=== PATIENT | female | born 1945 | race Caucasian/White ===

== ENCOUNTER → 2017-02-09 | Outpatient (CLI) | payer OTHER ==
[~2017-02-09] MED LIST: ALL300 PO; SERT50TA PO; TRAM-453 PO
[2017-02-09 16:48] LABS: BASO % 0.2 %; BASO ABS # 0.02 K/uL (0-0.2); COMPLETE YES; EOS % 2.2 %; HEMATOCRIT 43.3 % (37-47); IG% 0.4 %; LYMPH % 13.6 %; LYMPH ABS # 1.23 K/uL (1.2-3.4); MEAN CELL VOLUME 88.9 fL (80-100); MEAN CORPUSCULAR HGB CONC 32.6 g/dl (32-36); MEAN PLATELET VOLUME 9.2 fL (7.4-10.4); MONO % 5.4 %; NEUT % 78.2 %; PLATELET COUNT 171 K/uL (130-400); RED BLOOD COUNT 4.87 M/uL (4.2-5.4); WHITE BLOOD COUNT 9.06 K/uL (4.8-10.8)
[2017-02-09 16:56] LABS: ALT/SGPT 18 U/L (12-78); BLOOD UREA NITROGEN 14 mg/dl (7-18); BUN/CREATININE RATIO 16.6 (10-20); CALCIUM 9.7 mg/dl (8.5-10.1); CARBON DIOXIDE 27 mmol/L (21-32); CHLORIDE 104 mmol/L (98-107); CHOLESTEROL 277 mg/dl (0-200); CREATININE 0.85 mg/dl (0.60-1.20); GLUCOSE 117 mg/dl (70-99); POTASSIUM 4.1 mmol/L (3.5-5.1); SODIUM 139 mmol/L (136-145); TRIGLYCERIDES 199 mg/dl (0-150); VERY LOW DENSITY LIPOPROT CALC 40 mg/dl
[2017-02-09 17:07] LABS: ALB/GLOB RATIO 1.1 (0.9-2); ALKALINE PHOSPHATASE 199 U/L (45-117); AST/SGOT 13 U/L (15-37); CHOLESTEROL/HDL RATIO 7.7; HDL CHOLESTEROL 36 mg/dl; LDL CHOLESTEROL CALCULATED 201 mg/dl
== END | disposition home or self-care (01) ==
LOC: C.LABBC 13:52
PROVIDERS: ATTEND Physician Assistant Medical
DX: Z00.00 Encounter for general adult medical examination without abnormal findings (principal); E03.9 Hypothyroidism, unspecified; R42 Dizziness and giddiness; C50.919 Malignant neoplasm of unspecified site of unspecified female breast; M10.9 Gout, unspecified

== ENCOUNTER → 2017-02-11 | Outpatient (CLI) | payer OTHER ==
[~2017-02-11] MED LIST changes: +GADAVIST IV PRN
--- NOTE | 2017-02-11 20:38 | DIAGNOSTIC IMAGING REPORT ---
Brain MRI WITH AND WITHOUT CONTRAST HISTORY: R42 [id number] Breast [id number] TECHNIQUE: Multiplanar multisequence MRI of the brain was performed both before and after the intravenous administration of contrast. COMPARISON STUDY: None. FINDINGS: There is no mass, hematoma, midline shift, or acute infarct. The paranasal sinuses are clear. The mastoid air cells are clear. The ventricles and sulci demonstrate mild age-related involutional changes. Scattered foci of T2 hyperintensity seen within the periventricular and subcortical white matter are nonspecific but suggestive of mild microvascular ischemic changes. The major vascular flow voids at the skull base are well-maintained. IMPRESSION: No acute intracranial abnormality. Scattered foci of T2 hyperintensity seen within the periventricular and subcortical white matter are nonspecific but favor microvascular ischemic change. Electronically signed by: El Grubbs M.D. 02/11/2017 8:37 PM Dictated Date/Time: 02/11/2017 8:32 PM
== END | disposition home or self-care (01) ==
LOC: C.MRI 18:25
PROVIDERS: ATTEND Physician Assistant Medical
DX: C50.919 Malignant neoplasm of unspecified site of unspecified female breast (principal); R42 Dizziness and giddiness

== ENCOUNTER 2023-10-25 12:10 | Inpatient (IN) ==
--- NOTE | 2023-10-25 12:36 | Emergency Department Note ---
Impression & Plan Sepsis, Elevated troponin, Pneumonia ED Provider Note NAME: YOLANDA STOUT AGE: 78 SEX: F : 1945 ARRIVES VIA: Walk-In INFORMANT: Patient ED PROVIDER(S): Giovani Turner DO CHIEF COMPLAINT: weak HPI: Patient is a 78-year-old female with a past medical history of hyperlipidemia, diabetes, hypothyroidism who presents to the ER for not feeling well. She notes symptoms started about 2 to 3 days ago with cough, runny nose and fevers. She notes she has been having shaking chills at home. She admits to shortness of breath for the past 2 days. Chest muscle soreness throughout her entire chest which has been present for the past 2 days. Admits to diarrhea. No belly pain. No dysuria, urgency, or frequency. She was seen by her PCP and they are confirmed that she may have A-fib and she was sent in here. ADDITIONAL HISTORY OBTAINED: Per HPI Chronic Medical/Social Conditions Affecting Care: Per HPI PAST MEDICAL HISTORY:See Below PAST SURGICAL HISTORY:See Below FAMILY HISTORY:See Below SOCIAL HISTORY:See Below HOME MEDICATIONS:See Below ALLERGIES:See Below VITALS:See Below PHYSICAL EXAMINATION: GENERAL: Sitting up in bed, alert, disheveled, slightly ill-appearing EYE EXAM: normal conjunctiva. PERRL and EOM's grossly intact. OROPHARYNX: no exudate, no erythema, lips, buccal mucosa, and tongue normal and mucous membranes are moist NECK: supple, no nuchal rigidity, no adenopathy, non-tender LUNGS: Clear to auscultation. Normal chest wall mechanics HEART: Tachycardic, S1 normal and S2 normal ABDOMEN: abdomen soft, non-tender, normo-active bowel sounds, no masses, no rebound or guarding. UPPER EXTREMITIES: upper extremities are grossly normal. LOWER EXTREMITIES: No pitting edema. NEURO EXAM: Normal sensorium, cranial nerves II-XII grossly intact, normal speech, no gross weakness of arms, no gross weakness of legs. MEDICAL DECISION MAKING: Patient is a 78-year-old female who presents ER with above-stated complaint. IV was established blood work was obtained. Patient was found to be tachycardic at 106. Labs show no significant leukocytosis or anemia. BMP with slightly elevated glucose at 146. LFTs bilirubin was unremarkable. Troponin was mildly elevated at 48. Lipase was normal. TSH unremarkable. UA was clean. Viral panel was negative. Chest x-ray suggested pneumonia. Patient was given IV Levaquin due to allergies. She was given IV fluids. She is updated bedside. Discussed case with the hospitalist for further evaluation management treatment due to shaking chills and pneumonia Consults/Care Managements Discussions: Per [facility] Triage Nursing notes reviewed. Limited review of prior medical records performed Vital Signs: reviewed and remarkable for tachy and htn Differential diagnosis: Differential diagnosis includes etiologies such as sepsis, UTI, pneumonia, metabolic, electrolyte abnormalities, cardiac sources, intracerebral event, toxicologic, neurological, as well as others were entertained. ER treatment provided: See below Diagnostics interpreted by me include EKG and cardiac monitoring as listed below: -Cardiac Monitoring: An order was placed for continuous cardiac monitoring. The monitor shows a rate of 110 with sinus rhythm. -ECG: Sinus tachycardia rate of 104 Left axis Left bundle branch block QTc 529 -Laboratory studies:Interpreted by me as stated above in MDM and shown below. Imaging studies: Xrays: As interpreted by me: Portable AP upright 1 view of the chest shows questionable right upper lobe infiltrate CTs show: CT of the chest suggest bilateral infiltrate Procedures:none Critical Care: None Past Med/Surg History Problem List (Updated 10/25/23 @ 18:15 by Giovani Turner DO) Pneumonia (Acute) Elevated troponin (Acute) Sepsis (Acute) Multifocal pneumonia Elevated troponin LBBB (left bundle branch block) Chest pain HO (dyspnea on exertion) Osteoarthritis of left hip Degenerative spondylolisthesis Positive RICKY (antinuclear antibody) Osteoarthritis, hip, bilateral Right leg weakness Dysphagia Dry mouth Left hip pain BMI 38.0-38.9,adult Chronic right hip pain Osteoarthritis of right hip Elevated alkaline phosphatase level Neuropathy Diabetes mellitus, type II Elevated HbA1c 7.2% (2). Advised to initiated metformin and has focused on diet and exercise Hyperlipidemia (Acute) Hypothyroidism Gout hx gouty attack. Managed with allopurinol + colchicine BID PRN for acute attack. Incontinence in female Chronic low back pain Mood disorder Medical History (Updated 10/25/23 @ 18:15 by Giovani Turner DO) Sensorineural hearing loss (SNHL) of both ears C. difficile colitis Breast cancer Hx recurrent R breast cancer s/p R simple mastectomy and limited R axillary lymph node dissection. Being followed by [facility] and Dr. Leeming Pancreatitis Surgical History History of hysterectomy (~2012) H/O colonoscopy nml 03/2015 No additional screening History of appendectomy Hx of cholecystectomy H/O breast surgery Family History Father Gastric cancer Lung cancer Mother Laryngeal cancer Brother Rheumatic fever Colon cancer Colorectal cancer Unknown Cardiomyopathy Denies family history of Ovarian cancer Prostate cancer Diabetes Myocardial infarction Breast cancer Stroke Social History Smoking Status: Unknown if ever smoked packs per day: 2; Second Hand Exposure: No; Do You Dip or Chew Tobacco: No; Hx Alcohol Use: No Hx Substance Use: No Preferred Language: Indonesian Communication Ability: Effective Visual Impairment: Limited Hearing Ability: Normal 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 marital status: Current Living Situation: Spouse current occupational status: retired How many Children do You have: 1 Feels Safe at Home: Yes Childhood Exposure to Second-Hand Smoke: Yes caffeine: Yes Dental Care, Regularly: Yes Physical Activity Frequency: 3-4 Times per Week Seatbelt Use: always Sunscreen Use: Yes Assistive Devices: Glasses Allergies Allergies Allergy/AdvReac Type Severity Reaction Status Date / Time tetanus toxoid, adsorbed Allergy Severe ARM SWELLS Verified 10/25/23 11:03 calamine Allergy Unknown IRRITATION Verified 10/25/23 16:23 cephalexin Allergy Unknown RASH Verified 10/25/23 11:03 simvastatin Allergy Unknown Rhabdo Verified 10/25/23 11:03 tetracycline Allergy Unknown rash Verified 10/25/23 11:03 Home Meds Home Medications Medication Instructions Recorded Confirmed multivitamin (Multiple Vitamins 1 tab PO DAILY 03/10/19 10/25/23 tablet) melatonin 10 mg capsule 10 mg PO HS PRN Sleep 12/16/22 10/25/23 coenzyme Q10 100 mg capsule 100 mg PO DAILY 09/01/23 10/25/23 (CoQ-10) aspirin 81 mg tablet,delayed 81 mg PO DAILY 10/25/23 10/25/23 release Previous Rx's Medication Instructions Recorded allopurinol 100 mg tablet 150 mg (1.5 x 100 mg) PO DAILY 05/10/23 #135 tabs colchicine 0.6 mg tablet 0.6 mg PO BID PRN gout #30 tabs 05/20/23 sucralfate 1 gram tablet (Carafate) 1 g PO BID PRN heartburn #60 tabs 09/01/23 levothyroxine 100 mcg tablet 100 mcg PO DAILY #90 tabs 09/02/23 hydrocodone 5 mg-acetaminophen 325 1 tab PO DAILY PRN pain #30 tabs 09/26/23 mg tablet sertraline 50 mg tablet 50 mg PO DAILY #90 tabs 10/17/23 Results & Data (ED) Vital Signs Vital Signs - 24 hr 10/25/23 12:13 10/25/23 12:22 10/25/23 12:26 Temperature 37.2 C Temperature Source Oral Pulse Rate 116 H 116 H Pulse Rate [Apical] Pulse Rate from SpO2 Sensor Pulse Rhythm Regular Pulse Rhythm [Apical] Pulse Strength [Apical] Respiratory Rate 26 H 20 Respiratory Effort / Characteristics Non-Labored Spontaneous Respiratory Depth Normal Respiratory Pattern Blood Pressure 142/67 H Blood Pressure Mean 92 Pulse Oximetry 92 95 95 Oxygen Delivery Method Room Air Room Air Room Air Sepsis Recent Fever Within 48 Hours No Sepsis New/Unexplained Change in Mental Status No Sepsis Action Taken by Nursing No Action Required 10/25/23 12:26 10/25/23 12:32 10/25/23 12:43 Temperature Temperature Source Pulse Rate 113 H 115 H Pulse Rate [Apical] 116 H Pulse Rate from SpO2 Sensor 114 H Pulse Rhythm Pulse Rhythm [Apical] Regular Pulse Strength [Apical] Normal Respiratory Rate 20 23 Respiratory Effort / Characteristics Non-Labored Spontaneous Respiratory Depth Normal Respiratory Pattern Regular Blood Pressure Blood Pressure Mean Pulse Oximetry 95 94 Oxygen Delivery Method Room Air Sepsis Recent Fever Within 48 Hours Sepsis New/Unexplained Change in Mental Status Sepsis Action Taken by Nursing 10/25/23 13:00 10/25/23 13:10 10/25/23 13:10 Temperature Temperature Source Pulse Rate 107 H 107 H Pulse Rate [Apical] Pulse Rate from SpO2 Sensor 107 H 107 H Pulse Rhythm Pulse Rhythm [Apical] Pulse Strength [Apical] Respiratory Rate 17 21 Respiratory Effort / Characteristics Respiratory Depth Respiratory Pattern Blood Pressure 126/84 Blood Pressure Mean 99 Pulse Oximetry 96 94 Oxygen Delivery Method Sepsis Recent Fever Within 48 Hours Sepsis New/Unexplained Change in Mental Status Sepsis Action Taken by Nursing 10/25/23 13:30 10/25/23 13:30 10/25/23 14:00 Temperature Temperature Source Pulse Rate 101 H Pulse Rate [Apical] Pulse Rate from SpO2 Sensor 103 H Pulse Rhythm Pulse Rhythm [Apical] Pulse Strength [Apical] Respiratory Rate 14 Respiratory Effort / Characteristics Respiratory Depth Respiratory Pattern Blood Pressure 116/80 134/80 Blood Pressure Mean 84 98 Pulse Oximetry 88 L Oxygen Delivery Method Sepsis Recent Fever Within 48 Hours Sepsis New/Unexplained Change in Mental Status Sepsis Action Taken by Nursing 10/25/23 14:00 10/25/23 14:30 10/25/23 14:30 Temperature Temperature Source Pulse Rate 97 H 101 H Pulse Rate [Apical] Pulse Rate from SpO2 Sensor 98 H 101 H Pulse Rhythm Pulse Rhythm [Apical] Pulse Strength [Apical] Respiratory Rate 20 19 Respiratory Effort / Characteristics Respiratory Depth Respiratory Pattern Blood Pressure 122/90 Blood Pressure Mean 100 Pulse Oximetry 94 96 Oxygen Delivery Method Sepsis Recent Fever Within 48 Hours Sepsis New/Unexplained Change in Mental Status Sepsis Action Taken by Nursing 10/25/23 15:01 10/25/23 15:32 10/25/23 16:00 Temperature Temperature Source Pulse Rate 124 H 116 H 104 H Pulse Rate [Apical] Pulse Rate from SpO2 Sensor 114 H 103 H Pulse Rhythm Pulse Rhythm [Apical] Pulse Strength [Apical] Respiratory Rate 20 19 15 Respiratory Effort / Characteristics Respiratory Depth Respiratory Pattern Blood Pressure 153/103 H 149/98 H Blood Pressure Mean 132 115 Pulse Oximetry 96 97 96 Oxygen Delivery Method Sepsis Recent Fever Within 48 Hours Sepsis New/Unexplained Change in Mental Status Sepsis Action Taken by Nursing 10/25/23 16:55 10/25/23 17:00 Temperature 37.0 C Temperature Source Oral Pulse Rate 106 H Pulse Rate [Apical] Pulse Rate from SpO2 Sensor 107 H Pulse Rhythm Pulse Rhythm [Apical] Pulse Strength [Apical] Respiratory Rate 20 Respiratory Effort / Characteristics Respiratory Depth Respiratory Pattern Blood Pressure Blood Pressure Mean Pulse Oximetry 98 Oxygen Delivery Method Sepsis Recent Fever Within 48 Hours Sepsis New/Unexplained Change in Mental Status Sepsis Action Taken by Nursing Laboratory Data 10/25/23 12:35 10/25/23 12:35 Lab Results 10/25/23 10/25/23 10/25/23 Range/Units 12:35 13:02 14:25 WBC 8.68 (4.8-10.8) K/ul RBC 4.61 (4.20-5.40) M/uL Hgb 13.8 (12.0-16.0) g/dl Hct 41.7 (37.0-47.0) % MCV 90.5 (80.0-100.0) fL MCH 29.9 (25.0-34.0) pg MCHC 33.1 (32.0-36.0) g/dL RDW Std Deviation 45.7 (36.4-46.3) fL RDW Coeff of Brayden 13.7 (11.5-14.5) % Plt Count 151 (130-400) K/uL MPV 9.6 (9.4-12.4) fL Immature Gran % (Auto) 0.6 % Neut % (Auto) 81.8 % Lymph % (Auto) 8.2 % Daw[place] % (Auto) 6.3 % Eos % (Auto) 2.8 % Baso % (Auto) 0.3 % Neut # (Auto) 7.10 H (1.40-6.50) K/uL Lymph # (Auto) 0.71 L (1.20-3.40) K/uL Daw[place] # (Auto) 0.55 (0.11-0.59) K/uL Eos # (Auto) 0.24 (0.00-0.50) K/uL Baso # (Auto) 0.03 (0.00-0.20) K/uL Immature Gran # (Auto) 0.05 (0.01-0.20) K/uL Sodium 136 (136-145) mmol/L Potassium 4.1 (3.5-5.1) mmol/L Chloride 102 (98-107) mmol/L Carbon Dioxide 23 (21-32) mmol/L Anion Gap 11 (3-11) BUN 14 (6-23) mg/dl Creatinine 1.06 (0.6-1.2) mg/dl Est Cr Clr Drug Dosing 49.1 ml/min Est GFR ( Amer) 58.2 ml/min Est GFR (Non-Af Amer) 50.3 ml/min BUN/Creatinine Ratio 13.2 (10-20) Glucose 146 H (70-99(Fasting)) mg/dl POC Glucose (70-99) mg/dl Lactate 2.0 (0.4-2.0) mmol/L Calcium 9.6 (8.6-10.3) mg/dl Magnesium 1.9 (1.7-2.4) mg/dl Total Bilirubin 1.0 (0.2-1.0) mg/dl AST 19 (13-39) U/L ALT 24 (7-52) U/L Alkaline Phosphatase 188 H (34-104) U/L Troponin I High Sens 47.5 H 48.1 H (0-14) pg/ml B-Natriuretic Peptide 705 H (0-100) pg/ml Total Protein 7.2 (6.0-8.3) gm/dl Albumin 4.0 (3.4-5.0) gm/dl Globulin 3.2 (2.5-4.0) gm/dl Albumin/Globulin Ratio 1.3 (0.9-2) Lipase 19 (11-82) U/L Procalcitonin 0.14 (0-0.5) ng/ml TSH 1.285 (0.300-4.500) uIu/ml Urine Color Urine Appearance (Clear) Urine pH (4.5-7.5) Ur Specific [place] (1.000-1.030) Urine Protein (Negative) Urine Glucose (UA) (Negative) Urine Ketones (Negative) Urine Blood (Negative) Urine Nitrite (Negative) Urine Bilirubin (Negative) Urine Urobilinogen (Negative) Ur Leukocyte Esterase (Negative) Urine WBC (Auto) (0-5) /hpf Urine RBC (Auto) (0-2) /hpf U Hyaline Cast (Auto) (0-2) /lpf U Epithel Cells (Auto) (0-2) /hpf Urine Bacteria (Auto) (None Seen) Adenovirus (PCR) Not Detected (NotDetected) B. pertussis DNA (PCR) Not Detected (NotDetected) B.parapertussis DNA PCR Not Detected (NotDetected) C. pneumoniae DNA (PCR) Not Detected (NotDetected) Coronavirus OC43 (PCR) Not Detected (NotDetected) Coronavirus HKU1 (PCR) Not Detected (NotDetected) Coronavirus 229E (PCR) Not Detected (NotDetected) SARS-CoV-2 (PCR) Not Detected (NotDetected) Coronavirus NL63 (PCR) Not Detected (NotDetected) Human Metapneumovir PCR Not Detected (NotDetected) Influenza Type A (PCR) Not Detected (NotDetected) Influenza Type B (PCR) Not Detected (NotDetected) M. pneumoniae (PCR) Not Detected (NotDetected) Parainfluenza 1 (PCR) Not Detected (NotDetected) Parainfluenza 2 (PCR) Not Detected (NotDetected) Parainfluenza 3 (PCR) Not Detected (NotDetected) Parainfluenza 4 (PCR) Not Detected (NotDetected) RSV (PCR) Not Detected (NotDetected) Entero/Rhino (PCR) Not Detected (NotDetected) 10/25/23 10/25/23 Range/Units 17:42 Unknown WBC (4.8-10.8) K/ul RBC (4.20-5.40) M/uL Hgb (12.0-16.0) g/dl Hct (37.0-47.0) % MCV (80.0-100.0) fL MCH (25.0-34.0) pg MCHC (32.0-36.0) g/dL RDW Std Deviation (36.4-46.3) fL RDW Coeff of Brayden (11.5-14.5) % Plt Count (130-400) K/uL MPV (9.4-12.4) fL Immature Gran % (Auto) % Neut % (Auto) % Lymph % (Auto) % Dawes % (Auto) % Eos % (Auto) % Baso % (Auto) % Neut # (Auto) (1.40-6.50) K/uL Lymph # (Auto) (1.20-3.40) K/uL [place] # (Auto) (0.11-0.59) K/uL Eos # (Auto) (0.00-0.50) K/uL Baso # (Auto) (0.00-0.20) K/uL Immature Gran # (Auto) (0.01-0.20) K/uL Sodium (136-145) mmol/L Potassium (3.5-5.1) mmol/L Chloride (98-107) mmol/L Carbon Dioxide (21-32) mmol/L Anion Gap (3-11) BUN (6-23) mg/dl Creatinine (0.6-1.2) mg/dl Est Cr Clr Drug Dosing ml/min Est GFR ( Amer) ml/min Est GFR (Non-Af Amer) ml/min BUN/Creatinine Ratio (10-20) Glucose (70-99(Fasting)) mg/dl POC Glucose 126 H (70-99) mg/dl Lactate (0.4-2.0) mmol/L Calcium (8.6-10.3) mg/dl Magnesium (1.7-2.4) mg/dl Total Bilirubin (0.2-1.0) mg/dl AST (13-39) U/L ALT (7-52) U/L Alkaline Phosphatase (34-104) U/L Troponin I High Sens (0-14) pg/ml B-Natriuretic Peptide (0-100) pg/ml Total Protein (6.0-8.3) gm/dl Albumin (3.4-5.0) gm/dl Globulin (2.5-4.0) gm/dl Albumin/Globulin Ratio (0.9-2) Lipase (11-82) U/L Procalcitonin (0-0.5) ng/ml TSH (0.300-4.500) uIu/ml Urine Color Dark Yellow Urine Appearance Clear (Clear) Urine pH 5.5 (4.5-7.5) Ur Specific [place] 1.016 (1.000-1.030) Urine Protein Negative (Negative) Urine Glucose (UA) Negative (Negative) Urine Ketones Trace H (Negative) Urine Blood Negative (Negative) Urine Nitrite Negative (Negative) Urine Bilirubin Negative (Negative) Urine Urobilinogen Negative (Negative) Ur Leukocyte Esterase Trace H (Negative) Urine WBC (Auto) 0-5 (0-5) /hpf Urine RBC (Auto) 0-2 (0-2) /hpf U Hyaline Cast (Auto) 0-2 (0-2) /lpf U Epithel Cells (Auto) 0-2 (0-2) /hpf Urine Bacteria (Auto) None Seen (None Seen) Adenovirus (PCR) (NotDetected) B. pertussis DNA (PCR) (NotDetected) B.parapertussis DNA PCR (NotDetected) C. pneumoniae DNA (PCR) (NotDetected) Coronavirus OC43 (PCR) (NotDetected) Coronavirus HKU1 (PCR) (NotDetected) Coronavirus 229E (PCR) (NotDetected) SARS-CoV-2 (PCR) (NotDetected) Coronavirus NL63 (PCR) (NotDetected) Human Metapneumovir PCR (NotDetected) Influenza Type A (PCR) (NotDetected) Influenza Type B (PCR) (NotDetected) M. pneumoniae (PCR) (NotDetected) Parainfluenza 1 (PCR) (NotDetected) Parainfluenza 2 (PCR) (NotDetected) Parainfluenza 3 (PCR) (NotDetected) Parainfluenza 4 (PCR) (NotDetected) RSV (PCR) (NotDetected) Entero/Rhino (PCR) (NotDetected) Administered Medications Discontinued Medications Sodium Chloride (Nss) 1,000 mls @ 999 mls/hr IV .Q1H1M RALPH Stop: 10/25/23 14:45 Last Admin: 10/25/23 16:46 Dose: 999 mls/hr Documented By: Infusion: 10/25/23 15:42 Dose: Infused Documented By: Admin: 10/25/23 14:41 Dose: 999 mls/hr Documented By: ANNMARIE Levofloxacin/Dextrose (Levaquin/D5w) 750 mg in 150 mls @ 100 mls/hr IV NOW STA Stop: 10/25/23 16:16 Last Infusion: 10/25/23 16:47 Dose: Infused Documented By: Admin: 10/25/23 15:06 Dose: 100 mls/hr Documented By: ANNMARIE Imaging Data Radiologist's Impression: Chest X-Ray 10/25/23 12:22 XR chest 1V portable CLINICAL HISTORY: Chest pain, nonspecific COMPARISON STUDY: Chest radiograph May 11, 2018. FINDINGS: Lung volumes are normal. Apparent right suprahilar density is present. There is no pneumothorax or pleural effusion. Cardiac size is normal. Mediastinal contours are normal. There is no evidence for pulmonary edema. IMPRESSION: Right suprahilar density. This likely reflects summation artifact. However, a focus of pneumonia or a pulmonary lesion could appear similar. A chest CT is recommended. ACT 112: Positive. There are findings on this exam that require communication between the performing entity and the patient following Patient Test Result Information Act ([place] Act 112) guidelines. Electronically signed by: Facundo Donahue M.D. 10/25/2023 1:[address] 10/25/23 14:48 CT SCAN OF THE CHEST WITHOUT IV CONTRAST CLINICAL HISTORY: Atypical chest pain. Dyspnea COMPARISON STUDY: Chest x-ray dated 10/25/2023. TECHNIQUE: CT scan of the thorax was performed from the thoracic inlet to the upper abdomen. Images are reviewed in the axial, sagittal, and coronal planes. IV contrast was not administered for this examination as per the referring clinician. A dose lowering technique was utilized adhering to the principles of ALARA. CT DOSE: 628.51 mGy.cm FINDINGS: Thyroid: Imaged portions of the thyroid gland are normal in size and attenuation. Thoracic aorta: There is atherosclerotic calcification of the thoracic aorta, which is normal in caliber and demonstrates bovine variant arch anatomy. Heart: The heart is enlarged noting trace pericardial effusion. The coronary arteries are densely calcified. Lungs and pleural spaces: Mild patchy airspace consolidation is seen throughout both lungs, greatest in the right upper and right lower lobes. The trachea and central airways are clear. There is trace left pleural effusion. There are scattered calcified granulomas. Mediastinum: There is no mediastinal lymphadenopathy. June: Not well assessed without IV contrast. Axillae: There is no axillary lymphadenopathy. Upper abdomen: Cholecystectomy clips are noted. There is a small hiatal hernia. Skeletal structures: The skeletal structures are osteopenic. Degenerative change is noted in the shoulders and spine. No lytic or blastic bony lesions are seen. Soft tissues: There is postsurgical change from right mastectomy. IMPRESSION: 1. Multifocal patchy groundglass consolidation is seen throughout both lungs as above. This is typical for pneumonia. A follow-up chest CT in 3-4 months time is recommended to document complete resolution and to reevaluate the underlying lung parenchyma. 2. Trace left pleural effusion. 3. Cardiomegaly and advanced coronary artery atherosclerosis. 4. Additional findings as above. ACT 112: Negative or not required by law. Electronically signed by: Vaibhav Stroud M.D. 10/25/2023 4:03 PM Discharge Plan Visit Data Chief Complaint: Cardiac Assessment Stated Complaint: POSSIBLE HEART ATTACK ED Provider: Giovani Turner Discharge Problem: Sepsis, Elevated troponin, Pneumonia Forms Stand Alone Forms: My [facility] Prescriptions Prescriptions: No Action allopurinol 100 mg tablet 150 mg PO DAILY Qty: 135 3RF colchicine 0.6 mg tablet 0.6 mg PO BID PRN (Reason: gout) Qty: 30 1RF levothyroxine 100 mcg tablet 100 mcg PO DAILY Qty: 90 0RF sertraline 50 mg tablet 50 mg PO DAILY Qty: 90 3RF multivitamin [Multiple Vitamins] tablet 1 tab PO DAILY melatonin 10 mg capsule 10 mg PO HS PRN (Reason: Sleep) coenzyme Q10 [CoQ-10] 100 mg capsule 100 mg PO DAILY sucralfate [Carafate] 1 gram tablet 1 g PO BID PRN (Reason: heartburn) Qty: 60 0RF hydrocodone-acetaminophen 5-325 mg tablet 1 tab PO DAILY PRN (Reason: pain) Qty: 30 0RF aspirin [Aspirin Low-Strength] 81 mg Tablet,Delayed Release (Dr/Ec) 81 mg PO DAILY Referrals Referrals: Dean Dhillon DO [Primary Care Provider] - Discharge Problem: Sepsis Qualifiers: Sepsis type: sepsis due to unspecified organism Sepsis acute organ dysfunction status: unspecified Qualified Code(s): A41.9 - Sepsis, unspecified organism Pneumonia Qualifiers: Pneumonia type: due to unspecified organism Laterality: unspecified laterality Lung location: unspecified part of lung Qualified Code(s): J18.9 - Pneumonia, unspecified organism
[2023-10-25 13:05] LABS: Basophils # (auto) 0.03 K/uL (0.00-0.20); Basophils % (auto) 0.3 %; Eosinophils # (auto) 0.24 K/uL (0.00-0.50); Eosinophils % (auto) 2.8 %; Hematocrit (blood only) 41.7 % (37.0-47.0); Hemoglobin 13.8 g/dl (12.0-16.0); Immature Granulocytes # (auto) 0.05 K/uL (0.01-0.20); Immature Granulocytes % (auto) 0.6 %; Lymphocytes # (auto) 0.71 K/uL (1.20-3.40); Lymphocytes % (auto) 8.2 %; Mean Corpuscular Hemoglobin 29.9 pg (25.0-34.0); Mean Corpuscular Hgb Conc 33.1 g/dL (32.0-36.0); Mean Corpuscular Volume 90.5 fL (80.0-100.0); Mean Platelet Volume 9.6 fL (9.4-12.4); Monocytes # (auto) 0.55 K/uL (0.11-0.59); Monocytes % (auto) 6.3 %; Neutrophils % (auto) 81.8 %; Platelet Count 151 K/uL (130-400); RDW Coefficient of Variation 13.7 % (11.5-14.5); RDW Standard Deviation 45.7 fL (36.4-46.3); Red Blood Count 4.61 M/uL (4.20-5.40); White Blood Count 8.68 K/ul (4.8-10.8)
[2023-10-25 13:20] LABS: Albumin Globulin Ratio 1.3 (0.9-2); BUN Creatinine Ratio 13.2 (10-20); Calcium 9.6 mg/dl (8.6-10.3); Creatinine Clr Calc Pharmacy 49.1 ml/min; Est GFR (African American) 58.2 ml/min; Est GFR (Non-African American) 50.3 ml/min; Globulin 3.2 gm/dl (2.5-4.0); Potassium 4.1 mmol/L (3.5-5.1); Total Protein 7.2 gm/dl (6.0-8.3)
[2023-10-25 13:26] LABS: Troponin I High Sensitivity 47.5 pg/ml (0-14)
--- NOTE | 2023-10-25 13:42 | XRay Report ---
XR chest 1V portable CLINICAL HISTORY: Chest pain, nonspecific COMPARISON STUDY: Chest radiograph May 11, 2018. FINDINGS: Lung volumes are normal. Apparent right suprahilar density is present. There is no pneumoth orax or pleural effusion. Cardiac size is normal. Mediastinal contours are normal. There is no eviden ce for pulmonary edema. IMPRESSION: Right suprahilar density. This likely reflects summation artifact. However, a focus of pneumonia or a pulmonary lesion could appear similar. A chest CT is recommended. ACT 112: Positive. There are findings on this exam that require communication between the performing entity and the patient following Patient Test Result Information Act ([place] Act 112) guidelines. Electronically signed by: Facundo Donahue M.D. 10/25/2023 1:41 PM
[2023-10-25] MEDS: SODIUM CHLORIDE 0.9% 1,000 ML IV SCH (14:41)
[2023-10-25] MEDS: levoFLOXacin/D5W 750 MG/150 ML BAG IV STA (15:06)
[2023-10-25 15:40] LABS: Appearance Urine Clear (Clear); Bacteria Urine Automated None Seen (None Seen); Bilirubin Urine Negative (Negative); Blood Urine Negative (Negative); Cast Urine Automated 0-2 /lpf (0-2); Color Urine Dark Yellow; Epithelial Cell Urine Auto 0-2 /hpf (0-2); Glucose Urine UA Negative (Negative); Ketones Urine Trace (Negative); Leukocyte Esterase Urine Trace (Negative); Nitrite Urine Negative (Negative); Protein Urine Negative (Negative); RBC Urine Automated 0-2 /hpf (0-2); Specific Gravity Urine 1.016 (1.000-1.030); Urobilinogen Urine Negative (Negative); WBC Urine Automated 0-5 /hpf (0-5); pH Urine 5.5 (4.5-7.5)
[2023-10-25 15:47] LABS: Troponin I High Sensitivity 48.1 pg/ml (0-14)
[2023-10-25 15:53] LABS: Adenovirus PCR Not Detected (NotDetected); Bordetella parapertussis PCR Not Detected (NotDetected); Bordetella pertussis PCR Not Detected (NotDetected); Chlamydia pneumoniae PCR Not Detected (NotDetected); Coronavirus 229E PCR Not Detected (NotDetected); Coronavirus CoV-2 (COVID19)PCR Not Detected (NotDetected); Coronavirus HKU1 PCR Not Detected (NotDetected); Coronavirus NL63 PCR Not Detected (NotDetected); Coronavirus OC43PCR Not Detected (NotDetected); Human Metapneumovirus PCR Not Detected (NotDetected); Influenza A PCR Not Detected (NotDetected); Influenza B PCR Not Detected (NotDetected); Mycoplasma pneumoniae PCR Not Detected (NotDetected); Parainfluenza Virus 1 PCR Not Detected (NotDetected); Parainfluenza Virus 2 PCR Not Detected (NotDetected); Parainfluenza Virus 3 PCR Not Detected (NotDetected); Parainfluenza Virus 4 PCR Not Detected (NotDetected); Respiratory Syncytial VirusPCR Not Detected (NotDetected); Rhinovirus/Enterovirus PCR Not Detected (NotDetected)
--- NOTE | 2023-10-25 16:04 | CT Scan Report ---
CT SCAN OF THE CHEST WITHOUT IV CONTRAST CLINICAL HISTORY: Atypical chest pain. Dyspnea COMPARISON STUDY: Chest x-ray dated 10/25/2023. TECHNIQUE: CT scan of the thorax was performed from the thoracic inlet to the upper abdomen. Images are reviewed in the axial, sagittal, and coronal planes. IV contrast was not administered for this ex amination as per the referring clinician. A dose lowering technique was utilized adhering to the [facility]. CT DOSE: 628.51 mGy.cm FINDINGS: Thyroid: Imaged portions of the thyroid gland are normal in size and attenuation. Thoracic aorta: There is atherosclerotic calcification of the thoracic aorta, which is normal in ricki daniella and demonstrates bovine variant arch anatomy. Heart: The heart is enlarged noting trace pericardial effusion. The coronary arteries are densely margarito cified. Lungs and pleural spaces: Mild patchy airspace consolidation is seen throughout both lungs, greatest in the right upper and right lower lobes. The trachea and central airways are clear. There is trace l eft pleural effusion. There are scattered calcified granulomas. Mediastinum: There is no mediastinal lymphadenopathy. June: Not well assessed without IV contrast. Axillae: There is no axillary lymphadenopathy. Upper abdomen: Cholecystectomy clips are noted. There is a small hiatal hernia. Skeletal structures: The skeletal structures are osteopenic. Degenerative change is noted in the shou lders and spine. No lytic or blastic bony lesions are seen. Soft tissues: There is postsurgical change from right mastectomy. IMPRESSION: 1. Multifocal patchy groundglass consolidation is seen throughout both lungs as above. This is typica l for pneumonia. A follow-up chest CT in 3-4 months time is recommended to document complete resoluti on and to reevaluate the underlying lung parenchyma. 2. Trace left pleural effusion. 3. Cardiomegaly and advanced coronary artery atherosclerosis. 4. Additional findings as above. ACT 112: Negative or not required by law. Electronically signed by: Vaibhav Stroud M.D. 10/25/2023 4:03 PM
--- NOTE | 2023-10-25 16:19 | History & Physical Report ---
Date of Service October 25, 2023 Assessment & Plan (1) Multifocal pneumonia: Plan: -Admit to the PCU on tele and pulse oximetry -Currently stable and non-toxic appearing -Presented to the ED with progressive SOB/HO, cough, fever -CT of the chest wo con was read as BL multifocal pneumonia -WBC and procal are WNL, currently stable on RA -S/P one dose of Levaquin in the ED as she has a previous allergy to rash -Will add on MRSA nasal swab, UA with legionella screen, sputum culture -Incentive spirometry, flutter therapy, BID Guaifenesin, prn O2 to keep SpO2 at or above 92% -SQ lovenox for DVT PPX -HH/DMII diet -AM CBC, CMP, mag, PT/INR (2) HO (dyspnea on exertion): Plan: -Patient notes significant HO over the past week -Also with associated chest pain with deep inspiration -While her symptoms could be attributed to her multifocal pneumonia, she also has an elevated troponin level and LBBB on ECG today -We do not have access to previous ECG's or TTE's for this patient, unsure if this LBBB is new at this time -Cannot rule out PE or ACS at this time -Initial high sen trop elevated at 47 -->48 on 2 hour repeat -Will obtain stat CTA of the chest with PE protocol -Will give 324 mg PO Aspirin now -Will touch base with Cardiology to weigh in -Continue to monitor on tele and will trend q6h high sen trop overnight -Will obtain TTE tomorrow -Rest of care per multifocal pneumonia (3) Chest pain: Plan: -See HO and Multifocal pneumonia (4) Elevated troponin: Plan: -See HO (5) LBBB (left bundle branch block): Plan: -See HO (6) Diabetes mellitus, type II: Plan: -Was taken off metformin approximately 2 months ago due to ongoing diarrhea -Monitor BSG ACHS, goal is 110-160 -Start CF of 50 and CR of 15 ACHS for now -HH/DMII diet -Adjust regimen as needed Plan The patient was discussed with Dr. Wagoner at the time of the admission History of Present Illness Chief Complaint: Fever, SOB, abnormal outpatient ECG Primary Care Provider: DO Km Veronica is a 78 year old female with a PMH significant for DMII, hyperlipidemia, hypothyroidism, and gout who presented to the [facility] ED on 10/25/23 from her PCP's office due to ongoing fevers, SOB, and concerns for new onset afib/aflutter on PCP office ECG. She was initially noted to be tachycardic with HR in the 120's and hypoxic with SpO2 in the 80's on RA but otherwise stable. Labs were significant for a WBC WNL, initial high sen trop of 47 -->48 on 2 hour repeat, UA with trace ketones and leukocyte esterase, and full respiratory b iofire negative. Chest xray was read as "Right suprahilar density. This likely reflects summation artifact. However, a focus of pneumonia or a pulmonary lesion could appear similar. A chest CT is recommended.". At the time of the exam the patient was sitting in bed in no acute distress. States she initially started to have congestion, non-productive cough, SOB approximately 2 months ago. Was seen by her PCP and given a prednisone taper which initially improved her symptoms. Over the past week she has been experiencing increased SOB/HO, chest tightness, cough, and generalized weakness. Last night she became significantly SOB and fatigued while walking up their home steps, she laid on their bed after and broke out into a sweat. She went to her PCP's office earlier today for symptoms and was sent to the ED for further evaluation. She is still have some tightness in the substernal region with inspiration and also is experiencing BL chest pain with inspiration. She states it feels like she can't take a deep breath. Has had at least 2-3 episodes of non-bloody diarrhea over the past 48 hours, denies recent abx, stool softener, or laxative use. She states that while walking to the bathroom in her ED room she was significantly SOB and had to have assistance from her nurse, her nurse confirms this when asked. Denies previous hx of blood clots, recent travel, unilateral LE swelling, or recent trauma to the LE's. She is a full code and her is her POA. Please refer to Dr. Wagoner's attestation for any changes to the treatment plan Allergies Allergy/AdvReac Type Severity Reaction Status Date / Time tetanus toxoid, adsorbed Allergy Severe ARM SWELLS Verified 10/25/23 11:03 calamine Allergy Unknown IRRITATION Verified 10/25/23 16:23 cephalexin Allergy Unknown RASH Verified 10/25/23 11:03 simvastatin Allergy Unknown Rhabdo Verified 10/25/23 11:03 tetracycline Allergy Unknown rash Verified 10/25/23 11:03 Home Medications Medication Instructions Recorded Confirmed Type multivitamin (Multiple Vitamins 1 tab PO DAILY 03/10/19 10/25/23 History tablet) melatonin 10 mg capsule 10 mg PO HS PRN Sleep 12/16/22 10/25/23 History allopurinol 100 mg tablet 150 mg (1.5 x 100 mg) PO DAILY 05/10/23 10/25/23 Rx #135 tabs colchicine 0.6 mg tablet 0.6 mg PO BID PRN gout #30 tabs 05/20/23 10/25/23 Rx coenzyme Q10 100 mg capsule 100 mg PO DAILY 09/01/23 10/25/23 History (CoQ-10) sucralfate 1 gram tablet (Carafate) 1 g PO BID PRN heartburn #60 tabs 09/01/23 10/25/23 Rx levothyroxine 100 mcg tablet 100 mcg PO DAILY #90 tabs 09/02/23 10/25/23 Rx hydrocodone 5 mg-acetaminophen 325 1 tab PO DAILY PRN pain #30 tabs 09/26/23 10/25/23 Rx mg tablet sertraline 50 mg tablet 50 mg PO DAILY #90 tabs 10/17/23 10/25/23 Rx aspirin 81 mg tablet,delayed 81 mg PO DAILY 10/25/23 10/25/23 History release Past Med/Surg History Problem List (Updated 10/25/23 @ 17:12 by Ben Chowdary PA-C) Multifocal pneumonia Elevated troponin LBBB (left bundle branch block) Chest pain HO (dyspnea on exertion) Osteoarthritis of left hip Degenerative spondylolisthesis Positive RICKY (antinuclear antibody) Osteoarthritis, hip, bilateral Right leg weakness Dysphagia Dry mouth Left hip pain BMI 38.0-38.9,adult Chronic right hip pain Osteoarthritis of right hip Elevated alkaline phosphatase level Neuropathy Diabetes mellitus, type II Elevated HbA1c 7.2% (08/01). Advised to initiated metformin and has focused on diet and exercise Hyperlipidemia (Acute) Hypothyroidism Gout hx gouty attack. Managed with allopurinol + colchicine BID PRN for acute attack. Incontinence in female Chronic low back pain Mood disorder Medical History (Updated 10/25/23 @ 17:12 by Ben Chowdary PA-C) Sensorineural hearing loss (SNHL) of both ears C. difficile colitis Breast cancer Hx recurrent R breast cancer s/p R simple mastectomy and limited R axillary lymph node dissection. Being followed by [facility] and Dr. Stone Pancreatitis Surgical History History of hysterectomy (~2012) H/O colonoscopy nml 03/2015 No additional screening History of appendectomy Hx of cholecystectomy H/O breast surgery Family History Father Gastric cancer Lung cancer Mother Laryngeal cancer Brother Rheumatic fever Colon cancer Colorectal cancer Unknown Cardiomyopathy Denies family history of Ovarian cancer Prostate cancer Diabetes Myocardial infarction Breast cancer Stroke Social History Smoking Status: Unknown if ever smoked packs per day: 2; Second Hand Exposure: No; Do You Dip or Chew Tobacco: No; Hx Alcohol Use: No Hx Substance Use: No Preferred Language: Tajik Communication Ability: Effective Visual Impairment: Limited Hearing Ability: Normal Ticket Clerk Required: No marital status: Current Living Situation: Spouse current occupational status: retired How many Children do You have: 1 Feels Safe at Home: Yes Childhood Exposure to Second-Hand Smoke: Yes caffeine: Yes Dental Care, Regularly: Yes Physical Activity Frequency: 3-4 Times per Week Seatbelt Use: always Sunscreen Use: Yes Assistive Devices: Glasses Physical Exam Physical Exam: Physical Exam: General: In no acute distress, stated age, ill appearing but non-toxic HEENT: Normocephalic, atraumatic, no scleral icterus, pupils around round, symmetrical, and reactive to light, moist mucus membranes, no JVD, trachea midline, no thyromegaly Chest/Pulm: No respiratory distress, symmetrical chest expansion, scattered rhonchi and expiratory wheezing throughout Cardiac: RRR, no murmurs noted Abdomen: Negative for ascites and bruising, normoactive bowel sounds, soft, non-tender to palpation throughout Musculoskeletal: Symmetrical and without signs of acute trauma, upper and lower extremities with full ROM, no atrophy, spasticity, or flaccidity Extremities: Radial, dorsalis pedis, and posterior tibial pulses are intact and symmetrical, no edema noted in the BL LE's Skin: Warm, dry, no rashes , lesions, or scars noted Neuro: Alert and oriented to person, place, month, year, and president, no focal defects, CN II-XII tested and intact, finger to nose test negative, no tremors noted Psych: No acute distress, calm and cooperative during the exam Results & Data Results & Data Vital Signs (Past 12 Hours) Vital Signs Temp Pulse Pulse Resp BP Pulse Ox O2 Del Method 10/25/23 15:01 124 H 20 96 10/25/23 14:30 101 H 19 96 10/25/23 14:30 122/90 10/25/23 14:00 97 H 20 94 10/25/23 14:00 134/80 10/25/23 13:30 101 H 14 88 L 10/25/23 13:30 116/80 10/25/23 13:10 107 H 21 94 10/25/23 13:10 126/84 10/25/23 13:00 107 H 17 96 10/25/23 12:43 115 H 10/25/23 12:32 113 H 23 94 10/25/23 12:26 116 H 20 95 Room Air 10/25/23 12:26 95 Room Air 10/25/23 12:22 116 H 20 95 Room Air 10/25/23 12:13 37.2 C 116 H 26 H 142/67 H 92 Room Air Laboratory Results Abnormal lab results 10/25/23 10/25/23 10/25/23 Range/Units 12:35 14:25 Unknown Neut # (Auto) 7.10 H (1.40-6.50) K/uL Lymph # (Auto) 0.71 L (1.20-3.40) K/uL Glucose 146 H (70-99(Fasting)) mg/dl Alkaline Phosphatase 188 H (34-104) U/L Troponin I High Sens 47.5 H 48.1 H (0-14) pg/ml Urine Ketones Trace H (Negative) Ur Leukocyte Esterase Trace H (Negative) Diagnostic Findings Chest X-Ray 10/25/23 12:22 XR chest 1V portable CLINICAL HISTORY: Chest pain, nonspecific COMPARISON STUDY: Chest radiograph May 11, 2018. FINDINGS: Lung volumes are normal. Apparent right suprahilar density is present. There is no pneumothorax or pleural effusion. Cardiac size is normal. Mediastinal contours are normal. There is no evidence for pulmonary edema. IMPRESSION: Right suprahilar density. This likely reflects summation artifact. However, a focus of pneumonia or a pulmonary lesion could appear similar. A chest CT is recommended. ACT 112: Positive. There are findings on this exam that require communication between the performing entity and the patient following Patient Test Result Information Act ([place] Act 112) guidelines. Electronically signed by: Facundo Donahue M.D. 10/25/2023 1:[address] 10/25/23 14:48 CT SCAN OF THE CHEST WITHOUT IV CONTRAST CLINICAL HISTORY: Atypical chest pain. Dyspnea COMPARISON STUDY: Chest x-ray dated 10/25/2023. TECHNIQUE: CT scan of the thorax was performed from the thoracic inlet to the upper abdomen. Images are reviewed in the axial, sagittal, and coronal planes. IV contrast was not administered for this examination as per the referring clinician. A dose lowering technique was utilized adhering to the principles of ALARA. CT DOSE: 628.51 mGy.cm FINDINGS: Thyroid: Imaged portions of the thyroid gland are normal in size and attenuation. Thoracic aorta: There is atherosclerotic calcification of the thoracic aorta, which is normal in caliber and demonstrates bovine variant arch anatomy. Heart: The heart is enlarged noting trace pericardial effusion. The coronary arteries are densely calcified. Lungs and pleural spaces: Mild patchy airspace consolidation is seen throughout both lungs, greatest in the right upper and right lower lobes. The trachea and central airways are clear. There is trace left pleural effusion. There are scattered calcified granulomas. Mediastinum: There is no mediastinal lymphadenopathy. June: Not well assessed without IV contrast. Axillae: There is no axillary lymphadenopathy. Upper abdomen: Cholecystectomy clips are noted. There is a small hiatal hernia. Skeletal structures: The skeletal structures are osteopenic. Degenerative change is noted in the shoulders and spine. No lytic or blastic bony lesions are seen. Soft tissues: There is postsurgical change from right mastectomy. IMPRESSION: 1. Multifocal patchy groundglass consolidation is seen throughout both lungs as above. This is typical for pneumonia. A follow-up chest CT in 3-4 months time is recommended to document complete resolution and to reevaluate the underlying lung parenchyma. 2. Trace left pleural effusion. 3. Cardiomegaly and advanced coronary artery atherosclerosis. 4. Additional findings as above. ACT 112: Negative or not required by law. Electronically signed by: Vaibhav Stroud M.D. 10/25/2023 4:03 PM ECG Additional Comments: Sinus tachycardia Left bundle branch block Abnormal ECG When compared with ECG of 25-OCT-2023 12:22, (unconfirmed) No significant change was found Code Status & VTE Plan Code Status full code VTE Prophylaxis Plan VTE Prophylaxis will be ordered: Yes Supervising Physician Co-Signing Physician Notes Patient seen and examined, chart reviewed, case discussed with Ben Chowdary PA-C and I agree with the assessment and plan as above except as otherwise noted Labs and images reviewed 70-year-old female who presents to the ER with fevers, shortness of breath, and concern from her PCP for A-fib/flutter. Has had congestion and nonproductive cough. CT consistent with bilateral multifocal pneumonia. Agree with Levaquin for coverage of multifocal pneumonia. Patient has had chest pain with deep inspiration, and history elevated troponin/left bundle branch block. CTA pending R/o PE. No chest pain at time bedside assessment. Patient does report that she has had pain with deep breathing recently and chest tightness which has now resolved following fluids and antibiotics. Lungs are with scattered wheezes and slightly coarse. She is tachycardic at the bedside. agree with above. PG Care Time/CCT Total # of Minutes Spent Total Time Spent with Patient: Total time spent is greater than 50% in coordination of care (as documented) at patient's floor/unit and/or counseling patient: Coding [place] [address] INT INP/OBS CARE 3/75MIN Patient Type Established Medical Decision Making High Complexity Diagnoses Multifocal pneumonia J18.9 HO (dyspnea on exertion) R06.09 Chest pain R07.9 Elevated troponin R79.89 LBBB (left bundle branch block) I44.7 Diabetes mellitus, type II E11.9
[2023-10-25] MEDS ORDERED: CARBOHYDRATES FOR HYPOGLYCEMIA PO PRN (16:20)
[2023-10-25] MEDS ORDERED: DEXTROSE 50% 50 ML SYRINGE IV PRN (16:20)
[2023-10-25] MEDS ORDERED: GLUCOSE 40% GEL 15 GM TUBE PO PRN (16:20)
[2023-10-25] MEDS ORDERED: GLUCAGON FOR INJ 1 MG VIAL SQ PRN (16:20)
[2023-10-25] MEDS ORDERED: GLUCOSE 10 TAB/TUBE PO PRN (16:20)
[2023-10-25 16:54] LABS: Magnesium 1.9 mg/dl (1.7-2.4)
[2023-10-25 16:55] LABS: Thyroid Stimulating Hormone 1.285 uIu/ml (0.300-4.500)
[2023-10-25] MEDS: ASPIRIN CHEW 324 MG PO STA (17:36)
[2023-10-25] MEDS: OPTIRAY 320 125ml IV ONE (18:50)
[2023-10-25] MEDS: INSULIN ASPART PER UNIT CHARGE SC STA (19:05)
--- NOTE | 2023-10-25 19:19 | CT Scan Report ---
CT ANGIOGRAPHY OF THE CHEST, PULMONARY EMBOLUS PROTOCOL CLINICAL HISTORY: Shortness of breath. COMPARISON STUDY: Chest CT performed earlier today. Chest radiographs performed earlier today and No vember 2023. TECHNIQUE: Following IV administration of 118 mL of Optiray, helical axial images of the chest were o btained utilizing the pulmonary embolus protocol. Maximal intensity projections and sagittal and cor onal reformats were viewed on an independent 3D workstation. IV contrast was administered without co mplication. Automated exposure control was utilized for the study. A dose lowering technique was ut ilized adhering to the principles of ALARA. CT DOSE: 889.06 mGy.cm FINDINGS: No pulmonary emboli are identified however this exam is moderately compromised by respirat ory motion artifact. There is no thoracic aortic dissection. Moderate cardiomegaly and advanced coron lindsay artery calcification is present. Moderate plaque within the thoracic aorta. There is no pericardi al effusion. Prominent mediastinal lymph nodes are noted. Index subcarinal lymph node measures 1.8 x 1 cm. There is a trace left pleural effusion. There is no pneumothorax. Lungs are suboptimally assess ed due to respiratory motion. Moderate multifocal groundglass opacities are most pronounced within th e right upper lobe and superior segment of the right lower lobe. No cavitation is identified. There a re expected findings following right mastectomy. Visualized portions of the upper abdomen are unremar kable. IMPRESSION: 1. No pulmonary emboli identified although exam moderately compromised by respiratory motion artifact . 2. Multifocal groundglass opacities suggestive of pneumonia. 3. Mildly enlarged mediastinal lymph nodes which are likely reactive. These can be assessed on a foll ow-up CT in 3-4 months to ensure resolution. 4. Trace left pleural effusion. ACT 112: Negative or not required by law. Electronically signed by: Facundo Donahue M.D. 10/25/2023 7:17 PM
[2023-10-25] MEDS: MAGNESIUM SULFATE / D5W 1 GM/100 ML BAG IV STA (19:44)
[2023-10-25] MEDS: ENOXAPARIN INJ 40 MG/0.4 ML SYR SQ SCH (21:17)
[2023-10-25] MEDS: guaiFENesin 600 MG TABCR PO SCH (21:18)
[2023-10-25] MEDS: MELATONIN 3 MG TAB PO PRN (21:18)
[2023-10-25] MEDS: INSULIN ASPART PER UNIT CHARGE SC SCH (21:19)
[2023-10-26 04:02] LABS: Basophils # (auto) 0.03 K/uL (0.00-0.20); Basophils % (auto) 0.4 %; Eosinophils # (auto) 0.41 K/uL (0.00-0.50); Eosinophils % (auto) 6.1 %; Hemoglobin 11.7 g/dl (12.0-16.0); Immature Granulocytes # (auto) 0.04 K/uL (0.01-0.20); Immature Granulocytes % (auto) 0.6 %; Lymphocytes % (auto) 13.5 %; Mean Corpuscular Hemoglobin 30.5 pg (25.0-34.0); Mean Corpuscular Hgb Conc 33.4 g/dL (32.0-36.0); Mean Corpuscular Volume 91.1 fL (80.0-100.0); Mean Platelet Volume 9.7 fL (9.4-12.4); Monocytes # (auto) 0.55 K/uL (0.11-0.59); Monocytes % (auto) 8.2 %; Neutrophils # (auto) 4.75 K/uL (1.40-6.50); Neutrophils % (auto) 71.2 %; Platelet Count 138 K/uL (130-400); RDW Coefficient of Variation 13.9 % (11.5-14.5); RDW Standard Deviation 46.5 fL (36.4-46.3); Red Blood Count 3.84 M/uL (4.20-5.40); White Blood Count 6.68 K/ul (4.8-10.8)
[2023-10-26 04:15] LABS: Albumin Globulin Ratio 1.3 (0.9-2); Albumin Level 3.4 gm/dl (3.4-5.0); BUN Creatinine Ratio 13.1 (10-20); Bilirubin,Total 0.8 mg/dl (0.2-1.0); Calcium 8.7 mg/dl (8.6-10.3); Creatinine Clr Calc Pharmacy 52.4 ml/min; Est GFR (African American) 63.3 ml/min; Est GFR (Non-African American) 54.6 ml/min; Globulin 2.7 gm/dl (2.5-4.0); Potassium 3.7 mmol/L (3.5-5.1); Total Protein 6.1 gm/dl (6.0-8.3)
[2023-10-26 04:20] LABS: Troponin I High Sensitivity 46.2 pg/ml (0-14)
[2023-10-26] MEDS: LEVOTHYROXINE SODIUM 100 MCG TABLET PO SCH (06:10)
[2023-10-26] MEDS: SERTRALINE HCL 50 MG TABLET PO SCH (08:17)
[2023-10-26] MEDS: allopurinoL 100 MG TAB PO SCH (08:18)
[2023-10-26] MEDS: SUCRALFATE 1 GM TAB PO PRN (08:18)
--- NOTE | 2023-10-26 09:11 | Hospitalist Progress Note ---
Date of Service October 26, 2023 Assessment & Plan (1) Multifocal pneumonia: Plan: -Admit to the PCU on tele and pulse oximetry -Currently stable and non-toxic appearing -Presented to the ED with progressive SOB/HO, cough, fever -CT of the chest wo con was read as BL multifocal pneumonia -WBC and procal are WNL, currently stable on RA -S/P one dose of Levaquin in the ED as she has a previous allergy to rash -Will add on MRSA nasal swab, UA with legionella screen, sputum culture -Incentive spirometry, flutter therapy, BID Guaifenesin, prn O2 to keep SpO2 at or above 92% -SQ lovenox for DVT PPX -HH/DMII diet -AM CBC, CMP, mag, PT/INR will continue above treatment. unsure if HO is from pneumonia or CHF related. (2) HO (dyspnea on exertion): Plan: -Patient notes significant HO over the past week -Also with associated chest pain with deep inspiration -While her symptoms could be attributed to her multifocal pneumonia, she also has an elevated troponin level and LBBB on ECG today -We do not have access to previous ECG's or TTE's for this patient, unsure if this LBBB is new at this time -Cannot rule out PE or ACS at this time -Initial high sen trop elevated at 47 -->48 on 2 hour repeat -Will obtain stat CTA of the chest with PE protocol -Will give 324 mg PO Aspirin now -Will touch base with Cardiology to weigh in -Continue to monitor on tele and will trend q6h high sen trop overnight -Will obtain TTE tomorrow -Rest of care per multifocal pneumonia Will consiult cardiology given new LBBB, chest pain, CT chest findings. (3) Chest pain: Plan: -See HO and Multifocal pneumonia (4) Elevated troponin: Plan: -See HO (5) LBBB (left bundle branch block): Plan: -See HO (6) Diabetes mellitus, type II: Plan: -Was taken off metformin approximately 2 months ago due to ongoing diarrhea -Monitor BSG ACHS, goal is 110-160 -Start CF of 50 and CR of 15 ACHS for now -HH/DMII diet -Adjust regimen as needed Plan The patient was discussed with Dr. Wagoner at the time of the admission Admission and Anticipated Discharge Date Admission Date: October 25, 2023 Subjective Patient reports feeling much better today. She has no new complaints. She still reports some SOB when she ambulated, but no longer SOB at rest. Review of Systems Review of Systems: All systems reviewed & are unremarkable except as noted in HPI & below Physical Exam Physical Exam: General: In no acute distress, stated age, ill appearing but non-toxic HEENT: Normocephalic, atraumatic, no scleral icterus, pupils around round, symmetrical, and reactive to light, moist mucus membranes, no JVD, trachea midline, no thyromegaly Chest/Pulm: No respiratory distress, symmetrical chest expansion, scattered rhonchi and expiratory wheezing throughout Cardiac: RRR, no murmurs noted Abdomen: Negative for ascites and bruising, normoactive bowel sounds, soft, non-tender to palpation throughout Musculoskeletal: Symmetrical and without signs of acute trauma, upper and lower extremities with full ROM, no atrophy, spasticity, or flaccidity Extremities: Radial, dorsalis pedis, and posterior tibial pulses are intact and symmetrical, no edema noted in the BL LE's Skin: Warm, dry, no rashes , lesions, or scars noted Neuro: Alert and oriented to person, place, month, year, and president, no focal defects, CN II-XII tested and intact, finger to nose test negative, no tremors noted Psych: No acute distress, calm and cooperative during the exam Results & Data Results & Data Vital Signs (Past 12 Hours) Vital Signs Temp Pulse Pulse Resp BP Pulse Ox O2 Del Method 10/26/23 07:54 Room Air 10/26/23 07:17 36.6 C 106 H 20 100/52 L 95 Room Air 10/26/23 06:21 100/63 10/26/23 02:54 36.6 C 75 18 95/61 L 96 Room Air 10/25/23 22:57 36.5 C 95 H 19 120/77 92 Room Air 10/25/23 22:39 95 H PG Care Time/CCT Total # of Minutes Spent Total Time Spent with Patient: Total time spent is greater than 50% in coordination of care (as documented) at patient's floor/unit and/or counseling patient: Coding Level of Care Code 06402 SUB INP/OBS CARE 3/50MIN Diagnoses Multifocal pneumonia J18.9 HO (dyspnea on exertion) R06.09 Chest pain R07.9 Elevated troponin R79.89 LBBB (left bundle branch block) I44.7 Diabetes mellitus, type II E11.9 Time Spent (min) 50
[2023-10-26 09:37] LABS: C Reactive Protein 24.81 mg/dl (0-0.5)
[2023-10-26] MEDS: ACETAMINOPHEN 325 MG TAB PO PRN (10:51)
--- NOTE | 2023-10-26 11:28 | XRay Report ---
TWO VIEW CHEST CLINICAL HISTORY: Dyspnea. FINDINGS: PA and lateral chest radiographs are compared to chest x-ray and chest CT dated 10/25/2023. The heart is enlarged noting atherosclerotic calcification of the thoracic aorta. The pulmonary vascu lature is noncongested. Subtle findings of multifocal groundglass consolidation was better assessed o n yesterday's CT scan. This is greatest in the right upper lobe. There is no pneumothorax. The skelet al structures are osteopenic. The bony thorax appears intact. Cholecystectomy clips are noted in the right upper quadrant. Arthritic change is seen in the shoulders. IMPRESSION: 1. Subtle findings of multifocal groundglass consolidation were better assessed on yesterday's chest CT scans. This is greatest in the right upper lobe. 2. Cardiomegaly without radiographic evidence of congestive failure. ACT 112: Negative or not required by law. Electronically signed by: Vaibhav Stroud M.D. 10/26/2023 11:27 AM
--- NOTE | 2023-10-26 11:51 | Electrocardiogram Report ---
Test Reason : Blood Pressure : / mmHG Vent. Rate : 104 BPM Atrial Rate : 104 BPM P-R Int : 142 ms QRS Dur : 128 ms QT Int : 402 ms P-R-T Axes : 055 -17 -36 degrees QTc Int : 528 ms Sinus tachycardia Left bundle branch block Abnormal ECG When compared with ECG of 25-OCT-2023 12:22, (unconfirmed) No significant change was found Confirmed by Popeye Yin ([id number]) on 10/26/2023 11:51:04 AM Referred By: REFERRED SELF Confirmed By:Henrry Yin
--- NOTE | 2023-10-26 11:59 | Electrocardiogram Report ---
Test Reason : Blood Pressure : / mmHG Vent. Rate : 114 BPM Atrial Rate : 114 BPM P-R Int : 154 ms QRS Dur : 122 ms QT Int : 370 ms P-R-T Axes : 065 -29 029 degrees QTc Int : 509 ms Sinus tachycardia Left bundle branch block Abnormal ECG No previous ECGs available Confirmed by Popeye Yin ([id number]) on 10/26/2023 11:59:09 AM Referred By: REFERRED SELF Confirmed By:Henrry Yin
--- NOTE | 2023-10-26 13:35 | Cardiology Consultation ---
Date of Consultation October 26, 2023 Assessment & Plan (1) HO (dyspnea on exertion): (2) Chest pain: (3) LBBB (left bundle branch block): (4) Elevated troponin: Plan 1. Dyspnea on exertion: Likely multifactorial. While she does have significant diastolic dysfunction and an elevated BNP, the aggressive volume administration yesterday did not result in worsening symptoms or evidence of pulmonary edema on her chest x-ray. This would speak against pulmonary vascular congestion as the etiology of her symptoms. 2. Diastolic heart failure: Unclear etiology. Possibly somewhat Pickwickian. Probably worsened by the resting tachycardia. The best treatment would be initiation of an SG LT 2 inhibitor and this may also address her history of diabetes. 3. Left bundle-branch block: unknown duration. Also unclear etiology. Certainly more common in the setting of coronary disease. Will arrange for an outpatient Lexiscan once she has resolved her pulmonary process. No current symptoms suggestive of coronary insufficiency or ischemia. 4. Chest pain: Her chest pain appeared to be pleuritic and musculoskeletal. It was longstanding in nature. Biomarkers while elevated are quite stable. More likely related to an inflammatory process or the pneumonia than a recent acute coronary syndrome. Will pursue an ischemic evaluation in the outpatient setting as noted above. History of Present Illness Reason for Consultation: Shortness of breath Requesting Physician: Michelle Attending Physician: Matty Martinez History of Present Illness The patient is a 78-year-old woman without a known history of cardiac disease presents to emergency room for worsening shortness of breath. The patient has been struggling with some symptoms of dyspnea for over a month. This has been associated with a nonproductive cough as well as subjective fevers and chills. She has had a variety of other upper respiratory symptoms including some ear and nasal congestion as well as a sore throat and some difficulty swallowing. Initial evaluation resulted in a trial of steroids which temporarily improved her symptoms. However, her symptoms returned and dramatically worsened yesterday. She presented to her primary care physician for symptoms. She was noted to be tachycardic and was sent to the emergency room for evaluation. Patient has had some difficulty with activity over the past few months due to muscle soreness and weakness. She also suffers from hip and knee discomfort. She was trying to participate in physical therapy, but her symptoms made it difficult. Recently she has been improving with some steroid injections to the hips, elimination of certain medications and use of vitamin supplements. She has an element of dyspnea which is chronic. She did not endorse symptoms of orthopnea recently. She states that few weeks ago she did have significant lower extremity edema but this improved recently. She weighs herself routinely and reports a 10 lb weight loss recently. Relative to admission she claims to be feeling better. Allergies Allergy/AdvReac Type Severity Reaction Status Date / Time tetanus toxoid, adsorbed Allergy Severe ARM SWELLS Verified 10/25/23 11:03 calamine Allergy Unknown IRRITATION Verified 10/25/23 16:23 cephalexin Allergy Unknown RASH Verified 10/25/23 11:03 simvastatin Allergy Unknown Rhabdo Verified 10/25/23 11:03 tetracycline Allergy Unknown rash Verified 10/25/23 11:03 Home Medications Medication Instructions Recorded Confirmed Type multivitamin (Multiple Vitamins 1 tab PO DAILY 03/10/19 10/31/23 History tablet) melatonin 10 mg capsule 10 mg PO HS PRN Sleep 12/16/22 10/31/23 History allopurinol 100 mg tablet 150 mg (1.5 x 100 mg) PO DAILY 05/10/23 10/31/23 Rx #135 tabs colchicine 0.6 mg tablet 0.6 mg PO BID PRN gout #30 tabs 05/20/23 10/31/23 Rx coenzyme Q10 100 mg capsule 100 mg PO DAILY 09/01/23 10/31/23 History (CoQ-10) sucralfate 1 gram tablet (Carafate) 1 g PO BID PRN heartburn #60 tabs 09/01/23 10/31/23 Rx levothyroxine 100 mcg tablet 100 mcg PO DAILY #90 tabs 09/02/23 10/31/23 Rx sertraline 50 mg tablet 50 mg PO DAILY #90 tabs 10/17/23 10/31/23 Rx aspirin 81 mg tablet,delayed 81 mg PO DAILY 10/25/23 10/31/23 History release guaifenesin 600 mg tablet, 600 mg PO Q12 #14 tabs 10/27/23 10/31/23 Rx extended release 12 hr (Mucinex) lactobacillus combination no.4 3 3,000 mmu cells PO DAILY #7 caps 10/27/23 10/31/23 Rx billion cell capsule (Probiotic) Patient History Medical History (Updated 10/25/23 @ 18:15 by Giovani Turner DO) Sensorineural hearing loss (SNHL) of both ears C. difficile colitis Breast cancer Hx recurrent R breast cancer s/p R simple mastectomy and limited R axillary lymph node dissection. Being followed by [facility] and Dr. Stone Pancreatitis Surgical History History of hysterectomy (~2012) H/O colonoscopy nml 03/2015 No additional screening History of appendectomy Hx of cholecystectomy H/O breast surgery Family History Father Gastric cancer Lung cancer Mother Laryngeal cancer Brother Rheumatic fever Colon cancer Colorectal cancer Unknown Cardiomyopathy Denies family history of Ovarian cancer Prostate cancer Diabetes Myocardial infarction Breast cancer Stroke Social History Smoking Status: Former smoker packs per day: 2; Second Hand Exposure: No; Do You Dip or Chew Tobacco: No; Hx Alcohol Use: No Hx Substance Use: No Preferred Language: Maltese Communication Ability: Effective Visual Impairment: Limited Hearing Ability: Normal Carbide Tool Maker Required: No Beliefs That Will Affect Care: None marital status: Current Living Situation: Spouse current occupational status: retired How many Children do You have: 1 Feels Safe at Home: Yes Childhood Exposure to Second-Hand Smoke: Yes caffeine: Yes Dental Care, Regularly: Yes Physical Activity Frequency: 3-4 Times per Week Seatbelt Use: always Sunscreen Use: Yes Assistive Devices: Walker Review of Systems Review of Systems: Per HPI. Initial symptoms also included generalized chest discomfort. This was somewhat pleuritic in nature. Physical Exam Physical Exam: She is alert and oriented x3. Mood affect appear normal. She answered all questions appropriately. HEENT: Sclerae are anicteric. Pupils are equal and reactive to light and accommodation. Extraocular movements were intact. Neuro: Cranial nerves intact Lungs: Lungs are clear to auscultation bilaterally. There are no rales wheezes or rhonchi. She has normal respiratory effort without use of accessory muscles. There is normal pulmonary excursion. Cardiac: The rhythm was regular. S1 and S2 were normal. There are no murmurs on examination. The PMI was not markedly displaced on palpation. Chest: Mild tenderness to palpation Extremities: Patient has bilateral radial pulses that are equal in intensity. There is no evidence cyanosis or clubbing. Mild bilateral lower extremity edema. Skin: There are no rashes noted on examination today. Results & Data Vital Signs (Past 12 Hours) Vital Signs Temp Pulse Pulse Resp BP Pulse Ox O2 Del Method 10/26/23 12:00 36.5 C 96 H 18 125/83 95 Room Air 10/26/23 07:54 Room Air 10/26/23 07:17 36.6 C 106 H 20 100/52 L 95 Room Air 10/26/23 07:00 104 H 10/26/23 06:21 100/63 10/26/23 02:54 36.6 C 75 18 95/61 L 96 Room Air Laboratory Results Abnormal Lab Results 10/25/23 10/25/23 10/25/23 12:35 13:02 14:25 WBC RBC Hgb Hct MCV MCH MCHC RDW Std Deviation RDW Coeff of Brayden Plt Count MPV Immature Gran % (Auto) Neut % (Auto) Lymph % (Auto) Bond % (Auto) Eos % (Auto) Baso % (Auto) Neut # (Auto) Lymph # (Auto) Bond # (Auto) Eos # (Auto) Baso # (Auto) Immature Gran # (Auto) Sodium Potassium Chloride Carbon Dioxide Anion Gap BUN Creatinine Est Cr Clr Drug Dosing Est GFR ( Amer) Est GFR (Non-Af Amer) BUN/Creatinine Ratio Glucose POC Glucose Calcium Magnesium 1.9 Total Bilirubin AST ALT Alkaline Phosphatase Troponin I High Sens 48.1 H C-Reactive Protein B-Natriuretic Peptide 705 H Total Protein Albumin Globulin Albumin/Globulin Ratio Procalcitonin 0.14 TSH 1.285 Urine Color Urine Appearance Urine pH Ur Specific Barton Urine Protein Urine Glucose (UA) Urine Ketones Urine Blood Urine Nitrite Urine Bilirubin Urine Urobilinogen Ur Leukocyte Esterase Urine WBC (Auto) Urine RBC (Auto) U Hyaline Cast (Auto) U Epithel Cells (Auto) Urine Bacteria (Auto) Nasal Screen MRSA (PCR) Adenovirus (PCR) Not Detected B. pertussis DNA (PCR) Not Detected B.parapertussis DNA PCR Not Detected C. pneumoniae DNA (PCR) Not Detected Coronavirus OC43 (PCR) Not Detected Coronavirus HKU1 (PCR) Not Detected Coronavirus 229E (PCR) Not Detected SARS-CoV-2 (PCR) Not Detected Coronavirus NL63 (PCR) Not Detected Human Metapneumovir PCR Not Detected Influenza Type A (PCR) Not Detected Influenza Type B (PCR) Not Detected M. pneumoniae (PCR) Not Detected Parainfluenza 1 (PCR) Not Detected Parainfluenza 2 (PCR) Not Detected Parainfluenza 3 (PCR) Not Detected Parainfluenza 4 (PCR) Not Detected RSV (PCR) Not Detected Entero/Rhino (PCR) Not Detected 10/25/23 10/25/23 10/25/23 17:42 19:05 20:41 WBC RBC Hgb Hct MCV MCH MCHC RDW Std Deviation RDW Coeff of Brayden Plt Count MPV Immature Gran % (Auto) Neut % (Auto) Lymph % (Auto) Bond % (Auto) Eos % (Auto) Baso % (Auto) Neut # (Auto) Lymph # (Auto) Bond # (Auto) Eos # (Auto) Baso # (Auto) Immature Gran # (Auto) Sodium Potassium Chloride Carbon Dioxide Anion Gap BUN Creatinine Est Cr Clr Drug Dosing Est GFR ( Amer) Est GFR (Non-Af Amer) BUN/Creatinine Ratio Glucose POC Glucose 126 H 114 H Calcium Magnesium Total Bilirubin AST ALT Alkaline Phosphatase Troponin I High Sens 55.1 H* C-Reactive Protein B-Natriuretic Peptide Total Protein Albumin Globulin Albumin/Globulin Ratio Procalcitonin TSH Urine Color Urine Appearance Urine pH Ur Specific Barton Urine Protein Urine Glucose (UA) Urine Ketones Urine Blood Urine Nitrite Urine Bilirubin Urine Urobilinogen Ur Leukocyte Esterase Urine WBC (Auto) Urine RBC (Auto) U Hyaline Cast (Auto) U Epithel Cells (Auto) Urine Bacteria (Auto) Nasal Screen MRSA (PCR) Adenovirus (PCR) B. pertussis DNA (PCR) B.parapertussis DNA PCR C. pneumoniae DNA (PCR) Coronavirus OC43 (PCR) Coronavirus HKU1 (PCR) Coronavirus 229E (PCR) SARS-CoV-2 (PCR) Coronavirus NL63 (PCR) Human Metapneumovir PCR Influenza Type A (PCR) Influenza Type B (PCR) M. pneumoniae (PCR) Parainfluenza 1 (PCR) Parainfluenza 2 (PCR) Parainfluenza 3 (PCR) Parainfluenza 4 (PCR) RSV (PCR) Entero/Rhino (PCR) 05/14/24 05/15/24 05/15/24 Unknown 03:35 08:10 WBC 6.68 RBC 3.84 L Hgb 11.7 L Hct 35.0 L MCV 91.1 MCH 30.5 MCHC 33.4 RDW Std Deviation 46.5 H RDW Coeff of Brayden 13.9 Plt Count 138 MPV 9.7 Immature Gran % (Auto) 0.6 Neut % (Auto) 71.2 Lymph % (Auto) 13.5 Bond % (Auto) 8.2 Eos % (Auto) 6.1 Baso % (Auto) 0.4 Neut # (Auto) 4.75 Lymph # (Auto) 0.90 L Bond # (Auto) 0.55 Eos # (Auto) 0.41 Baso # (Auto) 0.03 Immature Gran # (Auto) 0.04 Sodium 138 Potassium 3.7 Chloride 107 Carbon Dioxide 22 Anion Gap 9 BUN 13 Creatinine 0.99 Est Cr Clr Drug Dosing 52.4 Est GFR ( Amer) 63.3 Est GFR (Non-Af Amer) 54.6 BUN/Creatinine Ratio 13.1 Glucose 133 H POC Glucose 139 H Calcium 8.7 Magnesium 2.0 Total Bilirubin 0.8 AST 16 ALT 18 Alkaline Phosphatase 145 H Troponin I High Sens 46.2 H C-Reactive Protein B-Natriuretic Peptide Total Protein 6.1 Albumin 3.4 Globulin 2.7 Albumin/Globulin Ratio 1.3 Procalcitonin TSH Urine Color Dark Yellow Urine Appearance Clear Urine pH 5.5 Ur Specific Barton 1.016 Urine Protein Negative Urine Glucose (UA) Negative Urine Ketones Trace H Urine Blood Negative Urine Nitrite Negative Urine Bilirubin Negative Urine Urobilinogen Negative Ur Leukocyte Esterase Trace H Urine WBC (Auto) 0-5 Urine RBC (Auto) 0-2 U Hyaline Cast (Auto) 0-2 U Epithel Cells (Auto) 0-2 Urine Bacteria (Auto) None Seen Nasal Screen MRSA (PCR) Negative Adenovirus (PCR) B. pertussis DNA (PCR) B.parapertussis DNA PCR C. pneumoniae DNA (PCR) Coronavirus OC43 (PCR) Coronavirus HKU1 (PCR) Coronavirus 229E (PCR) SARS-CoV-2 (PCR) Coronavirus NL63 (PCR) Human Metapneumovir PCR Influenza Type A (PCR) Influenza Type B (PCR) M. pneumoniae (PCR) Parainfluenza 1 (PCR) Parainfluenza 2 (PCR) Parainfluenza 3 (PCR) Parainfluenza 4 (PCR) RSV (PCR) Entero/Rhino (PCR) 10/26/23 10/26/23 08:53 11:50 WBC RBC Hgb Hct MCV MCH MCHC RDW Std Deviation RDW Coeff of Brayden Plt Count MPV Immature Gran % (Auto) Neut % (Auto) Lymph % (Auto) Bond % (Auto) Eos % (Auto) Baso % (Auto) Neut # (Auto) Lymph # (Auto) Bond # (Auto) Eos # (Auto) Baso # (Auto) Immature Gran # (Auto) Sodium Potassium Chloride Carbon Dioxide Anion Gap BUN Creatinine Est Cr Clr Drug Dosing Est GFR ( Amer) Est GFR (Non-Af Amer) BUN/Creatinine Ratio Glucose POC Glucose 137 H Calcium Magnesium Total Bilirubin AST ALT Alkaline Phosphatase Troponin I High Sens 43.0 H C-Reactive Protein 24.81 H B-Natriuretic Peptide Total Protein Albumin Globulin Albumin/Globulin Ratio Procalcitonin TSH Urine Color Urine Appearance Urine pH Ur Specific Barton Urine Protein Urine Glucose (UA) Urine Ketones Urine Blood Urine Nitrite Urine Bilirubin Urine Urobilinogen Ur Leukocyte Esterase Urine WBC (Auto) Urine RBC (Auto) U Hyaline Cast (Auto) U Epithel Cells (Auto) Urine Bacteria (Auto) Nasal Screen MRSA (PCR) Adenovirus (PCR) B. pertussis DNA (PCR) B.parapertussis DNA PCR C. pneumoniae DNA (PCR) Coronavirus OC43 (PCR) Coronavirus HKU1 (PCR) Coronavirus 229E (PCR) SARS-CoV-2 (PCR) Coronavirus NL63 (PCR) Human Metapneumovir PCR Influenza Type A (PCR) Influenza Type B (PCR) M. pneumoniae (PCR) Parainfluenza 1 (PCR) Parainfluenza 2 (PCR) Parainfluenza 3 (PCR) Parainfluenza 4 (PCR) RSV (PCR) Entero/Rhino (PCR) Diagnostic Findings Chest x-ray and chest CT as well as chest CTA were performed at the time of admission. These all suggested pneumonia. Pulmonary edema was not felt to be present. Echocardiogram performed today revealed preserved LV systolic function with an ejection fraction 55-60%. Mild LVH. Moderate to severe diastolic dysfunction. Mildly reduced RV systolic function. Biatrial dilation. Moderate tricuspid regurgitation. Normal estimated pulmonary pressures. ECG Additional Comments: EKG obtained the time admission revealed sinus tachycardia with left bundle b ranch block PG Care Time/CCT Total # of Minutes Spent Total Time Spent with Patient: Total time spent is greater than 50% in coordination of care (as documented) at patient's floor/unit and/or counseling patient: Coding Level of Care Code 83553 INT INP/OBS CARE 3/75MIN Diagnoses HO (dyspnea on exertion) R06.09 Chest pain R07.9 LBBB (left bundle branch block) I44.7 Elevated troponin R79.89
--- NOTE | 2023-10-26 13:51 | XCELERA ---
[id number]
[2023-10-26] MEDS: levoFLOXacin/D5W 750 MG/150 ML BAG IV SCH (15:12)
[2023-10-27 06:29] LABS: Basophils # (auto) 0.01 K/uL (0.00-0.20); Basophils % (auto) 0.2 %; Eosinophils # (auto) 0.43 K/uL (0.00-0.50); Eosinophils % (auto) 7.9 %; Hematocrit (blood only) 34.4 % (37.0-47.0); Hemoglobin 11.3 g/dl (12.0-16.0); Immature Granulocytes # (auto) 0.04 K/uL (0.01-0.20); Immature Granulocytes % (auto) 0.7 %; Lymphocytes # (auto) 0.83 K/uL (1.20-3.40); Lymphocytes % (auto) 15.2 %; Mean Corpuscular Hemoglobin 29.9 pg (25.0-34.0); Mean Corpuscular Hgb Conc 32.8 g/dL (32.0-36.0); Mean Platelet Volume 9.8 fL (9.4-12.4); Monocytes # (auto) 0.46 K/uL (0.11-0.59); Monocytes % (auto) 8.4 %; Neutrophils # (auto) 3.68 K/uL (1.40-6.50); Neutrophils % (auto) 67.6 %; Platelet Count 143 K/uL (130-400); RDW Coefficient of Variation 13.7 % (11.5-14.5); Red Blood Count 3.78 M/uL (4.20-5.40); White Blood Count 5.45 K/ul (4.8-10.8)
[2023-10-27 06:53] LABS: Albumin Globulin Ratio 1.1 (0.9-2); Albumin Level 3.2 gm/dl (3.4-5.0); BUN Creatinine Ratio 16.7 (10-20); Bilirubin,Total 0.6 mg/dl (0.2-1.0); C Reactive Protein 16.49 mg/dl (0-0.5); Calcium 8.6 mg/dl (8.6-10.3); Creatinine Clr Calc Pharmacy 58.1 ml/min; Est GFR (Non-African American) 61.2 ml/min; Globulin 2.8 gm/dl (2.5-4.0); Magnesium 1.8 mg/dl (1.7-2.4); Potassium 3.9 mmol/L (3.5-5.1)
--- NOTE | 2023-10-27 09:04 | Discharge Summary ---
Date of Service October 27, 2023 Admission HPI Per Admitting Provider Km is a 78 year old female with a PMH significant for DMII, hyperlipidemia, hypothyroidism, and gout who presented to the [facility] ED on 10/25/23 from her PCP's office due to ongoing fevers, SOB, and concerns for new onset afib/aflutter on PCP office ECG. She was initially noted to be tachycardic with HR in the 120's and hypoxic with SpO2 in the 80's on RA but otherwise stable. Labs were significant for a WBC WNL, initial high sen trop of 47 -->48 on 2 hour repeat, UA with trace ketones and leukocyte esterase, and full respiratory biofire negative. Chest xray was read as "Right suprahilar density. This likely reflects summation artifact. However, a focus of pneumonia or a pulmonary lesion could appear similar. A chest CT is recommended.". At the time of the exam the patient was sitting in bed in no acute distress. States she initially started to have congestion, non-productive cough, SOB approximately 2 months ago. Was seen by her PCP and given a prednisone taper which initially improved her symptoms. Over the past week she has been experiencing increased SOB/HO, chest tightness, cough, and generalized weakness. Last night she became significantly SOB and fatigued while walking up their home steps, she laid on their bed after and broke out into a sweat. She went to her PCP's office earlier today for symptoms and was sent to the ED for further evaluation. She is still have some tightness in the substernal region with inspiration and also is experiencing BL chest pain with inspiration. She states it feels like she can't take a deep breath. Has had at least 2-3 episodes of non-bloody diarrhea over the past 48 hours, denies recent abx, stool softener, or laxative use. She states that while walking to the bathroom in her ED room she was significantly SOB and had to have assistance from her nurse, her nurse confirms this when asked. Denies previous hx of blood clots, recent travel, unilateral LE swelling, or recent trauma to the LE's. She is a full code and her is her POA. Please refer to Dr. Wagoner's attestation for any changes to the treatment plan Principal Diagnosis pneumonia Discharge Exam General: In no acute distress, HEENT: Normocephalic, atraumatic Chest/Pulm: No respiratory distress, clear Cardiac: RRR, no murmurs noted Abdomen:normoactive bowel sounds, soft, non-tender to palpation throughout Musculoskeletal: Symmetrical and without signs of acute trauma Extremities: Radial, dorsalis pedis, Skin: Warm, dry, no rashes , lesions, or scars noted Neuro: Alert and oriented to person, place, month, year, and president Psych: No acute distress, calm and cooperative during the exam Discharge Data Allergies Allergy/AdvReac Type Severity Reaction Status Date / Time tetanus toxoid, adsorbed Allergy Severe ARM SWELLS Verified 10/25/23 11:03 calamine Allergy Unknown IRRITATION Verified 10/25/23 16:23 cephalexin Allergy Unknown RASH Verified 10/25/23 11:03 simvastatin Allergy Unknown Rhabdo Verified 10/25/23 11:03 tetracycline Allergy Unknown rash Verified 10/25/23 11:03 Consultations 10/25/23 15:42 ED Decision to Admit Stat 10/26/23 09:14 Consult Cardiology Routine Ordered Studies 10/25/23 14:48 CT chest diagnostic wo con Stat 10/25/23 16:49 CT angio chest PE protocol Stat Hospital Course (1) Multifocal pneumonia: -Admit to the PCU on tele and pulse oximetry -Currently stable and non-toxic appearing -Presented to the ED with progressive SOB/HO, cough, fever -CT of the chest wo con was read as BL multifocal pneumonia -WBC and procal are WNL, currently stable on RA Treated with levaquin. will continue course as an outpatient. Patient improved with above treatment. (2) HO (dyspnea on exertion): Consulted cardiology given new LBBB, chest pain, CT chest findings. Appreciate input: Dyspnea on exertion: Likely multifactorial. While she does have significant diastolic dysfunction and an elevated BNP, the aggressive volume administration yesterday did not result in worsening symptoms or evidence of pulmonary edema on her chest x-ray. This would speak against pulmonary vascular congestion as the etiology of her symptoms. 2. Diastolic heart failure: Unclear etiology. Possibly somewhat Pickwickian. Probably worsened by the resting tachycardia. The best treatment would be initiation of an SG LT 2 inhibitor and this may also address her history of diabetes. 3. Left bundle-branch block: Duration. Also unclear etiology. Certainly more common in the setting of coronary disease. Will arrange for an outpatient Lexiscan once she has resolved her pulmonary process. No current symptoms suggestive of coronary insufficiency or ischemia. 4. Chest pain: Her chest pain appeared to be pleuritic and musculoskeletal. It was longstanding in nature. Biomarkers while elevated are quite stable. More likely related to an inflammatory process or the pneumonia than a recent acute coronary syndrome. Will pursue an ischemic evaluati (3) Chest pain: -See HO and Multifocal pneumonia (4) Elevated troponin: -See HO (5) LBBB (left bundle branch block): -See HO (6) Diabetes mellitus, type II: -Was taken off metformin approximately 2 months ago due to ongoing diarrhea Total Time Total Time Spent Total Time Spent (In Minutes): 32 Discharge Plan Discharge Items Patient Disposition: Home - Self-Care Reason For Visit: MULTIFOCAL PNEUMONIA, TACHYCARDIA Discharge Diagnosis: pneumonia Activity: Resume your previous activity Non-emergency contact: Primary Care Provider Call non-emergency contact if: you have any medication questions Follow-up/Referrals: Dean Dhillon DO [Primary Care Provider] - 11/08/23 11:30 am Diet: Carb Consistent or DM2 and Heart Healthy Addtl Attending Provider Instructions: Good morning Mrs. Mcclendon, It was a pleasure to meet you and care for you. Please continue with antibiotics. Your first dose today at 3pm. We recommend that you follow-up with PCP in 1-2 weeks. Cardiology will call you to schedule outpatient stress test. Kindest regards, Matty Martinez MD Pending Studies at Discharge: No Stand-Alone Forms: [facility]Path, Smoking Cessation Medications and DC Order Prescriptions: New guaifenesin [Mucinex] 600 mg Tablet Extended Release 12hr 600 mg PO Q12 Qty: 14 0RF Probiotic 3 billion cell capsule 3,000 mmu cells PO DAILY Qty: 7 0RF Rx Instructions: administer with a meal levofloxacin 750 mg tablet 750 mg PO DAILY@1500 Qty: 3 0RF Continued allopurinol 100 mg tablet 150 mg PO DAILY Qty: 135 3RF colchicine 0.6 mg tablet 0.6 mg PO BID PRN (Reason: gout) Qty: 30 1RF levothyroxine 100 mcg tablet 100 mcg PO DAILY Qty: 90 0RF sertraline 50 mg tablet 50 mg PO DAILY Qty: 90 3RF multivitamin [Multiple Vitamins] tablet 1 tab PO DAILY melatonin 10 mg capsule 10 mg PO HS PRN (Reason: Sleep) coenzyme Q10 [CoQ-10] 100 mg capsule 100 mg PO DAILY sucralfate [Carafate] 1 gram tablet 1 g PO BID PRN (Reason: heartburn) Qty: 60 0RF aspirin 81 mg Tablet,Delayed Release (Dr/Ec) 81 mg PO DAILY Discontinued hydrocodone-acetaminophen 5-325 mg tablet 1 tab PO DAILY PRN (Reason: pain) Qty: 30 0RF Discharge Orders: Discharge Order (Routine); Ordered 10/27/23 Ordered By: Matty More/Other Patient Handouts: Preventing Pneumonia Admission Data Admit Date/Time: 10/25/23 16:15 Attending Provider: Matty Martinez Admit Provider: Arvin Wagoner Primary Care Provider: Dean Dhillon Other Providers: Arvin Wagoner; Efraín Rodriguez; Frandy Starks; Trenton Khan; Paulo Sanchez; Keaton Hughes; Jose Curtis Jr; Godfrey Davey; Shandra Phelps; Paola Bedolla; Popeye Roman; Popeye Yin; Ash Kwok; Opal Herrera; Gerry Fuller; Shayla Syed; Meliton Segovia.; Andreas Ferrer; Marcus Wong; Jad Haji Other Interventions: Discharge Summary Assessment (RN) Last Done: 10/27/23 10:14 Coding Level of Care Code 53068 INP/OBS DISCH >30 MIN Diagnoses Multifocal pneumonia J18.9 HO (dyspnea on exertion) R06.09 Chest pain R07.9 Elevated troponin R79.89 LBBB (left bundle branch block) I44.7 Diabetes mellitus, type II E11.9
== END 2023-10-27 11:01 | disposition home or self-care (01) | DRG 194 ==
LOC: ED 12:10 → SUATTDRO 16:15 → 4W 16:15

== ENCOUNTER 2023-11-18 10:38 | Observation (INO) ==
--- NOTE | 2023-11-18 11:33 | XRay Report ---
SINGLE VIEW CHEST CLINICAL HISTORY: Atypical chest pain. Epigastric abdominal pain FINDINGS: An AP, portable, upright chest radiograph is compared to chest x-ray and chest CT dated 10/11. The heart is enlarged noting atherosclerotic calcification of the thoracic aorta. The pulmona ry vasculature is noncongested. Chronic interstitial thickening is similar to previous. There is mild bibasilar scarring/atelectasis. The lungs and pleural spaces are otherwise clear. No pneumothorax is seen. The skeletal structures are osteopenic. There are chronic/healed right-sided rib fractures. IMPRESSION: Cardiomegaly with no active disease in the chest. ACT 112: Negative or not required by law. Electronically signed by: Vaibhav Stroud M.D. 11/18/2023 11:31 AM
[2023-11-18 11:37] LABS: Basophils # (auto) 0.06 K/uL (0.00-0.20); Basophils % (auto) 0.5 %; Eosinophils # (auto) 0.28 K/uL (0.00-0.50); Eosinophils % (auto) 2.3 %; Hematocrit (blood only) 42.3 % (37.0-47.0); Hemoglobin 13.8 g/dl (12.0-16.0); Immature Granulocytes # (auto) 0.08 K/uL (0.01-0.20); Immature Granulocytes % (auto) 0.7 %; Lymphocytes # (auto) 1.38 K/uL (1.20-3.40); Lymphocytes % (auto) 11.4 %; Mean Corpuscular Hemoglobin 29.4 pg (25.0-34.0); Mean Corpuscular Hgb Conc 32.6 g/dL (32.0-36.0); Mean Corpuscular Volume 90.2 fL (80.0-100.0); Mean Platelet Volume 9.3 fL (9.4-12.4); Monocytes # (auto) 0.88 K/uL (0.11-0.59); Monocytes % (auto) 7.3 %; Neutrophils # (auto) 9.38 K/uL (1.40-6.50); Neutrophils % (auto) 77.8 %; Platelet Count 189 K/uL (130-400); RDW Standard Deviation 45.6 fL (36.4-46.3); Red Blood Count 4.69 M/uL (4.20-5.40); White Blood Count 12.06 K/ul (4.8-10.8)
--- NOTE | 2023-11-18 11:39 | Emergency Department Note ---
Impression & Plan Pericarditis, Abdominal pain, Abnormal ECG, Chest pain ED Provider Note NAME: YOLANDA STOUT AGE: 78 SEX: F : 1945 ARRIVES VIA: Walk-In INFORMANT: Patient, Family member, triage note ED PROVIDER(S): Hi Yeboah MD CHIEF COMPLAINT: Upper abdominal pain, outpatient referral MEDICAL DECISION MAKING: Patient presented due to concern for upper abdominal pain but does have new EKG changes so CT angiography of the chest abdomen pelvis were performed IV was established and blood work was obtained. The patient did receive IV morphine and IV Zofran. Blood work shows a white count of 12 with a normal H&H and platelet count. The patient's kidney function is unremarkable. Mild elevation in alk phosphatase at 175 with an AST of 40. BioFire negative. Patient's CTA of the chest shows no evidence of PE. Patient does have a pericardial effusion and trace left pleural effusion. Near resolution of pneumonia. CT abdomen pelvis does not show any bowel wall thickening. There is thickening and enhancement of the pericardium which may be suggestive of pericarditis. I did ask the patient if some of her symptoms were may be positional and the patient does admit symptoms laying back may make her symptoms worse but she still does have them present with sitting upright. However, patient's EKG changes are not consistent with typical pericarditis as the patient does not have diffuse ST elevations or LA depressions. Patient was informed of the findings and recommendations and she is comfortable with her plan of care as well as the patient's at bedside given this concern I did speak the on-call hospitalist Dr. Wagoner and the patient was admitted to the medicine service. Discussion w/ other healthcare providers: Dr. Wagoner inpatient medicine service Prior /Outside records reviewed: I reviewed an express care note visit patient was noted to have epigastric pain chronic shortness of breath since having pneumonia differential diagnosis discussing PE. I reviewed a primary care visit from November 07. Patient with a history of multifocal pneumonia and HO and elevated troponin. I reviewed a discharge summary from Dr. Martinez past medical history type 2 diabetes hyperlipidemia hypothyroidism was having shortness of breath concerns for new onset A-fib flutter from PCP office. Patient was diagnosed with multifocal pneumonia and diastolic heart failure. Patient did have pleuritic chest pain at that time was thought to be more likely related to inflammatory process or pneumonia than ACS. They note a Wells score patient reportedly is presenting there for epigastric abdominal pain x 3 days. I reviewed an EKG from October 25, 2023 that was machine read as atrial flutter/tachycardia with RVR around the patient does appear to have a left lateral branch block and associated sinus tachycardia per my read. Patient did have 2 EKGs completed on October 24 which showed sinus tachycardia with a left bundle branch block. Differential diagnosis: Appendicitis, ovarian cyst, ovarian torsion, ectopic , TOA, PID, diverticulitis, UTI, obstruction, inflammatory bowel disease, renal colic, PUD, pancreatitis, biliary pathology, hernia, volvulus, constipation, as well as other pathologies were considered. Diagnostics, as interpreted by me: ECG: Sinus tachycardia, rate of 104, normal intervals, normal axis T wave versions inferiorly as well as in the anterior lateral leads. Nothing in the high lateral leads. Patient's T wave versions are new from comparison EKG the anterior lateral leads from October 25, 2023. Left lower branch block no longer present. Cardiac monitoring: An order was placed for continuous cardiac monitoring. The monitor shows a rate of 95 with sinus rhythm. Patient was placed on pulse oximetry Medical decision rules: None Imaging studies: I informally interpreted the patient's Chest x-ray showed mild cardiac enlargement possible trace left pleural effusion although could be secondary to body habitus. No obvious pneumothorax with formal report to follow. HPI: Patient presents as a referral due to concern for upper abdominal pain. The patient states that about 3 days ago she developed some epigastric pain. She thought this might be related to gas pain and took some Mylanta and seem to have some improvement in symptoms. The patient states that the pain feels as though it is in the upper abdomen is noted times feels as though it is pushing up into the chest. The patient denies any specific chest pains or shortness of breath other than some chronic shortness of breath which has been present since she was diagnosed and admitted for a pneumonia several weeks ago. Patient states that she has had a cough but it is nonproductive. No leg swelling or calf pain no recent surgeries procedures or recent prolonged car plane travel. No prior history of DVT or PE. Cough is nonproductive. No hemoptysis. Patient states that she did not have any associated nausea vomiting but noticed that she was having some pain after eating last night seem to subside and then returned and then had it again this morning. Patient does admit to being very thirsty. Patient states that her stools have been normal. No blood in urine or stool. Patient denies any dysuria. Patient states that the pain is present in the epigastrium is worse with palpation. She did not take anything for the pain at home other than the Mylanta. Patient has had a prior hysterectomy appendectomy and cholecystectomy PAST MEDICAL HISTORY: See Below PAST SURGICAL HISTORY: See Below SOCIAL HISTORY: See Below HOME MEDICATIONS: See Below ALLERGIES: See Below VITALS: See Below PHYSICAL EXAMINATION: GENERAL: NAD, non-toxic. EYE EXAM: Normal conjunctiva. PERRL, no anisocoria and EOM's grossly intact w/o pain. OROPHARYNX: Moist mucus membranes, grossly normal dentition. NECK: Trachea midline, no stridor. Supple, no nuchal rigidity, no adenopathy, non-tender. No signs of meningismus. FROM of the neck with good chin to chest and neck extension. LUNGS: Clear to auscultation. Normal chest wall mechanics. HEART: NSR, no MRG. ABDOMEN: Abdomen soft, epigastric and right upper quadrant pain without lower abdominal, no masses, no rebound or guarding. BACK: No CVA TTP. SKIN: No rashes and no bruising. UPPER EXTREMITIES: Upper extremities are grossly normal. LOWER EXTREMITIES: Grossly normal, no edema. NEURO EXAM: A&O x3, cranial nerves II-XII grossly intact, normal speech, moves all 4 extremities. Past Med/Surg History Problem List (Updated 11/18/23 @ 19:21 by Hi Yeboah MD) Chest pain (Acute) Abnormal ECG (Acute) Abdominal pain (Acute) Pericarditis (Acute) Diastolic CHF with preserved left ventricular function, NYHA class 2 GERD (gastroesophageal reflux disease) Pericarditis Weakness LBBB (left bundle branch block) Osteoarthritis of left hip Degenerative spondylolisthesis Positive RICKY (antinuclear antibody) Osteoarthritis, hip, bilateral Right leg weakness Dysphagia Dry mouth Left hip pain BMI 38.0-38.9,adult Chronic right hip pain Osteoarthritis of right hip Elevated alkaline phosphatase level Neuropathy Diabetes mellitus, type II Elevated HbA1c 7.2% (08/01). Advised to initiated metformin and has focused on diet and exercise Hyperlipidemia (Acute) Hypothyroidism Gout hx gouty attack. Managed with allopurinol + colchicine BID PRN for acute attack. Incontinence in female Chronic low back pain Mood disorder Medical History Pneumonia Multifocal pneumonia Sensorineural hearing loss (SNHL) of both ears C. difficile colitis Breast cancer Hx recurrent R breast cancer s/p R simple mastectomy and limited R axillary lymph node dissection. Being followed by [facility] and Dr. Stone Pancreatitis Surgical History History of hysterectomy (~2012) H/O colonoscopy nml 03/2015 No additional screening History of appendectomy Hx of cholecystectomy H/O breast surgery Family History Father Gastric cancer Lung cancer Mother Laryngeal cancer Brother Rheumatic fever Colon cancer Colorectal cancer Unknown Cardiomyopathy Denies family history of Ovarian cancer Prostate cancer Diabetes Myocardial infarction Breast cancer Stroke Social History Smoking Status: Former smoker packs per day: 2; Second Hand Exposure: No; Do You Dip or Chew Tobacco: No; Hx Alcohol Use: No Hx Substance Use: No Preferred Language: Arabic Communication Ability: Effective Visual Impairment: Limited Hearing Ability: Normal Sample Maker Hand Required: No Beliefs That Will Affect Care: None marital status: Current Living Situation: Spouse current occupational status: retired How many Children do You have: 1 Feels Safe at Home: Yes Safety Concerns: Feels Safe At This Time Childhood Exposure to Second-Hand Smoke: Yes caffeine: Yes Dental Care, Regularly: Yes Physical Activity Frequency: 3-4 Times per Week Seatbelt Use: always Sunscreen Use: Yes Assistive Devices: Walker Allergies Allergies Allergy/AdvReac Type Severity Reaction Status Date / Time metformin Allergy Severe Verified 11/18/23 09:40 tetanus toxoid, adsorbed Allergy Severe ARM SWELLS Verified 11/18/23 09:40 calamine Allergy Unknown IRRITATION Verified 11/18/23 09:40 cephalexin Allergy Unknown RASH Verified 11/18/23 09:40 simvastatin Allergy Unknown Rhabdo Verified 11/18/23 09:40 tetracycline Allergy Unknown rash Verified 11/18/23 09:40 Home Meds Home Medications Medication Instructions Recorded Confirmed multivitamin (Multiple Vitamins 1 tab PO DAILY 03/10/19 11/18/23 tablet) melatonin 10 mg capsule 10 mg PO HS PRN Sleep 12/16/22 11/18/23 coenzyme Q10 100 mg capsule 100 mg PO DAILY 09/01/23 11/18/23 (CoQ-10) aspirin 81 mg tablet,delayed 81 mg PO DAILY 10/25/23 11/18/23 release Previous Rx's Medication Instructions Recorded allopurinol 100 mg tablet 150 mg (1.5 x 100 mg) PO DAILY 05/10/23 #135 tabs colchicine 0.6 mg tablet 0.6 mg PO BID PRN gout #30 tabs 05/20/23 sucralfate 1 gram tablet (Carafate) 1 g PO BID PRN heartburn #60 tabs 09/01/23 levothyroxine 100 mcg tablet 100 mcg PO DAILY #90 tabs 09/02/23 sertraline 50 mg tablet 50 mg PO DAILY #90 tabs 10/17/23 guaifenesin 600 mg tablet, 600 mg PO Q12 #14 tabs 10/27/23 extended release 12 hr (Mucinex) lactobacillus combination no.4 3 3,000 mmu cells PO DAILY #7 caps 10/27/23 billion cell capsule (Probiotic) Results & Data (ED) Vital Signs Vital Signs - 24 hr 11/18/23 10:57 11/18/23 11:23 Temperature 36.6 C Temperature Source Temporal Artery Scan Pulse Rate 106 H 99 H Respiratory Rate 14 Blood Pressure 157/79 H Blood Pressure Mean 105 Pulse Oximetry 95 Oxygen Delivery Method Room Air Sepsis New/Unexplained Change in Mental Status No Sepsis Action Taken by Nursing No Action Required Home Medications Current Medication List: was personally reviewed by me Laboratory Data Attestation: I reviewed the patient's lab results. 11/18/23 11:11 11/18/23 11:11 Lab Results 11/18/23 Range/Units 11:11 WBC 12.06 H (4.8-10.8) K/ul RBC 4.69 (4.20-5.40) M/uL Hgb 13.8 (12.0-16.0) g/dl Hct 42.3 (37.0-47.0) % MCV 90.2 (80.0-100.0) fL MCH 29.4 (25.0-34.0) pg MCHC 32.6 (32.0-36.0) g/dL RDW Std Deviation 45.6 (36.4-46.3) fL RDW Coeff of Brayden 14.0 (11.5-14.5) % Plt Count 189 (130-400) K/uL MPV 9.3 L (9.4-12.4) fL Immature Gran % (Auto) 0.7 % Neut % (Auto) 77.8 % Lymph % (Auto) 11.4 % [place] % (Auto) 7.3 % Eos % (Auto) 2.3 % Baso % (Auto) 0.5 % Neut # (Auto) 9.38 H (1.40-6.50) K/uL Lymph # (Auto) 1.38 (1.20-3.40) K/uL [place] # (Auto) 0.88 H (0.11-0.59) K/uL Eos # (Auto) 0.28 (0.00-0.50) K/uL Baso # (Auto) 0.06 (0.00-0.20) K/uL Immature Gran # (Auto) 0.08 (0.01-0.20) K/uL PT 11.7 (9.0-12.0) Seconds INR 1.1 (0.9-1.1) Sodium 137 (136-145) mmol/L Potassium 4.6 (3.5-5.1) mmol/L Chloride 102 (98-107) mmol/L Carbon Dioxide 25 (21-32) mmol/L Anion Gap 10 (3-11) BUN 16 (6-23) mg/dl Creatinine 0.92 (0.6-1.2) mg/dl Est Cr Clr Drug Dosing Not Reportable Est GFR ( Amer) 69.1 ml/min Est GFR (Non-Af Amer) 59.6 ml/min BUN/Creatinine Ratio 17.4 (10-20) Glucose 162 H (70-99(Fasting)) mg/dl Calcium 9.5 (8.6-10.3) mg/dl Total Bilirubin 0.8 (0.2-1.0) mg/dl AST 40 H (13-39) U/L ALT 38 (7-52) U/L Alkaline Phosphatase 175 H (34-104) U/L Troponin I High Sens 8.3 (0-14) pg/ml Total Protein 7.4 (6.0-8.3) gm/dl Albumin 4.1 (3.4-5.0) gm/dl Globulin 3.3 (2.5-4.0) gm/dl Albumin/Globulin Ratio 1.2 (0.9-2) Lipase 34 (11-82) U/L Lyme Disease Screen Negative (Negative) Administered Medications Enoxaparin Sodium (Enoxaparin Inj 40 Mg/0.4 Ml Syr) 40 mg SQ Q24H RALPH Stop: 12/18/23 15:59 Last Admin: 11/18/23 15:50 Dose: 40 mg Documented By: HILLARY Insulin Aspart (Insulin Aspart Per Unit Charge) 0 units SC ACHS RALPH Stop: 12/18/23 16:29 Last Admin: 11/18/23 17:58 Dose: 4 units Documented By: HILLARY Co-signed By: SATISH Ketorolac Tromethamine (Ketorolac Tromethamine 15 Mg/Ml Vial) 10 mg IV Q8H RALPH Stop: 11/23/23 15:59 Last Admin: 11/18/23 15:50 Dose: 10 mg Documented By: HILLARY Discontinued Medications Al Hydrox/Mg Hydrox/Simethicone (Aluminum/Magnesium Susp 30 Ml Udc) 15 ml PO NOW STA Stop: 11/18/23 13:34 Last Admin: 11/18/23 13:50 Dose: 15 ml Documented By: MARTHA Famotidine (Pepcid 20mg Iv Push) 20 mg in 5 mls @ 2.5 mls/min IV NOW STA Stop: 11/18/23 13:34 Last Admin: 11/18/23 13:51 Dose: 2.5 mls/min Documented By: MARTHA Ioversol (Optiray 320 125ml) 120 ml IV ONCE ONE Stop: 11/18/23 12:09 Last Admin: 11/18/23 12:09 Dose: 120 ml Documented By: MOE Miscellaneous (Patient's Height &/Or Weight Needed) 1 each N/A Q2H RALPH Stop: 12/18/23 14:59 Last Admin: 11/18/23 15:17 Dose: Not Given Documented By: HILLARY Morphine Sulfate (Morphine Sulfate 4 Mg/Ml 1 Ml Carp\Vial) 4 mg IV NOW STA Stop: 11/18/23 11:48 Last Admin: 11/18/23 11:56 Dose: 4 mg Documented By: MARTHA Ondansetron HCl (Ondansetron Inj 2 Mg/Ml 2 Ml Vial) 4 mg IV NOW STA Stop: 11/18/23 11:48 Last Admin: 11/18/23 11:54 Dose: 4 mg Documented By: MARTHA Pantoprazole Sodium (Pantoprazole 40 Mg Tab) 40 mg PO NOW ONE Stop: 11/18/23 13:46 Last Admin: 11/18/23 13:51 Dose: 40 mg Documented By: MARTHA Imaging Data Radiologist's Impression: Chest X-Ray 11/18/23 11:02 SINGLE VIEW CHEST CLINICAL HISTORY: Atypical chest pain. Epigastric abdominal pain FINDINGS: An AP, portable, upright chest radiograph is compared to chest x-ray and chest CT dated 10/26/2023. The heart is enlarged noting atherosclerotic calcification of the thoracic aorta. The pulmonary vasculature is noncongested. Chronic interstitial thickening is similar to previous. There is mild bibasilar scarring/atelectasis. The lungs and pleural spaces are otherwise clear. No pneumothorax is seen. The skeletal structures are osteopenic. There are chronic/healed right-sided rib fractures. IMPRESSION: Cardiomegaly with no active disease in the chest. ACT 112: Negative or not required by law. Electronically signed by: Vaibhav Stroud M.D. 11/18/2023 11:31 AM Abdomen/Pelvis CT 11/18/23 11:[address] WITH IV CONTRAST HISTORY: Acute shortness of breath with epigastric abdominal pain epigastric pain TECHNIQUE: Multiaxial CT images of the abdomen and pelvis were performed following the IV administration of 120 cc of Optiray, A dose lowering technique was utilized adhering to the principles of ALARA. COMPARISON STUDY: CTA chest of same day, CT abdomen and pelvis 07/20/2013, CT abdomen 08/21/2013 FINDINGS: There is pericardial thickening with increased enhancement. Trace pericardial effusion. Right mastectomy. Trace pleural effusions. Mild bibasilar atelectasis. No free air. Spleen is mildly enlarged at 15 cm Unremarkable pancreas and adrenal glands. Cholecystectomy. Unremarkable liver. Patent portal vein. Unremarkable kidneys. No hydronephrosis. Gastrectomy. Extensive atherosclerosis of the abdominal aorta with high-grade stenosis at the origin of the right common iliac artery. No lymphadenopathy. Mild nonspecific distal esophageal wall thickening. No bowel obstruction or bowel wall thickening. Colonic diverticulosis. Subcentimeter nodular foci within the abdominal left upper quadrant may represent lymph nodes. No CT evidence of acute appendicitis. Unremarkable soft tissues. No acute fracture. Severe osteoarthritis of the right greater than left hips. IMPRESSION: 1. No bowel obstruction or bowel wall thickening. 2. Cholecystectomy. 3. Colonic diverticulosis. 4. Please refer to the chest CTA chest same day for additional findings including trace pericardial and pleural effusions. There is thickening and enhancement of the pericardium which is suggestive of a nonspecific pericarditis. 5. Severe osteoarthritis of the hips. ACT 112: Negative or not required by law. The above report was generated using voice recognition software. It may contain grammatical, syntax or spelling errors. Electronically signed by: Bill Samson M.D. 11/18/2023 12:49 PM Chest CTA 11/18/23 11:47 CHEST CTA for PULMONARY ARTERIES CT DOSE: 2258.28 mGy.cm HISTORY: PE, new TWI TECHNIQUE: Multiaxial CT images of the chest were performed following the intravenous administration of contrast to evaluate the pulmonary arteries. 3D/Maximal intensity projection images were also obtained. Sagittal and coronal reformations were also reviewed. A dose lowering technique was utilized adhering to the principles of ALARA. COMPARISON STUDY: Chest CTA 10/25/2023. FINDINGS: No evidence for an an aortic dissection or pulmonary embolus. The heart remains mildly enlarged. There is a small pericardial effusion which is slightly increased in size. Trace left pleural effusion, unchanged. Prominent mediastinal and bilateral hilar lymph nodes are again noted. No progressive lymphadenopathy within the chest. Abdominal structures will be reported on the same day abdomen and pelvis CT. Prior cholecystectomy. Normal esophagus. Prior right mastectomy. No axillary lymphadenopathy. No acute fractures identified. No pneumothorax. The central airways are patent. Mild dependent changes noted at the lung bases. No new focal lung consolidations to suggest a pneumonia. There is mild respiratory motion artifact. A 5 mm nodule within the right lower lobe on image 93. This was likely present on the prior study but was not well assessed due to the motion artifact. Calcified granuloma within the right upper lobe. Groundglass densities within the prior study have almost completely resolved in the interval. There are few small nodular densities remaining within the superior segment of the right lower lobe. The findings likely represent a resolving pneumonia. IMPRESSION: 1. No evidence for a pulmonary embolus. 2. Slight increase in size in a small pericardial effusion. 3. Trace left pleural effusion, unchanged. 4. Near-complete resolution of the groundglass density seen on the prior study consistent with a resolving pneumonia. 5. Prominent mediastinal and bilateral hilar lymph nodes remain unchanged. ACT 112: Negative or not required by law. Electronically signed by: El Grubbs M.D. 11/18/2023 12:39 PM Discharge Plan Visit Data Chief Complaint: Abdominal Pain Stated Complaint: ABD PAIN ED Provider: Hi Yeboah Discharge Problem: Pericarditis, Abdominal pain, Abnormal ECG, Chest pain Patient Disposition: Admitted As Inpatient Discharge Instructions Interventions: ED Discharge Assessment Last Done: 11/18/23 14:10 Discharge Problem: Pericarditis Qualifiers: Pericarditis type: unspecified type Chronicity: unspecified Qualified Code(s): I31.9 - Disease of pericardium, unspecified Abdominal pain Qualifiers: Abdominal location: epigastric Qualified Code(s): R10.13 - Epigastric pain Chest pain Qualifiers: Chest pain type: unspecified Qualified Code(s): R07.9 - Chest pain, unspecified
[2023-11-18 11:50] LABS: Alanine Aminotransferase 38 U/L (7-52); Albumin Globulin Ratio 1.2 (0.9-2); Albumin Level 4.1 gm/dl (3.4-5.0); Alkaline Phosphatase 175 U/L (34-104); Anion Gap 10 (3-11); Aspartate Aminotransferase 40 U/L (13-39); BUN Creatinine Ratio 17.4 (10-20); Bilirubin,Total 0.8 mg/dl (0.2-1.0); Blood Urea Nitrogen 16 mg/dl (6-23); Calcium 9.5 mg/dl (8.6-10.3); Carbon Dioxide 25 mmol/L (21-32); Chloride 102 mmol/L (98-107); Est GFR (African American) 69.1 ml/min; Est GFR (Non-African American) 59.6 ml/min; Globulin 3.3 gm/dl (2.5-4.0); Glucose 162 mg/dl (70-99(Fasting)); Lipase 34 U/L (11-82); Potassium 4.6 mmol/L (3.5-5.1); Sodium 137 mmol/L (136-145); Total Protein 7.4 gm/dl (6.0-8.3)
[2023-11-18] MEDS: ONDANSETRON INJ 2 MG/ML 2 ML VIAL IV STA (11:54)
[2023-11-18] MEDS: MoRPHine SULFATE 4 MG/ML 1 ML CARP\\VIAL IV STA (11:56)
[2023-11-18 11:57] LABS: Troponin I High Sensitivity 8.3 pg/ml (0-14)
[2023-11-18] MEDS: OPTIRAY 320 125ml IV ONE (12:09)
[2023-11-18 12:12] LABS: INR 1.1 (0.9-1.1); Prothrombin Time 11.7 Seconds (9.0-12.0)
[2023-11-18 12:33] LABS: Adenovirus PCR Not Detected (NotDetected); Bordetella parapertussis PCR Not Detected (NotDetected); Bordetella pertussis PCR Not Detected (NotDetected); Chlamydia pneumoniae PCR Not Detected (NotDetected); Coronavirus 229E PCR Not Detected (NotDetected); Coronavirus CoV-2 (COVID19)PCR Not Detected (NotDetected); Coronavirus HKU1 PCR Not Detected (NotDetected); Coronavirus NL63 PCR Not Detected (NotDetected); Coronavirus OC43PCR Not Detected (NotDetected); Human Metapneumovirus PCR Not Detected (NotDetected); Influenza A PCR Not Detected (NotDetected); Influenza B PCR Not Detected (NotDetected); Mycoplasma pneumoniae PCR Not Detected (NotDetected); Parainfluenza Virus 1 PCR Not Detected (NotDetected); Parainfluenza Virus 2 PCR Not Detected (NotDetected); Parainfluenza Virus 3 PCR Not Detected (NotDetected); Parainfluenza Virus 4 PCR Not Detected (NotDetected); Respiratory Syncytial VirusPCR Not Detected (NotDetected); Rhinovirus/Enterovirus PCR Not Detected (NotDetected)
--- NOTE | 2023-11-18 12:42 | CT Scan Report ---
CHEST CTA for PULMONARY ARTERIES CT DOSE: 2258.28 mGy.cm HISTORY: PE, new TWI TECHNIQUE: Multiaxial CT images of the chest were performed following the intravenous administration of contrast to evaluate the pulmonary arteries. 3D/Maximal intensity projection images were also obta ined. Sagittal and coronal reformations were also reviewed. A dose lowering technique was utilized a dhering to the principles of ALARA. COMPARISON STUDY: Chest CTA 10/25/2023. FINDINGS: No evidence for an an aortic dissection or pulmonary embolus. The heart remains mildly enla rged. There is a small pericardial effusion which is slightly increased in size. Trace left pleural e ffusion, unchanged. Prominent mediastinal and bilateral hilar lymph nodes are again noted. No progres sive lymphadenopathy within the chest. Abdominal structures will be reported on the same day abdomen and pelvis CT. Prior cholecystectomy. Normal esophagus. Prior right mastectomy. No axillary lymphaden opathy. No acute fractures identified. No pneumothorax. The central airways are patent. Mild dependen t changes noted at the lung bases. No new focal lung consolidations to suggest a pneumonia. There is mild respiratory motion artifact. A 5 mm nodule within the right lower lobe on image 93. This was lik karmen present on the prior study but was not well assessed due to the motion artifact. Calcified granul jessica within the right upper lobe. Groundglass densities within the prior study have almost completely resolved in the interval. There are few small nodular densities remaining within the superior segment of the right lower lobe. The findings likely represent a resolving pneumonia. IMPRESSION: 1. No evidence for a pulmonary embolus. 2. Slight increase in size in a small pericardial effusion. 3. Trace left pleural effusion, unchanged. 4. Near-complete resolution of the groundglass density seen on the prior study consistent with a reso lving pneumonia. 5. Prominent mediastinal and bilateral hilar lymph nodes remain unchanged. ACT 112: Negative or not required by law. Electronically signed by: El Grubbs M.D. 11/18/2023 12:39 PM
--- NOTE | 2023-11-18 12:50 | CT Scan Report ---
ABDOMEN AND PELVIS CT WITH IV CONTRAST HISTORY: Acute shortness of breath with epigastric abdominal pain epigastric pain TECHNIQUE: Multiaxial CT images of the abdomen and pelvis were performed following the IV administrat ion of 120 cc of Optiray, A dose lowering technique was utilized adhering to the principles of ALARA . COMPARISON STUDY: CTA chest of same day, CT abdomen and pelvis 07/20/2013, CT abdomen 08/21/2013 FINDINGS: There is pericardial thickening with increased enhancement. Trace pericardial effusion. Rig ht mastectomy. Trace pleural effusions. Mild bibasilar atelectasis. No free air. Spleen is mildly enl arged at 15 cm Unremarkable pancreas and adrenal glands. Cholecystectomy. Unremarkable liver. Patent portal vein. Un remarkable kidneys. No hydronephrosis. Gastrectomy. Extensive atherosclerosis of the abdominal aorta with high-grade stenosis at the origin of the right common iliac artery. No lymphadenopathy. Mild non specific distal esophageal wall thickening. No bowel obstruction or bowel wall thickening. Colonic di verticulosis. Subcentimeter nodular foci within the abdominal left upper quadrant may represent lymph nodes. No CT evidence of acute appendicitis. Unremarkable soft tissues. No acute fracture. Severe os teoarthritis of the right greater than left hips. IMPRESSION: 1. No bowel obstruction or bowel wall thickening. 2. Cholecystectomy. 3. Colonic diverticulosis. 4. Please refer to the chest CTA chest same day for additional findings including trace pericardial a nd pleural effusions. There is thickening and enhancement of the pericardium which is suggestive of a nonspecific pericarditis. 5. Severe osteoarthritis of the hips. ACT 112: Negative or not required by law. The above report was generated using voice recognition software. It may contain grammatical, syntax o r spelling errors. Electronically signed by: Bill Samson M.D. 11/18/2023 12:49 PM
--- NOTE | 2023-11-18 13:24 | History & Physical Report ---
Date of Service November 18, 2023 Assessment & Plan (1) Pericarditis: Plan: Chest pain. Suspect pericarditis EKG with new lateral T wave inversions compared to prior. Previously noted left bundle branch block is no longer present. Initial Trope normal. Last seen by cardiology 10/26/2023 for diastolic heart failure, left bundle branch block, chest pain. Her chest pain at that time was pleuritic, had stable but elevated biomarkers and was recommended for outpatient Lexiscan Due to recurrent sx w/ radiation to the chest worse on exertion and new EKG changes patient was recommended for inpatient observation, and inpatient stress test for restratification Discussed with cardiology. Especially since patient had constant pain for several hours overnight which is still persisting at time of admission with negative troponins extremely unlikely to be ischemic. T wave inversions are noted, but this is in context of her bundle branch resolving. Do not feel that additional ischemic testing as inpatient is currently warranted, agree with treatment for pericarditis and outpatient follow-up for her Lexiscan CTAchest: No PE. Interval slight decrease in size of pericardial effusion, unchanged left trace pleural effusion, prior densities consistent with pneumonia nearly completely resolved. No evidence of aneurysm CTA/P: S/p cholecystectomy. Thickening and enhancement of the pericardium suggestive of nonspecific pericarditis. No acute intra-abdominal symptoms CRP added and trended. Patient has a history of gout is tolerated colchicine well in the past. Colchicine plus Toradol ordered to see if this reduces symptomatic improvement. Given epigastric discomfort, also prophylaxis/GERD treatment has also been on Leukocytosis of 12.6 High sensitive troponin is negative Bio fire is negative Echo 10/2023: Moderate to severe diastolic dysfunction, LV EF 55 to 60%, septal motion consistent with conduction abnormality, no AAS/no significant AR/moderate TR/RVSP normal. (2) Diabetes mellitus, type II: Plan: DM 2 Last A1c 7%, glucose admission 162 Recommend addition of SGLT2 Basal bolus insulin while inpatient Goal BSG [id number] Patient was pending SGLT2 at time of discharge. Pt is not tolerant of metformin. (3) Diastolic CHF with preserved left ventricular function, NYHA class 2: Plan: Systolic CHF No evidence of pulmonary edema on CT Patient was pending SGLT2 at time of discharge. Pt is not tolerant of metformin. She does have history of pleuritic and MSK longstanding chest pain with stable biomarkers; was pending ischemic evaluation as outpatient and given new EKG changes with recurrent chest pain stress test has been ordered (4) GERD (gastroesophageal reflux disease): Plan: History of GERD GI cocktail, Protonix, Pepcid given Plan Chronic stable issues: Thyroidismcontinue Synthroid Anxiety/depressioncontinue home meds DVT prophylaxis: Lovenox Diet: Heart healthy/DM2 Disposition: Medical telemetry CODE STATUS: Full code History of Present Illness Primary Care Provider: Dean Dhillon DO Patient is a 78-year-old female with a past medical history of type II DM, hyperlipidemia, hypothyroidism, chronic low back pain, gout who presents with epigastric pain which radiates into her chest and EKG has new lateral territorial T wave inversions once pneumonia was improved. Schedule for nuclear stress test with cardiology this has not yet been done Patient reports she has had 3 days of worsening epigastric pain which radiates into her central and left chest. Tried mylanta but didnt help. When she takes a breath the pain goes into her L and Right chest. Feels a little like bad gas, but with bad pain and radiation up to a 7/10 into her central chest. Fells asleep at 2:30a, woke up this AM and still had a lot of pain so went to express care. Was referred to the ER for ischemic evaluation and PE evaluation. Pain improve dto 2/10 with morphine, but now at a 6-7/10 again. Worse with deep breathing. Has not noticed any change in pain leaning forward or back, but notes if she stands up straight does hurt a lot more. Endorses worsened dyspnea on exertion and thinks this makes her pain worse as well 'a little bit worse and more aware when trying to walk.' Took 1 colchecine 2 days ago, and did not seem to help her chest pain. No leg swelling. No orthopnea. She has had a slight dry nonproductive cough, improving and was treated for pneumonia a little over a month ago with gradual improvement. No hematochezia/melena Medical History: Reviewed Medications: Reviewed Surgical History: Reviewed Family history: Reviewed Allergies: Reviewed Social History: Reviewed Code Status: Full Allergies Allergy/AdvReac Type Severity Reaction Status Date / Time metformin Allergy Severe Verified 11/18/23 09:40 tetanus toxoid, adsorbed Allergy Severe ARM SWELLS Verified 11/18/23 09:40 calamine Allergy Unknown IRRITATION Verified 11/18/23 09:40 cephalexin Allergy Unknown RASH Verified 11/18/23 09:40 simvastatin Allergy Unknown Rhabdo Verified 11/18/23 09:40 tetracycline Allergy Unknown rash Verified 11/18/23 09:40 Home Medications Medication Instructions Recorded Confirmed Type multivitamin (Multiple Vitamins 1 tab PO DAILY 03/10/19 11/18/23 History tablet) melatonin 10 mg capsule 10 mg PO HS PRN Sleep 12/16/22 11/18/23 History allopurinol 100 mg tablet 150 mg (1.5 x 100 mg) PO DAILY 05/10/23 11/18/23 Rx #135 tabs colchicine 0.6 mg tablet 0.6 mg PO BID PRN gout #30 tabs 05/20/23 11/18/23 Rx coenzyme Q10 100 mg capsule 100 mg PO DAILY 09/01/23 11/18/23 History (CoQ-10) sucralfate 1 gram tablet (Carafate) 1 g PO BID PRN heartburn #60 tabs 09/01/23 11/18/23 Rx levothyroxine 100 mcg tablet 100 mcg PO DAILY #90 tabs 09/02/23 11/18/23 Rx sertraline 50 mg tablet 50 mg PO DAILY #90 tabs 10/17/23 11/18/23 Rx aspirin 81 mg tablet,delayed 81 mg PO DAILY 10/25/23 11/18/23 History release guaifenesin 600 mg tablet, 600 mg PO Q12 #14 tabs 10/27/23 11/18/23 Rx extended release 12 hr (Mucinex) lactobacillus combination no.4 3 3,000 mmu cells PO DAILY #7 caps 10/27/23 11/18/23 Rx billion cell capsule (Probiotic) Past Med/Surg History Problem List (Updated 11/18/23 @ 13:59 by Arvin Wagoner MD) Diastolic CHF with preserved left ventricular function, NYHA class 2 GERD (gastroesophageal reflux disease) Pericarditis Weakness LBBB (left bundle branch block) Osteoarthritis of left hip Degenerative spondylolisthesis Positive RICKY (antinuclear antibody) Osteoarthritis, hip, bilateral Right leg weakness Dysphagia Dry mouth Left hip pain BMI 38.0-38.9,adult Chronic right hip pain Osteoarthritis of right hip Elevated alkaline phosphatase level Neuropathy Diabetes mellitus, type II Elevated HbA1c 7.2% (08/01). Advised to initiated metformin and has focused on diet and exercise Hyperlipidemia (Acute) Hypothyroidism Gout hx gouty attack. Managed with allopurinol + colchicine BID PRN for acute attack. Incontinence in female Chronic low back pain Mood disorder Medical History Pneumonia Multifocal pneumonia Sensorineural hearing loss (SNHL) of both ears C. difficile colitis Breast cancer Pancreatitis Surgical History History of hysterectomy (~2012) H/O colonoscopy History of appendectomy Hx of cholecystectomy H/O breast surgery Family History Father Gastric cancer Lung cancer Mother Laryngeal cancer Brother Rheumatic fever Colon cancer Colorectal cancer Unknown Cardiomyopathy Denies family history of Ovarian cancer Prostate cancer Diabetes Myocardial infarction Breast cancer Stroke Social History Smoking Status: Former smoker packs per day: 2; Second Hand Exposure: No; Do You Dip or Chew Tobacco: No; Hx Alcohol Use: No Hx Substance Use: No Preferred Language: Citizen Of [place] Communication Ability: Effective Visual Impairment: Limited Hearing Ability: Normal 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 NAD. Cooperative. HEENT: Atraumatic, normocephalic. Vision and hearing intact Pulm: Diminished but grossly CTAB A&P. -wheezes, -rales, -rhonchi. Symmetrical chest rise. No increased work of breathing. No respiratory distress. Cardiac: RRR, -mrg. Radial pulses intact and symmetrical. On tripod position patient's chest pain does improve Abdominal: Nontender, nondistended, soft. BS present. Results & Data Results & Data Vital Signs (Past 12 Hours) Vital Signs Temp Pulse Resp BP Pulse Ox O2 Del Method 11/18/23 11:23 99 H 11/18/23 10:57 36.6 C 106 H 14 157/79 H 95 Room Air PG Care Time/CCT Total # of Minutes Spent Total Time Spent with Patient: Total time spent is greater than 50% in coordination of care (as documented) at patient's floor/unit and/or counseling patient: Coding Level of Care Code 54534 INT INP/OBS CARE 3/75MIN Diagnoses Pericarditis I31.9 Diabetes mellitus, type II E11.9 Diastolic CHF with preserved left ventricular function, NYHA class 2 I50.30 GERD (gastroesophageal reflux disease) K21.9
[2023-11-18] MEDS ORDERED: ALUMINUM/MAGNESIUM SUSP 30 ML UDC PO PRN (13:33)
[2023-11-18] MEDS ORDERED: CARBOHYDRATES FOR HYPOGLYCEMIA PO PRN (13:35)
[2023-11-18] MEDS ORDERED: GLUCOSE 40% GEL 15 GM TUBE PO PRN (13:35)
[2023-11-18] MEDS ORDERED: GLUCAGON FOR INJ 1 MG VIAL SQ PRN (13:35)
[2023-11-18] MEDS ORDERED: GLUCOSE 10 TAB/TUBE PO PRN (13:35)
[2023-11-18] MEDS ORDERED: DEXTROSE 50% 50 ML SYRINGE IV PRN (13:35)
[2023-11-18] MEDS: ALUMINUM/MAGNESIUM SUSP 30 ML UDC PO STA (13:50)
[2023-11-18] MEDS: PANTOprazole 40 MG TAB PO ONE (13:51)
[2023-11-18] MEDS: FAMOTIDINE 20MG IV PUSH 20 MG/5 ML SYR IV STA (13:51)
[2023-11-18] MEDS ORDERED: MELATONIN 3 MG TAB PO PRN (15:14)
[2023-11-18 15:15] LABS: Appearance Urine Clear (Clear); Bacteria Urine Automated None Seen (None Seen); Bilirubin Urine Negative (Negative); Blood Urine Trace (Negative); Cast Urine Automated 0-2 /lpf (0-2); Color Urine Yellow; Epithelial Cell Urine Auto 0-2 /hpf (0-2); Glucose Urine UA Negative (Negative); Ketones Urine Negative (Negative); Leukocyte Esterase Urine Negative (Negative); Nitrite Urine Negative (Negative); Protein Urine Negative (Negative); RBC Urine Automated 0-2 /hpf (0-2); Specific Gravity Urine > 1.045 (1.000-1.030); Urobilinogen Urine Negative (Negative); WBC Urine Automated 0-5 /hpf (0-5)
[2023-11-18] MEDS: Patient's HEIGHT &/or WEIGHT Needed SCH (15:17)
[2023-11-18] MEDS: KETOROLAC TROMETHAMINE 15 MG/ML VIAL IV SCH (15:50)
[2023-11-18] MEDS: ENOXAPARIN INJ 40 MG/0.4 ML SYR SQ SCH (15:50)
[2023-11-18 16:38] LABS: Troponin I High Sensitivity 8.4 pg/ml (0-14)
[2023-11-18 16:46] LABS: C Reactive Protein 11.66 mg/dl (0-0.5)
[2023-11-18] MEDS: INSULIN ASPART PER UNIT CHARGE SC SCH (17:58)
[2023-11-18] MEDS: LANTUS PER UNIT CHARGE SQ SCH (21:09)
[2023-11-18] MEDS: COLCHICINE 0.6 MG TAB PO SCH (21:13)
[2023-11-18] MEDS: SUCRALFATE 1 GM TAB PO SCH (21:13)
--- NOTE | 2023-11-18 21:19 | Electrocardiogram Report ---
Test Reason : Blood Pressure : / mmHG Vent. Rate : 104 BPM Atrial Rate : 104 BPM P-R Int : 154 ms QRS Dur : 070 ms QT Int : 356 ms P-R-T Axes : 063 037 -62 degrees QTc Int : 468 ms Sinus tachycardia Anterior infarct , age undetermined T wave abnormality, consider inferolateral ischemia Abnormal ECG When compared with ECG of 25-OCT-2023 16:53, Left bundle branch block is no longer Present Confirmed by Godfrey Davey ([id number]) on 11/18/2023 9:19:23 PM Referred By: Confirmed By:Godfrey Davey
[2023-11-19] MEDS: LEVOTHYROXINE SODIUM 100 MCG TABLET PO SCH (05:22)
[2023-11-19] MEDS: ACETAMINOPHEN 325 MG TAB PO PRN (05:33)
[2023-11-19 06:27] LABS: Basophils # (auto) 0.05 K/uL (0.00-0.20); Basophils % (auto) 0.6 %; Eosinophils % (auto) 3.5 %; Hematocrit (blood only) 34.7 % (37.0-47.0); Hemoglobin 11.4 g/dl (12.0-16.0); Immature Granulocytes # (auto) 0.05 K/uL (0.01-0.20); Immature Granulocytes % (auto) 0.6 %; Lymphocytes # (auto) 0.95 K/uL (1.20-3.40); Lymphocytes % (auto) 10.9 %; Mean Corpuscular Hemoglobin 29.5 pg (25.0-34.0); Mean Corpuscular Hgb Conc 32.9 g/dL (32.0-36.0); Mean Corpuscular Volume 89.7 fL (80.0-100.0); Mean Platelet Volume 9.5 fL (9.4-12.4); Monocytes # (auto) 0.71 K/uL (0.11-0.59); Monocytes % (auto) 8.2 %; Neutrophils # (auto) 6.63 K/uL (1.40-6.50); Neutrophils % (auto) 76.2 %; Platelet Count 153 K/uL (130-400); RDW Coefficient of Variation 13.9 % (11.5-14.5); RDW Standard Deviation 45.2 fL (36.4-46.3); Red Blood Count 3.87 M/uL (4.20-5.40); White Blood Count 8.69 K/ul (4.8-10.8)
[2023-11-19 06:51] LABS: BUN Creatinine Ratio 19.4 (10-20); C Reactive Protein 14.93 mg/dl (0-0.5); Calcium 8.7 mg/dl (8.6-10.3); Creatinine Clr Calc Pharmacy 54.3 ml/min; Est GFR (Non-African American) 55.3 ml/min; Potassium 4.1 mmol/L (3.5-5.1)
[2023-11-19] MEDS: SERTRALINE HCL 50 MG TABLET PO SCH (08:54)
[2023-11-19] MEDS: ASPIRIN 81 MG ECTAB PO SCH (08:55)
[2023-11-19] MEDS: allopurinoL 100 MG TAB PO SCH (08:55)
[2023-11-19] MEDS: PANTOprazole 40 MG TAB PO SCH (08:55)
--- NOTE | 2023-11-19 14:21 | Discharge Summary ---
Discharge Summary Date of Service November 19, 2023 Principal Dx & Hospital Course #1 = Principal Diagnosis (1) Pericarditis: Chest pain. secondary to pericarditis- complete resolution of symptoms with treatment EKG with new lateral T wave inversions compared to prior. Previously noted left bundle branch block is no longer present. Initial Trope normal x 2 Last seen by cardiology 10/26/2023 for diastolic heart failure, left bundle branch block, chest pain. Her chest pain at that time was pleuritic, had stable but elevated biomarkers and was recommended for outpatient Lexiscan ajay follow up with cardiology 11/25/23 to consider Lexiscan stress test for restratification CTA/P: S/p cholecystectomy. Thickening and enhancement of the pericardium suggestive of nonspecific pericarditis. No acute intra-abdominal symptoms Bio fire is negative Echo 10/2023: Moderate to severe diastolic dysfunction, LV EF 55 to 60%, septal motion consistent with conduction abnormality, no AAS/no significant AR/moderate TR/RVSP normal. discharged on ibuprofen taper, colchicine bid and follow up (2) Diabetes mellitus, type II: DM 2 Last A1c 7%, glucose admission 162 Recommend addition of SGLT2, will do so after conversation with outpt providers (3) Diastolic CHF with preserved left ventricular function, NYHA class 2: Systolic CHF No evidence of pulmonary edema on CT Patient was pending SGLT2 at time of discharge. Pt is not tolerant of metformin. (4) GERD (gastroesophageal reflux disease): History of GERD GI cocktail, Protonix, Pepcid given rx at discharge Plan Chronic stable issues: Thyroidismcontinue Synthroid Anxiety/depressioncontinue home meds CODE STATUS: Full code Notes For Next Care Provider reinforce use of ibuprofen taper and colchicine, pepcid given but may need to be increased to ppi follow up with cardiology for lexiscan Admission HPI Per Admitting Provider Patient is a 78-year-old female with a past medical history of type II DM, hyperlipidemia, hypothyroidism, chronic low back pain, gout who presents with epigastric pain which radiates into her chest and EKG has new lateral territorial T wave inversions once pneumonia was improved. Schedule for nuclear stress test with cardiology this has not yet been done Patient reports she has had 3 days of worsening epigastric pain which radiates into her central and left chest. Tried mylanta but didnt help. When she takes a breath the pain goes into her L and Right chest. Feels a little like bad gas, but with bad pain and radiation up to a 7/10 into her central chest. Fells asleep at 2:30a, woke up this AM and still had a lot of pain so went to express care. Was referred to the ER for ischemic evaluation and PE evaluation. Pain improve dto 2/10 with morphine, but now at a 6-7/10 again. Worse with deep breathing. Has not noticed any change in pain leaning forward or back, but notes if she stands up straight does hurt a lot more. Endorses worsened dyspnea on exertion and thinks this makes her pain worse as well 'a little bit worse and more aware when trying to walk.' Took 1 colchecine 2 days ago, and did not seem to help her chest pain. No leg swelling. No orthopnea. She has had a slight dry nonproductive cough, improving and was treated for pneumonia a little over a month ago with gradual improvement. No hematochezia/melena Medical History: Reviewed Medications: Reviewed Surgical History: Reviewed Family history: Reviewed Allergies: Reviewed Social History: Reviewed Code Status: Full Discharge Exam pt is awake and alert, cardiac is regular without rubs or murmurs Updated Medication List Medication Instructions Recorded Confirmed Type multivitamin (Multiple Vitamins 1 tab PO DAILY 03/10/19 11/18/23 History tablet) melatonin 10 mg capsule 10 mg PO HS PRN Sleep 12/16/22 11/18/23 History allopurinol 100 mg tablet 150 mg (1.5 x 100 mg) PO DAILY 05/10/23 11/18/23 Rx #135 tabs coenzyme Q10 100 mg capsule 100 mg PO DAILY 09/01/23 11/18/23 History (CoQ-10) sucralfate 1 gram tablet (Carafate) 1 g PO BID PRN heartburn #60 tabs 09/01/23 11/18/23 Rx levothyroxine 100 mcg tablet 100 mcg PO DAILY #90 tabs 09/02/23 11/18/23 Rx sertraline 50 mg tablet 50 mg PO DAILY #90 tabs 10/17/23 11/18/23 Rx aspirin 81 mg tablet,delayed 81 mg PO DAILY 10/25/23 11/18/23 History release guaifenesin 600 mg tablet, 600 mg PO Q12 #14 tabs 10/27/23 11/18/23 Rx extended release 12 hr (Mucinex) lactobacillus combination no.4 3 3,000 mmu cells PO DAILY #7 caps 10/27/23 11/18/23 Rx billion cell capsule (Probiotic) colchicine 0.6 mg tablet 0.6 mg PO BID gout #60 tabs 11/19/23 Rx famotidine 40 mg tablet (Pepcid) 40 mg PO DAILY #30 tabs 11/19/23 Rx Hospital Stay Data Consultations 11/18/23 13:43 ED Decision to Admit Stat Diagnostic Imagining Performed 11/18/23 11:47 CT abd pelvis IV con only Stat CT angio chest PE protocol Stat Pending Results Patient Have Any Pending Studies at Discharge: No Discharge Instructions Given to Patient (Per Discharging Provider) Pericarditis: Care Instructions Your Care Instructions Pericarditis occurs when the membrane that surrounds the heart and its major blood vessels becomes inflamed. In most cases, the cause is not known. It can be caused by a virus, a heart attack, or a chest injury. It also can be caused by another type of illness. Pericarditis causes sharp chest pain. This pain gets worse when you lie down or take a deep breath. The pain gets better if you lean forward or sit up. Pericarditis often heals on its own. It usually does not cause any more problems. Most people get better within a couple of weeks. Follow-up care is a pichardo part of your treatment and safety.Be sure to make and go to all appointments, and call your doctor if you are having problems. It's also a good idea to know your test results and keep a list of the medicines you take. How can you care for yourself at home? * Watch for the return of your symptoms. Sometimes pericarditis can come back after it has gone away. * Be safe with medicines. Take your medicines exactly as prescribed. Call your doctor if you think you are having a problem with your medicine. * Take Ibuprofen as directed and Rx of Colchicine Read and follow all instructions on the label. * Get plenty of rest until you feel better, especially if you have a fever. * Avoid exercise and strenuous activity that has not been approved by your doctor. Ask your doctor when you can be active again. * When should you call for help? [id number] you think you may need emergency care. For example, call if: * You have severe trouble breathing. * You passed out (lost consciousness). Call your doctor nowor seek immediate medical care if: * You are dizzy or lightheaded, or you feel like you may faint. * You have trouble breathing. * You have a new or higher fever. Watch closely for changes in your health, and be sure to contact your doctor if: * You do not get better as expected. Total Time Total Time Spent Total Time Spent (In Minutes): greater than 30 minutes required to prepare discharge Coding Level of Care Code 27775 INP/OBS DISCH >30 MIN Diagnoses Pericarditis I31.9 Diabetes mellitus, type II E11.9 Diastolic CHF with preserved left ventricular function, NYHA class 2 I50.30 GERD (gastroesophageal reflux disease) K21.9
== END 2023-11-19 14:51 | disposition home or self-care (01) ==
LOC: ED 10:38 → 2N 10:38 → SUATTDRO 13:33 → 2N 14:10

== ENCOUNTER 2024-03-04 13:13 | Inpatient (IN) ==
[2024-03-04 13:53] LABS: Basophils # (auto) 0.05 K/uL (0.00-0.20); Basophils % (auto) 0.6 %; Eosinophils # (auto) 0.17 K/uL (0.00-0.50); Hematocrit (blood only) 42.3 % (37.0-47.0); Hemoglobin 13.5 g/dl (12.0-16.0); Immature Granulocytes # (auto) 0.04 K/uL (0.01-0.20); Immature Granulocytes % (auto) 0.5 %; Lymphocytes # (auto) 0.29 K/uL (1.20-3.40); Lymphocytes % (auto) 3.4 %; Mean Corpuscular Hemoglobin 28.8 pg (25.0-34.0); Mean Corpuscular Hgb Conc 31.9 g/dL (32.0-36.0); Mean Corpuscular Volume 90.4 fL (80.0-100.0); Mean Platelet Volume 9.4 fL (9.4-12.4); Monocytes # (auto) 0.52 K/uL (0.11-0.59); Monocytes % (auto) 6.1 %; Neutrophils # (auto) 7.47 K/uL (1.40-6.50); Neutrophils % (auto) 87.4 %; Platelet Count 161 K/uL (130-400); RDW Coefficient of Variation 14.2 % (11.5-14.5); Red Blood Count 4.68 M/uL (4.20-5.40); White Blood Count 8.54 K/ul (4.8-10.8)
[2024-03-04 14:07] LABS: Potassium 4.5 mmol/L (3.5-5.1)
[2024-03-04 14:08] LABS: Albumin Globulin Ratio 1.5 (0.9-2); Albumin Level 4.2 gm/dl (3.4-5.0); BUN Creatinine Ratio 19.2 (10-20); Bilirubin,Total 0.9 mg/dl (0.2-1.0); Calcium 9.7 mg/dl (8.6-10.3); Creatinine Clr Calc Pharmacy 49.7 ml/min; Est GFR (African American) 62.8 ml/min; Est GFR (Non-African American) 54.2 ml/min; Globulin 2.8 gm/dl (2.5-4.0)
[2024-03-04 14:16] LABS: INR 1.1 (0.9-1.1); Partial Thromboplastin Time 27 Seconds (21-31); Prothrombin Time 12.1 Seconds (9.0-12.0)
--- NOTE | 2024-03-04 14:28 | Emergency Department Note ---
Impression & Plan Hypoxia, Weakness, Tachycardia, Elevated troponin, COVID-19 ED Provider Note NAME: YOLANDA STOUT AGE: 79 SEX: F : 1945 ARRIVES VIA: Ambulance INFORMANT: [Patient] ED PROVIDER(S): [Vaibhav Islas MD] CHIEF COMPLAINT: Illness HISTORY OF PRESENT ILLNESS: The patient is a 79-year-old female with a history of previous pericarditis as well as pneumonia. The patient states that her just tested positive for COVID. This morning, she woke up and felt tired and unwell. She has had a cough, she has had dry heaves and nausea. She feels thirsty and dehydrated. She is not short of breath although, her O2 saturation upon arrival was 84% on room air. Patient has no abdominal pain, there has been no diarrhea or urinary complaints. PMHx/PSHx/Social Hx: See Below PHYSICAL EXAM: GENERAL: Patient is in no acute distress. Hoarse voice. HEENT: No acute trauma, normocephalic atraumatic, mucous membranes dry, no nasal congestion. NECK: No stridor, no adenopathy, no meningismus, trachea is midline. LUNGS: Diminished breath sounds on the right, no wheezing or respiratory distress. HEART: Tachycardic with a subtle murmur. Regular rhythm. ABDOMEN: Soft, nontender, no peritonitis. EXTREMITIES: No cyanosis, full range of motion of all the joints without pain or difficulty. Mild bilateral pedal edema. NEUROLOGIC: Oriented x 3, no acute motor or sensory deficits, no focal weakness. SKIN: No jaundice, no diaphoresis. DIFFERENTIAL DIAGNOSIS: COVID-19, pneumonia, dehydration, electrolyte imbalance, UTI, among others EMERGENCY DEPARTMENT PROCEDURES: MEDICAL DECISION MAKING: There is no leukocytosis or concerning anemia. There was a normal platelet count. No concerning coagulopathy. VBG did not show acidosis or significant CO2 retention. No renal failure or significant electrolyte abnormality. Alk phos was elevated, the remaining liver enzymes were unremarkable. Respiratory bio fire was positive for COVID-19. Chest film did not show concerning CHF or pneumonia. ECG showed a sinus tachycardia with a left bundle branch block. No acute ST elevation. Cardiac enzyme testing did show some elevation, this troponin elevation could be secondary to cardiac injury or just mismatch from her hypoxia and tachycardia. The patient received IV Decadron, 1 L of IV saline. She was given IV Phenergan and IV Zofran for her nausea. She was given IV Pepcid. She received a DuoNeb. The patient presents tachycardic and hypoxic. She was found to have COVID-19. The patient is in need of a hospital stay. She has improved with her treatment. The heart rate has decreased and she seems more comfortable. I spoke with the patient and case management, the on-call hospitalist was consulted. Prior/Outside records/notes reviewed: Today's EMS notes describing her presentation and transport to this hospital. ECG per my interpretation: Indication was weakness. The ECG shows a sinus tachycardia with a left bundle branch block. The rate is 114. There is some baseline artifact. No ST elevation, no PVCs. The QTc is 468. Continuous Cardiac Monitoring per my interpretation: An order was placed for continuous cardiac monitoring. The monitor shows a rate of 118 with sinus tachycardia. Imaging/x-ray results per my interpretation: Chest x-ray does not show any focal pneumonia or CHF. Chronic Medical/Social conditions affecting care: Advanced age. Care/Management discussed with: Case management, the on-call hospitalist. Level of care consideration(s): After review of the information above and other included data: --I believe the patient requires escalation of care to admission Critical Care Note: I have personally spent 42 minutes of critical care time in the direct management of this patient. This includes bedside care, interpretation of diagnostic studies, and testing, discussion with consultants, patient, and family members, and other required patient management activities. This 42 minutes is in excess of all separately billable procedures. DISPOSITION: Admission Past Med/Surg History Problem List (Updated 03/04/24 @ 21:29 by Vaibhav Islas MD) COVID-19 (Acute) Elevated troponin (Acute) Tachycardia (Acute) Weakness (Acute) Hypoxia (Acute) UTI (urinary tract infection) COVID-19 Generalized weakness Hypoxia Encounter for pre-operative examination Pericarditis (Acute) 11/18/23 Diastolic CHF with preserved left ventricular function, NYHA class 2 GERD (gastroesophageal reflux disease) Weakness 11/11/23 LBBB (left bundle branch block) Osteoarthritis of left hip Degenerative spondylolisthesis Osteoarthritis, hip, bilateral Right leg weakness 09/01/23 Dysphagia Dry mouth Chronic right hip pain Osteoarthritis of right hip Elevated alkaline phosphatase level 01/03/23 Neuropathy Incontinence in female Chronic low back pain Hyperlipidemia (Acute) Diabetes mellitus, type II Hypothyroidism Gout hx gouty attack. Managed with allopurinol + colchicine BID PRN for acute attack. Mood disorder Medical History Limb alert care status right arm Mood disorder Neuropathy feet LBBB (left bundle branch block) 10/2023, scheduled for upcoming nuclear stress test; f/u mn cardio Hypothyroidism Hyperlipidemia Gout Hx of gastroesophageal reflux (GERD) controlled, stable per pt Diastolic CHF with preserved left ventricular function, NYHA class 2 11/2023, hospitalized [facility] Diabetes mellitus, type II NIDDM Degenerative spondylolisthesis Chronic low back pain History of pericarditis 10/2023, hospitalized [facility] for 2 days Positive RICKY (antinuclear antibody) pt unsure? Multifocal pneumonia 10/2023, hosptialized [facility] for 2-3 days Sensorineural hearing loss (SNHL) of both ears C. difficile colitis hx, ~2013, hospitalized Breast cancer ~dx 2013,Hx recurrent R breast cancer s/p R simple mastectomy and limited R axillary lymph node dissection. Being followed by [facility] and Dr. Stone Pancreatitis (~1989) hx, 07/15 "bad gallbladder" Surgical History History of hysterectomy (~2012) H/O colonoscopy nml 03/2015 No additional screening History of appendectomy Hx of cholecystectomy H/O breast surgery ~2013, R simple mastectomy and limited R axillary lymph node dissection Family History Father Gastric cancer Lung cancer Mother Laryngeal cancer Brother Rheumatic fever Colon cancer Colorectal cancer Unknown Cardiomyopathy Denies family history of Ovarian cancer Prostate cancer Diabetes Myocardial infarction Breast cancer Stroke Social History Smoking Status: Never smoker packs per day: 2; Second Hand Exposure: Yes (hx as child); Do You Dip or Chew Tobacco: No; Hx Alcohol Use: Yes (none for last 30 years) Hx Substance Use: No Preferred Language: Sinhala Communication Ability: Effective Visual Impairment: Limited Hearing Ability: Normal Laminator Required: No Beliefs That Will Affect Care: None marital status: Current Living Situation: Spouse current occupational status: retired How many Children do You have: 1 Feels Safe at Home: Yes Childhood Exposure to Second-Hand Smoke: Yes caffeine: Yes Dental Care, Regularly: Yes Physical Activity Frequency: 3-4 Times per Week Seatbelt Use: always Sunscreen Use: Yes Assistive Devices: Glasses Allergies Allergies Allergy/AdvReac Type Severity Reaction Status Date / Time metformin Allergy Severe rhabdo Verified 03/04/24 15:41 tetanus toxoid, adsorbed Allergy Severe ARM SWELLS Verified 03/04/24 15:41 calamine Allergy Unknown IRRITATION Verified 03/04/24 15:41 cephalexin Allergy Unknown RASH Verified 03/04/24 15:41 simvastatin Allergy Unknown Rhabdo Verified 03/04/24 15:41 tetracycline Allergy Unknown rash Verified 03/04/24 15:41 Home Meds Home Medications Medication Instructions Recorded Confirmed multivitamin (Multiple Vitamins 1 tab PO QAM 03/10/19 03/04/24 tablet) coenzyme Q10 100 mg capsule 100 mg PO QAM 09/01/23 03/04/24 (CoQ-10) allopurinol 100 mg tablet 150 mg PO QAM 02/20/24 03/04/24 amino acids 1 tab PO DAILY 02/20/24 03/04/24 empagliflozin 10 mg tablet 10 mg PO QPM 02/20/24 03/04/24 (Jardiance) gabapentin 300 mg capsule 300 mg PO HS 02/20/24 03/04/24 (Neurontin) ibuprofen 600 mg tablet 600 mg PO TID 02/20/24 03/04/24 levothyroxine 100 mcg tablet 100 mcg PO QAM 02/20/24 03/04/24 sertraline 50 mg tablet 50 mg PO DAILY 02/20/24 03/04/24 famotidine 40 mg tablet 40 mg PO HS 02/23/24 03/04/24 cholecalciferol (vitamin D3) 25 25 mcg PO DAILY 03/04/24 03/04/24 mcg (1,000 unit) tablet (Vitamin D3) Previous Rx's Medication Instructions Recorded colchicine 0.6 mg tablet 0.6 mg PO BID gout #60 tabs 11/19/23 oxycodone 5 mg tablet 5 mg PO BID PRN pain #56 tabs 02/14/24 ciprofloxacin HCl 250 mg tablet 250 mg PO BID #14 tabs 02/27/24 Results & Data (ED) Vital Signs Vital Signs - 24 hr 03/04/24 13:18 03/04/24 13:56 03/04/24 13:56 Temperature 36.9 C Temperature Source Oral Pulse Rate 113 H 114 H Pulse Rate from SpO2 Sensor Respiratory Rate 16 Blood Pressure 131/80 Blood Pressure Mean 97 Blood Pressure Position Sitting Pulse Oximetry 99 84 L Oxygen Delivery Method Room Air Room Air Oxygen Flow Rate Sepsis Recent Fever Within 48 Hours No Sepsis New/Unexplained Change in Mental Status No Sepsis Action Taken by Nursing No Action Required Oxygen Flow Rate - Titration 4 Pulse Oximetry Post Tiitration 95 03/04/24 15:15 03/04/24 16:03 03/04/24 17:27 Temperature Temperature Source Pulse Rate 121 H 104 H 108 H Pulse Rate from SpO2 Sensor 223 H 127 H Respiratory Rate 21 14 16 Blood Pressure 144/89 H 112/73 Blood Pressure Mean 107 86 Blood Pressure Position Pulse Oximetry 92 95 94 Oxygen Delivery Method Nasal Cannula Nasal Cannula Nasal Cannula Oxygen Flow Rate 2 2 4 Sepsis Recent Fever Within 48 Hours Sepsis New/Unexplained Change in Mental Status Sepsis Action Taken by Nursing Oxygen Flow Rate - Titration Pulse Oximetry Post Tiitration 03/04/24 18:02 03/04/24 18:09 03/04/24 18:53 Temperature Temperature Source Pulse Rate 105 H 110 H Pulse Rate from SpO2 Sensor 114 H 112 H Respiratory Rate 20 19 Blood Pressure 115/65 Blood Pressure Mean 92 Blood Pressure Position Pulse Oximetry 94 96 Oxygen Delivery Method Nasal Cannula Nasal Cannula Oxygen Flow Rate 4 4 Sepsis Recent Fever Within 48 Hours Sepsis New/Unexplained Change in Mental Status Sepsis Action Taken by Nursing Oxygen Flow Rate - Titration Pulse Oximetry Post Tiitration 03/04/24 19:38 03/04/24 19:53 03/04/24 20:01 Temperature Temperature Source Pulse Rate 93 H 68 96 H Pulse Rate from SpO2 Sensor 111 H Respiratory Rate 22 15 22 Blood Pressure 109/74 Blood Pressure Mean 82 Blood Pressure Position Pulse Oximetry 93 93 Oxygen Delivery Method Oxygen Flow Rate Sepsis Recent Fever Within 48 Hours Sepsis New/Unexplained Change in Mental Status Sepsis Action Taken by Nursing Oxygen Flow Rate - Titration Pulse Oximetry Post Tiitration 03/04/24 21:00 Temperature Temperature Source Pulse Rate 105 H Pulse Rate from SpO2 Sensor Respiratory Rate 20 Blood Pressure 137/74 Blood Pressure Mean 96 Blood Pressure Position Pulse Oximetry 93 Oxygen Delivery Method Oxygen Flow Rate Sepsis Recent Fever Within 48 Hours Sepsis New/Unexplained Change in Mental Status Sepsis Action Taken by Nursing Oxygen Flow Rate - Titration Pulse Oximetry Post Tiitration Home Medications Current Medication List: was personally reviewed by me Laboratory Data Attestation: I reviewed the patient's lab results. 03/04/24 13:30 03/04/24 13:30 Lab Results 03/04/24 03/04/24 03/04/24 Range/Units 13:30 17:59 18:05 WBC 8.54 (4.8-10.8) K/ul RBC 4.68 (4.20-5.40) M/uL Hgb 13.5 (12.0-16.0) g/dl Hct 42.3 (37.0-47.0) % MCV 90.4 (80.0-100.0) fL MCH 28.8 (25.0-34.0) pg MCHC 31.9 L (32.0-36.0) g/dL RDW Std Deviation 47.0 H (36.4-46.3) fL RDW Coeff of Brayden 14.2 (11.5-14.5) % Plt Count 161 (130-400) K/uL MPV 9.4 (9.4-12.4) fL Immature Gran % (Auto) 0.5 % Neut % (Auto) 87.4 % Lymph % (Auto) 3.4 % Boone % (Auto) 6.1 % Eos % (Auto) 2.0 % Baso % (Auto) 0.6 % Neut # (Auto) 7.47 H (1.40-6.50) K/uL Lymph # (Auto) 0.29 L (1.20-3.40) K/uL Boone # (Auto) 0.52 (0.11-0.59) K/uL Eos # (Auto) 0.17 (0.00-0.50) K/uL Baso # (Auto) 0.05 (0.00-0.20) K/uL Immature Gran # (Auto) 0.04 (0.01-0.20) K/uL PT 12.1 H (9.0-12.0) Seconds INR 1.1 (0.9-1.1) APTT 27 (21-31) Seconds PTT Ratio 1.0 VBG pH 7.39 (7.36-7.41) VBG pCO2 36 L (38-50) mmHg VBG pO2 44 mmHg VBG HCO3 22 mmol/L VBG O2 Saturation 75.4 % VBG Base Excess -2.6 mEq/L Sodium 139 (136-145) mmol/L Potassium 4.5 (3.5-5.1) mmol/L Chloride 105 (98-107) mmol/L Carbon Dioxide 23 (21-32) mmol/L Anion Gap 11 (3-11) BUN 19 (6-23) mg/dl Creatinine 0.99 (0.6-1.2) mg/dl Est Cr Clr Drug Dosing 49.7 ml/min Est GFR ( Amer) 62.8 ml/min Est GFR (Non-Af Amer) 54.2 ml/min BUN/Creatinine Ratio 19.2 (10-20) Glucose 140 H (70-99(Fasting)) mg/dl POC Glucose (70-99) mg/dl Lactate 2.2 H* (0.4-2.0) mmol/L Calcium 9.7 (8.6-10.3) mg/dl Magnesium 1.8 (1.7-2.4) mg/dl Total Bilirubin 0.9 (0.2-1.0) mg/dl AST 22 (13-39) U/L ALT 13 (7-52) U/L Alkaline Phosphatase 197 H (34-104) U/L Troponin I High Sens 25.6 H 99.7 H* D (0-14) pg/ml Total Protein 7.0 (6.0-8.3) gm/dl Albumin 4.2 (3.4-5.0) gm/dl Globulin 2.8 (2.5-4.0) gm/dl Albumin/Globulin Ratio 1.5 (0.9-2) Procalcitonin 0.18 (0-0.5) ng/ml Adenovirus (PCR) Not Detected (NotDetected) B. pertussis DNA (PCR) Not Detected (NotDetected) B.parapertussis DNA PCR Not Detected (NotDetected) C. pneumoniae DNA (PCR) Not Detected (NotDetected) Coronavirus OC43 (PCR) Not Detected (NotDetected) Coronavirus HKU1 (PCR) Not Detected (NotDetected) Coronavirus 229E (PCR) Not Detected (NotDetected) SARS-CoV-2 (PCR) DETECTED A (NotDetected) Coronavirus NL63 (PCR) Not Detected (NotDetected) Human Metapneumovir PCR Not Detected (NotDetected) Influenza Type A (PCR) Not Detected (NotDetected) Influenza Type B (PCR) Not Detected (NotDetected) M. pneumoniae (PCR) Not Detected (NotDetected) Parainfluenza 1 (PCR) Not Detected (NotDetected) Parainfluenza 2 (PCR) Not Detected (NotDetected) Parainfluenza 3 (PCR) Not Detected (NotDetected) Parainfluenza 4 (PCR) Not Detected (NotDetected) RSV (PCR) Not Detected (NotDetected) Entero/Rhino (PCR) Not Detected (NotDetected) 03/04/24 03/04/24 03/04/24 Range/Units 18:34 20:43 20:45 WBC (4.8-10.8) K/ul RBC (4.20-5.40) M/uL Hgb (12.0-16.0) g/dl Hct (37.0-47.0) % MCV (80.0-100.0) fL MCH (25.0-34.0) pg MCHC (32.0-36.0) g/dL RDW Std Deviation (36.4-46.3) fL RDW Coeff of Brayden (11.5-14.5) % Plt Count (130-400) K/uL MPV (9.4-12.4) fL Immature Gran % (Auto) % Neut % (Auto) % Lymph % (Auto) % Boone % (Auto) % Eos % (Auto) % Baso % (Auto) % Neut # (Auto) (1.40-6.50) K/uL Lymph # (Auto) (1.20-3.40) K/uL Boone # (Auto) (0.11-0.59) K/uL Eos # (Auto) (0.00-0.50) K/uL Baso # (Auto) (0.00-0.20) K/uL Immature Gran # (Auto) (0.01-0.20) K/uL PT (9.0-12.0) Seconds INR (0.9-1.1) APTT (21-31) Seconds PTT Ratio VBG pH (7.36-7.41) VBG pCO2 (38-50) mmHg VBG pO2 mmHg VBG HCO3 mmol/L VBG O2 Saturation % VBG Base Excess mEq/L Sodium (136-145) mmol/L Potassium (3.5-5.1) mmol/L Chloride (98-107) mmol/L Carbon Dioxide (21-32) mmol/L Anion Gap (3-11) BUN (6-23) mg/dl Creatinine (0.6-1.2) mg/dl Est Cr Clr Drug Dosing ml/min Est GFR ( Amer) ml/min Est GFR (Non-Af Amer) ml/min BUN/Creatinine Ratio (10-20) Glucose (70-99(Fasting)) mg/dl POC Glucose 158 H 195 H (70-99) mg/dl Lactate 1.6 (0.4-2.0) mmol/L Calcium (8.6-10.3) mg/dl Magnesium (1.7-2.4) mg/dl Total Bilirubin (0.2-1.0) mg/dl AST (13-39) U/L ALT (7-52) U/L Alkaline Phosphatase (34-104) U/L Troponin I High Sens (0-14) pg/ml Total Protein (6.0-8.3) gm/dl Albumin (3.4-5.0) gm/dl Globulin (2.5-4.0) gm/dl Albumin/Globulin Ratio (0.9-2) Procalcitonin (0-0.5) ng/ml Adenovirus (PCR) (NotDetected) B. pertussis DNA (PCR) (NotDetected) B.parapertussis DNA PCR (NotDetected) C. pneumoniae DNA (PCR) (NotDetected) Coronavirus OC43 (PCR) (NotDetected) Coronavirus HKU1 (PCR) (NotDetected) Coronavirus 229E (PCR) (NotDetected) SARS-CoV-2 (PCR) (NotDetected) Coronavirus NL63 (PCR) (NotDetected) Human Metapneumovir PCR (NotDetected) Influenza Type A (PCR) (NotDetected) Influenza Type B (PCR) (NotDetected) M. pneumoniae (PCR) (NotDetected) Parainfluenza 1 (PCR) (NotDetected) Parainfluenza 2 (PCR) (NotDetected) Parainfluenza 3 (PCR) (NotDetected) Parainfluenza 4 (PCR) (NotDetected) RSV (PCR) (NotDetected) Entero/Rhino (PCR) (NotDetected) Administered Medications Acetaminophen (Acetaminophen 325 Mg Tab) 650 mg PO Q6H PRN PRN Reason: pain(1-4),headache,fever Stop: 04/03/24 15:12 Last Admin: 03/04/24 16:38 Dose: 650 mg Documented By: KARYN Insulin Aspart (Insulin Aspart Per Unit Charge) 0 units SC ACHS RALPH Stop: 04/03/24 16:29 Last Admin: 03/04/24 20:55 Dose: 2 units Documented By: RADHA Co-signed By: HB Discontinued Medications Albuterol (Albut/Ipratrop 3mg/0.5mg Neb 3 Ml Vial) 3 ml NEB NOW STA; Protocol Stop: 03/04/24 14:25 Last Admin: 03/04/24 14:52 Dose: 3 ml Documented By: NANCY Dexamethasone Sodium Phosphate (DexamethasonePf 10 Mg/Ml Vial) 6 mg IV NOW ONE Stop: 03/04/24 15:01 Last Admin: 03/04/24 15:41 Dose: 6 mg Documented By: KARYN Sodium Chloride (Nss) 1,000 mls @ 999 mls/hr IV .Q1H1M ONE Stop: 03/04/24 15:24 Last Infusion: 03/04/24 16:27 Dose: Infused Documented By: Admin: 03/04/24 14:52 Dose: 999 mls/hr Documented By: NANCY Promethazine HCl (Phenergan) 6.25 mg in 50.25 mls @ 201 mls/hr IV NOW STA Stop: 03/04/24 14:38 Last Infusion: 03/04/24 16:27 Dose: Infused Documented By: Admin: 03/04/24 14:40 Dose: 201 mls/hr Documented By: NANCY Famotidine (Pepcid 20mg Iv Push) 20 mg in 5 mls @ 2.5 mls/min IV NOW STA Stop: 03/04/24 14:25 Last Admin: 03/04/24 14:39 Dose: 2.5 mls/min Documented By: NANCY Lactated Ringer's (Lr) 500 mls @ 999 mls/hr IV .Q31M ONE Stop: 03/04/24 16:01 Last Infusion: 03/04/24 17:14 Dose: Infused Documented By: Admin: 03/04/24 16:10 Dose: 999 mls/hr Documented By: KARYN Remdesivir 200 mg/ Sodium (Chloride) 250 mls @ 125 mls/hr IV 1600 ONE; Protocol Stop: 03/04/24 17:59 Last Admin: 03/04/24 16:17 Dose: Not Given Documented By: KARYN Piperacillin Sod/Tazobactam Sod (Zosyn) 4.5 gm in 100 mls @ 200 mls/hr IV NOW ONE Stop: 03/04/24 16:40 Last Infusion: 03/04/24 17:14 Dose: Infused Documented By: Admin: 03/04/24 16:39 Dose: 200 mls/hr Documented By: KARYN Ioversol (Optiray 320 125ml) 118 ml IV ONCE ONE Stop: 03/04/24 16:28 Last Admin: 03/04/24 16:29 Dose: 118 ml Documented By: MOE Ondansetron HCl (Ondansetron Inj 2 Mg/Ml 2 Ml Vial) 4 mg IV NOW STA Stop: 03/04/24 14:25 Last Admin: 03/04/24 14:38 Dose: 4 mg Documented By: NANCY Imaging Data Radiologist's Impression: Chest X-Ray 03/04/24 13:27 XR chest 1V not portable CLINICAL HISTORY: low o2 sat COMPARISON STUDY: Chest CT November 18, 2023. Chest radiograph February 23, 2024. FINDINGS: Status post right mastectomy. There is no pneumothorax or right pleural effusion. Trace left pleural effusion. There is mild interstitial thickening. Cardiomegaly is unchanged. IMPRESSION: 1. Cardiomegaly with mild interstitial pulmonary edema. 2. Trace left pleural effusion. ACT 112: Negative or not required by law. Electronically signed by: Facundo Donahue M.D. 03/04/2024 2:28 PM Chest CTA 03/04/24 16:08 CT ANGIOGRAPHY OF THE CHEST, PULMONARY EMBOLUS PROTOCOL CLINICAL HISTORY: Covid. Evaluate for pulmonary embolus. COMPARISON STUDY: Chest CT November 18, 2023. Chest radiograph performed earlier today. TECHNIQUE: Following IV administration of 118 mL of Optiray, helical axial images of the chest were obtained utilizing the pulmonary embolus protocol. Maximal intensity projections and sagittal and coronal reformats were viewed on an independent 3D workstation. IV contrast was administered without complication. Automated exposure control was utilized for the study. A dose lowering technique was utilized adhering to the principles of ALARA. CT DOSE: 874.62 mGy.cm FINDINGS: No pulmonary emboli are identified although this exam is significantly compromised by respiratory motion. The segmental and subsegmental pulmonary arteries are suboptimally assessed. The heart is moderately enlarged. There is moderate coronary artery calcification. There is no pneumothorax. Small left and trace right pleural effusions are present. There is interlobular septal thickening. Alveolar opacities within the lungs are present. Subpleural opacities favor atelectasis. Mildly enlarged mediastinal and bilateral hilar lymph nodes are present. Index subcarinal lymph node measures 2.3 x 1.3 cm. Mild splenomegaly is unchanged. The gallbladder surgically absent. Status post right mastectomy. Stable postoperative appearance. IMPRESSION: 1. No pulmonary emboli identified although segmental and subsegmental pulmonary arteries suboptimally assessed due to respiratory motion. 2. Interstitial pulmonary edema with small left and trace right pleural effusions. Alveolar opacities within lungs favor alveolar pulmonary edema. Superimposed pneumonia could appear similar. 3. Mildly enlarged mediastinal and bilateral hilar lymph nodes. This lymphadenopathy is nonspecific although may be related to pulmonary edema. 4. Cardiomegaly. ACT 112: Negative or not required by law. Electronically signed by: Facundo Donahue M.D. 03/04/2024 4:45 PM Discharge Plan Visit Data Chief Complaint: Illness ED Provider: Vaibhav Islas Discharge Problem: Hypoxia, Weakness, Tachycardia, Elevated troponin, COVID-19 Patient Disposition: Admitted As Inpatient Condition: Serious Discharge Instructions Interventions: ED Discharge Assessment Last Done: 03/04/24 21:03 Forms Stand Alone Forms: VENNCOMM Prescriptions Prescriptions: No Action oxycodone 5 mg tablet 5 mg PO BID PRN (Reason: pain) Qty: 56 0RF ciprofloxacin HCl 250 mg tablet 250 mg PO BID Qty: 14 0RF Rx Instructions: Start Date 02/27/24, pt unsure of day supply multivitamin [Multiple Vitamins] tablet 1 tab PO QAM Rx Instructions: Pt currently holding medication due to upcoming planned surgery. coenzyme Q10 [CoQ-10] 100 mg capsule 100 mg PO QAM Rx Instructions: Pt currently holding medication due to upcoming planned surgery. cholecalciferol (vitamin D3) [Vitamin D3] 25 mcg (1,000 unit) Tablet 25 mcg PO DAILY Rx Instructions: Pt currently holding medication due to upcoming planned surgery. colchicine 0.6 mg tablet 0.6 mg PO BID Qty: 60 2RF ibuprofen [Motrin] 600 mg Tablet 600 mg PO TID amino acids Tablet 1 tab PO DAILY Rx Instructions: 1 tab daily, starting 2 weeks prior to sx. allopurinol 100 mg tablet 150 mg PO QAM levothyroxine 100 mcg tablet 100 mcg PO QAM gabapentin [Neurontin] 300 mg capsule 300 mg PO HS sertraline 50 mg tablet 50 mg PO DAILY Jardiance 10 mg tablet 10 mg PO QPM Patient Comments: usually at lunch or dinner famotidine 40 mg tablet 40 mg PO HS Referrals Referrals: Dean Dhillon DO [Primary Care Provider] -
[2024-03-04] MEDS: ONDANSETRON INJ 2 MG/ML 2 ML VIAL IV STA (14:38)
[2024-03-04] MEDS: FAMOTIDINE 20MG IV PUSH 20 MG/5 ML SYR IV STA (14:39)
[2024-03-04] MEDS: PROMETHAZINE 6.25 MG/50.25 ML BAG IV STA (14:40)
[2024-03-04 14:52] LABS: Adenovirus PCR Not Detected (NotDetected); Bordetella parapertussis PCR Not Detected (NotDetected); Bordetella pertussis PCR Not Detected (NotDetected); Chlamydia pneumoniae PCR Not Detected (NotDetected); Coronavirus 229E PCR Not Detected (NotDetected); Coronavirus CoV-2 (COVID19)PCR DETECTED (NotDetected); Coronavirus HKU1 PCR Not Detected (NotDetected); Coronavirus NL63 PCR Not Detected (NotDetected); Coronavirus OC43PCR Not Detected (NotDetected); Human Metapneumovirus PCR Not Detected (NotDetected); Influenza A PCR Not Detected (NotDetected); Influenza B PCR Not Detected (NotDetected); Mycoplasma pneumoniae PCR Not Detected (NotDetected); Parainfluenza Virus 1 PCR Not Detected (NotDetected); Parainfluenza Virus 2 PCR Not Detected (NotDetected); Parainfluenza Virus 3 PCR Not Detected (NotDetected); Parainfluenza Virus 4 PCR Not Detected (NotDetected); Respiratory Syncytial VirusPCR Not Detected (NotDetected); Rhinovirus/Enterovirus PCR Not Detected (NotDetected)
[2024-03-04] MEDS: ALBUT/IPRATROP 3MG/0.5MG NEB 3 ML VIAL NEB STA (14:52)
[2024-03-04] MEDS: SODIUM CHLORIDE 0.9% 1,000 ML IV ONE (14:52)
[2024-03-04 14:55] LABS: Magnesium 1.8 mg/dl (1.7-2.4)
[2024-03-04 15:03] LABS: Troponin I High Sensitivity 25.6 pg/ml (0-14)
[2024-03-04] MEDS ORDERED: GLUCAGON FOR INJ 1 MG VIAL SQ PRN (15:11)
[2024-03-04] MEDS ORDERED: CARBOHYDRATES FOR HYPOGLYCEMIA PO PRN (15:11)
[2024-03-04] MEDS ORDERED: GLUCOSE 40% GEL 15 GM TUBE PO PRN (15:11)
[2024-03-04] MEDS ORDERED: GLUCOSE 10 TAB/TUBE PO PRN (15:11)
[2024-03-04] MEDS ORDERED: DEXTROSE 50% 50 ML SYRINGE IV PRN (15:11)
[2024-03-04] MEDS ORDERED: PHARMACY GLYCEMIC MGMT CONSULT PRN (15:11)
--- NOTE | 2024-03-04 15:11 | History & Physical Report ---
Date of Service March 04, 2024 Assessment & Plan (1) Hypoxia: Plan: Admit to the PCU on telemetry and pulse oximetry Currently stable 4 L nasal cannula, in no respiratory distress, and nontoxic. Present to the ED with acute generalized weakness, nausea, nonbloody emesis, and cough Noted to be hypoxic at 84% on room air at the time of arrival Found to be COVID-19 positive, this was not surprising as her tested positive at home approximately 48 hours ago Chest x-ray cardiomegaly with mild interstitial pulmonary edema Due to patient's persistent tachycardia and hypoxia since with arrival will obtain CTA of the chest with PE protocol to monitor for other possible etiologies of hypoxia and tachycardia Status post 6 mg IV dexamethasone in the ED, will continue 6 mg IV daily for total 10 days After discussions, patient would like to begin remdesivir therapy as she is without contraindication, will give loading dose now then continue maintenance x 4 days for total 5 days of therapy Continue to monitor on telemetry and monitor pulse oximetry Incentive spirometry, flutter therapy, hold additional albuterol until tachycardia improves, as needed O2 to keep SpO2 at or above 92% As needed Tylenol, scheduled guaifenesin/dextromethorphan SQ Lovenox for DVT prophylaxis Heart healthy/DM type II diet AM CBC, CMP, mag, PT/INR (2) Generalized weakness: Plan: Patient presented with generalized weakness, appears significantly fatigued on exam Likely combination of acute COVID-19 infection and dehydration Status post 1 L normal saline in the ED, will give an additional 500 mL LR bolus as she still appears dehydrated on exam Continue care per hypoxia plan PT/OT consults Fall/aspiration precautions (3) UTI (urinary tract infection): Plan: Patient has been on a 7-day course of ciprofloxacin with first dose on 02/28/2024 due to reported UTI Has a urine culture from 02/23/2024 growing pansensitive Klebsiella pneumonia Due to previous history of rash with cephalexin will start patient on Zosyn for now Will attempt to repeat UA and try to obtain blood cultures but patient has been refusing repeat labs at this time (4) COVID-19: Plan: Full respiratory BioFire was positive for SARS-CoV-2/COVID-19 Continue dexamethasone and remdesivir therapy Rest of care per hypoxia and generalized weakness plans (5) Diastolic CHF with preserved left ventricular function, NYHA class 2: Plan: Patient has known right-sided heart failure with preserved left ventricular ejection fraction Mild interstitial pulmonary edema on chest x-ray but mucous membranes are significantly dry with little urinary output since arrival Received 1 L normal saline, additional 500 mL LR bolus now Hold Jardiance Continue to monitor labs closely moving forward (6) Hypothyroidism: Plan: Continue levothyroxine Plan The patient was discussed with Dr. Piña at the time of admission History of Present Illness Chief Complaint: Respiratory symptoms, generalized weakness, nausea/vomiting Primary Care Provider: Dean Dhillon DO Barbour is a 79 year old female with a PMH significant for pericarditis, type II DM, hyperlipidemia, hypothyroidism, chronic low back pain, gout who presented to [facility] ED on 03/04/2024 with multiple complaints including generalized weakness, upper respiratory symptoms, nausea, and vomiting. Patient's reportedly tested positive on recent home COVID-19 test. On arrival to the ED she was noted to be hypoxic at 84% on room air, tachycardic at 113, but otherwise stable. Labs were significant for an initial high-sensitivity troponin of 25 and full respiratory BioFire positive for SARS-CoV-2. At 113 chest x-ray was read as cardiomegaly with mild interstitial pulmonary edema with trace left pleural effusion. ECG showed sinus tachycardia with previously known left bundle branch block. Prior to admission the patient was given 1 L normal saline, 4 mg IV Zofran, 4 mg IV promethazine, 20 mg IV famotidine, and albuterol treatment, and 6 mg IV dexamethasone. Patient was sitting in bed in no acute distress but does appear ill and fatigued. She states that her tested positive for COVID-19 approximately 2 days ago. This morning when she woke up she felt significantly fatigued and was nauseous. She went back to bed for a few hours shortly after waking, when she woke this afternoon she felt even worse and was unable to tolerate any p.o. intake due to her nausea and vomiting. Denies recent fever, chills, chest pain, hemoptysis, shortness of breath, abdominal pain, hematemesis, dysuria/hematuria, melena, diarrhea, lower extremity swelling, and recent trauma. States that she feels approximately 90% better than arrival despite continuing to require oxygen and appearing significantly fatigued. States this is the first time she is ever had COVID-19. Does not use home oxygen or CPAP, no current tobacco use. We discussed CODE STATUS, she will remain full code at this time but would like to continue discussions with her family to consider switching to DNR/DNI due to her age and concern for quality of life if she were to require CPR or intubation. Please refer to Dr. Piña's attestation for any changes to the treatment plan Allergies Allergy/AdvReac Type Severity Reaction Status Date / Time metformin Allergy Severe rhabdo Verified 03/04/24 15:41 tetanus toxoid, adsorbed Allergy Severe ARM SWELLS Verified 03/04/24 15:41 calamine Allergy Unknown IRRITATION Verified 03/04/24 15:41 cephalexin Allergy Unknown RASH Verified 03/04/24 15:41 simvastatin Allergy Unknown Rhabdo Verified 03/04/24 15:41 tetracycline Allergy Unknown rash Verified 03/04/24 15:41 Home Medications Medication Instructions Recorded Confirmed Type multivitamin (Multiple Vitamins 1 tab PO QAM 03/10/19 03/04/24 History tablet) coenzyme Q10 100 mg capsule 100 mg PO QAM 09/01/23 03/04/24 History (CoQ-10) colchicine 0.6 mg tablet 0.6 mg PO BID gout #60 tabs 11/19/23 03/04/24 Rx oxycodone 5 mg tablet 5 mg PO BID PRN pain #56 tabs 02/14/24 03/04/24 Rx allopurinol 100 mg tablet 150 mg PO QAM 02/20/24 03/04/24 History amino acids 1 tab PO DAILY 02/20/24 03/04/24 History empagliflozin 10 mg tablet 10 mg PO QPM 02/20/24 03/04/24 History (Jardiance) gabapentin 300 mg capsule 300 mg PO HS 02/20/24 03/04/24 History (Neurontin) ibuprofen 600 mg tablet 600 mg PO TID 02/20/24 03/04/24 History levothyroxine 100 mcg tablet 100 mcg PO QAM 02/20/24 03/04/24 History sertraline 50 mg tablet 50 mg PO DAILY 02/20/24 03/04/24 History famotidine 40 mg tablet 40 mg PO HS 02/23/24 03/04/24 History ciprofloxacin HCl 250 mg tablet 250 mg PO BID #14 tabs 02/27/24 03/04/24 Rx cholecalciferol (vitamin D3) 25 25 mcg PO DAILY 03/04/24 03/04/24 History mcg (1,000 unit) tablet (Vitamin D3) Past Med/Surg History Problem List (Updated 03/04/24 @ 21:29 by Vaibhav Islas MD) COVID-19 (Acute) Elevated troponin (Acute) Tachycardia (Acute) Weakness (Acute) Hypoxia (Acute) UTI (urinary tract infection) COVID-19 Generalized weakness Hypoxia Encounter for pre-operative examination Pericarditis (Acute) 11/18/23 Diastolic CHF with preserved left ventricular function, NYHA class 2 GERD (gastroesophageal reflux disease) Weakness 11/11/23 LBBB (left bundle branch block) Osteoarthritis of left hip Degenerative spondylolisthesis Osteoarthritis, hip, bilateral Right leg weakness 09/01/23 Dysphagia Dry mouth Chronic right hip pain Osteoarthritis of right hip Elevated alkaline phosphatase level 01/03/23 Neuropathy Incontinence in female Chronic low back pain Hyperlipidemia (Acute) Diabetes mellitus, type II Hypothyroidism Gout hx gouty attack. Managed with allopurinol + colchicine BID PRN for acute attack. Mood disorder Medical History Limb alert care status right arm Mood disorder Neuropathy feet LBBB (left bundle branch block) 10/2023, scheduled for upcoming nuclear stress test; f/u mn cardio Hypothyroidism Hyperlipidemia Gout Hx of gastroesophageal reflux (GERD) controlled, stable per pt Diastolic CHF with preserved left ventricular function, NYHA class 2 11/2023, hospitalized [facility] Diabetes mellitus, type II NIDDM Degenerative spondylolisthesis Chronic low back pain History of pericarditis 10/2023, hospitalized [facility] for 2 days Positive RICKY (antinuclear antibody) pt unsure? Multifocal pneumonia 10/2023, hosptialized [facility] for 2-3 days Sensorineural hearing loss (SNHL) of both ears C. difficile colitis hx, ~2013, hospitalized Breast cancer ~dx 2013,Hx recurrent R breast cancer s/p R simple mastectomy and limited R axillary lymph node dissection. Being followed by [facility] and Dr. Stone Pancreatitis (~1989) hx, 2/ "bad gallbladder" Surgical History History of hysterectomy (~2012) H/O colonoscopy nml 03/2015 No additional screening History of appendectomy Hx of cholecystectomy H/O breast surgery ~2014, R simple mastectomy and limited R axillary lymph node dissection Family History Father Gastric cancer Lung cancer Mother Laryngeal cancer Brother Rheumatic fever Colon cancer Colorectal cancer Unknown Cardiomyopathy Denies family history of Ovarian cancer Prostate cancer Diabetes Myocardial infarction Breast cancer Stroke Social History Smoking Status: Never smoker packs per day: 2; Second Hand Exposure: Yes (hx as child); Do You Dip or Chew Tobacco: No; Hx Alcohol Use: No Hx Substance Use: No Preferred Language: Mosotho Communication Ability: Effective Visual Impairment: Limited Hearing Ability: Normal Pricing Manager Required: No Beliefs That Will Affect Care: None marital status: Current Living Situation: Spouse current occupational status: retired How many Children do You have: 1 Other Information That Helps Us Care for You: No Feels Safe at Home: Yes Safety Concerns: Feels Safe At This Time Childhood Exposure to Second-Hand Smoke: Yes caffeine: Yes Dental Care, Regularly: Yes Physical Activity Frequency: 3-4 Times per Week Seatbelt Use: always Sunscreen Use: Yes Assistive Devices: Walker Physical Exam Physical Exam: Physical Exam: General: In no acute distress, stated age, fatigued and ill-appearing but nontoxic HEENT: Normocephalic, atraumatic, no scleral icterus, pupils around round, symmetrical, and reactive to light, dry mucus membranes, trachea midline, no thyromegaly Chest/Pulm: No respiratory distress, symmetrical chest expansion, scattered expiratory wheezes Cardiac: Tachycardic rate, regular rhythm,, no murmurs noted Abdomen: Negative for ascites and bruising, normoactive bowel sounds, soft, non-tender to palpation throughout Musculoskeletal: Symmetrical and without signs of acute trauma, upper and lower extremities with full ROM, no atrophy, spasticity, or flaccidity Extremities: Radial, dorsalis pedis, and posterior tibial pulses are intact and symmetrical, no edema noted in the BL LE's Skin: Warm, dry, no rashes , lesions, or scars noted Neuro: Alert and oriented to person, place, month, year, and president, no focal defects, no tremors noted Psych: No acute distress, fatigued, calm and cooperative during the exam Results & Data Results & Data Vital Signs (Past 12 Hours) Vital Signs Temp Pulse Resp BP Pulse Ox O2 Del Method 03/04/24 13:56 84 L Room Air 03/04/24 13:56 114 H 03/04/24 13:18 36.9 C 113 H 16 131/80 99 Room Air Laboratory Results Abnormal lab results 03/04/24 Range/Units 13:30 MCHC 31.9 L (32.0-36.0) g/dL RDW Std Deviation 47.0 H (36.4-46.3) fL Neut # (Auto) 7.47 H (1.40-6.50) K/uL Lymph # (Auto) 0.29 L (1.20-3.40) K/uL PT 12.1 H (9.0-12.0) Seconds Glucose 140 H (70-99(Fasting)) mg/dl Alkaline Phosphatase 197 H (34-104) U/L Troponin I High Sens 25.6 H (0-14) pg/ml SARS-CoV-2 (PCR) DETECTED A (NotDetected) Diagnostic Findings Chest X-Ray 03/04/24 13:27 XR chest 1V not portable CLINICAL HISTORY: low o2 sat COMPARISON STUDY: Chest CT November 18, 2023. Chest radiograph February 23, 2024. FINDINGS: Status post right mastectomy. There is no pneumothorax or right pleural effusion. Trace left pleural effusion. There is mild interstitial thickening. Cardiomegaly is unchanged. IMPRESSION: 1. Cardiomegaly with mild interstitial pulmonary edema. 2. Trace left pleural effusion. ACT 112: Negative or not required by law. Electronically signed by: Facundo Donahue M.D. 03/04/2024 2:28 PM ECG Additional Comments: Sinus tachycardia with known left bundle branch block Code Status & VTE Plan Code Status Full code VTE Prophylaxis Plan VTE Prophylaxis will be ordered: Yes Supervising Physician Co-Signing Physician Notes I personally saw and examined the patient. I verified all pichardo points and agree with Ben Chowdary PA-C with the following exceptions and/or additions: 79 year old female with recent UTI presents to the ER with shortness of breath, lethargy. No chest pain. Recent exposure to COVID. Urinary symptoms now resolved with ciprofloxacin. O/E HS increased rate, regular rhythm, no murmurs, diffuse rhonchi throughout, using accessory muscles, able to say complete sentences, Abdo SNT, trace pedal edema b/l A/P COVID-19 pneumonia - Dexamethasone 6mg IV, initially considered remdesivir given severity of illness and within 10 days although efficacy was limited even with initial trials and current COVID 19 is a less severe illness that when those trials were done therefore will hold currently pending complete workup with UTI below as this may be significantly contributing towards her current illness. With some pulmonary edema on CT consider gentle diuresis although will hold overnight due to borderline hypotension and intravascularly dry initially with dry mucus membranes and improvement of lactate with IV fluids UTI - switched to Zosyn pending repeat UA/culture although suspect she has had adequate antibiotics for this at this stage. Elevated troponin - trend, suspect demand ischemia, no chest pain to suggest ACS and COVID explains increase in her troponin PG Care Time/CCT Total # of Minutes Spent Total Time Spent with Patient: Total time spent is greater than 50% in coordination of care (as documented) at patient's floor/unit and/or counseling patient: Coding [place] [address] INT INP/OBS CARE 3/75MIN Patient Type Established Medical Decision Making High Complexity Diagnoses Hypoxia R09.02 Generalized weakness R53.1 UTI (urinary tract infection) N39.0 COVID-19 U07.1 Diastolic CHF with preserved left ventricular function, NYHA class 2 I50.30 Hypothyroidism E03.9
[2024-03-04] MEDS ORDERED: ONDANSETRON INJ 2 MG/ML 2 ML VIAL IV PRN (15:13)
[2024-03-04] MEDS: dexAMETHasone**PF** 10 MG/ML VIAL IV ONE (15:41)
[2024-03-04] MEDS: LACTATED RINGER'S 500 ML IV ONE (16:10)
[2024-03-04] MEDS: REMDESIVIR 200 MG in SODIUM CHLORIDE 0.9% 210 ML IV ONE (16:17)
[2024-03-04] MEDS: OPTIRAY 320 125ml IV ONE (16:29)
[2024-03-04] MEDS: ACETAMINOPHEN 325 MG TAB PO PRN (16:38)
[2024-03-04] MEDS: PIPERACILLIN/TAZOBACTAM 4.5 GM/100 ML BAG IV ONE (16:39)
--- NOTE | 2024-03-04 16:47 | CT Scan Report ---
CT ANGIOGRAPHY OF THE CHEST, PULMONARY EMBOLUS PROTOCOL CLINICAL HISTORY: Covid. Evaluate for pulmonary embolus. COMPARISON STUDY: Chest CT November 18, 2023. Chest radiograph performed earlier today. TECHNIQUE: Following IV administration of 118 mL of Optiray, helical axial images of the chest were o btained utilizing the pulmonary embolus protocol. Maximal intensity projections and sagittal and cor onal reformats were viewed on an independent 3D workstation. IV contrast was administered without co mplication. Automated exposure control was utilized for the study. A dose lowering technique was ut ilized adhering to the principles of ALARA. CT DOSE: 874.62 mGy.cm FINDINGS: No pulmonary emboli are identified although this exam is significantly compromised by resp iratory motion. The segmental and subsegmental pulmonary arteries are suboptimally assessed. The hear t is moderately enlarged. There is moderate coronary artery calcification. There is no pneumothorax. Small left and trace right pleural effusions are present. There is interlobular septal thickening. Al veolar opacities within the lungs are present. Subpleural opacities favor atelectasis. Mildly enlarge d mediastinal and bilateral hilar lymph nodes are present. Index subcarinal lymph node measures 2.3 x 1.3 cm. Mild splenomegaly is unchanged. The gallbladder surgically absent. Status post right mastect samina. Stable postoperative appearance. IMPRESSION: 1. No pulmonary emboli identified although segmental and subsegmental pulmonary arteries suboptimally assessed due to respiratory motion. 2. Interstitial pulmonary edema with small left and trace right pleural effusions. Alveolar opacities within lungs favor alveolar pulmonary edema. Superimposed pneumonia could appear similar. 3. Mildly enlarged mediastinal and bilateral hilar lymph nodes. This lymphadenopathy is nonspecific a lthough may be related to pulmonary edema. 4. Cardiomegaly. ACT 112: Negative or not required by law. Electronically signed by: Facundo Donahue M.D. 03/04/2024 4:45 PM
[2024-03-04 18:12] LABS: Base Excess VBG -2.6 mEq/L; HCO3 VBG 22 mmol/L; Oxygen Saturation VBG 75.4 %; PCO2 VBG 36 mmHg (38-50); PO2 VBG 44 mmHg; pH VBG 7.39 (7.36-7.41)
--- NOTE | 2024-03-04 19:07 | Pharmacy Report ---
Pharmacy Glycemic Short Note 2 - Date of Service March 04, 2024 - Glycemic Short BSG Results (Last 24 hours): 03/04/24 03/04/24 13:30 18:34 Glucose 140 H POC Glucose 158 H OUTPATIENT ANTIDIABETIC REGIMEN: * jardiace 10 mg daily ASSESSMENT: * 79 year old admitted with COVID. Type 2 diabetic managed only on jardiance outpatient. Received IV dexamethasone 6 mg x 1 dose in ER. Pharmacy consulted for glycemic management. BSGs 140-150s this afternoon. Will start novolog weight based stress 2 dosing. Unclear if steroids will be continued, however could consider long acting insulin if BSGs trending upward. PLAN FOR INPATIENT GLYCEMIC CONTROL: * Hold outpatient oral diabetes medications * Basal insulin * Lantus - hold * Bolus insulin * NovoLog per scale ACHS or Q6hrs while NPO * Goal Range: Low 110 mg/dL - High 160 mg/dL * Correction Factor: 30 mg/dL/unit * Nutritional / Prandial insulin per carb ratio of 1 unit per 9 grams CHO consumed
[2024-03-04] MEDS: INSULIN ASPART PER UNIT CHARGE SC SCH (20:55)
[2024-03-04] MEDS: GABAPENTIN 300 MG CAP PO SCH (23:17)
[2024-03-04] MEDS: FAMOTIDINE 40 MG TABLET PO SCH (23:17)
[2024-03-04] MEDS: COLCHICINE 0.6 MG TAB PO SCH (23:18)
[2024-03-04] MEDS: LANTUS PER UNIT CHARGE SQ SCH (23:19)
[2024-03-04] MEDS: ENOXAPARIN INJ 40 MG/0.4 ML SYR SQ SCH (23:22)
[2024-03-04] MEDS: PIPERACILLIN/TAZOBACTAM 4.5 GM/100 ML BAG IV SCH (23:23)
[2024-03-05 00:18] LABS: Appearance Urine Clear (Clear); Bilirubin Urine Negative (Negative); Blood Urine Negative (Negative); Color Urine Yellow; Glucose Urine UA 3+ (Negative); Ketones Urine Negative (Negative); Leukocyte Esterase Urine Negative (Negative); Nitrite Urine Negative (Negative); Protein Urine Negative (Negative); Specific Gravity Urine 1.023 (1.000-1.030); Urobilinogen Urine Negative (Negative)
[2024-03-05] MEDS: ASPIRIN CHEW 324 MG PO ONE (03:38)
--- NOTE | 2024-03-05 03:38 | Communication Note ---
Date of Service: March 05, 2024 Notified of trop= 365. Prior= 99. Evaluated pt at bedside- asymptomatic. No chest pain/dyspnea. Repeat EKG without acute ischemic changes. Will give 324mg aspirin as has not received any as of yet. Continue to trend troponin q6H to peak.
[2024-03-05] MEDS: LEVOTHYROXINE SODIUM 100 MCG TABLET PO SCH (05:50)
[2024-03-05 07:59] LABS: Basophils # (auto) 0.03 K/uL (0.00-0.20); Basophils % (auto) 0.4 %; Hematocrit (blood only) 39.1 % (37.0-47.0); Hemoglobin 12.4 g/dl (12.0-16.0); Immature Granulocytes # (auto) 0.04 K/uL (0.01-0.20); Immature Granulocytes % (auto) 0.6 %; Lymphocytes # (auto) 0.78 K/uL (1.20-3.40); Lymphocytes % (auto) 11.2 %; Mean Corpuscular Hemoglobin 28.8 pg (25.0-34.0); Mean Corpuscular Hgb Conc 31.7 g/dL (32.0-36.0); Mean Corpuscular Volume 90.7 fL (80.0-100.0); Mean Platelet Volume 9.2 fL (9.4-12.4); Monocytes # (auto) 0.67 K/uL (0.11-0.59); Monocytes % (auto) 9.6 %; Neutrophils # (auto) 5.43 K/uL (1.40-6.50); Neutrophils % (auto) 78.2 %; Platelet Count 132 K/uL (130-400); RDW Coefficient of Variation 14.2 % (11.5-14.5); RDW Standard Deviation 47.4 fL (36.4-46.3); Red Blood Count 4.31 M/uL (4.20-5.40); White Blood Count 6.95 K/ul (4.8-10.8)
[2024-03-05 08:16] LABS: Albumin Globulin Ratio 1.5 (0.9-2); Albumin Level 3.7 gm/dl (3.4-5.0); BUN Creatinine Ratio 18.3 (10-20); Bilirubin,Total 0.7 mg/dl (0.2-1.0); C Reactive Protein 7.36 mg/dl (0-0.5); Calcium 8.8 mg/dl (8.6-10.3); Creatinine Clr Calc Pharmacy 50.6 ml/min; Est GFR (African American) 59.2 ml/min; Est GFR (Non-African American) 51.1 ml/min; Globulin 2.4 gm/dl (2.5-4.0); Total Protein 6.1 gm/dl (6.0-8.3)
[2024-03-05 08:26] LABS: INR 1.2 (0.9-1.1); Prothrombin Time 12.6 Seconds (9.0-12.0)
[2024-03-05] MEDS: allopurinoL 300 MG TAB PO SCH (08:30)
[2024-03-05] MEDS: guaiFENesin/DEXTROM SYRUP 200MG/20MG 10ML UDC PO PRN (08:30)
[2024-03-05] MEDS: dexAMETHasone 6 MG in SYRINGE 0 ML IV SCH (08:32)
[2024-03-05] MEDS: SERTRALINE HCL 50 MG TABLET PO SCH (08:32)
[2024-03-05] MEDS: LANTUS PER UNIT CHARGE SQ SCH (08:50)
[2024-03-05] MEDS ORDERED: DEXAMETHASONE SOD INJ 4 MG/ML VIAL IV SCH (09:00)
[2024-03-05] MEDS ORDERED: NON-FORMULARY MEDICATION (Coenzyme Q10 [Coq-10] 100 mg capsule) PO SCH (09:00)
[2024-03-05] MEDS ORDERED: NON-FORMULARY MEDICATION (Amino Acids Tablet) PO SCH (09:00)
--- NOTE | 2024-03-05 10:13 | Hospitalist Progress Note ---
Date of Service March 05, 2024 Assessment & Plan (1) COVID-19: (2) Elevated troponin: (3) Hypoxia: (4) UTI (urinary tract infection): (5) Diastolic CHF with preserved left ventricular function, NYHA class 2: (6) Hypothyroidism: Plan 79 year old female with a PMH significant for pericarditis, type II DM, hyperlipidemia, hypothyroidism, chronic low back pain, gout who presented to [facility] ED on 03/04/2024 with multiple complaints including generalized weakness, upper respiratory symptoms, nausea, and vomiting. Hypoxia: COVID 19 + - Currently stable 4 L nasal cannula, in no respiratory distress, and nontoxic. Chest x-ray cardiomegaly with mild interstitial pulmonary edema - CTA: No pulmonary emboli identified although segmental and subsegmental pulmonary arteries suboptimally assessed due to respiratory motion.Interstitial edema with left and trace right effusions. IV dexamethasone 6 mg for total 10 days - Remdesivir therapy loading dose today, then continue maintenance x 4 days for total 5 days of therapy Incentive spirometry, flutter therapy, as needed O2 to keep SpO2 at or above 92% As needed Tylenol, scheduled guaifenesin/dextromethorphan Generalized weakness: Patient presented with generalized weakness, appears significantly fatigued on exam Likely combination of acute COVID-19 infection and dehydration s/p 1.5 bolus for dehydration - PT/OT consults Fall/aspiration precautions Elevated troponin - Last troponin: 528 - EKG no ischemic changes compared to prev one - Patient asymptomatic - Suspected demand ischemia - Trending troponin Diastolic CHF with preserved left ventricular function, NYHA class 2: Patient has known right-sided heart failure with preserved left ventricular ejection fraction CTA: Interstitial pulmonary edema with small left and trace right pleural effusions. - s/p 1.5 bolus for dehydration - Hold Jardiance - BNP: 2446 - No signs if exacerbation on exam today UTI (urinary tract infection): - on a 7-day course of ciprofloxacin with first dose on 02/28/2024 urine culture from 02/23/2024 growing pansensitive Klebsiella pneumonia Due to previous history of rash with cephalexin will start patient on Zosyn for now UA on admission negative - Patient is asymptomatic - Last day of treatment will be today, will continue Zosyn today and discontinue after today doses DM Hold Jardiance - NovoLog per scale ACHS - Pharmacy following Hypothyroidism: Continue levothyroxine DVT prophylaxis: sq Lovenox Heart healthy/DM type II diet Admission and Anticipated Discharge Date Admission Date: March 04, 2024 Supervising Physician Co-Signing Physician Notes I personally examined the patient and verified all pichardo points of history and exam, discussed case, and agree with decision making with Dr Tyrell Moore Feeling lousy. Mostly sick all over. Is getting around better than yesterday. Able to get around the room and in and out of the bathroom under her own power. Vitals noted, in general she is awake and alert pleasant no distress. HEENT normocephalic atraumatic mucous membranes moist. Breathing unlabored no accessory muscle use good effort. Skin without rashes pallor or icterus. Neuro without focal deficits. COVID-19hypoxia/overall weaknesssuspect weakness was from hypoxia and dehydration given how quickly it improved. Continue supplemental oxygen/supportive care. No clear role for Zosyn. Remdesivir given how short of timeframe she has been sick might be somewhat helpful. Dexamethasone likely to be of benefit. Continue supportive care otherwise. DVT proph - lovenox Subjective Seen this morning. Refers feeling improved since yesterday. Denied any chest pain, SOB, or palpitations.Refers hip pain which is chronic Review of Systems Review of Systems: as per HPI Physical Exam Constitutional: WD/WN, vitals as above Respiratory: normal respiratory effort and + cough; no respiratory distress Auscultation: + diminished lung sounds; no rhonchi and no wheezes Cardiovascular: RRR, no murmur, no edema Gastrointestinal (Abdomen): normal bowel sounds, soft, nontender, no hepatosplenomegaly Results & Data Results & Data Vital Signs (Past 12 Hours) Vital Signs Temp Pulse Pulse Resp BP Pulse Ox Pulse Ox 03/05/24 08:00 36.9 C 89 19 108/63 96 03/05/24 03:24 95 H 03/05/24 03:17 36.8 C 91 H 18 111/72 99 03/04/24 23:00 03/04/24 22:24 37.2 C 99 H 20 109/74 03/04/24 22:24 94 O2 Del Method O2 Del Method O2 Flow Rate O2 Flow Rate 03/05/24 08:00 Nasal Cannula 4 03/05/24 03:24 03/05/24 03:17 Nasal Cannula 4 03/04/24 23:00 Nasal Cannula 4 03/04/24 22:24 Nasal Cannula 4 03/04/24 22:24 Nasal Cannula 4 Resident Activity Tracking Resident Involvement: Resident Care Provided Care Provided: Adult Hospital Medicine
--- NOTE | 2024-03-05 10:53 | Pharmacy Report ---
Pharmacy Glycemic Short Note 2 - Date of Service March 05, 2024 - Glycemic Short BSG Results (Last 24 hours): 03/04/24 03/04/24 03/04/24 13:30 18:34 20:43 Glucose 140 H POC Glucose 158 H 195 H 03/04/24 03/05/24 03/05/24 21:56 07:27 07:31 Glucose 184 H POC Glucose 172 H 141 H OUTPATIENT ANTIDIABETIC REGIMEN: * Jardiace 10 mg daily * A1c = 5.8% 02/07/24 ASSESSMENT: 03/05 * Glycemic control acceptable thus far * IV dexamethasone 6mg Q AM currently ordered * Fasting BSG 141 this AM w/ 5 units basal on board. Will initiate scaled basal/bolus dosing using "mild" to "moderate" stress levels for now. Pt was well controlled w/ outpt Jardiance regimen. * Will utilize more aggressive Novolog CF/CR doses due to steroid provision. Initial doses will be based upon "moderate" "severe" stress due to steroids likely greater effect on post-prandial hyperglycemia 03/04 * 79 year old admitted with COVID. Type 2 diabetic managed only on jardiance outpatient. Received IV dexamethasone 6 mg x 1 dose in ER. Pharmacy consulted for glycemic management. BSGs 140-150s this afternoon. Will start novolog weight based stress 2 dosing. Unclear if steroids will be continued, however could consider long acting insulin if BSGs trending upward. PLAN FOR INPATIENT GLYCEMIC CONTROL: * Hold outpatient oral diabetes medications * Basal insulin * Lantus SQ BID per scale 0 units if BSG less than 110, 8 units if BSG 110- 200, 15 units if BSG above 200 * Bolus insulin * NovoLog per scale ACHS or Q6hrs while NPO * Goal Range: Low 110 mg/dL - High 140 mg/dL * Correction Factor: 25 mg/dL/unit * Nutritional / Prandial insulin per carb ratio of 1 unit per 8 grams CHO consumed
[2024-03-05] MEDS: REMDESIVIR 200 MG in SODIUM CHLORIDE 0.9% 210 ML IV STA (12:51)
--- NOTE | 2024-03-05 18:27 | Billing Data ---
Date of Service March 05, 2024 Coding Level of Care Code 75515 SUB INP/OBS CARE
--- NOTE | 2024-03-05 22:42 | Electrocardiogram Report ---
Test Reason : Blood Pressure : */* mmHG Vent. Rate : 114 BPM Atrial Rate : 114 BPM P-R Int : 158 ms QRS Dur : 128 ms QT Int : 340 ms P-R-T Axes : 65 -27 142 degrees QTcB Int : 468 ms Sinus tachycardia Left bundle branch block Abnormal ECG When compared with ECG of 25-Nov-2023 11:25, No significant change Confirmed by Godfrey Davey ([id number]) on 03/05/2024 10:42:20 PM Referred By: REFERRED SELF Confirmed By: Godfrey Davey
--- NOTE | 2024-03-05 22:43 | Electrocardiogram Report ---
Test Reason : Blood Pressure : */* mmHG Vent. Rate : 93 BPM Atrial Rate : 93 BPM P-R Int : 172 ms QRS Dur : 146 ms QT Int : 438 ms P-R-T Axes : 69 -32 137 degrees QTcB Int : 544 ms Normal sinus rhythm Left axis deviation Left bundle branch block Abnormal ECG When compared with ECG of 04-Mar-2024 13:46, No significant change was found Confirmed by Godfrey Davey ([id number]) on 03/05/2024 10:42:48 PM Referred By: REFERRED SELF Confirmed By: Godfrey Davey
--- NOTE | 2024-03-05 22:43 | Electrocardiogram Report ---
Test Reason : Blood Pressure : */* mmHG Vent. Rate : 97 BPM Atrial Rate : 97 BPM P-R Int : 156 ms QRS Dur : 136 ms QT Int : 424 ms P-R-T Axes : 102 72 254 degrees QTcB Int : 538 ms Normal sinus rhythm Left bundle branch block Abnormal ECG When compared with ECG of 05-Mar-2024 02:57, QRS axis Shifted right Confirmed by Godfrey Davey ([id number]) on 03/05/2024 10:43:23 PM Referred By: REFERRED SELF Confirmed By: Godfrey Davey
--- NOTE | 2024-03-06 07:32 | Hospitalist Progress Note ---
Date of Service March 06, 2024 Assessment & Plan (1) COVID-19: (2) Elevated troponin: (3) Hypoxia: (4) UTI (urinary tract infection): (5) Diastolic CHF with preserved left ventricular function, NYHA class 2: (6) Hypothyroidism: Plan 79 year old female with a PMH significant for pericarditis, type II DM, hyperlipidemia, hypothyroidism, chronic low back pain, gout who presented to [facility] ED on 03/04/2024 with multiple complaints including generalized weakness, upper respiratory symptoms, nausea, and vomiting. Hypoxia: COVID 19 + Pneumonia - Currently on 2L on nasal cannula. Chest x-ray cardiomegaly with mild interstitial pulmonary edema IV dexamethasone 6 mg for total 10 days -IV Remdesivir Incentive spirometry, flutter therapy, as needed O2 to keep SpO2 at or above 92% As needed Tylenol, scheduled guaifenesin/dextromethorphan Generalized weakness: Patient presented with generalized weakness, appears significantly fatigued on exam Likely combination of acute COVID-19 infection and dehydration s/p 1.5 bolus for dehydration - PT/OT consults Fall/aspiration precautions Elevated troponin - trending down, peaked on 528 - EKG no ischemic changes compared to prev one - Patient asymptomatic - Suspected demand ischemia Diastolic CHF with preserved left ventricular function, NYHA class 2: Patient has known right-sided heart failure with preserved left ventricular ejection fraction CTA: Interstitial pulmonary edema with small left and trace right pleural effusions. - s/p 1.5 bolus for dehydration - Hold Jardiance - BNP: 2446 - No signs if exacerbation on exam today UTI (urinary tract infection) - resolved - 7 day course completed UA on admission negative - Patient is asymptomatic DM Hold Jardiance - NovoLog per scale ACHS - Pharmacy following Hypothyroidism: Continue levothyroxine DVT prophylaxis: sq Lovenox Heart healthy/DM type II diet Admission and Anticipated Discharge Date Admission Date: March 04, 2024 Supervising Physician Co-Signing Physician Notes I personally examined the patient and verified all pichardo points of history and exam, discussed case, and agree with decision making with Dr Tyrell Moore still feels lousy but a bit better. Getting around better. Stronger. Less dyspnea. Cough is starting to be more productive. Vitals noted, in general she is awake and alert pleasant no distress. HEENT normocephalic atraumatic mucous membranes moist. Breathing unlabored no accessory muscle use good effort. However she is walking to the bathroom and has taken her oxygen off whenever I walk in the roomand she is 78% on room airwith 2 L she very quickly rebounds to 95% again. Skin without rashes pallor or icterus. Neuro without focal deficits. COVID-19hypoxia/overall weaknesssuspect weakness was from hypoxia and dehydration given how quickly it improved. Continue supplemental oxygen/supportive care. Continue Remdesivir given how short of timeframe she has been sick might be somewhat helpful. Dexamethasone likely to be of benefitcontinue. Continue supportive care otherwise. DVT proph - lovenox Subjective Seen this morning. Refers feeling better. NC decreased to 2 L now. Refers some sputum production. Review of Systems Review of Systems: as per HPI Physical Exam Constitutional: WD/WN, vitals as above Respiratory: normal respiratory effort and + cough; no respiratory distress Auscultation: + diminished lung sounds; no rhonchi and no wheezes Cardiovascular: RRR, no murmur, no edema Gastrointestinal (Abdomen): normal bowel sounds, soft, nontender, no hepatosplenomegaly Results & Data Results & Data Vital Signs (Past 12 Hours) Vital Signs Temp Pulse Pulse Resp BP Pulse Ox Pulse Ox 03/06/24 03:41 36.7 C 94 H 19 100/62 100 03/05/24 23:36 36.8 C 88 16 109/68 100 03/05/24 22:14 98 03/05/24 21:46 92 H 03/05/24 20:15 94 O2 Del Method O2 Del Method O2 Flow Rate O2 Flow Rate 03/06/24 03:41 Nasal Cannula 2 03/05/24 23:36 Nasal Cannula 2 03/05/24 22:14 Nasal Cannula 4 03/05/24 21:46 03/05/24 20:15 Nasal Cannula 4 Resident Activity Tracking Resident Involvement: Resident Care Provided Care Provided: Adult Hospital Medicine
[2024-03-06 10:00] LABS: Basophils # (auto) 0.06 K/uL (0.00-0.20); Basophils % (auto) 0.5 %; Eosinophils # (auto) 0.06 K/uL (0.00-0.50); Eosinophils % (auto) 0.5 %; Hematocrit (blood only) 41.9 % (37.0-47.0); Hemoglobin 13.3 g/dl (12.0-16.0); Immature Granulocytes # (auto) 0.06 K/uL (0.01-0.20); Immature Granulocytes % (auto) 0.5 %; Lymphocytes % (auto) 6.3 %; Mean Corpuscular Hgb Conc 31.7 g/dL (32.0-36.0); Mean Corpuscular Volume 91.5 fL (80.0-100.0); Mean Platelet Volume 9.9 fL (9.4-12.4); Monocytes # (auto) 0.84 K/uL (0.11-0.59); Monocytes % (auto) 6.6 %; Neutrophils # (auto) 10.82 K/uL (1.40-6.50); Neutrophils % (auto) 85.6 %; Platelet Count 182 K/uL (130-400); RDW Coefficient of Variation 14.2 % (11.5-14.5); RDW Standard Deviation 47.8 fL (36.4-46.3); Red Blood Count 4.58 M/uL (4.20-5.40); White Blood Count 12.64 K/ul (4.8-10.8)
[2024-03-06 10:19] LABS: BUN Creatinine Ratio 24.3 (10-20); Calcium 9.1 mg/dl (8.6-10.3); Creatinine Clr Calc Pharmacy 49.2 ml/min; Est GFR (African American) 57.2 ml/min; Est GFR (Non-African American) 49.3 ml/min; Potassium 3.9 mmol/L (3.5-5.1)
[2024-03-06 10:25] LABS: Troponin I High Sensitivity 287.2 pg/ml (0-14)
--- NOTE | 2024-03-06 11:53 | Pharmacy Report ---
Pharmacy Glycemic Short Note 2 - Date of Service March 06, 2024 - Glycemic Short BSG Results (Last 24 hours): 03/05/24 03/05/24 03/06/24 16:33 20:05 07:33 Glucose POC Glucose 154 H 150 H 84 03/06/24 03/06/24 09:40 11:32 Glucose 145 H POC Glucose 132 H OUTPATIENT ANTIDIABETIC REGIMEN: * Jardiace 10 mg daily * A1c = 5.8% 02/07/24 ASSESSMENT: 03/06: * Patient well controlled over the past 24 hours on 23 units of SQ insulin * 16 units Lantus + 7 units Novolog * BSGs: 141, 152, 154, 150 mg/dL * Fasting BSG today significantly decreased (141 -> 84 mg/dL). Will back off basal insulin. * Patient remains on dexamethasone IV. No changes to prandial coverage. 03/05 * Glycemic control acceptable thus far * IV dexamethasone 6mg Q AM currently ordered * Fasting BSG 141 this AM w/ 5 units basal on board. Will initiate scaled basal/bolus dosing using "mild" to "moderate" stress levels for now. Pt was well controlled w/ outpt Jardiance regimen. * Will utilize more aggressive Novolog CF/CR doses due to steroid provision. Initial doses will be based upon "moderate" "severe" stress due to steroids likely greater effect on post-prandial hyperglycemia 03/04 * 79 year old admitted with COVID. Type 2 diabetic managed only on jardiance outpatient. Received IV dexamethasone 6 mg x 1 dose in ER. Pharmacy consulted for glycemic management. BSGs 140-150s this afternoon. Will start novolog alanis ght based stress 2 dosing. Unclear if steroids will be continued, however could consider long acting insulin if BSGs trending upward. PLAN FOR INPATIENT GLYCEMIC CONTROL: * Hold outpatient oral diabetes medications * Basal insulin * Lantus SQ BID per scale: 0 units if BSG less than 110, 5 units if BSG 110 or more * Bolus insulin * NovoLog per scale ACHS or Q6hrs while NPO * Goal Range: Low 110 mg/dL - High 140 mg/dL * Correction Factor: 25 mg/dL/unit * Nutritional / Prandial insulin per carb ratio of 1 unit per 8 grams CHO consumed
[2024-03-06] MEDS: REMDESIVIR 100 MG in SODIUM CHLORIDE 0.9% 230 ML IV SCH (11:55)
--- NOTE | 2024-03-06 12:50 | Billing Data ---
Date of Service March 06, 2024 Coding Level of Care Code 12238 SUB INP/OBS CARE
[2024-03-06] MEDS: SODIUM CHLOR 7% 4 ML NEB NEB SCH (19:54)
--- NOTE | 2024-03-07 07:14 | Hospitalist Progress Note ---
Date of Service March 07, 2024 Assessment & Plan (1) COVID-19: (2) Elevated troponin: (3) Hypoxia: (4) UTI (urinary tract infection): (5) Diastolic CHF with preserved left ventricular function, NYHA class 2: (6) Hypothyroidism: Plan 79 year old female with a PMH significant for pericarditis, type II DM, hyperlipidemia, hypothyroidism, chronic low back pain, gout who presented to [facility] ED on 03/04/2024 with multiple complaints including generalized weakness, upper respiratory symptoms, nausea, and vomiting. Hypoxia: COVID 19 + Pneumonia - Currently on 2L on nasal cannula. No conversational dyspnea. Improving. Chest x-ray cardiomegaly with mild interstitial pulmonary edema IV dexamethasone 6 mg for total 10 days -IV Remdesivir Incentive spirometry, flutter therapy, as needed O2 to keep SpO2 at or above 92% As needed Tylenol, scheduled guaifenesin/dextromethorphan Generalized weakness - improving Patient presented with generalized weakness, appears significantly fatigued on exam Likely combination of acute COVID-19 infection and dehydration s/p 1.5 bolus for dehydration - PT/OT consults - Home with H/H, outpatient OT Fall/aspiration precautions Elevated troponin- - trending down, peaked on 528 - EKG no ischemic changes compared to prev one - Patient asymptomatic - Suspected demand ischemia Diastolic CHF with preserved left ventricular function, NYHA class 2: Patient has known right-sided heart failure with preserved left ventricular ejection fraction CTA: Interstitial pulmonary edema with small left and trace right pleural effusions. - s/p 1.5 bolus for dehydration - Hold Jardiance - BNP: 2446 - No signs if exacerbation on exam today UTI (urinary tract infection) - resolved - 7 day course completed DM Hold Jardiance - NovoLog per scale ACHS - Pharmacy following Hypothyroidism: Continue levothyroxine DVT prophylaxis: sq Lovenox Heart healthy/DM type II diet Admission and Anticipated Discharge Date Admission Date: March 04, 2024 Subjective Seen this morning. Refers some improvement. Still on the nasal cannula 2L. Had a increased mucus production that had help her breath better. Good urine output. Eating ok. Denied any chest pain or palpitations. Review of Systems Review of Systems: as per HPI Physical Exam Constitutional: WD/WN, vitals as above Respiratory: normal respiratory effort and + cough; no respiratory distress Auscultation: lungs clear to auscultation bilaterally; no rhonchi and no wheezes Cardiovascular: RRR, no murmur, no edema Gastrointestinal (Abdomen): normal bowel sounds, soft, nontender, no hepatosplenomegaly Results & Data Results & Data Vital Signs (Past 12 Hours) Vital Signs Temp Pulse Pulse Resp BP Pulse Ox O2 Del Method 03/07/24 06:39 81 03/07/24 02:53 36.8 C 87 20 138/65 99 Nasal Cannula 03/06/24 23:39 37.0 C 87 18 120/75 99 Nasal Cannula 03/06/24 23:00 84 03/06/24 22:00 03/06/24 20:00 Nasal Cannula 03/06/24 19:55 100 H 18 99 Nasal Cannula O2 Del Method O2 Flow Rate 03/07/24 06:39 03/07/24 02:53 2 03/06/24 23:39 2.5 03/06/24 23:00 03/06/24 22:00 Nasal Cannula 03/06/24 20:00 03/06/24 19:55 2 Resident Activity Tracking Resident Involvement: Resident Care Provided Care Provided: Adult Hospital Medicine
[2024-03-07 08:00] LABS: Basophils # (auto) 0.04 K/uL (0.00-0.20); Basophils % (auto) 0.5 %; Eosinophils # (auto) 0.07 K/uL (0.00-0.50); Eosinophils % (auto) 0.9 %; Hematocrit (blood only) 39.9 % (37.0-47.0); Hemoglobin 12.4 g/dl (12.0-16.0); Immature Granulocytes # (auto) 0.04 K/uL (0.01-0.20); Immature Granulocytes % (auto) 0.5 %; Lymphocytes # (auto) 1.54 K/uL (1.20-3.40); Lymphocytes % (auto) 18.9 %; Mean Corpuscular Hemoglobin 28.4 pg (25.0-34.0); Mean Corpuscular Hgb Conc 31.1 g/dL (32.0-36.0); Mean Corpuscular Volume 91.3 fL (80.0-100.0); Mean Platelet Volume 10.2 fL (9.4-12.4); Monocytes # (auto) 0.85 K/uL (0.11-0.59); Monocytes % (auto) 10.4 %; Neutrophils % (auto) 68.8 %; Platelet Count 152 K/uL (130-400); RDW Coefficient of Variation 13.9 % (11.5-14.5); Red Blood Count 4.37 M/uL (4.20-5.40); White Blood Count 8.14 K/ul (4.8-10.8)
[2024-03-07 11:40] VITALS: BP 117/77; PULSE 92; RESP 19; TEMP 98.4; O2SAT 97
--- NOTE | 2024-03-07 13:56 | Discharge Summary ---
Date of Service March 07, 2024 Admission HPI Per Admitting Provider Km is a 79 year old female with a PMH significant for pericarditis, type II DM, hyperlipidemia, hypothyroidism, chronic low back pain, gout who presented to [facility] ED on 03/04/2024 with multiple complaints including generalized weakness, upper respiratory symptoms, nausea, and vomiting. Patient's reportedly tested positive on recent home COVID-19 test. On arrival to the ED she was noted to be hypoxic at 84% on room air, tachycardic at 113, but otherwise stable. Labs were significant for an initial high-sensitivity troponin of 25 and full respiratory BioFire positive for SARS-CoV-2. At 113 chest x-ray was read as cardiomegaly with mild interstitial pulmonary edema with trace left pleural effusion. ECG showed sinus tachycardia with previously known left bundle branch block. Prior to admission the patient was given 1 L normal saline, 4 mg IV Zofran, 4 mg IV promethazine, 20 mg IV famotidine, and albuterol treatment, and 6 mg IV dexamethasone. Patient was sitting in bed in no acute distress but does appear ill and fatigued. She states that her tested positive for COVID-19 approximately 2 days ago. This morning when she woke up she felt significantly fatigued and was nauseous. She went back to bed for a few hours shortly after waking, when she woke this afternoon she felt even worse and was unable to tolerate any p.o. intake due to her nausea and vomiting. Denies recent fever, chills, chest pain, hemoptysis, shortness of breath, abdominal pain, hematemesis, dysuria/hematuria, melena, diarrhea, lower extremity swelling, and recent trauma. States that she feels approximately 90% better than arrival despite continuing to require oxygen and appearing significantly fatigued. States this is the first time she is ever had COVID-19. Does not use home oxygen or CPAP, no current tobacco use. We discussed CODE STATUS, she will remain full code at this time but would like to continue discussions with her family to consider switching to DNR/DNI due to her age and concern for quality of life if she were to require CPR or intubation. Please refer to Dr. Piña's attestation for any changes to the treatment plan Principal Diagnosis Covid pneumonia Discharge Exam Constitutional WD/WN, vitals as above ENMT external ear and nose normal, oropharynx normal Respiratory normal respiratory effort, lungs clear to auscultation Cardiovascular RRR, no murmur, no edema Gastrointestinal (Abdomen) normal bowel sounds, soft, nontender, no hepatosplenomegaly Musculoskeletal no cyanosis or clubbing, extremities motor strength 5/5 Discharge Data Allergies Allergy/AdvReac Type Severity Reaction Status Date / Time metformin Allergy Severe rhabdo Verified 03/04/24 15:41 tetanus toxoid, adsorbed Allergy Severe ARM SWELLS Verified 03/04/24 15:41 calamine Allergy Unknown IRRITATION Verified 03/04/24 15:41 cephalexin Allergy Unknown RASH Verified 03/04/24 15:41 simvastatin Allergy Unknown Rhabdo Verified 03/04/24 15:41 tetracycline Allergy Unknown rash Verified 03/04/24 15:41 Consultations 03/04/24 15:05 ED Decision to Admit Stat Ordered Studies 03/04/24 16:08 CT angio chest PE protocol Stat Hospital Course (1) COVID-19: (2) Elevated troponin: (3) Hypoxia: (4) UTI (urinary tract infection): (5) Diastolic CHF with preserved left ventricular function, NYHA class 2: (6) Hypothyroidism: Plan 79 year old female with a PMH significant for pericarditis, type II DM, hyperlipidemia, hypothyroidism, chronic low back pain, gout who presented to [facility] ED on 03/04/2024 with multiple complaints including generalized weakness, upper respiratory symptoms, nausea, and vomiting. COVID 19 + Pneumonia - Hypoxia resolved Chest x-ray cardiomegaly with mild interstitial pulmonary edema - s/p IV Remdesivir Complete dexamethasone 6 mg for total 10 days As needed Tylenol, scheduled guaifenesin/dextromethorphan Generalized weakness - improving Patient presented with generalized weakness, appears significantly fatigued on exam Likely combination of acute COVID-19 infection and dehydration - PT/OT consults - Can returned home, consider outpatient PT Elevated troponin- resolved - trending down, peaked on 528 - EKG no ischemic changes compared to prev one - Patient asymptomatic - Suspected secondary to demand ischemia Diastolic CHF with preserved left ventricular function, NYHA class 2: Patient has known right-sided heart failure with preserved left ventricular ejection fraction CTA: Interstitial pulmonary edema with small left and trace right pleural effusions. - s/p 1.5 bolus for dehydration - Continue Jardiance - No signs of exacerbation on exam today UTI (urinary tract infection) - resolved - 7 day course completed DM Continue Jardiance Hypothyroidism: Continue levothyroxine Total Time Total Time Spent Total Time Spent (In Minutes): <30 Discharge Plan Discharge Items Patient Disposition: Home - Self-Care Reason For Visit: COVID 19, ACUTE HYPOXIC RESPIRATORY FAILURE Discharge Diagnosis: Covid pneumonia Condition on Discharge: Serious Activity: Per Instructions section Non-emergency contact: Primary Care Provider Call non-emergency contact if: you have any medication questions and your symptoms worsen Follow-up/Referrals: Dean Dhillon, [Primary Care Provider] - 03/12/24 11:00 am (PCP follow up: 11:30 Dr. Dhillon) Diet: Regular Addtl Attending Provider Instructions: You were admitted to the hospital for Covid pneumonia. You were treated with steroids and supportive care. You developed hypoxia (low oxygen saturation) whic h has resolved. As discussed your oxygen saturation drop while sleeping. This can be a sign of sleep apnea. To diagnosed sleep apnea a sleep study is needed, you should discuses this with your Primary care provider. Continue Dexamethasone 6 mg daily for 5 days. A discharge summary will be sent to your primary care physician to ensure continuity of care. Please bring this discharge summary with you to your next office appointment so that your provider can review it at that time. Medications: Your medication list has been reviewed and reconciled upon discharge to ensure accuracy and continuity of care. An updated list of all your medications is included with your hospital discharge paperwork. Please review this list closely and make note of any changes to your medications. - You should continue to Follow up appointments: - Make a follow up appointment with your PCP within the next week. It is very important that you follow up with them shortly after discharge from the hospital. - Keep all of your follow up appointments as already scheduled. If you cannot make an appointment, notify your provider. CONTACT YOUR PRIMARY CARE PROVIDER if you experience any of the following: - Difficulty following your treatment plan - Difficulty taking any of your medications CALL 911 OR GO TO THE EMERGENCY DEPARTMENT if you experience any of the following: - Sudden, severe abdominal pain or nausea/vomiting - Severe chest pain or chest pain that radiates to your jaw or arm - Sudden, severe shortness of breath or difficulty breathing Pending Studies at Discharge: No Stand-Alone Forms: My [facility], Smoking Cessation Medications and DC Order Prescriptions: New dexamethasone 6 mg tablet 6 mg PO DAILY Qty: 5 0RF Continued oxycodone 5 mg tablet 5 mg PO BID PRN (Reason: pain) Qty: 56 0RF multivitamin [Multiple Vitamins] tablet 1 tab PO QAM Rx Instructions: Pt currently holding medication due to upcoming planned surgery. coenzyme Q10 [CoQ-10] 100 mg capsule 100 mg PO QAM Rx Instructions: Pt currently holding medication due to upcoming planned surgery. cholecalciferol (vitamin D3) [Vitamin D3] 25 mcg (1,000 unit) Tablet 25 mcg PO DAILY Rx Instructions: Pt currently holding medication due to upcoming planned surgery. colchicine 0.6 mg tablet 0.6 mg PO BID Qty: 60 2RF ibuprofen 600 mg Tablet 600 mg PO TID amino acids Tablet 1 tab PO DAILY Rx Instructions: 1 tab daily, starting 2 weeks prior to sx. allopurinol 100 mg tablet 150 mg PO QAM levothyroxine 100 mcg tablet 100 mcg PO QAM gabapentin [Neurontin] 300 mg capsule 300 mg PO HS sertraline 50 mg tablet 50 mg PO DAILY Jardiance 10 mg tablet 10 mg PO QPM Patient Comments: usually at lunch or dinner famotidine 40 mg tablet 40 mg PO HS Discontinued ciprofloxacin HCl 250 mg tablet 250 mg PO BID Qty: 14 0RF Rx Instructions: Start Date 02/27/24, pt unsure of day supply Discharge Orders: Discharge Order (Routine); Ordered 03/07/24 Ordered By: Jennifer More/Other Patient Handouts: COVID-19 Home Care, What Are Snoring and Sleep Apnea?, What Is a Sleep Study, Visiting a Sleep Clinic, Infection Preventing Spread, Sleep Study Home, FREDDY Ch, ED Sleep Apnea, Obstructive Admission Data Admit Date/Time: 03/04/24 15:11 Attending Provider: Giovani Grimes Admit Provider: Andrzej Piña Primary Care Provider: Dean Dhillon Other Providers: Andrzej Piña Other Interventions: Discharge Summary Assessment (RN) Last Done: 03/07/24 13:50 Supervising Physician Co-Signing Physician Notes I personally examined the patient and verified all pichardo points of history and exam, discussed case, and agree with decision making with Dr Tyrell Moore feels better coughing more out breathing easier less HO. feels up to going home. Vitals noted (and later nursing noted that she walked off O2 without desaturations) in general she is awake and alert pleasant no distress. HEENT normocephalic atraumatic mucous membranes moist. Breathing unlabored no accessory muscle use good effort. Skin without rashes pallor or icterus. Neuro without focal deficits. COVID-19hypoxia/overall weaknesssuspect weakness was from hypoxia and dehydration given how quickly it improved. improving - safe/stable for home. does desaturate some when asleep - suspect FREDDY - outpatient follow up for this DVT proph - lovenox
--- NOTE | 2024-03-07 16:07 | Billing Data ---
Date of Service March 07, 2024 Coding Level of Care Code 50914 IN/OBS DISCH 30 MIN/LESS
== END 2024-03-07 14:49 | disposition home or self-care (01) | DRG 177 ==
LOC: ED 13:13 → 2S 15:11 → SUATTDRO 15:11 → 2S 21:03

== ENCOUNTER 2024-09-05 07:06 | Observation (INO) ==
--- NOTE | 2024-06-11 13:03 | PAT Medication Instructions ---
Medication Instructions Date of Service June 11, 2024 Home Medications Medication Instructions Recorded gabapentin 300 mg capsule 300 mg PO HS #90 caps 03/28/24 (Neurontin) nystatin 100,000 unit/gram topical 1 applic topical QID #60 grams 04/05/24 powder semaglutide 0.25 mg or 0.5 mg (2 0.25 mg (0.368 mL) subcut .once 04/10/24 mg/3 mL) subcutaneous pen injector week #3 mL (Ozempic) oxycodone 5 mg tablet 5 mg PO TID PRN pain #90 tabs 05/08/24 Hospital Bed Homecare #1 ea 05/15/24 famotidine 40 mg tablet 40 mg PO HS #90 tabs 05/15/24 multivitamin (Multiple Vitamins tablet) 1 tab PO QAM allopurinol 100 mg tablet 200 mg PO QAM amino acids 1 tab PO QAM levothyroxine 100 mcg tablet 100 mcg PO QAM sertraline 50 mg tablet 50 mg PO QAM cholecalciferol (vitamin D3) 25 mcg (1,000 unit) tablet (Vitamin D3) 25 mcg PO HS gabapentin 300 mg capsule (Neurontin) 300 mg PO HS nystatin 100,000 unit/gram topical powder 1 applic topical QID aspirin 81 mg chewable tablet 81 mg PO QAM semaglutide 0.25 mg or 0.5 mg (2 mg/3 mL) subcutaneous pen injector (Ozempic) 0.25 mg (0.368 mL) subcut .once week colchicine 0.6 mg tablet 0.6 mg PO BID PRN gout oxycodone 5 mg tablet 5 mg PO TID PRN pain evolocumab 140 mg/mL subcutaneous pen injector (Repatha John) 140 mg subcut .every 2 wks famotidine 40 mg tablet 40 mg PO HS coenzyme Q10 100 mg capsule (CoQ-10) 100 mg PO QAM cranberry fruit concentrate 450 mg tablet 450 mg PO QAM Continue as directed amino acids 1 tab PO QAM STOP 7 days prior to surgery semaglutide 0.25 mg or 0.5 mg (2 mg/3 mL) subcutaneous pen injector (Ozempic) 0.25 mg (0.368 mL) subcut .once week ASK your prescriber and surgeon aspirin 81 mg chewable tablet 81 mg PO QAM evolocumab 140 mg/mL subcutaneous pen injector (Repatha SureClick) 140 mg subcut .every 2 wks STOP taking 2 weeks before surgery (or as soon as possible if surgery is within 2 weeks) coenzyme Q10 100 mg capsule (CoQ-10) 100 mg PO QAM cranberry fruit concentrate 450 mg tablet 450 mg PO QAM STOP taking 24 hours before surgery nystatin 100,000 unit/gram topical powder 1 applic topical QID DO NOT take the morning of surgery multivitamin (Multiple Vitamins tablet) 1 tab PO QAM colchicine 0.6 mg tablet 0.6 mg PO BID PRN gout Take morning of surgery With a small sip of water, OTHERWISE NOTHING TO EAT OR DRINK AFTER MIDNIGHT: allopurinol 100 mg tablet 200 mg PO QAM levothyroxine 100 mcg tablet 100 mcg PO QAM sertraline 50 mg tablet 50 mg PO QAM oxycodone 5 mg tablet 5 mg PO TID PRN pain (if needed) Take evening before surgery cholecalciferol (vitamin D3) 25 mcg (1,000 unit) tablet (Vitamin D3) 25 mcg PO HS gabapentin 300 mg capsule (Neurontin) 300 mg PO HS colchicine 0.6 mg tablet 0.6 mg PO BID PRN gout (if needed) oxycodone 5 mg tablet 5 mg PO TID PRN pain (if needed) famotidine 40 mg tablet 40 mg PO HS Other Notes If you have any questions please call us at [phone] or [phone] or [phone] or [phone]
--- NOTE | 2024-08-10 12:29 | PAT Medication Instructions ---
Medication Instructions Date of Service August 10, 2024 Home Medications Medication Instructions Recorded nystatin 100,000 unit/gram topical 1 applic topical QID #60 grams 04/05/24 powder semaglutide 0.25 mg or 0.5 mg (2 0.25 mg (0.368 mL) subcut .once 04/10/24 mg/3 mL) subcutaneous pen injector week #3 mL (Ozempic) Hospital Bed Homecare #1 ea 05/15/24 famotidine 40 mg tablet 40 mg PO HS #90 tabs 05/15/24 levothyroxine 100 mcg tablet 100 mcg PO QAM #90 tabs 07/03/24 gabapentin 300 mg capsule 300 mg PO HS #90 caps 07/13/24 (Neurontin) oxycodone 5 mg tablet 5 mg PO TID PRN pain #90 tabs 07/13/24 allopurinol 100 mg tablet 200 mg (2 x 100 mg) PO QAM #135 08/01/24 tabs multivitamin (Multiple Vitamins tablet) 1 tab PO QAM amino acids 1 tab PO QAM sertraline 50 mg tablet 50 mg PO QAM cholecalciferol (vitamin D3) 25 mcg (1,000 unit) tablet (Vitamin D3) 25 mcg PO HS nystatin 100,000 unit/gram topical powder 1 applic topical QID aspirin 81 mg chewable tablet 81 mg PO QAM semaglutide 0.25 mg or 0.5 mg (2 mg/3 mL) subcutaneous pen injector (Ozempic) 0.25 mg (0.368 mL) subcut .once week colchicine 0.6 mg tablet 0.6 mg PO BID PRN gout evolocumab 140 mg/mL subcutaneous pen injector (Suni Lopez) 140 mg subcut .every 2 wks famotidine 40 mg tablet 40 mg PO HS coenzyme Q10 100 mg capsule (CoQ-10) 100 mg PO QAM cranberry fruit concentrate 450 mg tablet 450 mg PO QAM levothyroxine 100 mcg tablet 100 mcg PO QAM gabapentin 300 mg capsule (Neurontin) 300 mg PO HS oxycodone 5 mg tablet 5 mg PO TID PRN pain allopurinol 100 mg tablet 200 mg (2 x 100 mg) PO QAM Continue as directed amino acids 1 tab PO QAM ASK your prescriber and surgeon aspirin 81 mg chewable tablet 81 mg PO QAM evolocumab 140 mg/mL subcutaneous pen injector (Repatha SureClick) 140 mg subcut .every 2 wks STOP 7 days prior to surgery semaglutide 0.25 mg or 0.5 mg (2 mg/3 mL) subcutaneous pen injector (Ozempic) 0.25 mg (0.368 mL) subcut .once week STOP taking 2 weeks before surgery (or as soon as possible if surgery is within 2 weeks) coenzyme Q10 100 mg capsule (CoQ-10) 100 mg PO QAM cranberry fruit concentrate 450 mg tablet 450 mg PO QAM STOP taking 24 hours before surgery nystatin 100,000 unit/gram topical powder 1 applic topical QID colchicine 0.6 mg tablet 0.6 mg PO BID PRN gout DO NOT take the morning of surgery multivitamin (Multiple Vitamins tablet) 1 tab PO QAM Take morning of surgery With a small sip of water, OTHERWISE NOTHING TO EAT OR DRINK AFTER MIDNIGHT: sertraline 50 mg tablet 50 mg PO QAM levothyroxine 100 mcg tablet 100 mcg PO QAM oxycodone 5 mg tablet 5 mg PO TID PRN pain (if needed) allopurinol 100 mg tablet 200 mg (2 x 100 mg) PO QAM Take evening before surgery cholecalciferol (vitamin D3) 25 mcg (1,000 unit) tablet (Vitamin D3) 25 mcg PO HS famotidine 40 mg tablet 40 mg PO HS gabapentin 300 mg capsule (Neurontin) 300 mg PO HS oxycodone 5 mg tablet 5 mg PO TID PRN pain (if needed) Other Notes If you have any questions please call us at [phone] or [phone] or [phone] or [phone]
--- NOTE | 2024-08-10 12:33 | Anesthesiology Consultation ---
Date of Service August 10, 2024 Assessment & Plan (1) Encounter for pre-operative examination: - Check BSG DOS - Infectious disease screening: Per assessment on 08/10/24- No known recent infectious disease contacts or current infectious disease symptoms. - Outpatient joint assessment: Pt currently scheduled for inpatient pathway. If surgeon requests review for outpatient joint pathway, patient is not recommended candidate for outpatient joint program from anesthesia standpoint based on available information. - Semaglutide instructions: As of PAT visit 08/10/24, patient states that weekly Semaglutide has been discontinued/no plan to restart this or other weekly GLP1 injectable prior to surgery. Patient advised that if restarted prior to surgery, to stop 7 days prior to surgery- voiced understanding. - RUE limb restriction - Cardiology visit (04/25/24): "We reviewed her cardiac catheterization results in detail, and we discussed the management of coronary artery disease. She is not a candidate for statins due to her history of statin myopathy and prior rhabdomyolysis. Therefore we will recommend the followin. Continue Aspirin 81 mg daily. 2. Begin Repatha 140 mg subcutaneous injection every 2 weeks. 3. Consider the addition of an ARB or Beta Omer in the future. 4. Mediterranean diet. 5. Patient is considered an intermediate cardiac risk for upcoming right total hip arthroplasty. She may proceed as planned. 6. Increase aerobic activities as tolerated following hip replacement surgery. 7. Check fasting lipid panel in coming months. - Hyperkalemia: Elevated potassium 5.3 on preop labs 08/10/25. Workload message sent to PCP regarding hyperkalemia- Awaiting response. Patient otherwise acceptable risk for surgery. Chart Review Chart Review: Patient seen in Pre Admission Testing Teaching & Discussion Pre-Anesthesia Teaching/Discussion Notes: Instructed NPO after midnight before surgery,except medications with 15 cc of water. Medication instructions provided according to the PAT guidelines. History Surgery Operation Date: 09/05/24 07:15 Proposed Procedures p Right Total Hip Arthroplasty - Paulo Johns MD Height/Weight Height: 5 ft 3 in Weight: 90.7 kg Allergies Allergy/AdvReac Type Severity Reaction Status Date / Time metformin Allergy Severe Rhabdo Verified 08/09/24 12:21 tetanus toxoid, adsorbed Allergy Severe Arm Verified 08/09/24 12:21 swelling calamine Allergy Unknown Irritation Verified 08/09/24 12:21 cephalexin Allergy Unknown Rash Verified 08/09/24 12:21 simvastatin Allergy Unknown Rhabdo Verified 06/11/24 10:35 tetracycline Allergy Unknown Rash Verified 08/09/24 12:21 Medications Home Medications Medication Instructions Recorded Confirmed Last Taken multivitamin (Multiple Vitamins 1 tab PO QAM 03/10/19 06/11/24 3 Days Ago tablet) ~03/01/24 amino acids 1 tab PO QAM 02/20/24 06/11/24 03/03/24 sertraline 50 mg tablet 50 mg PO QAM 02/20/24 06/11/24 03/03/24 cholecalciferol (vitamin D3) 25 25 mcg PO HS 03/04/24 06/11/24 3 Days Ago mcg (1,000 unit) tablet (Vitamin ~03/01/24 D3) nystatin 100,000 unit/gram topical 1 applic topical QID #60 grams 04/05/24 06/11/24 Unknown powder aspirin 81 mg chewable tablet 81 mg PO QAM 04/09/24 06/11/24 04/09/24 0600 colchicine 0.6 mg tablet 0.6 mg PO BID PRN gout 04/25/24 06/11/24 Unknown Hospital Bed Homecare #1 ea 05/15/24 05/15/24 Unknown evolocumab 140 mg/mL subcutaneous 140 mg subcut .every 2 wks 05/15/24 06/11/24 Unknown pen injector (Suni Lopez) famotidine 40 mg tablet 40 mg PO HS #90 tabs 05/15/24 06/11/24 Unknown coenzyme Q10 100 mg capsule 100 mg PO QAM 06/11/24 06/11/24 Unknown (CoQ-10) cranberry fruit concentrate 450 mg 450 mg PO QAM 06/11/24 06/11/24 Unknown tablet levothyroxine 100 mcg tablet 100 mcg PO QAM #90 tabs 07/03/24 Unknown gabapentin 300 mg capsule 300 mg PO HS #90 caps 07/13/24 Unknown (Neurontin) oxycodone 5 mg tablet 5 mg PO TID PRN pain #90 tabs 07/13/24 Unknown allopurinol 100 mg tablet 200 mg (2 x 100 mg) PO QAM #135 08/01/24 Unknown tabs Past Medical History Medical History CAD (coronary artery disease) Cardiac cath 03/2024: Severe chronic total occlusion of the RCA with angiographically borderline tandem stenosis in the circumflex. Doppler wave wire analysis using the IFR method suggests equivocal/borderline hemodynamic significance. Reanalysis using adenosine infusion for stress demonstrates the FFR is not consistent with hemodynamically significant disease. Follows with [facility] cardio Chronic low back pain Degenerative spondylolisthesis Diabetes mellitus, type II NIDDM Diastolic CHF with preserved left ventricular function, NYHA class 2 with pericarditis 11/2023, hospitalized [facility] Frequent urinary tract infections Most recent 05/2024 Gout History of COVID-19 02/2024- hospitalized at [facility] for ~3 days with oxygen supplementation History of pericarditis 10/2023 Hx of breast cancer ~Dx 2013 Hx recurrent R breast cancer s/p R simple mastectomy and limited R axillary lymph node dissection Being followed by [facility] and Dr. Stone Hx of gastroesophageal reflux (GERD) Hx of pancreatitis Hx, 2/ "bad gallbladder" Hyperlipidemia Hypothyroidism LBBB (left bundle branch block) Follows with [facility] cardio Limb alert care status RUE Mood disorder Neuropathy Feet Positive RICKY (antinuclear antibody) Per records, patient unaware Sensorineural hearing loss (SNHL) of both ears Exercise / Class Metabolic Activity III < 4 Walking/Shop/Light housework Past Family History Family History Father Gastric cancer Lung cancer Mother Laryngeal cancer Brother Rheumatic fever Colon cancer Colorectal cancer Unknown Cardiomyopathy Denies family history of Ovarian cancer Prostate cancer Diabetes Myocardial infarction Breast cancer Stroke Past Surgical History Surgical History H/O breast surgery ~2013, R simple mastectomy and limited R axillary lymph node dissection H/O colonoscopy History of appendectomy History of cardiac cath (04/09/24) History of hysterectomy (~2012) laparascopic hysterectomy with BSO Hx of cholecystectomy Past Anesthesia History No Hx of Anesthesia Complications and No Family Hx of Anesthesia Complications History of PONV No Hx of PONV and Hx of Motion Sickness (Occasional) Social History Smoking Status: Former smoker Do You Dip or Chew Tobacco: No Smoking End Date: Quit Hx Alcohol Use: No (hx - none for the last 30 years) Hx Substance Use: No substance use type: does not use Review of Systems Mechanical slip out of bed this morning- no head trauma. Residual ankle pain improving. Patient denies chest pain, shortness of breath, dyspnea on exertion, fever, chills, cough, wheezing, palpitations. Physical Exam Vital Signs BP 115/79 P 88 TEMP 98.0 SP02 96%RA RESP 16 Physical Full cervical extension range of motion. Full TMJ range of motion. TMD > 3.5 finger breaths Mallampati Score II Dentition: missing molars + upper front, several "shaved down" teeth Lungs: clear throughout to auscultation Cardiac: regular rate and rhythm, no murmurs noted Spine: normal Carotid arteries: negative bruit Extremities: no LE edema Lab Results Anesthesia Preop Results Results Anesthesia Widget: WBC 12.83 K/ul (4.8-10.8) H 08/10/24 Hgb 14.2 g/dl (12.0-16.0) 08/10/24 Hct 43.3 % (37.0-47.0) 08/10/24 Plt 180 K/uL (130-400) 08/10/24 Na 137 mmol/L (136-145) 08/10/24 K 5.3 mmol/L (3.5-5.1) H 08/10/24 Cl 104 mmol/L (98-107) 08/10/24 CO2 27 mmol/L (21-32) 08/10/24 BUN 16 mg/dl (6-23) 08/10/24 Creat 1.05 mg/dl (0.6-1.2) 08/10/24 Glucose Level 112 mg/dl (70-99(Fasting)) H 08/10/24 PT 11.3 Seconds (9.0-12.0) 08/10/24 PTT 29 Seconds (21-31) 08/10/24 INR 1.0 (0.9-1.1) 08/10/24 HA1c 5.3 % (4.5-5.6) 08/10/24 Urine Color Yellow 08/10/24 Urine Appearance Clear (Clear) 08/10/24 Urine pH 5.0 (4.5-7.5) 08/10/24 Urine Specific [place] 1.016 (1.000-1.030) 08/10/24 Urine Protein Negative (Negative) 08/10/24 Urine Glucose (UA) Negative (Negative) 08/10/24 Urine Ketones Negative (Negative) 08/10/24 Urine Blood Negative (Negative) 08/10/24 Urine Nitrite Negative (Negative) 08/10/24 Urine Bilirubin Negative (Negative) 08/10/24 Urine Urobilinogen Negative (Negative) 08/10/24 Urine Leukocyte Esterase 2+ (Negative) H 08/10/24 Urine WBC (Auto) 21-50 /hpf (0-5) H 08/10/24 Urine RBC (Auto) 0-2 /hpf (0-2) 08/10/24 Urine Hyaline Casts (Auto) 11-20 /lpf (0-2) H 08/10/24 Urine Epithelial Cells (Auto) 6-10 /hpf (0-2) H 08/10/24 Urine Bacteria (Auto) None Seen (None Seen) 08/10/24 Blood Type A Positive 08/10/24 Antibody Screen NEGATIVE 08/10/24 Testing Laboratory Results Elevated WBC- forwarded to PCP for continuity of care* Urine culture- more than three types of organisms present, all high counts. Repeat collection recommended. (PCP made aware/will defer to them if anything further needed from their perspective) Electrocardiogram Date: 03/05/24 NSR at 97bpm. LBBB. Chest X-Ray Date: 08/10/24 FINDINGS: Heart size and pulmonary vasculature are normal. No effusion or consolidation. IMPRESSION: No acute findings. Echocardiogram Date: 10/26/23 LVEF 50-60%. Mild concentric LVH. Moderate to severe diastolic dysfunction. RV systolic function is mildly reduced. Mild LAD. Moderate RAD. Moderate TR. RVSP is normal. Stress Test Date: 03/29/24 Type: nuclear Gated myocardial perfusion imaging demonstrates that the LV is enlarged. The EF is reduced calculated at 42%. There is akinesis of the apex and septum as well as severe hypokinesis of the anterior and inferior myocardium. The lateral myocardium contracts normally. There is a large in size (30% of myocardium) partially reversible MPI defect. The apex and distal inferior myocardium are mostly fixed. The mid and distal anterior, mid inferior, and septal myocardium are completely reversible. These findings suggest a medium size infarct with moderate markell-infarct ischemia involving the LAD territory myocardium. There may also be a modest contribution of artifact. At least moderate risk of significant ischemia. There are no prior studies for comparison. Recommend discussion with the primary director of student aid regarding coronary angiography. Subsequent cardiac cath performed 04/09/24* Cardiac Catheterization Date: 04/09/24 Summary: Severe chronic total occlusion of the right coronary artery with angiographically borderline tandem stenosis in the circumflex. Doppler wave wire analysis using the IFR method suggests equivocal/borderline hemodynamic significance. Reanalysis using adenosine infusion for stress demonstrates the FFR is not consistent with hemodynamically significant disease. Patient will require guideline directed medical therapy for secondary prevention of coronary disease including aspirin 81 mg daily, statin or equivalent (PCSK9 inhibitor), beta-omer, and either JOHN inhibitor or angiotensin receptor omer to control her blood pressure.
[~2024-09-05 07:06] MED LIST changes: -ALL300 PO; +BUPIVACAINE 0.5 % 5 MG/1 ML PF 10ML VIAL ONE; -GADAVIST IV PRN; -SERT50TA PO; -TRAM-453 PO
[2024-09-05 07:41] LABS: BUN Creatinine Ratio 17.2 (10-20); Calcium 9.7 mg/dl (8.6-10.3); Creatinine Clr Calc Pharmacy 49.3 ml/min; Potassium 3.6 mmol/L (3.5-5.1)
[2024-09-05] MEDS: METOCLOPRAMIDE HCL 10 MG TABLET PO SCH (08:01)
[2024-09-05] MEDS: ACETAMINOPHEN 500 MG TAB PO SCH ×2 (08:01→13:35)
[2024-09-05] MEDS: CeleBREX 200 MG CAP PO SCH (08:01)
[2024-09-05] MEDS: FAMOTIDINE 20 MG TAB PO SCH (08:01)
[2024-09-05] MEDS: dexAMETHasone**PF** 10 MG/ML VIAL IV SCH (08:02)
[2024-09-05] MEDS: LR 60ML/HR IV SCH (08:02)
[2024-09-05] MEDS: LR 500ML BOLUS, THEN 15ML/HR IV SCH (08:02)
[2024-09-05] MEDS ORDERED: ePHEDrine sulfate 50 MG/ML AMP IV PRN (08:21)
[2024-09-05] MEDS ORDERED: ATROPINE SULFATE 0.1 MG/ML 10ML SYR IV PRN (08:21)
[2024-09-05] MEDS ORDERED: fentaNYL citrate PF 100 MCG/2 ML VIAL IV PRN (08:21)
[2024-09-05] MEDS ORDERED: ONDANSETRON INJ 2 MG/ML 2 ML VIAL IV PRN ×2 (08:21→12:36)
[2024-09-05] MEDS ORDERED: MIDAZOLAM HCL 1 MG/ML 2ML VIAL ONE (08:27)
[2024-09-05] MEDS ORDERED: PROPOFOL IV EMULSION 10 MG/ML 20 ML VIAL IV ONE ×2 (08:28→08:55)
--- NOTE | 2024-09-05 08:48 | History & Physical Bridge Note ---
Date of Service September 05, 2024 History & Physical Bridge Note I have examined the patient, reviewed the History & Physical and in the interval since the performance of the History & Physical I have noted the following changes of clinical significance: no changes noted
[2024-09-05] MEDS: TRANEXAMIC ACID 1,000 MG **IV Pre-op IV SCH (08:49)
[2024-09-05] MEDS ORDERED: Nursing to Pharmacy Communication SCH (09:00)
[2024-09-05] MEDS: ceFAZolin 2000MG 2,000 MG/15 ML SYR IV SCH ×2 (09:18→16:32)
[2024-09-05] MEDS ORDERED: LIDOCAINE 2% 2 ML VIAL/AMP(20MG/ML) INFIL ONE (09:31)
[2024-09-05] MEDS: BUPIVACAINE/EPINEPHRINE 0.5% MPF 1:200,000 30 ML VIAL ONE (10:16)
--- NOTE | 2024-09-05 11:03 | Operative Report ---
PG Post Operative Report Pre & Post Diagnosis Operation Date: 09/05/24 08:50 Pre-Op Diagnosis: Right Hip Degenerative Joint Disease Post-Op Diagnosis: Right Hip Degenerative Joint Disease I identified the patient and participated in the time-out.: Yes Procedure Operation Date: 09/05/24 08:50 Actual Procedures p Right Total Hip Arthroplasty, Cemented(Right) - Paulo Johns MD Surgeon Paulo Johns MD [employer] Roaster Helper Lawson Rubio PA-C Estimated Blood Loss 100 Findings Consistent with Post-Op Diagnosis Specimens Right femoral head sent for pathology. Anesthesia Type Spinal MAC Complications none Disposition Accompanied Patient To Recovery: No Indications Patient is a 79-year-old female with multiple medical comorbidities had a several year history of progressive bilateral hip pain discomfort has become very disabling. She failed all conservative measures. X-rays show advanced hip arthritis. She elected proceed with left total hip arthroplasty. Description of Procedure Operative implants consist of: 1. Biomet G7 size 52 mm acetabular shell. 2. 6.5 cancellous acetabular screws 1 of 35 mm in length and 1 of 25 mm length. 3. [place] hole point of care technician. 4. Highly cross-linked polyethylene liner with a 52 mm outer diameter and 36 mm diameter. 5. DePuy [place] size 3 high offset cemented femoral stem with a distal centralizer. 6. +5/36 mm ceramic articular ball. 7. Small cement restrictor. The patient was taken the op room, identified, placed on the operating table in the supine position. All conductors were appropriately padded. IV antibiotics were provided by the anesthesia team. A Kwon catheter was placed in sterile fashion. The patient is then placed in the left lateral decubitus position. An axillary roll was placed. A stool Birkett position was used for positioning. Right hip and leg were then prepped and draped in usual sterile fashion. A posterolateral approach to the right hip was then performed to a curvilinear incision centered over the greater trochanter. Sharp dissection got through subcutaneous tissue down to the level of the gluteal fascia and IT band. The IT band gluteal fascia incised longitudinally in line with skin incision. The underlying greater Bursa was excised. The piriformis and external rotators were then carefully taken off the posterior aspect the hip as a single layer. Great care was taken throughout the procedure protect the sciatic nerve at all times. Hip was internally rotated and dislocated. A femoral neck osteotomy cut was made with Final Cut 15 mm above the lesser trochanter. Femoral head was removed and sent for pathology. The femur was retracted anteriorly. Attention drawn the acetabulum. The acetabulum labrum was excised. The pulmonary fat was excised. Sequential reaming the acetabular was then performed again with size 43 and progressing up to 51. I reamed a little bit with a 52 reamer and then placed a 52 mm Biomet G7 acetabular shell in about 40 degrees lateral opening and 20 degrees of anteversion. It was fixed with two 6.5 screws. A trial liner was placed. Attention drawn the femur. The proximal femur was entered with a Backlift cutter followed by canal finder and lateralizing reamer. Then broached beginning the size 1 and progressing up to a 2. I really could not get anything more safely down her canal than the 2 so we elected to place this. We trialed this with a high offset stem and it was fully stable and applied and provided appropriate soft tissue tension and leg lengths. We elect to place these implants. Nupathe all trial implants were removed. An apex hole point of care technician was placed. Highly cross-linked polyethylene liner was placed. A small cement restrictor was placed down the canal. Double batch [place] G cement was mixed. I injected the canal with the cement and then the size 3 high offset femoral stem was placed. Once the cement hardened a final cement check was then performed. We placed a +5/36 mm ceramic articular ball. Hip was once again relocated and found to be stable and leg lengths equal. We proceeded with closing. The wounds irrigated close amounts of pulsatile lavage solution. I did inject locally with 60 cc of half percent Marcaine with epinephrine. The posterior capsule Rotators were then repaired through drill holes in the posterior trochanter with #2 Tycron suture. The IT band gluteal fascia then closed in 1 PDS suture in running fashion. The subcutaneous tissue was then closed with 2 layers the deep layer with #2 Vicryl suture and subcutaneous tissues with 2-0 Dexon suture in a buried interrupted fashion. Skin was closed skin kemi. A Prevena VAC dressing was applied. The patient was then transferred to the recovery room in stable condition. The patient tolerated procedure well and there were no complications. Lawson Rubio, my physician assistant in nursing, was present for the entire procedure. His assistance was essential and required for appropriate patient positioning, prepping and draping, surgical exposure, performing the technical details of the operation, placement the implants, closure of the wound, and placement of the sterile bandage. I attest to the content of the Intraoperative Record and any orders documented therein. Any exceptions are noted below.
--- NOTE | 2024-09-05 11:21 | XRay Report ---
XR hip 1V RT w pelvis CLINICAL HISTORY: IN PACU - Post Surgical COMPARISON: 09/01/2023 FINDINGS: Interval right hip prosthesis shows no hardware complication. There is expected soft tissu e gas and skin kemi are present. There are severe degenerative changes at the left hip. IMPRESSION: Unremarkable postoperative exam. ACT 112: Negative or not required by law. Electronically signed by: Yadiel Putnam M.D. 09/05/2024 11:20 AM
--- OUTSIDE RECORDS SUMMARY | 2024-09-05 11:24 | External Medical Summary | Summary of Care ---
Author Name Unknown Organization [facility] Address [address] [place] [address] Phone [phone] Care Team Providers Care Director Hr Communications Name Role Phone Mauliksendy Deanshin Germain Primary Care Provider [phone] Reason for Visit * Reason Onset Date Comments Diabetes Management 07/09/2024 Non-ce dm TRIAGE 07/09/2024 Encounter Details Date Type Department Care Team (Late st Contact Info) Description 07/09/2024 Telephone Centralized Clinical Pharmacy Services, Eliseo Tom [address] [place] [address] [place] [phone] Popeye De Leon, [facility] [address] [place] [address] Diabetes Management (Non-ce dm); TRIAGE Allergies Active Allergy Reactions Criticality Noted Date Comments Allopurinol 02/20/2016 rash Cephalexin Rash 04/03/2015 Tetanus Antitoxin 04/03/2015 Tetracycline 04/03/2015 Simvastatin 04/03/2015 documented as of this encounter (statuses as of 08/10/2024) Medications Multiple Vitamins-Minera ls (MULTIVITAL) Tablet 2 times a day. Activ e diphenhydrAMINE (BENADRYL) 25 MG Capsule Take 1 Capsule by mouth at bedtime as needed for Sleep. Active sertraline (ZOLOFT) 100 MG Tablet 0.5 Tablets in the morning. 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 30 Tab 7 Active colchicine 0.6 MG Tablet Take 1 Tab by mouth daily. 90 Tab 1 7 Active aspirin 81 MG chewable tablet Take 1 Tablet by mouth in the morning. Active allopurinol (ZYLOPRIM) 100 MG Tablet Take 1 Tablet by mouth in the morning. 9 Active Albuterol Sulfate (PROAIR HFA) 108 (90 Base) MCG/ACT AERS ProAir HFA 90 mcg/actuation aerosol inhaler Inhale 2 puffs every 4 hours by inhalation route. 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 Patient with history of breast cancer after right mastectomy. 4 Each N/A 0 Active metFORMIN HCl 500 MG Oral Tablet (Glucophage) Take 1 Tablet by mouth 2 times a day with morning and evening meals. Active Levothyroxine Sodium 50 MCG Oral Capsule (Tirosint) Take 1 Capsule by mouth daily first thing in the morning. (at least 30 min prior to breakfast or other meds) Active documented as of this encounter (statuses as of 08/10/2024) Active Problems Problem Noted Date Diagnosed Date Febrile neutropenia 07/26/2016 History of breast cancer 03/09/2016 Overview (05/15/2024): History of breast cancer. 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 No evidence of disease recurrence. Observe Follow up as per NCCN guidelines HCAP (healthcare-associated pneumonia) 08/11/2016 09/29/2023 C. difficile colitis 08/04/2016 024 Overview (05/15/2024): historical documented as of this encounter (statuses as of 08/10/2024) Social History Tobacco Use Types Packs/Day Years Used Date Smoking Tobacco: Former Smokeless Tobacco: Never Comments:Quite smoking 20+ y ears ago. Alcohol Use Standard Drinks/Week Comments No 0 (1 standard drink = 0.6 oz pur e alcohol) Comments No Sex and Gender Information Value Date Recorded Sex Assigned at Not on file Legal Sex Female 5:19 AM EST Gender Identity Not on file Sexual Orientation Not on file documented as of this encounter Functional Status * Are you deaf or do you have serious difficulty hearing? Answer Date of Assessment Author No 10/22/2016 9:58 PM Linda Roman RN * Are you blind or do you have serious difficulty seeing, even when wearing glasses? Answer Date of Assessment Author No 10/22/2016 9:58 PM Linda Roman RN * Do you have serious difficulty walking or climbing stairs? (5 years old or older) Answer Date of Assessment Author No 10/22/2016 9:58 PM Linda Roman RN * Do you have difficulty dressing or bathing? (5 years old or older) Answer Date of Assessment Author No 10/22/2016 9:58 PM Linda Roman RN * Because of a physical, mental, or emotional condition, do you have difficulty doing errands alone such as visiting a doctors office or shopping? (15 years old or older) Answer Date of Assessment Author No 10/22/2016 9:58 PM Linda Roman RN documented as of this encounter Mental Status * Because of a physical, mental, or emotional condition, do you have serious difficulty concentrating, remembering, or making decisions? (5 years old or older) Answer Entry Date Author No 10/22/2016 9:58 PM Linda Roman RN documented in this encounter Miscellaneous Notes * Telephone Encounter - Popeye De Leon, [facility] - 07/09/2024 3:52 PM EST [facility] Non-Clinical [place] [facility] THIS NOTE SERVES FOR TRIAGING PURPOSES ONLY AND IS NOT A PATIENT CONTACT. PATIENT MAY BE CONTACTED FOLLOWING MY ASSESSMENT. Patient was identified to be a candidate for the Non- telephonic program based on the following criteria: Not High Cost / No a1c Result / PDC >= 80% Patient managed by [facility] provider? No; Is Pertinent Diabetes Info in Care Everywhere? No Last A1C: ? (Result Date: ?) Diabetes Diagnosis: Type 2 After chart review the following opportunities were identified: Mail Order Invite, Obtain Updated A1c, and Therapy Optimization (PRN) Action to be taken by air launch weapons technician: Please contact and warm transfer to [facility] if patient is agreeable Needs Language Line: No Medication Claims Data (To verify during call): Med: OZEMPIC 2 Fill date: 04/11/2024 Day Supply: 56Quantity: 3 || Med: JARDIANCE 10 Fill date: 03/21/2024 Day Supply: 90 Quantity: 90 Popeye De Leon [facility] Clinical Pharmacist 07/09/2024, 3:52 PM documented in this encounter Plan of Treatment Health Maintenance Due Date Last Done Comments DXA Scan 1945 Depression Screening 1957 TSH 1963 DTap/Tdap Vaccines (1 - Tdap) 01/07/1964 Zoster Vaccines (1 of 2) 1995 COVID-19 Vaccine (4 - 2023-2 5 season) 2024 05/05/2021, 08/19/2020, 07/21/2020 Influenza Vaccine (FLU shot) (#1) 2024 02/08/2020 Pneumococcal Vaccine: 50+ Years Completed 03/17/2020, 03/14/2020 HPV (Gardasil) Vaccine Aged Out No lo nger eligible based on patient's age to complete this topic Hepatitis B Vaccine Aged Out No longe r eligible based on patient's age to complete this topic MENINGOCOCCAL (MENACTRA/MENVEO) Aged Out No longer eligible b ased on patient's age to complete this topic Meningitis B Vaccine (Bexsero/Trumemba) Aged Out No longer eligible b ased on patient's age to complete this topic documented as of this encounter Medical Devices Implanted Type Area Hepatologist Device Identifier Shelf Expiration Date Model / Serial / Lot Mediport Pwr Isp 8fr [id number] - [id number] Implanted:Qty : 1 on 03/12/2016 by Sophie Stone MD at [facility] Left: Subclavian CR BARD : PERIPHERAL VASCULAR 10/08/2017 [id number] / / [id number] documented as of this encounter Advance Directives * Full Code (Latest Code Status on File) Date Activated Date Inactivated Comments 10/22/2016 6:59 PM 10/23/2016 6:19 PM This order r eflects the patients wishes and were consensually agreed upon. Question Answer Comments Discussion of Advance Directives occurred with: Not Discussed Does the patient have a Living Will? No Does the patient have Health Care Power of Attor evgeny? No * Full Code Date Activated Date Inactivated Comments 10/22/2016 1:27 PM 10/22/2016 6:59 PM This order r eflects the patients wishes and were consensually agreed upon. Question Answer Comments Discussion of Advance Directives occurred with: Not Discussed Does the patient have a Living Will? No Does the patient have Health Care Power of Attor evgeny? No * Full Code Date Activated Date Inactivated Comments 07/26/2016 8:56 PM 08/11/2016 6:59 PM This order re flects the patients wishes and were consensually agreed upon. Question Answer Comments Discussion of Advance Directives occurred with: Patient Does the patient have a Living Will? No Does the patient have Health Care Power of Attor evgeny? No * Full Code Date Activated Date Inactivated Comments 03/12/2016 6:44 AM 03/12/2016 2:52 PM Question Answer Comments Discussion of Advance Directives occurred with: Not Discussed Does the patient have a Living Will? No Does the patient have Health Care Power of Attor evgeny? No * Full Code Date Activated Date Inactivated Comments 04/15/2015 11:55 AM 04/15/2015 7:29 PM This order reflects the patients wishes and were consensually agreed upon. Care Teams Director Hr Communications Relationship Specialty Start Date End Date Dean Dhillon DO [address] [place] [address] PCP - General Family Medicine 12/17/21 documented as of this encounter"
--- OUTSIDE RECORDS SUMMARY | 2024-09-05 11:24 | External Medical Summary | Summary of Care ---
Author Name Unknown Organization [facility] Address [address] [place] [address] Phone [phone] Care Team Providers Care Patient Relations Liaison Name Role Phone Mauliksendy Dean Dumasmond Primary Care Provider [phone] Reason for Visit * Reason Onset Date Comments [facility]: Screening 08/28/2024 Encounter Details Date Type Department Care Team (Late st Contact Info) Description 08/28/2024 Telephone [facility], [place] [address] [place] [address] [place] [address] Valencia Marte, SHARED SERVICES AND OUTSOURCING MANAGER [address] [place] [facility] [place] [address] [facility]: Screening Allergies Active Allergy Reactions Criticality Noted Date Comments Allopurinol 02/20/2016 rash Cephalexin Rash 04/03/2015 Tetanus Antitoxin 04/03/2015 Tetracycline 04/03/2015 Simvastatin 04/03/2015 documented as of this encounter (statuses as of 08/28/2024) Medications Multiple Vitamins-Minera ls (MULTIVITAL) Tablet 2 [...] as of this encounter (statuses as of 08/28/2024) Active Problems Problem Noted Date Diagnosed Date Febrile neutropenia 07/26/2016 History of breast cancer 03/09/2016 Overview (05/15/2024): History of breast cancer. 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 No evidence of disease recurrence. Observe Follow up as per NCCN guidelines HCAP (healthcare-associated pneumonia) 08/11/2016 09/29/2023 C. difficile colitis 08/04/2016 024 Overview (05/15/2024): historical documented as of this encounter (statuses as of 08/28/2024) Social History Tobacco Use Types Packs/Day Years [...] encounter Miscellaneous Notes * Telephone Encounter - Valencia Marte LPN - 08/28/2024 9:01 AM EDT Km Mcclendon was referred as a potential candidate for enrollment for [facility]. A review of this chart was completed and: Km does not meet criteria for enrollment into [facility]. Referral Source: Monthly Proactive Eligibility List Criteria for Ineligibility: Not Located in Service Area Referring care team was notified via : [employer] communication In area but does not have the chronic medical conditions needed for [facility] documented in this encounter Plan of Treatment [...] this encounter Medical Devices Implanted Type Area Color Laboratory Technician Device Identifier Shelf Expiration Date Model / Serial / Lot Mediport Pwr Isp 8fr [id number] - [id number] Implanted:Qty : 1 on 03/12/2016 [place] [facility] [place] Subclavian CR BARD : PERIPHERAL VASCULAR 10/08/2017 [id number] / / [id number] documented as of this encounter Advance Directives [...] and were consensually agreed upon. Care Teams Patient Relations Liaison Relationship Specialty Start Date End Date Dean Dhillon DO [address] [place] [address] PCP - General Family Medicine 12/17/21 documented as of this encounter
[2024-09-05] MEDS ORDERED: MAGNESIUM HYDROXIDE SUSP 30 ML UDC PO PRN (12:36)
[2024-09-05] MEDS ORDERED: METOCLOPRAMIDE HCL INJ 5 MG/ML 2 ML VIAL IV PRN (12:36)
[2024-09-05] MEDS ORDERED: bisacodyL 10 MG SUPP PR PRN (12:36)
[2024-09-05] MEDS ORDERED: NON-FORMULARY MEDICATION (Evolocumab [Repatha Sureclick] 140 mg/mL pen injector) SQ SCH (12:36)
[2024-09-05] MEDS ORDERED: COLCHICINE 0.6 MG TAB PO PRN (12:36)
[2024-09-05] MEDS ORDERED: NALOXONE HCL 0.4 MG/1 ML VIAL/CARP IV PRN (12:36)
[2024-09-05] MEDS ORDERED: ALUMINUM/MAGNESIUM SUSP 30 ML UDC PO PRN (12:36)
[2024-09-05] MEDS: KETOROLAC TROMETHAMINE 15 MG/ML VIAL IV SCH (13:36)
[2024-09-05] MEDS ORDERED: ACETAMINOPHEN 500 MG TAB PO SCH (14:00)
--- NOTE | 2024-09-05 14:18 | Anesthesiology Progress Note ---
Date of Service September 05, 2024 Anesthesia Post Procedure Vital Signs Vital Signs: Temp Pulse Pulse Pulse Resp BP Pulse Ox 09/05/24 13:43 36.7 C 95 H 20 142/84 H 96 09/05/24 13:15 96 H 16 115/73 96 09/05/24 13:04 09/05/24 12:45 36.5 C 97 H 20 111/74 95 09/05/24 12:30 95 H 20 104/62 91 09/05/24 12:15 94 H 15 92/65 L 95 09/05/24 12:00 93 H 27 H 117/65 96 09/05/24 11:45 92 H 29 H 102/80 95 09/05/24 11:30 36.3 C L 92 H 22 125/74 95 09/05/24 11:20 88 22 118/79 95 09/05/24 11:10 88 29 H 116/63 95 09/05/24 11:00 36.2 C L 92 H 22 110/58 L 98 09/05/24 07:27 36.7 C 95 H 20 108/47 L 99 O2 Del Method O2 Flow Rate 09/05/24 13:43 Room Air 09/05/24 13:15 Room Air 09/05/24 13:04 Room Air 09/05/24 12:45 Room Air 09/05/24 12:30 Room Air 09/05/24 12:15 Room Air 09/05/24 12:00 Room Air 09/05/24 11:45 Room Air 09/05/24 11:30 Room Air 09/05/24 11:20 Room Air 09/05/24 11:10 Room Air 09/05/24 11:00 Oxymask 5 09/05/24 07:27 Room Air Pain Intensity Bilateral Hip: Pain Intensity: 2 Notes Mental Status: alert / awake / arousable Patient Amnestic to Procedure: Yes Nausea / Vomiting: adequately controlled Pain: adequately controlled Airway Patency, RR, SpO2: stable & adequate BP & HR: stable & adequate Hydration State: stable & adequate Neuraxial Anesthesia: was administered and sensory block is resolving Anesthetic Complications: no major complications apparent
[2024-09-05] MEDS: NYSTATIN POWDER 15GM BTL EXT SCH (15:26)
[2024-09-05] MEDS: TRANEXAMIC ACID / 0.7% NACL 1,000 MG/100 ML BAG IV SCH (16:32)
[2024-09-05] MEDS: ASCORBIC ACID 500 MG TAB PO SCH (16:38)
[2024-09-05] MEDS: FAMOTIDINE 40 MG TABLET PO SCH (20:53)
[2024-09-05] MEDS: GABAPENTIN 300 MG CAP PO SCH (20:53)
[2024-09-05] MEDS: ASPIRIN 81 MG ECTAB PO SCH (20:53)
[2024-09-05] MEDS: CHOLECALCIFEROL 25 MCG (1000 UNITS) TAB PO SCH (20:53)
[2024-09-05] MEDS: HYDROmorphone INJ 0.5 MG/0.5 ML SYR IV PRN (20:54)
[2024-09-05] MEDS: DOCUSATE SODIUM 100 MG CAP PO SCH (20:55)
[2024-09-05] MEDS: SENNA 8.6 MG TAB PO SCH (20:55)
[2024-09-05] MEDS ORDERED: SENNA 8.6 MG TAB PO SCH (21:00)
[2024-09-06 06:23] LABS: Basophils # (auto) 0.03 K/uL (0.00-0.20); Basophils % (auto) 0.3 %; Eosinophils # (auto) 0.03 K/uL (0.00-0.50); Eosinophils % (auto) 0.3 %; Hematocrit (blood only) 34.5 % (37.0-47.0); Hemoglobin 11.8 g/dl (12.0-16.0); Immature Granulocytes # (auto) 0.05 K/uL (0.01-0.20); Immature Granulocytes % (auto) 0.5 %; Lymphocytes # (auto) 1.35 K/uL (1.20-3.40); Lymphocytes % (auto) 12.3 %; Mean Corpuscular Hemoglobin 30.8 pg (25.0-34.0); Mean Corpuscular Hgb Conc 34.2 g/dL (32.0-36.0); Mean Corpuscular Volume 90.1 fL (80.0-100.0); Mean Platelet Volume 9.7 fL (9.4-12.4); Monocytes # (auto) 0.84 K/uL (0.11-0.59); Monocytes % (auto) 7.6 %; Platelet Count 203 K/uL (130-400); RDW Coefficient of Variation 13.8 % (11.5-14.5); RDW Standard Deviation 44.9 fL (36.4-46.3); Red Blood Count 3.83 M/uL (4.20-5.40)
[2024-09-06] MEDS: dexAMETHasone 10 MG in SYRINGE 0 ML IV SCH (08:31)
[2024-09-06] MEDS: allopurinoL 100 MG TAB PO SCH (08:32)
[2024-09-06] MEDS: SERTRALINE HCL 50 MG TABLET PO SCH (08:32)
[2024-09-06] MEDS: MULTIVITAMIN TAB PO SCH (08:33)
[2024-09-06] MEDS: LEVOTHYROXINE SODIUM 100 MCG TABLET PO SCH (08:33)
[2024-09-06 08:42] LABS: Calcium 9.1 mg/dl (8.6-10.3); Potassium 4.7 mmol/L (3.5-5.1)
--- NOTE | 2024-09-06 08:42 | Orthopedic Progress Note ---
Date of Service September 06, 2024 Assessment & Plan (1) S/P total right hip arthroplasty: POD 1 from a right hip hemiarthroplasty by Dr. Johns -Aditi, SCDs and aspirin 81 mg twice daily for DVT prophylaxis -Posterior hip precautions -They work with PT/OT for mobilization and posterior hip precautions -Prevena dressing to stay on until postop day 7 or whenever it stops working. It can be removed by patient or home health if needed by patient. -Follow-up in [address] Johns for initial postop check and staple removal -Discharge pending PT/OT as well as case management visit as patient is unsure if she wants to do a few days with a rehab center or go home with home health. Subjective Operation Date: 09/05/24 08:50 Actual Procedures p Right Total Hip Arthroplasty, Cemented(Right) - Paulo Johns MD Patient is postop day 1 from a right total hip arthroplasty by Dr. Johns. She states she is doing well. She is pleased with her care so far. She has not been able to work with PT/OT yet in the hospital but is expecting to do so today. She her Prevena dressing is in place. She is unsure if she is going to rehab center for a few days and then home with home services or going straight home. She would prefer to go to a rehab center for a few days. Review of Systems All systems reviewed & are unremarkable except as noted in HPI & below. Physical Exam General: Alert and oriented. No acute distress. Right hip: Prevena dressing is in place. It is sealed without any disruption of the vacuum seal. She is resting comfortably in her hospital bed. Her abduction pillow is in place in the middle. Neuro vastly intact in the right lower extremity. She has good range of motion of the right knee, ankle and foot. Results & Data Results & Data Laboratory Results . Diagnostic Findings . PG Care Time/CCT Total # of Minutes Spent Total Time Spent with Patient: Total time spent is greater than 50% in coordination of care (as documented) at patient's floor/unit and/or counseling patient: Coding Level of Care Code 12523 Post Operative Follow-Up Diagnoses S/P total right hip arthroplasty Z96.641
[2024-09-06 08:48] LABS: BUN Creatinine Ratio 19.6 (10-20); Creatinine Clr Calc Pharmacy 45.8 ml/min
--- NOTE | 2024-09-06 08:50 | Discharge Summary ---
Date of Service September 06, 2024 Admission HPI (Per Admitting) Patient is a 79-year-old female with multiple medical comorbidities had a several year history of progressive bilateral hip pain discomfort has become very disabling. She failed all conservative measures. X-rays show advanced hip arthritis. She elected proceed with left total hip arthroplasty. Admission Exam (Per Admitting) Examination of both hips reveals the patient has difficulty walking even with a walker. She walks with a hunched over posture. Her leg lengths are equal. She has got very stiff hips with external rotation. Contracture is about 15 degrees bilaterally. Examination of the left ankle reveals some tenderness over the fibula. No medial tenderness. No detectable swelling. Principal Diagnosis Same as "Discharge Diagnosis" noted below under Discharge Instructions. Discharge Exam General: Alert and oriented. No acute distress. Right hip: Prevena dressing is in place. It is sealed without any disruption of the vacuum seal. She is resting comfortably in her hospital bed. Her abduction pillow is in place in the middle. Neuro vastly intact in the right lower extremity. She has good range of motion of the right knee, ankle and foot. Discharge Data Procedures Performed Operation Date: 09/05/24 08:50 Actual Procedures p Right Total Hip Arthroplasty, Cemented(Right) - Paulo Johns MD Hospital Course (1) S/P total right hip arthroplasty: POD 1 from a right hip hemiarthroplasty by Dr. Johns -[facility] and aspirin 81 mg twice daily for DVT prophylaxis -Posterior hip precautions -They work with PT/OT for mobilization and posterior hip precautions -Prevena dressing to stay on until postop day 7 or whenever it stops working. It can be removed by patient or home health if needed by patient. -Follow-up in [address] Johns for initial postop check and staple removal -Discharge pending PT/OT as well as case management visit as patient is unsure if she wants to do a few days with a rehab center or go home with home health. PG Care Time/CCT Total # of Minutes Spent Total Time Spent with Patient: Total time spent is greater than 50% in coordination of care (as documented) at patient's floor/unit and/or counseling patient: Discharge Plan Discharge Items Patient Disposition: Transfer Inpatient Rehab Fac Reason For Visit: Right Hip Osteoarthritis Discharge Diagnosis: Right Hip Replacement Activity: Per Instructions section Activity Comment: Follow/Obey hip precautions at all times Weightbearing: Full weightbearing Weightbearing Comment: Weightbear as tolerated obeying hip precautions at all times. Non-emergency contact: Surgeon Call non-emergency contact if: you have any medication questions Follow-up/Referrals: Dean Dhillon, [Primary Care Provider] - Diet: Regular Addtl Attending Provider Instructions: ACTIVITY RECOMMENDATIONS: Diet: * You may resume previous diet. Physical Therapy: * Aggressive physical therapy is not usually needed. You will learn to take care of yourself safely and walk. * Follow the "Hip Precautions Instructions." * In some cases, the social media editor at the hospital will arrange to have a therapist come to your house for the first couple of weeks to help you learn these skills. * You need to practice on your own or with the help of a family member as needed. * When you learn these skills, most of the therapy can be done on your own. Home Exercise: * You were shown a series of exercises in the hospital. Do these exercises three to four times each day including the exercises you were shown in physical therapy. Walking: * Get up and walk several times each day. For the first four weeks, try not to stand or walk for more than one hour at a time. If you do stand or walk for more than one hour, you will not hurt anything, but your leg will likely swell. * As you feel comfortable, you may change from the walker or crutches to a cane and then to independent walking. MEDICATIONS: New Medicine: * You will likely be taking one or more of these medicines: 1. Tramadol - Take, as directed, when you need it, every six hours to control your pain 2. Aspirin - Thins your blood to lessen the chance of forming a blood clot. * The most common side effects of pain medicine and iron are nausea and constipation. If nausea or constipation is too much of a problem or if you have any questions about your new medicines or doses, call [facility] at . We will try to help you manage these issues. "VERY IMPORTANT TO READ AND REVIEW" Pain: * The immediate post-operative period after hip replacement surgery is often quite painful. * You are given a prescription for pain medicine. You should take it, as directed, when you need it, especially before physical therapy and before going to bed. Pain that interferes with sleep is very common and can last several months. * You will likely need pain medicine for the first two to four weeks. It will not stop all of the pain. The pain will lessen and as you feel better, you may change to milder pain medicine such as Tylenol. * The most common side effects of pain medicine are nausea and constipation, so don't take more than you need. SPECIAL CARE INSTRUCTIONS: TEDs/Elastic Stockings: * The white elastic stockings help limit swelling and prevent blood clots from forming in your legs. The more you wear them, the more they work. * Wear them for six weeks. Incision Site Care: * Remove dressing postoperative day 7.. Keep direct shower pressure off the incision site. * After showering, cover omkar with dry gauze and change daily or more frequently if the dressing is getting saturated with drainage. * May completely stop using bandage if wound is dry and no drainage * Omkar are removed between 2 and 3 weeks post-op. If your follow-up appointment is made before 2 weeks, please have your appointment re- scheduled. It is too early to remove the omkar. Prevention of Infection: * Take antibiotics one hour before any dental cleaning, dental work, urological procedure, gastrointestinal procedure or any invasive surgery in order to prevent your new joint from getting infected. * You may get the antibiotics from the doctor performing the procedure or you may call our office at before and we will call in a prescripti on to the pharmacy of your choice. Things to Watch For: * Drainage from the incision site that occurs more than one week after your surgery. * Severely increased leg pain or swelling. * Increased redness at the incision site. * Fever above 102 degrees Fahrenheit. * Unusual chest pain or shortness of breath. * Unusual pain or burning with urination. Call [facility] at with any of the above problems or if you have any questions about your medicines or recovery. FOLLOW UP VISIT: Make an appointment to see your doctor for approximately two weeks after surgery for a progress check and staple removal by calling the office at . Pending Studies at Discharge: No Stand-Alone Forms: My [facility] Medications and DC Order Prescriptions: Continued levothyroxine 100 mcg tablet 100 mcg PO QAM Qty: 90 3RF gabapentin [Neurontin] 300 mg capsule 300 mg PO HS Qty: 90 1RF allopurinol 100 mg tablet 200 mg PO QAM Qty: 135 3RF (DME) Hospital Bed [facility] See Rx Instructions .Route Qty: 1 0RF Rx Instructions: length of need 99 months tramadol 50 mg tablet 50 - 100 mg PO Q8H PRN (Reason: pain) Qty: 40 0RF Rx Instructions: Take as needed for pain ondansetron 4 mg tablet,disintegrating 4 mg PO Q8 PRN (Reason: nausea) Qty: 20 1RF Rx Instructions: Take as needed for nausea ketorolac 10 mg tablet 10 mg PO TID PRN (Reason: pain) 5 Days Qty: 15 0RF Rx Instructions: Take 3 times per day with food for 5 days to lessen pain and swelling. sennosides [Senokot] 8.6 mg tablet 8.6 mg PO BID 14 Days Qty: 28 0RF Rx Instructions: Take two times a day to prevent/treat constipation acetaminophen [Tylenol Extra Strength] 500 mg tablet 1,000 mg PO TID 30 Days Qty: 180 0RF Rx Instructions: Take 3 times per day to lessen pain. aspirin [Javier Low Dose Aspirin] 81 mg tablet,delayed release (DR/EC) 81 mg PO BID 45 Days Qty: 90 0RF Rx Instructions: Take to prevent blood clots. clindamycin HCl 300 mg capsule 300 mg PO TID Qty: 21 0RF Rx Instructions: Take to prevent infection. multivitamin [Multiple Vitamins] tablet 1 tab PO QAM Rx Instructions: Pt currently holding medication due to upcoming planned surgery. nystatin 100,000 unit/gram powder 1 applic topical QID Qty: 60 2RF Repatha SureClick 140 mg/mL pen injector 140 mg subcut .every 2 wks famotidine 40 mg tablet 40 mg PO HS Qty: 90 3RF colchicine 0.6 mg tablet 0.6 mg PO BID PRN (Reason: gout) cholecalciferol (vitamin D3) [Vitamin D3] 25 mcg (1,000 unit) Tablet 25 mcg PO HS Rx Instructions: Pt currently holding medication due to upcoming planned surgery. coenzyme Q10 [CoQ-10] 100 mg Capsule 100 mg PO QAM cranberry fruit concentrate 450 mg Tablet 450 mg PO QAM Rx Instructions: administer with a meal amino acids Tablet 1 tab PO QAM Rx Instructions: 1 tab daily, starting 2 weeks prior to sx. sertraline 50 mg tablet 50 mg PO QAM aspirin 81 mg Tablet,Chewable 81 mg PO QAM Discontinued oxycodone 5 mg tablet 5 mg PO TID PRN (Reason: pain) Qty: 90 0RF Krames/Other Patient Handouts: After Hip Replacement: Home Safety Admission Data Admit Date/Time: 09/05/24 10:59 Attending Provider: Paulo Johns Admit Provider: Paulo Johns Primary Care Provider: Dean Dhillon Other Providers: [facility] Other Interventions: Discharge Summary Assessment (RN) Last Done: 09/06/24 10:13
[2024-09-06] MEDS ORDERED: NON-FORMULARY MEDICATION (Coenzyme Q10 [Coq-10] 100 mg Capsule) PO SCH (09:00)
[2024-09-06] MEDS ORDERED: CRANBERRY FRUIT 450 MG PO SCH (09:00)
[2024-09-06] MEDS ORDERED: NON-FORMULARY MEDICATION (Amino Acids Tablet) PO SCH (09:00)
[2024-09-06] MEDS: traMADol HCL 50 MG TABLET PO PRN (11:42)
--- NOTE | 2024-09-07 07:29 | Orthopedic Progress Note ---
Date of Service September 07, 2024 Assessment & Plan (1) S/P total right hip arthroplasty: Plan: 79-year-old female postop day 2 from a right hybrid total hip replacement. She is doing pretty well. Pains controlled. Hips located. She is neurologically intact. She is looking for placement. Plan: 1. DVT prophylaxis including thigh-high teds, SCDs, aspirin twice a day. 2. PT/OT. Weight-bear as tolerated. Right total hip protocol. 3. Pain control. Doing okay with current pain regimen. 4. Wound management. She got a Prevena VAC dressing intact. Distal pulse stay for a total of 7 days. 5. Disposition. She is orthopedically okay for discharge. We are just looking for placement. Likely going to a residential facility as she has been denied to rehab. Admission and Anticipated Discharge Date Admission Date: September 05, 2024 Subjective 79-year-old female with multiple medical comorbidities now postop day 2 from a right hybrid total hip replacement. She is doing pretty well. Pains been controlled. Denies any chest pain or shortness of breath. Some pain but significantly improved. Physical Exam Physical Exam: Physical examination was a pleasant elderly female. I did wake her this morning. She is awake alert and oriented. Lying in bed and comfortable. Examination of the hip reveals dressing clean dry and intact. Thigh is soft and supple. Leg lengths are equal. She is neurologically intact. Results & Data Vital Signs (Past 12 Hours) Vital Signs Temp Pulse Resp BP Pulse Ox O2 Del Method 09/07/24 00:02 36.6 C 95 H 20 112/70 94 Room Air
[2024-09-07 07:39] VITALS: TEMP 97.5
[2024-09-07 11:44] VITALS: BP 110/72; PULSE 91; RESP 17; O2SAT 97
== END 2024-09-07 13:50 ==
LOC: 3E 07:06 → ASU 07:06

== ENCOUNTER 2024-09-25 05:52 | Inpatient (IN) ==
[2024-09-25 06:35] LABS: Basophils # (auto) 0.05 K/uL (0.00-0.20); Basophils % (auto) 0.4 %; Eosinophils % (auto) 4.5 %; Hematocrit (blood only) 38.8 % (37.0-47.0); Hemoglobin 12.6 g/dl (12.0-16.0); Immature Granulocytes # (auto) 0.11 K/uL (0.01-0.20); Lymphocytes # (auto) 1.13 K/uL (1.20-3.40); Lymphocytes % (auto) 10.1 %; Mean Corpuscular Hemoglobin 30.2 pg (25.0-34.0); Mean Corpuscular Hgb Conc 32.5 g/dL (32.0-36.0); Mean Platelet Volume 9.4 fL (9.4-12.4); Monocytes # (auto) 0.73 K/uL (0.11-0.59); Monocytes % (auto) 6.6 %; Neutrophils # (auto) 8.62 K/uL (1.40-6.50); Neutrophils % (auto) 77.4 %; Platelet Count 264 K/uL (130-400); RDW Coefficient of Variation 14.4 % (11.5-14.5); RDW Standard Deviation 48.6 fL (36.4-46.3); Red Blood Count 4.17 M/uL (4.20-5.40); White Blood Count 11.14 K/ul (4.8-10.8)
--- NOTE | 2024-09-25 06:38 | Emergency Department Note ---
Impression & Plan Hypoxic respiratory failure, Pneumonia, Pulmonary edema ED Provider Note NAME: YOLANDA STOUT AGE: 79 SEX: F : 1945 ARRIVES VIA: Ambulance INFORMANT: Patient ED PROVIDER(S): Giovani Turner DO CHIEF COMPLAINT: Chest pain and shortness of breath HPI: Patient is a 79-year-old female with a past medical history of GERD, abnormal stress test, diabetes, hypertension who presents to the ER for right- sided chest pain. She notes she has been getting this off and on for the past several days. She had her right hip replaced about 3 weeks ago. She woke up this morning significantly short of breath. Denies any headache or change in vision. No belly pain, nausea, vomiting, or diarrhea. No dysuria, urgency, or frequency. Pain is worse with breathing. She does not wear oxygen. ADDITIONAL HISTORY OBTAINED: Per HPI Chronic Medical/Social Conditions Affecting Care: Per HPI PAST MEDICAL HISTORY:See Below PAST SURGICAL HISTORY:See Below FAMILY HISTORY:See Below SOCIAL HISTORY:See Below HOME MEDICATIONS:See Below ALLERGIES:See Below VITALS:See Below PHYSICAL EXAMINATION: GENERAL: Sitting up in bed, alert, moderate distress holding her right chest EYE EXAM: normal conjunctiva. PERRL and EOM's grossly intact. OROPHARYNX: no exudate, no erythema, lips, buccal mucosa, and tongue normal and mucous membranes are moist NECK: supple, no nuchal rigidity, no adenopathy, non-tender LUNGS: Clear to auscultation. Normal chest wall mechanics HEART: no murmurs, S1 normal and S2 normal ABDOMEN: abdomen soft, non-tender, normo-active bowel sounds, no masses, no rebound or guarding. UPPER EXTREMITIES: upper extremities are grossly normal. LOWER EXTREMITIES: Left calf slightly larger than right NEURO EXAM: Normal sensorium, cranial nerves II-XII grossly intact, normal speech, no gross weakness of arms, no gross weakness of legs. MEDICAL DECISION MAKING: Patient is a 79-year-old female who presents to the ER with above-stated complaint. IV was established and blood work was obtained. Upon presentation she is found to be hypoxic and tachycardic. She did have recent knee surgery and consequently CT angio of the chest was obtained. Labs showed no significant leukocytosis or anemia. BMP with LFTs and bilirubin were unremarkable. Troponin was elevated at 500. Lipase was normal. Viral panel was negative. CT angio showed pulmonary edema and questionable pneumonia/infiltrates but no PEs. Patient never had any chest pain. EKG did show a left bundle which was slightly worsened from previous. She was given IV Lasix with the pulmonary edema and the hypoxia as she was being titrated up to 5 L. Blood pressures did improve with this. Patient was also covered with IV Zosyn and vancomycin due to the questionable pneumonia on CTA. Discussed case with Dr. Sanchez for further evaluation management and treatment. Consults/Care Managements Discussions: Per MDM Triage Nursing notes reviewed. Limited review of prior medical records performed Vital Signs: reviewed and remarkable for tachy ad hypoxic Differential diagnosis: Cardiac ischemia, aortic dissection, pulmonary embolism, pneumothorax, pneumonia, pericarditis, myocarditis, esophageal rupture, GERD, cholecystitis, pancreatitis, musculoskeletal, as well as other pathologies. ER treatment provided: See below Diagnostics interpreted by me include EKG and cardiac monitoring as listed below: -Cardiac Monitoring: An order was placed for continuous cardiac monitoring. The monitor shows a rate of 120 with sinus rhythm. -ECG: Sinus tachycardia rate of 118 Normal axis Left bundle branch block ST depressions in the lateral leads QTc 529 Increased discordance in the septal leads in comparison to old -Laboratory studies:Interpreted by me as stated above in MDM and shown below. Imaging studies: Xrays: As interpreted by me: Portable AP upright 1 view of the chest shows bilateral infiltrates at the base of the lungs CTs show: CTA of the chest shows pulmonary edema and questionable infiltrates Procedures:none Critical Care: I have personally spent 75 minutes of critical care time in the direct management of this patient. This includes bedside care, interpretation of diagnostic studies, and testing, discussion with consultants, patient, and family members, and other required patient management activities. This 75 minutes is in excess of all separately billable procedures. Past Med/Surg History Problem List (Updated 09/25/24 @ 13:09 by Giovani Turner DO) Pulmonary edema (Acute) Pneumonia (Acute) Hypoxic respiratory failure (Acute) CAP (community acquired pneumonia) S/P total right hip arthroplasty Arthritis of both hips Statin myopathy Abnormal nuclear stress test GERD (gastroesophageal reflux disease) LBBB (left bundle branch block) Degenerative spondylolisthesis Dysphagia Dry mouth Chronic right hip pain Elevated alkaline phosphatase level 01/03/23 Neuropathy Incontinence in female Chronic low back pain Hyperlipidemia (Acute) Diabetes mellitus, type II Gout hx gouty attack. Managed with allopurinol + colchicine BID PRN for acute attack. Mood disorder Medical History Encounter for pre-operative examination Right hip pain Obesity Frequent urinary tract infections Hx of breast cancer CAD (coronary artery disease) History of COVID-19 Hx of pancreatitis Limb alert care status Mood disorder Neuropathy LBBB (left bundle branch block) Hypothyroidism Hyperlipidemia Gout Hx of gastroesophageal reflux (GERD) Diastolic CHF with preserved left ventricular function, NYHA class 2 Diabetes mellitus, type II Degenerative spondylolisthesis Chronic low back pain History of pericarditis Positive RICKY (antinuclear antibody) Sensorineural hearing loss (SNHL) of both ears Surgical History History of cardiac cath (04/09/24) History of hysterectomy (~2012) H/O colonoscopy History of appendectomy Hx of cholecystectomy H/O breast surgery Family History Father Gastric cancer Lung cancer Mother Laryngeal cancer Brother Rheumatic fever Colon cancer Colorectal cancer Unknown Cardiomyopathy Denies family history of Ovarian cancer Prostate cancer Diabetes Myocardial infarction Breast cancer Stroke Social History Smoking Status: Never smoker Tobacco Type: Cigarettes packs per day: 2; Second Hand Exposure: No; Do You Dip or Chew Tobacco: No; Hx Alcohol Use: No Hx Substance Use: No Preferred Language: Macedonian Communication Ability: Effective Visual Impairment: Limited Hearing Ability: Normal Medical And Scientific Illustrator Required: No Beliefs That Will Affect Care: None marital status: Current Living Situation: Spouse current occupational status: retired How many Children do You have: 1 Feels Safe at Home: Yes Childhood Exposure to Second-Hand Smoke: Yes caffeine: Yes Dental Care, Regularly: Yes Physical Activity Frequency: 3-4 Times per Week Seatbelt Use: always Sunscreen Use: Yes Assistive Devices: Cane, Glasses and Walker Allergies Allergies Allergy/AdvReac Type Severity Reaction Status Date / Time metformin Allergy Severe Rhabdo Verified 09/05/24 06:59 tetanus toxoid, adsorbed Allergy Severe Arm Verified 09/05/24 06:59 swelling calamine Allergy Unknown Irritation Verified 09/05/24 06:59 cephalexin Allergy Unknown Rash Verified 09/05/24 06:59 simvastatin Allergy Unknown Rhabdo Verified 03/26/25 06:59 tetracycline Allergy Unknown Rash Verified 09/05/24 06:59 empagliflozin AdvReac Unknown Diarrhea Verified 09/05/24 06:59 [[facility] Home Meds Home Medications Medication Instructions Recorded Confirmed multivitamin (Multiple Vitamins 1 tab PO QAM 03/10/19 09/25/24 tablet) amino acids 1 tab PO QAM 02/20/24 09/25/24 sertraline 50 mg tablet 50 mg PO QAM 02/20/24 09/25/24 cholecalciferol (vitamin D3) 25 25 mcg PO HS 03/04/24 09/25/24 mcg (1,000 unit) tablet (Vitamin D3) aspirin 81 mg chewable tablet 81 mg PO UD 04/09/24 09/25/24 colchicine 0.6 mg tablet 0.6 mg PO BID PRN gout 04/25/24 09/25/24 coenzyme Q10 100 mg capsule 100 mg PO QAM 06/11/24 09/25/24 (CoQ-10) cranberry fruit concentrate 450 mg 450 mg PO QAM 06/11/24 09/25/24 tablet acetaminophen 325 mg tablet 650 mg PO Q6H PRN Pain/fever 09/25/24 09/25/24 (Tylenol) aluminum-mag hydroxide-simethicone 30 ml PO Q6H PRN Constipation 09/25/24 09/25/24 400 mg-400 mg-40 mg/5 mL oral susp amino acids (Amino Acid capsule) 1 cap PO QAM 09/25/24 09/25/24 bacitracin 500 unit/gram topical 1 applic topical DAILY 09/25/24 09/25/24 ointment bisacodyl 10 mg rectal suppository 10 mg ME DAILY PRN Constipation 09/25/24 09/25/24 (Dulcolax (bisacodyl)) evolocumab 140 mg/mL subcutaneous 140 mg subcut UD 09/25/24 09/25/24 pen injector (Suni Lopez) ondansetron 4 mg disintegrating 4 mg PO Q6H PRN nausea 09/25/24 09/25/24 tablet sennosides 8.6 mg tablet (senna) 8.6 mg PO BID 09/25/24 09/25/24 sodium phosphates 19 gram-7 118 ml ME DAILY PRN Constipation 09/25/24 09/25/24 gram/118 mL enema (Fleet Enema) tramadol 50 mg tablet 50 - 100 mg PO Q8 PRN pain 09/25/24 09/25/24 tramadol 50 mg tablet 50 mg PO Q8H PRN Pain 09/25/24 09/25/24 Previous Rx's Medication Instructions Recorded famotidine 40 mg tablet 40 mg PO HS #90 tabs 05/15/24 levothyroxine 100 mcg tablet 100 mcg PO QAM #90 tabs 07/03/24 gabapentin 300 mg capsule 300 mg PO HS #90 caps 07/13/24 (Neurontin) allopurinol 100 mg tablet 200 mg (2 x 100 mg) PO QAM #135 08/01/24 tabs Hospital Bed Homecare #1 ea 08/28/24 acetaminophen 500 mg tablet 1,000 mg (2 x 500 mg) PO TID pain 09/03/24 (Tylenol Extra Strength) 30 days #180 tabs aspirin 81 mg tablet,delayed 81 mg PO BID 45 days #90 tabs 09/07/24 release (Javier Low Dose Aspirin) Results & Data (ED) Vital Signs Vital Signs - 24 hr 09/25/24 05:49 09/25/24 05:57 09/25/24 06:00 Temperature 37.1 C Temperature Source Oral Pulse Rate 111 H Pulse Rate [Apical] Pulse Rate from SpO2 Sensor Pulse Rhythm Pulse Rhythm [Apical] Pulse Strength [Apical] Respiratory Rate 16 Respiratory Effort / Characteristics Non-Labored Spontaneous Respiratory Depth Normal Respiratory Pattern Regular Blood Pressure 107/71 115/66 Blood Pressure [Left Arm] Blood Pressure Mean 83 97 Blood Pressure Mean [Left Arm] Blood Pressure Position [Left Arm] Pulse Oximetry 80 L 84 L Oxygen Delivery Method Room Air Nasal Cannula Room Air Oxygen Flow Rate 0 Sepsis Recent Fever Within 48 Hours No Sepsis New/Unexplained Change in Mental Status No Sepsis Action Taken by Nursing No Action Required Oxygen Flow Rate - Titration 3 Pulse Oximetry Post Tiitration 94 09/25/24 06:06 09/25/24 06:06 09/25/24 07:07 Temperature Temperature Source Pulse Rate 119 H 121 H Pulse Rate [Apical] 111 H Pulse Rate from SpO2 Sensor 121 H Pulse Rhythm Pulse Rhythm [Apical] Regular Pulse Strength [Apical] Normal Respiratory Rate 16 20 Respiratory Effort / Characteristics Non-Labored Spontaneous Respiratory Depth Normal Respiratory Pattern Regular Blood Pressure Blood Pressure [Left Arm] 97/63 L Blood Pressure Mean Blood Pressure Mean [Left Arm] 74 Blood Pressure Position [Left Arm] Semi-fowlers Pulse Oximetry 95 93 Oxygen Delivery Method Room Air Room Air Oxygen Flow Rate Sepsis Recent Fever Within 48 Hours Sepsis New/Unexplained Change in Mental Status Sepsis Action Taken by Nursing Oxygen Flow Rate - Titration Pulse Oximetry Post Tiitration 09/25/24 07:07 09/25/24 07:30 09/25/24 07:39 Temperature Temperature Source Pulse Rate 111 H 110 H Pulse Rate [Apical] Pulse Rate from SpO2 Sensor 110 H Pulse Rhythm Regular Pulse Rhythm [Apical] Pulse Strength [Apical] Respiratory Rate 20 22 Respiratory Effort / Characteristics Respiratory Depth Respiratory Pattern Blood Pressure 98/64 L Blood Pressure [Left Arm] Blood Pressure Mean 71 Blood Pressure Mean [Left Arm] Blood Pressure Position [Left Arm] Pulse Oximetry 93 97 Oxygen Delivery Method Nasal Cannula Nasal Cannula Oxygen Flow Rate 5 5 Sepsis Recent Fever Within 48 Hours Sepsis New/Unexplained Change in Mental Status Sepsis Action Taken by Nursing Oxygen Flow Rate - Titration Pulse Oximetry Post Tiitration 09/25/24 08:30 09/25/24 08:40 09/25/24 08:45 Temperature Temperature Source Pulse Rate 114 H 105 H Pulse Rate [Apical] Pulse Rate from SpO2 Sensor 106 H Pulse Rhythm Pulse Rhythm [Apical] Pulse Strength [Apical] Respiratory Rate 18 22 Respiratory Effort / Characteristics Respiratory Depth Respiratory Pattern Blood Pressure 111/76 125/86 Blood Pressure [Left Arm] Blood Pressure Mean 87 106 Blood Pressure Mean [Left Arm] Blood Pressure Position [Left Arm] Pulse Oximetry 92 97 Oxygen Delivery Method Nasal Cannula Nasal Cannula Oxygen Flow Rate 5 5 Sepsis Recent Fever Within 48 Hours Sepsis New/Unexplained Change in Mental Status Sepsis Action Taken by Nursing Oxygen Flow Rate - Titration Pulse Oximetry Post Tiitration 09/25/24 08:50 09/25/24 08:57 09/25/24 09:12 Temperature Temperature Source Pulse Rate 104 H 105 H Pulse Rate [Apical] Pulse Rate from SpO2 Sensor 104 H 106 H Pulse Rhythm Pulse Rhythm [Apical] Pulse Strength [Apical] Respiratory Rate 24 24 Respiratory Effort / Characteristics Respiratory Depth Respiratory Pattern Blood Pressure 115/75 105/68 Blood Pressure [Left Arm] Blood Pressure Mean 82 80 Blood Pressure Mean [Left Arm] Blood Pressure Position [Left Arm] Pulse Oximetry 96 94 Oxygen Delivery Method Nasal Cannula Nasal Cannula Oxygen Flow Rate 5 5 Sepsis Recent Fever Within 48 Hours Sepsis New/Unexplained Change in Mental Status Sepsis Action Taken by Nursing Oxygen Flow Rate - Titration Pulse Oximetry Post Tiitration 09/25/24 09:21 09/25/24 10:12 09/25/24 10:17 Temperature Temperature Source Pulse Rate 106 H 112 H 109 H Pulse Rate [Apical] Pulse Rate from SpO2 Sensor 106 H 111 H Pulse Rhythm Pulse Rhythm [Apical] Pulse Strength [Apical] Respiratory Rate 18 18 Respiratory Effort / Characteristics Respiratory Depth Respiratory Pattern Blood Pressure 100/68 106/61 Blood Pressure [Left Arm] Blood Pressure Mean 78 76 Blood Pressure Mean [Left Arm] Blood Pressure Position [Left Arm] Pulse Oximetry 96 94 Oxygen Delivery Method Nasal Cannula Nasal Cannula Oxygen Flow Rate 5 5 Sepsis Recent Fever Within 48 Hours Sepsis New/Unexplained Change in Mental Status Sepsis Action Taken by Nursing Oxygen Flow Rate - Titration Pulse Oximetry Post Tiitration 09/25/24 10:36 Temperature Temperature Source Pulse Rate 107 H Pulse Rate [Apical] Pulse Rate from SpO2 Sensor 106 H Pulse Rhythm Pulse Rhythm [Apical] Pulse Strength [Apical] Respiratory Rate 24 Respiratory Effort / Characteristics Respiratory Depth Respiratory Pattern Blood Pressure 104/65 Blood Pressure [Left Arm] Blood Pressure Mean 78 Blood Pressure Mean [Left Arm] Blood Pressure Position [Left Arm] Pulse Oximetry 95 Oxygen Delivery Method Nasal Cannula Oxygen Flow Rate 5 Sepsis Recent Fever Within 48 Hours Sepsis New/Unexplained Change in Mental Status Sepsis Action Taken by Nursing Oxygen Flow Rate - Titration Pulse Oximetry Post Tiitration Laboratory Data 09/25/24 06:08 09/25/24 06:08 Lab Results 09/25/24 09/25/24 Range/Units 06:08 08:20 WBC 11.14 H (4.8-10.8) K/ul RBC 4.17 L (4.20-5.40) M/uL Hgb 12.6 (12.0-16.0) g/dl Hct 38.8 (37.0-47.0) % MCV 93.0 (80.0-100.0) fL MCH 30.2 (25.0-34.0) pg MCHC 32.5 (32.0-36.0) g/dL RDW Std Deviation 48.6 H (36.4-46.3) fL RDW Coeff of Brayden 14.4 (11.5-14.5) % Plt Count 264 (130-400) K/uL MPV 9.4 (9.4-12.4) fL Immature Gran % (Auto) 1.0 % Neut % (Auto) 77.4 % Lymph % (Auto) 10.1 % [place] % (Auto) 6.6 % Eos % (Auto) 4.5 % Baso % (Auto) 0.4 % Neut # (Auto) 8.62 H (1.40-6.50) K/uL Lymph # (Auto) 1.13 L (1.20-3.40) K/uL [place] # (Auto) 0.73 H (0.11-0.59) K/uL Eos # (Auto) 0.50 (0.00-0.50) K/uL Baso # (Auto) 0.05 (0.00-0.20) K/uL Immature Gran # (Auto) 0.11 (0.01-0.20) K/uL Sodium 139 (136-145) mmol/L Potassium 4.7 (3.5-5.1) mmol/L Chloride 103 (98-107) mmol/L Carbon Dioxide 29 (21-32) mmol/L Anion Gap 7 (3-11) BUN 17 (6-23) mg/dl Creatinine 0.99 (0.6-1.2) mg/dl Est Cr Clr Drug Dosing 45.8 ml/min eGFR 58.00 BUN/Creatinine Ratio 17.2 (10-20) Glucose 135 H (70-99(Fasting)) mg/dl Calcium 9.4 (8.6-10.3) mg/dl Total Bilirubin 0.8 (0.2-1.0) mg/dl AST 33 (13-39) U/L ALT 16 (7-52) U/L Alkaline Phosphatase 218 H (34-104) U/L Troponin I High Sens 550.9 H* 2166.5 H* D (0-14) pg/ml B-Natriuretic Peptide 884 H (0-100) pg/ml Total Protein 6.9 (6.0-8.3) gm/dl Albumin 3.8 (3.4-5.0) gm/dl Globulin 3.1 (2.5-4.0) gm/dl Albumin/Globulin Ratio 1.2 (0.9-2) Lipase 27 (11-82) U/L Adenovirus (PCR) Not Detected (NotDetected) B. pertussis DNA (PCR) Not Detected (NotDetected) B.parapertussis DNA PCR Not Detected (NotDetected) C. pneumoniae DNA (PCR) Not Detected (NotDetected) Coronavirus OC43 (PCR) Not Detected (NotDetected) Coronavirus HKU1 (PCR) Not Detected (NotDetected) Coronavirus 229E (PCR) Not Detected (NotDetected) SARS-CoV-2 (PCR) Not Detected (NotDetected) Coronavirus NL63 (PCR) Not Detected (NotDetected) Human Metapneumovir PCR Not Detected (NotDetected) Influenza Type A (PCR) Not Detected (NotDetected) Influenza Type B (PCR) Not Detected (NotDetected) M. pneumoniae (PCR) Not Detected (NotDetected) Parainfluenza 1 (PCR) Not Detected (NotDetected) Parainfluenza 2 (PCR) Not Detected (NotDetected) Parainfluenza 3 (PCR) Not Detected (NotDetected) Parainfluenza 4 (PCR) Not Detected (NotDetected) RSV (PCR) Not Detected (NotDetected) Entero/Rhino (PCR) Not Detected (NotDetected) Administered Medications Heparin Sodium/Dextrose (Heparin 20932 Unit/500 Ml D5w) 25,000 units in 500 mls @ 15 mls/hr IV .Q24H PENDING SALE TO [facility]; Protocol Stop: 10/25/24 10:59 Last Admin: 09/25/24 11:38 Dose: 750 units/hr, 15 mls/hr Documented By: Co-signed By: MMG Discontinued Medications Aspirin (Aspirin 81 Mg Chew) 324 mg PO NOW STA Stop: 09/25/24 10:45 Last Admin: 09/25/24 11:37 Dose: 324 mg Documented By: Clopidogrel Bisulfate (Clopidogrel Bisulfate 300 Mg Tab) 300 mg PO NOW STA Stop: 09/25/24 11:05 Last Admin: 09/25/24 11:37 Dose: 300 mg Documented By: Furosemide (Furosemide 40 Mg/4 Ml Vial) 40 mg IV NOW STA Stop: 09/25/24 07:50 Last Admin: 09/25/24 08:18 Dose: 40 mg Documented By: Heparin Sodium (Porcine) (Heparin Sod (Porcine) 1000 Unit/Ml) 1 units IV NOW ONE Stop: 09/25/24 11:00 Last Admin: 09/25/24 11:38 Dose: 4,000 units Documented By: Co-signed By: FLAVIO Sodium Chloride (Nss) 1,000 mls @ 999 mls/hr IV .Q1H1M ONE Stop: 09/25/24 07:33 Last Admin: 09/25/24 07:06 Dose: Not Given Documented By: Piperacillin Sod/Tazobactam Sod (Zosyn) 4.5 gm in 100 mls @ 200 mls/hr IV NOW ONE; Protocol Stop: 09/25/24 08:18 Last Infusion: 09/25/24 09:05 Dose: Infused Documented By: Admin: 09/25/24 08:20 Dose: 200 mls/hr Documented By: Vancomycin HCl 1,500 mg/ (Sodium Chloride) 530 mls @ 200 mls/hr IV NOW ONE Stop: 09/25/24 10:27 Last Infusion: 09/25/24 12:38 Dose: Infused Documented By: Admin: 09/25/24 09:03 Dose: 200 mls/hr Documented By: Ioversol (Optiray 320 125ml) 112 ml IV ONCE ONE Stop: 09/25/24 06:52 Last Admin: 09/25/24 06:51 Dose: 112 ml Documented By: LYNNE Ketorolac Tromethamine (Ketorolac Tromethamine 15 Mg/Ml Vial) 15 mg IV NOW ONE Stop: 09/25/24 07:56 Last Admin: 09/25/24 08:18 Dose: 15 mg Documented By: Imaging Data Radiologist's Impression: Chest X-Ray 09/25/24 05:55 EXAM: XR chest 1V portable CLINICAL HISTORY: Chest pain, nonspecific. TECHNIQUE: An X-ray image of the chest is obtained in AP projection. COMPARISON: 08/10/2024 CR. FINDINGS: Pulmonary Parenchyma: The right lung lower zone medial segment infiltrates. Mild vascular congestion. No evidence of pleural effusion. Heart and Mediastinum: Stable cardiac size. Aortic atheromatous calcification. No mediastinal widening or masses. No hilar or mediastinal lymphadenopathy. Bony Thorax: The bony thorax appears intact without fractures or deformities. Soft Tissues: Soft tissues overlying the chest wall are unremarkable. IMPRESSION: 1. Right lung lower zone medial segment infiltrates (new finding). Please correlate clinically for infective/inflammatory eitiology. 2. No other interval changes. Electronically signed by Aryan Taylor 09-25-2024 07:03 AM Chest CTA 09/25/24 06:26 EXAM: CT angio chest PE protocol CLINICAL HISTORY: PE TECHNIQUE: Contiguous axial images were obtained from the neck base through the upper abdomen following intravenous administration of iodinated contrast material. Angiographic images were processed, 3D MIP images were acquired for interpretation. If IV contrast material had not been administered, the likelihood of detecting abnormalities relevant to the patient's condition would have been substantially decreased. Coronal and sagittal 3-D MIPs were likewise performed and indicated to increase the sensitivity of detectin diffuse clinically relevant pathology. CT scan was performed according to ALARA (as low as reasonably achievable). COMPARISON: Ct, 11/18/2023 11:02:20 CORRECTIONAL PROGRAM SPECIALIST FINDINGS: Adequate contrast bolus without evidence of pulmonary embolism. The central airways are patent. Few patchy consolidation with ground glassing seen in right upper lobe. 11m sized nodule is seen in medial segment of middle lobe. Dilated main pulmonary artery-32mm. Mild cardiomegaly. Bilateral mild pleural effusion with adjacent basal atelectasis(right more than left). The aorta are of normal size and configuration. There are no appreciable coronary artery and aortic atherosclerotic calcifications. No pericardial effusion is identified. The thyroid is unremarkable. No mediastinal, hilar, or axillary lymphadenopathy is noted. Evidence of right mastectomy. No suspicious lytic or sclerotic osseous lesions are identified. IMPRESSION: 1. No evidence of pulmonary embolism. 2. Few patchy consolidation with ground glassing seen in right upper lobe- likely Infective etiology. New finding. 3. 11m sized nodule is seen in medial segment of middle lobe. New finding. 4. Dilated main pulmonary artery. 5. Mild cardiomegaly. 6. Resolution of pericardial effusion. 7. Interval development of right pleural effusion and stable left pleural effusion. Electronically signed by Eddi Reid 09-25-2024 07:37 AM Discharge Plan Visit Data Chief Complaint: Chest Pain Stated Complaint: chest pain; flank pain ED Provider: Giovani Turner Discharge Problem: Hypoxic respiratory failure, Pneumonia, Pulmonary edema Patient Disposition: Admitted As Inpatient Discharge Instructions Interventions: ED Discharge Assessment Last Done: 09/25/24 12:10 Discharge Problem: Hypoxic respiratory failure Qualifiers: Chronicity: unspecified Qualified Code(s): J96.91 - Respiratory failure, unspecified with hypoxia Pneumonia Qualifiers: Pneumonia type: due to unspecified organism Laterality: unspecified laterality Pulmonary edema Qualifiers: Chronicity: acute Qualified Code(s): J81.0 - Acute pulmonary edema
[2024-09-25] MEDS: OPTIRAY 320 125ml IV ONE (06:51)
[2024-09-25 06:52] LABS: Albumin Globulin Ratio 1.2 (0.9-2); Albumin Level 3.8 gm/dl (3.4-5.0); BUN Creatinine Ratio 17.2 (10-20); Bilirubin,Total 0.8 mg/dl (0.2-1.0); Calcium 9.4 mg/dl (8.6-10.3); Creatinine Clr Calc Pharmacy 45.8 ml/min; Globulin 3.1 gm/dl (2.5-4.0); Potassium 4.7 mmol/L (3.5-5.1); Total Protein 6.9 gm/dl (6.0-8.3)
[2024-09-25 07:03] LABS: Troponin I High Sensitivity 550.9 pg/ml (0-14)
--- NOTE | 2024-09-25 07:04 | XRay Report ---
EXAM: XR chest 1V portable CLINICAL HISTORY: Chest pain, nonspecific. TECHNIQUE: An X-ray image of the chest is obtained in AP projection. COMPARISON: 08/10/2024 CR. FINDINGS: Pulmonary Parenchyma: The right lung lower zone medial segment infiltrates. Mild vascular congestion. No evidence of pleural effusion. Heart and Mediastinum: Stable cardiac size. Aortic atheromatous calcification. No mediastinal widening or masses. No hilar or mediastinal lymphadenopathy. Bony Thorax: The bony thorax appears intact without fractures or deformities. Soft Tissues: Soft tissues overlying the chest wall are unremarkable. IMPRESSION: 1. Right lung lower zone medial segment infiltrates (new finding). Please correlate clinically for infective/inflammatory eitiology. 2. No other interval changes. Electronically signed by Aryan Taylor 09-25-2024 07:03 AM
[2024-09-25] MEDS: SODIUM CHLORIDE 0.9% 1,000 ML IV ONE (07:06)
--- NOTE | 2024-09-25 07:37 | CT Scan Report ---
EXAM: CT angio chest PE protocol CLINICAL HISTORY: PE TECHNIQUE: Contiguous axial images were obtained from the neck base through the upper abdomen following intravenous administration of iodinated contrast material. Angiographic images were processed, 3D MIP images were acquired for interpretation. If IV contrast material had not been administered, the likelihood of detecting abnormalities relevant to the patient's condition would have been substantially decreased. Coronal and sagittal 3-D MIPs were likewise performed and indicated to increase the sensitivity of detectin diffuse clinically relevant pathology. CT scan was performed according to ALARA (as low as reasonably achievable). 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 The central airways are patent. Few patchy consolidation with ground glassing seen in right upper lobe. 11m sized nodule is seen in medial segment of middle lobe. Dilated main pulmonary artery-32mm. Mild cardiomegaly. Bilateral mild pleural effusion with adjacent basal atelectasis(right more than left). The aorta are of normal size and configuration. There are no appreciable coronary artery and aortic atherosclerotic calcifications. No pericardial effusion is identified. The thyroid is unremarkable. No mediastinal, hilar, or axillary lymphadenopathy is noted. Evidence of right mastectomy. No suspicious lytic or sclerotic osseous lesions are identified. IMPRESSION: 1. No evidence of pulmonary embolism. 2. Few patchy consolidation with ground glassing seen in right upper lobe- likely Infective etiology. New finding. 3. 11m sized nodule is seen in medial segment of middle lobe. New finding. 4. Dilated main pulmonary artery. 5. Mild cardiomegaly. 6. Resolution of pericardial effusion. 7. Interval development of right pleural effusion and stable left pleural effusion. Electronically signed by Eddi Reid 09-25-2024 07:37 AM
[2024-09-25] MEDS ORDERED: VANCOMYCIN CONSULT ACTIVE PRN (07:49)
[2024-09-25] MEDS: FUROSEMIDE 40 MG/4 ML VIAL IV STA (08:18)
[2024-09-25] MEDS: KETOROLAC TROMETHAMINE 15 MG/ML VIAL IV ONE (08:18)
[2024-09-25] MEDS: PIPERACILLIN/TAZOBACTAM 4.5 GM/100 ML BAG IV ONE (08:20)
[2024-09-25] MEDS: VANCOMYCIN HCL 1,500 MG in SODIUM CHLORIDE 0.9% 500 ML IV ONE (09:03)
[2024-09-25 09:30] LABS: Adenovirus PCR Not Detected (NotDetected); Bordetella parapertussis PCR Not Detected (NotDetected); Bordetella pertussis PCR Not Detected (NotDetected); Chlamydia pneumoniae PCR Not Detected (NotDetected); Coronavirus 229E PCR Not Detected (NotDetected); Coronavirus CoV-2 (COVID19)PCR Not Detected (NotDetected); Coronavirus HKU1 PCR Not Detected (NotDetected); Coronavirus NL63 PCR Not Detected (NotDetected); Coronavirus OC43PCR Not Detected (NotDetected); Human Metapneumovirus PCR Not Detected (NotDetected); Influenza A PCR Not Detected (NotDetected); Influenza B PCR Not Detected (NotDetected); Mycoplasma pneumoniae PCR Not Detected (NotDetected); Parainfluenza Virus 1 PCR Not Detected (NotDetected); Parainfluenza Virus 2 PCR Not Detected (NotDetected); Parainfluenza Virus 3 PCR Not Detected (NotDetected); Parainfluenza Virus 4 PCR Not Detected (NotDetected); Respiratory Syncytial VirusPCR Not Detected (NotDetected); Rhinovirus/Enterovirus PCR Not Detected (NotDetected)
--- NOTE | 2024-09-25 09:31 | History & Physical Report ---
Date of Service September 25, 2024 Assessment & Plan (1) CAP (community acquired pneumonia): Plan: 79-year-old female with known RCA chronic disease with collaterals EF 40% on prior [place] scan who presented with worsening chest pain, shortness of breath, and fatigue with worsened right-sided pain radiating into her back/shoulder on deep breathing for the last 2-3 days. CTA showed no evidence of PE or dissection but did show evidence of right upper lobe pneumonia. Additionally troponin is markedly elevated with rise to 2500. ER, EKG redemonstrates left bundle branch block which does not meet Sgarbossa criteria. Due to intermittent ongoing pain both with and without any pleuritic component patient was given aspirin and heparinized. Echo is pending. She is treated for pneumonia, with expansion to include gram-negative coverage due to clinical level of illness and recent hospitalization for hip surgery. Demand ischemia, HFrEF, NSTEMI - Hx EF 42% on prior lexiscan. - Cath 03/2024: Severe RCA chronic total occlusion w/ borderline tandem stenosis in Circ. GDMP at that time With bilateral pleural effusions, elevated BNP and suspected volume overload on admission Hypotension improved following 40 mg IV Lasix SpO2 goal greater than 90% Troponin 550.9 uptrending at 2166. EKG redemonstrates left bundle branch block, does have peripheral ST elevation however is not excessively discordant/does not meet Sgarbossa criteria. Suspect severe demand with hypoxia, tachycardia, HFpEF, and pneumonia. Did not take aspirin today. Full dose aspirin given due to recurrent chest discomfort on reevaluation. Heparin GTT ordered for exponential rise in troponin markers with intermittent ongoing chest pain and known chronic RCA disease Blood pressure improved following Lasix 40 mg IV. Continue daily versus twice daily based on clinical progression. With aggressive diuresis with suspected additional pneumonia Glycerin recommended as patient has intermittent pain with inspiration with a pleuritic component. If anginal in nature is more likely to be from RCA disease. - Cardiology consulted. Reviewed case. Agree with management as above, with addition of recommend adding Plavix full dose to aspirin and heparin. 300 mg ordered. Will review echo once completed. Appreciate recommendations Will keep n.p.o. until echo results and additional troponin trend are available On reassessment blood pressure improved systolic 110s although did have some hypotension in the 90s immediately around Lasix overall is improving with this Pneumonia CTA without evidence of PE. Patchy right upper lobe opacities consistent with pneumonia. BioFire pending Leukocytosis is present MRSA nare pending Sputum culture ordered Received Zosyn/vancomycin in the ER. Continue Zosyn. MRSA nares ordered, if positive will need to continue coverage. Last MRSA nare was negative 2023 Type II DM Hemoglobin A1c previously 6.57 Last A1c 08/10/2024 5.3 PSG on admission 135 On GLP1ra [place], however this was held as outpatient around her sx. No other agents. SSI only. CF 50/carb ratio 25. If persistently out of goal range of [id number] we will switch to weight based basal bolus regimen. Hypothyroidism Continue Synthroid Hyperlipidemia Statin intolerant, patient on Repatha as outpatient. S/p replacement Aspirin twice daily DVT prophylaxis held while anticoagulated Aspirin 81 mg daily continued. DVT prophylaxis: Heparin Diet: N.p.o. pending cardiology evaluation plan with anticipated then heart healthy/CC Disposition: PCU (2) S/P total right hip arthroplasty: (3) LBBB (left bundle branch block): (4) GERD (gastroesophageal reflux disease): (5) Diabetes mellitus, type II: History of Present Illness Primary Care Provider: [facility] Bailey is a 79-year-old female with a past medical history of type II DM, OA of the right hip s/p total hip arthroplasty 09/05/2024, left bundle branch block/CAD/HFpEF/pericarditis with preoperative cath 04/09/2024 showing severe chronic total occlusion of RCA, statin intolerance on Repatha, gout who presents to the emergency 09/25 with right-sided chest discomfort, shortness of breath, inspiratory pain and who has a new oxygen requirement on ER evaluation. On ER evaluation she has a leukocytosis of 11.14, elevated BNP, troponin of 550.9 with repeat 2166, BioFire pending, and CTA showing no evidence of PE but patchy right upper lobe opacities consistent with pneumonia, 11 mm sized lung nodule requiring follow-up, resolution of her prior pericardial effusion, dilated main pulmonary artery, and interval development of right pleural effusion with stable left pleural effusion. She was suspected to have acute hypoxic respiratory failure due to both pneumonia and underlying HFpEF. In the ER she was treated with Lasix 40 mg with subsequent improvement of her blood pressure. On reevaluation remains in sinus tachycardia. EKG morning of admission shows lateral T wave inversion, redemonstrated left bundle branch block. ST elevation compared to prior is noted in precordial leads however this is not excessively discordant/greater than 25% of the preceding S wave. Does not meet Sgarbossa criteria Bailey is seen at the bedside. "I was doing fine and was doing OK at rehab, was walking and eating doing my PT/OT just fine". Night before last my mouth got v mary dry, I was more constipation which is unusual, and at night for about an hour I had RIGHT sided chest pain in the chest which lasted about an hour before going away. No chest pain weeks prior to that Last night was watching TV and asked for zofran and pain medication but started getting R upper chest pain, but improved with her pain medicine. Woke up this mornign and pain was worse. Worsened with deep breathing. Improves with shallow breathing. Right chest pain continued with inspiration and shooting into her back 'each time I took a breath is would shoot into my back and way too painful' . Was worried about blood clots/PE so came to the ER [place] more like pleurisy like she has had in the past She is able to take blood thinners. Has been on aspirin this past month. Denies history of bleeding/bleeding problems. She also notes she had a R masectomy in the past, so is always worried about her risk of recurrence and blood clots. Toradol and lasix seem to have helped her pain On reassessment patient's pain is greatly improved however still continues to have pain on deep breathing and intermittent "almost but not quite gone "discomfort in her right chest. "No dyspnea, no sweating. Recheck of blood pressure in the room 110s/70s Medical History: Reviewed Medications: Reviewed Surgical History: Reviewed Family history: Reviewed Allergies: Reviewed Social History: Reviewed Code Status: Full Code Allergies Allergy/AdvReac Type Severity Reaction Status Date / Time metformin Allergy Severe Rhabdo Verified 09/05/24 06:59 tetanus toxoid, adsorbed Allergy Severe Arm Verified 09/05/24 06:59 swelling calamine Allergy Unknown Irritation Verified 09/05/24 06:59 cephalexin Allergy Unknown Rash Verified 09/05/24 06:59 simvastatin Allergy Unknown Rhabdo Verified 09/05/24 06:59 tetracycline Allergy Unknown Rash Verified 09/05/24 06:59 empagliflozin AdvReac Unknown Diarrhea Verified 09/05/24 06:59 [From Jardiance] Home Medications Medication Instructions Recorded Confirmed Type multivitamin (Multiple Vitamins 1 tab PO QAM 03/10/19 09/25/24 History tablet) amino acids 1 tab PO QAM 02/20/24 09/25/24 History sertraline 50 mg tablet 50 mg PO QAM 02/20/24 09/25/24 History cholecalciferol (vitamin D3) 25 25 mcg PO HS 03/04/24 09/25/24 History mcg (1,000 unit) tablet (Vitamin D3) aspirin 81 mg chewable tablet 81 mg PO UD 04/09/24 09/25/24 History colchicine 0.6 mg tablet 0.6 mg PO BID PRN gout 04/25/24 09/25/24 History famotidine 40 mg tablet 40 mg PO HS #90 tabs 05/15/24 09/25/24 Rx coenzyme Q10 100 mg capsule 100 mg PO QAM 06/11/24 09/25/24 History (CoQ-10) cranberry fruit concentrate 450 mg 450 mg PO QAM 06/11/24 09/25/24 History tablet levothyroxine 100 mcg tablet 100 mcg PO QAM #90 tabs 07/03/24 09/25/24 Rx gabapentin 300 mg capsule 300 mg PO HS #90 caps 07/13/24 09/25/24 Rx (Neurontin) allopurinol 100 mg tablet 200 mg (2 x 100 mg) PO QAM #135 08/01/24 09/25/24 Rx tabs Hospital Bed Homecare #1 ea 08/28/24 09/03/24 Rx acetaminophen 500 mg tablet 1,000 mg (2 x 500 mg) PO TID pain 09/03/24 09/25/24 Rx (Tylenol Extra Strength) 30 days #180 tabs aspirin 81 mg tablet,delayed 81 mg PO BID 45 days #90 tabs 09/07/24 09/25/24 Rx release (Javier Low Dose Aspirin) acetaminophen 325 mg tablet 650 mg PO Q6H PRN Pain/fever 09/25/24 09/25/24 History (Tylenol) aluminum-mag hydroxide-simethicone 30 ml PO Q6H PRN Constipation 09/25/24 0 09/25/24 History 400 mg-400 mg-40 mg/5 mL oral susp amino acids (Amino Acid capsule) 1 cap PO QAM 09/25/24 09/25/24 History bacitracin 500 unit/gram topical 1 applic topical DAILY 09/25/24 09/25/24 History ointment bisacodyl 10 mg rectal suppository 10 mg WA DAILY PRN Constipation 09/25/24 09/25/24 History (Dulcolax (bisacodyl)) evolocumab 140 mg/mL subcutaneous 140 mg subcut UD 09/25/24 09/25/24 History pen injector (Repatha SureClick) ondansetron 4 mg disintegrating 4 mg PO Q6H PRN nausea 09/25/24 09/25/24 History tablet sennosides 8.6 mg tablet (senna) 8.6 mg PO BID 09/25/24 09/25/24 History sodium phosphates 19 gram-7 118 ml WA DAILY PRN Constipation 09/25/24 09/25/24 History gram/118 mL enema (Fleet Enema) tramadol 50 mg tablet 50 - 100 mg PO Q8 PRN pain 09/25/24 09/25/24 History tramadol 50 mg tablet 50 mg PO Q8H PRN Pain 09/25/24 09/25/24 History Past Med/Surg History Problem List (Updated 09/25/24 @ 10:58 by Arvin Wagoner MD) CAP (community acquired pneumonia) S/P total right hip arthroplasty Arthritis of both hips Statin myopathy Abnormal nuclear stress test GERD (gastroesophageal reflux disease) LBBB (left bundle branch block) Degenerative spondylolisthesis Dysphagia Dry mouth Chronic right hip pain Elevated alkaline phosphatase level 01/03/23 Neuropathy Incontinence in female Chronic low back pain Hyperlipidemia (Acute) Diabetes mellitus, type II Gout hx gouty attack. Managed with allopurinol + colchicine BID PRN for acute attack. Mood disorder Medical History Encounter for pre-operative examination Right hip pain Obesity Frequent urinary tract infections Hx of breast cancer CAD (coronary artery disease) History of COVID-19 Hx of pancreatitis Limb alert care status Mood disorder Neuropathy LBBB (left bundle branch block) Hypothyroidism Hyperlipidemia Gout Hx of gastroesophageal reflux (GERD) Diastolic CHF with preserved left ventricular function, NYHA class 2 Diabetes mellitus, type II Degenerative spondylolisthesis Chronic low back pain History of pericarditis Positive RICKY (antinuclear antibody) Sensorineural hearing loss (SNHL) of both ears Surgical History History of cardiac cath (04/09/24) History of hysterectomy (~2012) H/O colonoscopy History of appendectomy Hx of cholecystectomy H/O breast surgery Family History Father Gastric cancer Lung cancer Mother Laryngeal cancer Brother Rheumatic fever Colon cancer Colorectal cancer Unknown Cardiomyopathy Denies family history of Ovarian cancer Prostate cancer Diabetes Myocardial infarction Breast cancer Stroke Social History Smoking Status: Never smoker Tobacco Type: Cigarettes packs per day: 2; Second Hand Exposure: No; Do You Dip or Chew Tobacco: No; Hx Alcohol Use: No Hx Substance Use: No Preferred Language: Ecuadorean Communication Ability: Effective Visual Impairment: Limited Hearing Ability: Normal 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 NAD. Cooperative. HEENT: Atraumatic, normocephalic. Vision and hearing grossly intact Pulm: Diminished, basilar and right-sided crackles are present. Endorses right- sided pain rating into the back on deep breathing Cardiac: Tachycardic, no murmurs rubs or gallops. JVD at the clavicle with HJR is present. Radial pulses intact and symmetrical. Abdominal: Nontender, nondistended, soft. BS present. Extremities: Some soft tissue swelling, mild pitting edema bilaterally Results & Data Results & Data Vital Signs (Past 12 Hours) Vital Signs Temp Pulse Pulse Resp BP BP Pulse Ox 09/25/24 08:30 114 H 18 111/76 92 09/25/24 07:39 110 H 22 97 09/25/24 07:30 98/64 L 09/25/24 07:07 111 H 20 93 09/25/24 07:07 111 H 20 97/63 L 93 09/25/24 06:06 121 H 16 95 09/25/24 06:06 119 H 09/25/24 06:00 115/66 09/25/24 05:57 37.1 C 111 H 16 107/71 84 L 09/25/24 05:49 80 L O2 Del Method O2 Flow Rate 09/25/24 08:30 Nasal Cannula 5 09/25/24 07:39 Nasal Cannula 5 09/25/24 07:30 09/25/24 07:07 Nasal Cannula 5 09/25/24 07:07 Room Air 09/25/24 06:06 Room Air 09/25/24 06:06 09/25/24 06:00 09/25/24 05:57 Room Air 09/25/24 05:49 Room Air, Nasal Cannula 0 PG Care Time/CCT Total # of Minutes Spent Total Time Spent with Patient: Total time spent is greater than 50% in coordination of care (as documented) at patient's floor/unit and/or counseling patient: Coding Level of Care Code 94596 INT INP/OBS CARE 375MIN Diagnoses CAP (community acquired pneumonia) J18.9 S/P total right hip arthroplasty Z96.641 LBBB (left bundle branch block) I44.7 GERD (gastroesophageal reflux disease) K21.9 Diabetes mellitus, type II E11.9
[2024-09-25] MEDS ORDERED: GLUCOSE 10 TAB/TUBE PO PRN (11:34)
[2024-09-25] MEDS ORDERED: GLUCAGON FOR INJ 1 MG VIAL SQ PRN (11:34)
[2024-09-25] MEDS ORDERED: CARBOHYDRATES FOR HYPOGLYCEMIA PO PRN (11:34)
[2024-09-25] MEDS ORDERED: DEXTROSE 50% 50 ML SYRINGE IV PRN (11:34)
[2024-09-25] MEDS ORDERED: GLUCOSE 40% GEL 15 GM TUBE PO PRN (11:34)
[2024-09-25] MEDS: CLOPIDOGREL BISULFATE 300 MG TAB PO STA (11:37)
[2024-09-25] MEDS: ASPIRIN 81 MG CHEW PO STA (11:37)
[2024-09-25] MEDS: HEPARIN 25000 UNIT/500 ML D5W 25,000 UNITS/500 ML BAG IV SCH (11:38)
[2024-09-25] MEDS: HEPARIN SOD (PORCINE) 1000 UNIT/ML IV ONE (11:38)
--- NOTE | 2024-09-25 11:45 | Electrocardiogram Report ---
Test Reason : Blood Pressure : */* mmHG Vent. Rate : 118 BPM Atrial Rate : 118 BPM P-R Int : 154 ms QRS Dur : 148 ms QT Int : 378 ms P-R-T Axes : 64 -6 155 degrees QTcB Int : 529 ms Sinus tachycardia Possible Left atrial enlargement Left bundle branch block Abnormal ECG When compared with ECG of 05-Mar-2024 11:13, T wave inversion no longer evident in Anterior leads T wave inversion more evident in Lateral leads Confirmed by Popeye Yin ([id number]) on 09/25/2024 11:44:34 AM Referred By: Zen Ortega Confirmed By: Popeye Yin
[2024-09-25] MEDS ORDERED: SOD PHOSPHATE/SOD BIPHOSPHATE ENEMA 132 ML BTL PR PRN (12:10)
[2024-09-25] MEDS ORDERED: bisacodyL 10 MG SUPP PR PRN (12:10)
[2024-09-25] MEDS ORDERED: traMADol HCL 50 MG TABLET PO PRN (12:10)
--- NOTE | 2024-09-25 13:19 | XCELERA ---
[id number]
--- NOTE | 2024-09-25 15:57 | Cardiology Consultation ---
Date of Consultation September 25, 2024 Assessment & Plan (1) Chest pain: (2) Cardiomyopathy: (3) Elevated troponin: (4) Mitral regurgitation: Plan 1. Chest pain: Given her history and imaging findings I think her chest pain is most likely related to her pneumonia. The character and location is atypical for an acute coronary syndrome. Also notably pleuritic in nature. I do not think we need to treat this as an acute coronary syndrome. 2. Elevated troponin: Concerning in woman with known coronary disease, chest pain and left bundle branch block. However, as noted above I think her symptoms are related to her pneumonia. Additionally the elevation of the troponin is likely related to documented hypoxia in the setting of known obstructive coronary disease. As such, I think we can stop the heparin infusion. 3. Cardiomyopathy: This is a new finding. Previous echocardiogram suggested preserved LV systolic function. Unclear etiology. Possibly ischemic. It would be worth reevaluating her coronary anatomy with repeat catheterization or perfusion imaging once her pneumonia resolves. I think we can consider starting beta-blockade once we are confident her infectious process is improving. Depending on her tolerance of the beta-umu we can also start more aggressive therapy with Entresto and or ARB. Previously she had diarrhea associated with Jardiance. 4. Decompensated acute systolic heart failure: She did present with an element of pulmonary vascular congestion. However, no significant peripheral edema. I think in the setting of her pneumonia we can monitor her volume status and to use diuretics as necessary. 5. Coronary artery disease: Known to have chronic total occlusion of the right coronary and borderline obstruction involving the circumflex. Based primarily on her new cardiomyopathy would be worth reevaluating her vasculature once her infectious process improves. I do not think her current symptoms are related to coronary disease. Prior to her current event she was ambulatory and tolerating rehab without symptoms of angina. 6. Mitral regurgitation: Moderate. Likely related to her dilated cardiomyopathy. Hopefully this will improve as her LV function improves. 7. Left bundle branch block: Chronic. No evidence of high degree AV block or significant bradycardia. History of Present Illness Reason for Consultation: Chest pain, elevated troponin, known coronary disease Requesting Physician: Ciaran Attending Physician: Arvin Wagoner MD History of Present Illness The patient is a 79-year-old woman with a known history of coronary artery disease involving chronic total occlusion of the right coronary and nonobstructive disease in the LAD and circumflex. She also noted to have heart failure with preserved ejection fraction, diabetes mellitus history of pericarditis and a left bundle branch block. She recently underwent a right total hip replacement. She was sent to rehab and apparently was progressing quite well. She states that 2 days ago she had an episode of right lower chest discomfort and some dyspnea. This seemed to resolve but recurred the following day. She was noted to have some color changes in her face and reported feeling hot as well. Today she was noted to be hypoxic having more difficulty breathing and recurrent right sided chest pain. Pain was worse with deep inspiration and in certain positions. She was brought to the emergency room for an evaluation. Imaging suggested right-sided pneumonia. EKG was unchanged. Cardiac biomarkers were elevated. She was given supplemental oxygen, underwent administration of diuretics and antibiotics. The patient states that she still has continued discomfort in the right lower chest. This radiates to her back. It is worse with deep inspiration. If she lies still and avoids deep breathing she is more comfortable. Certain positions also make the pain worse. She has not had similar symptoms in the past. A few days ago she was active feeling well. With activity she felt good and did not report symptoms of chest discomfort, dyspnea, dizziness or palpitations. She denied overt rigors or fevers. She has not noticed any lower extremity edema. Allergies Allergy/AdvReac Type Severity Reaction Status Date / Time metformin Allergy Severe Rhabdo Verified 09/05/24 06:59 tetanus toxoid, adsorbed Allergy Severe Arm Verified 09/05/24 06:59 swelling calamine Allergy Unknown Irritation Verified 09/05/24 06:59 cephalexin Allergy Unknown Rash Verified 09/05/24 06:59 simvastatin Allergy Unknown Rhabdo Verified 09/05/24 06:59 tetracycline Allergy Unknown Rash Verified 09/05/24 06:59 empagliflozin AdvReac Unknown Diarrhea Verified 09/05/24 06:59 [From Jardiance] Home Medications Medication Instructions Recorded Confirmed Type multivitamin (Multiple Vitamins 1 tab PO QAM 03/10/19 09/25/24 History tablet) amino acids 1 tab PO QAM 02/20/24 09/25/24 History sertraline 50 mg tablet 50 mg PO QAM 02/20/24 09/25/24 History cholecalciferol (vitamin D3) 25 25 mcg PO HS 03/04/24 09/25/24 History mcg (1,000 unit) tablet (Vitamin D3) aspirin 81 mg chewable tablet 81 mg PO UD 04/09/24 09/25/24 History colchicine 0.6 mg tablet 0.6 mg PO BID PRN gout 04/25/24 09/25/24 History famotidine 40 mg tablet 40 mg PO HS #90 tabs 05/15/24 09/25/24 Rx coenzyme Q10 100 mg capsule 100 mg PO QAM 06/11/24 09/25/24 History (CoQ-10) cranberry fruit concentrate 450 mg 450 mg PO QAM 06/11/24 09/25/24 History tablet levothyroxine 100 mcg tablet 100 mcg PO QAM #90 tabs 07/03/24 09/25/24 Rx gabapentin 300 mg capsule 300 mg PO HS #90 caps 07/13/24 09/25/24 Rx (Neurontin) allopurinol 100 mg tablet 200 mg (2 x 100 mg) PO QAM #135 08/01/24 09/25/24 Rx tabs Hospital Bed Homecare #1 ea 08/28/24 09/03/24 Rx acetaminophen 500 mg tablet 1,000 mg (2 x 500 mg) PO TID pain 09/03/24 09/25/24 Rx (Tylenol Extra Strength) 30 days #180 tabs aspirin 81 mg tablet,delayed 81 mg PO BID 45 days #90 tabs 09/07/24 09/25/24 Rx release (Javier Low Dose Aspirin) acetaminophen 325 mg tablet 650 mg PO Q6H PRN Pain/fever 09/25/24 09/25/24 History (Tylenol) aluminum-mag hydroxide-simethicone 30 ml PO Q6H PRN Constipation 09/25/24 09/25/24 History 400 mg-400 mg-40 mg/5 mL oral susp amino acids (Amino Acid capsule) 1 cap PO QAM 09/25/24 09/25/24 History bacitracin 500 unit/gram topical 1 applic topical DAILY 09/25/24 09/25/24 History ointment bisacodyl 10 mg rectal suppository 10 mg [place] DAILY PRN Constipation 09/25/24 09/25/24 History (Dulcolax (bisacodyl)) evolocumab 140 mg/mL subcutaneous 140 mg subcut UD 09/25/24 09/25/24 History pen injector (Repatha SureClick) ondansetron 4 mg disintegrating 4 mg PO Q6H PRN nausea 09/25/24 09/25/24 History tablet sennosides 8.6 mg tablet (senna) 8.6 mg PO BID 09/25/24 09/25/24 History sodium phosphates 19 gram-7 118 ml [place] DAILY PRN Constipation 09/25/24 09/25/24 History gram/118 mL enema (Fleet Enema) tramadol 50 mg tablet 50 - 100 mg PO Q8 PRN pain 09/25/24 09/25/24 History tramadol 50 mg tablet 50 mg PO Q8H PRN Pain 09/25/24 09/25/24 History Patient History Medical History Encounter for pre-operative examination Right hip pain Obesity Frequent urinary tract infections Hx of breast cancer CAD (coronary artery disease) History of COVID-19 Hx of pancreatitis Limb alert care status Mood disorder Neuropathy LBBB (left bundle branch block) Hypothyroidism Hyperlipidemia Gout Hx of gastroesophageal reflux (GERD) Diastolic CHF with preserved left ventricular function, NYHA class 2 Diabetes mellitus, type II Degenerative spondylolisthesis Chronic low back pain History of pericarditis Positive RICKY (antinuclear antibody) Sensorineural hearing loss (SNHL) of both ears Surgical History History of cardiac cath (04/09/24) History of hysterectomy (~2012) H/O colonoscopy History of appendectomy Hx of cholecystectomy H/O breast surgery Family History Father Gastric cancer Lung cancer Mother Laryngeal cancer Brother Rheumatic fever Colon cancer Colorectal cancer Unknown Cardiomyopathy Denies family history of Ovarian cancer Prostate cancer Diabetes Myocardial infarction Breast cancer Stroke Social History Smoking Status: Former smoker Tobacco Type: Cigarettes packs per day: 2; Second Hand Exposure: No; Do You Dip or Chew Tobacco: No; Hx Alcohol Use: No Hx Substance Use: No Preferred Language: Kiswahili Communication Ability: Effective Visual Impairment: Limited Hearing Ability: Normal Lead Cytogenetic Technologist Required: No Beliefs That Will Affect Care: None marital status: Current Living Situation: Spouse Current Living Situation Comment: Dog current occupational status: retired How many Children do You have: 1 Other Information That Helps Us Care for You: Yes (recent hip replacement) Feels Safe at Home: Yes Safety Concerns: Feels Safe At This Time Childhood Exposure to Second-Hand Smoke: Yes caffeine: Yes Dental Care, Regularly: Yes Physical Activity Frequency: 3-4 Times per Week Seatbelt Use: always Sunscreen Use: Yes Assistive Devices: Glasses, Oxygen - Continuous and Walker Review of Systems Review of Systems: Per HPI Physical Exam Physical Exam: She is alert and oriented x3. Mood affect appear normal. She answered all questions appropriately. HEENT: Sclerae are anicteric. Pupils are equal and reactive to light and accommodation. Extraocular movements were intact. Neuro: Cranial nerves intact Lungs: Reduced breath sounds in the right base. No rales. No expiratory wheezing. Shallow breathing overall. Cardiac: The rhythm was regular. S1 and S2 were normal. There are no murmurs on examination. The PMI was not markedly displaced on palpation. Extremities: Patient has bilateral radial pulses that are equal in intensity. There is no evidence cyanosis or clubbing. There was no evidence of significant peripheral edema bilaterally. Skin: There are no rashes noted on examination today. Results & Data Vital Signs (Past 12 Hours) Vital Signs Temp Pulse Pulse Resp BP BP Pulse Ox 09/25/24 14:50 09/25/24 14:50 36.5 C 20 116/75 98 09/25/24 12:51 100 H 22 100/60 97 09/25/24 12:33 102 H 24 108/69 96 09/25/24 12:21 101 H 24 112/77 94 09/25/24 11:51 103 H 22 106/72 97 09/25/24 11:20 100/68 09/25/24 11:15 102 H 26 H 94 09/25/24 11:00 103 H 24 111/66 92 09/25/24 10:36 107 H 24 104/65 95 09/25/24 10:17 109 H 09/25/24 10:12 112 H 18 106/61 94 09/25/24 09:21 106 H 18 100/68 96 09/25/24 09:12 105 H 24 105/68 94 09/25/24 08:57 104 H 24 96 09/25/24 08:50 115/75 09/25/24 08:45 105 H 22 97 09/25/24 08:40 125/86 09/25/24 08:30 114 H 18 111/76 92 09/25/24 07:39 110 H 22 97 09/25/24 07:30 98/64 L 09/25/24 07:07 111 H 20 93 09/25/24 07:07 111 H 20 97/63 L 93 09/25/24 06:06 121 H 16 95 09/25/24 06:06 119 H 09/25/24 06:00 115/66 09/25/24 05:57 37.1 C 111 H 16 107/71 84 L 09/25/24 05:49 80 L O2 Del Method O2 Flow Rate 09/25/24 14:50 Nasal Cannula 5 09/25/24 14:50 Nasal Cannula 5 09/25/24 12:51 Nasal Cannula 5 09/25/24 12:33 Nasal Cannula 5 09/25/24 12:21 Nasal Cannula 5 09/25/24 11:51 Nasal Cannula 5 09/25/24 11:20 09/25/24 11:15 Nasal Cannula 5 09/25/24 11:00 Nasal Cannula 5 09/25/24 10:36 Nasal Cannula 5 09/25/24 10:17 09/25/24 10:12 Nasal Cannula 5 09/25/24 09:21 Nasal Cannula 5 09/25/24 09:12 Nasal Cannula 5 09/25/24 08:57 Nasal Cannula 5 09/25/24 08:50 09/25/24 08:45 Nasal Cannula 5 09/25/24 08:40 09/25/24 08:30 Nasal Cannula 5 09/25/24 07:39 Nasal Cannula 5 09/25/24 07:30 09/25/24 07:07 Nasal Cannula 5 09/25/24 07:07 Room Air 09/25/24 06:06 Room Air 09/25/24 06:06 09/25/24 06:00 09/25/24 05:57 Room Air 09/25/24 05:49 Room Air, Nasal Cannula 0 Laboratory Results Abnormal Lab Results 09/25/24 09/25/24 09/25/24 06:08 08:20 14:47 WBC 11.14 H RBC 4.17 L Hgb 12.6 Hct 38.8 MCV 93.0 MCH 30.2 MCHC 32.5 RDW Std Deviation 48.6 H RDW Coeff of Brayden 14.4 Plt Count 264 MPV 9.4 Immature Gran % (Auto) 1.0 Neut % (Auto) 77.4 Lymph % (Auto) 10.1 [place] % (Auto) 6.6 Eos % (Auto) 4.5 Baso % (Auto) 0.4 Neut # (Auto) 8.62 H Lymph # (Auto) 1.13 L [place] # (Auto) 0.73 H Eos # (Auto) 0.50 Baso # (Auto) 0.05 Immature Gran # (Auto) 0.11 Sodium 139 Potassium 4.7 Chloride 103 Carbon Dioxide 29 Anion Gap 7 BUN 17 Creatinine 0.99 Est Cr Clr Drug Dosing 45.8 eGFR 58.00 BUN/Creatinine Ratio 17.2 Glucose 135 H POC Glucose 119 H Calcium 9.4 Total Bilirubin 0.8 AST 33 ALT 16 Alkaline Phosphatase 218 H Troponin I High Sens 550.9 H* 2166.5 H* D B-Natriuretic Peptide 884 H Total Protein 6.9 Albumin 3.8 Globulin 3.1 Albumin/Globulin Ratio 1.2 Lipase 27 Adenovirus (PCR) Not Detected B. pertussis DNA (PCR) Not Detected B.parapertussis DNA PCR Not Detected C. pneumoniae DNA (PCR) Not Detected Coronavirus OC43 (PCR) Not Detected Coronavirus HKU1 (PCR) Not Detected Coronavirus 229E (PCR) Not Detected SARS-CoV-2 (PCR) Not Detected Coronavirus NL63 (PCR) Not Detected Human Metapneumovir PCR Not Detected Influenza Type A (PCR) Not Detected Influenza Type B (PCR) Not Detected M. pneumoniae (PCR) Not Detected Parainfluenza 1 (PCR) Not Detected Parainfluenza 2 (PCR) Not Detected Parainfluenza 3 (PCR) Not Detected Parainfluenza 4 (PCR) Not Detected RSV (PCR) Not Detected Entero/Rhino (PCR) Not Detected PG Care Time/CCT Total # of Minutes Spent Total Time Spent with Patient: Total time spent is greater than 50% in coordination of care (as documented) at patient's floor/unit and/or counseling patient: Coding Level of Care Code 59827 INT INP/OBS CARE 3/75MIN Diagnoses Chest pain R07.9 Cardiomyopathy I42.9 Elevated troponin R79.89 Mitral regurgitation I34.0
[2024-09-25] MEDS: Heparin IV Adult Wt-Based Low-Dose w/ INITIAL Bolus Protocol IV STA (16:24)
[2024-09-25] MEDS: INSULIN ASPART PER UNIT CHARGE SC SCH (16:24)
[2024-09-25] MEDS: traMADol HCL 50 MG TABLET PO PRN ×2 (16:33→22:03)
[2024-09-25] MEDS: PIPERACILLIN/TAZOBACTAM 4.5 GM/100 ML BAG IV SCH (17:16)
[2024-09-25] MEDS: ACETAMINOPHEN 325 MG TAB PO PRN (18:06)
[2024-09-25] MEDS: MoRPHine SULFATE 2 MG/ML CARP IV STA (18:17)
[2024-09-25] MEDS: ALUMINUM/MAGNESIUM/SIMETH (MAALOX MAX) 30 ML UDC PO PRN (20:52)
[2024-09-25] MEDS: SENNA 8.6 MG TAB PO SCH (20:52)
[2024-09-25] MEDS: FAMOTIDINE 20 MG TAB PO SCH (20:52)
[2024-09-25] MEDS: GABAPENTIN 300 MG CAP PO SCH (20:53)
[2024-09-25] MEDS: CHOLECALCIFEROL 25 MCG (1000 UNITS) TAB PO SCH (20:53)
[2024-09-25] MEDS ORDERED: FAMOTIDINE 40 MG TABLET PO SCH (21:00)
[2024-09-25] MEDS: ACETAMINOPHEN 500 MG TAB PO PRN (23:08)
[2024-09-26] MEDS: LEVOTHYROXINE SODIUM 100 MCG TABLET PO SCH (05:38)
[2024-09-26 07:22] LABS: Basophils # (auto) 0.03 K/uL (0.00-0.20); Basophils % (auto) 0.4 %; Eosinophils # (auto) 0.45 K/uL (0.00-0.50); Eosinophils % (auto) 5.6 %; Hematocrit (blood only) 40.5 % (37.0-47.0); Immature Granulocytes # (auto) 0.05 K/uL (0.01-0.20); Immature Granulocytes % (auto) 0.6 %; Lymphocytes # (auto) 0.84 K/uL (1.20-3.40); Lymphocytes % (auto) 10.4 %; Mean Corpuscular Hemoglobin 29.6 pg (25.0-34.0); Mean Corpuscular Hgb Conc 32.1 g/dL (32.0-36.0); Mean Corpuscular Volume 92.3 fL (80.0-100.0); Mean Platelet Volume 9.9 fL (9.4-12.4); Monocytes # (auto) 0.66 K/uL (0.11-0.59); Monocytes % (auto) 8.2 %; Neutrophils # (auto) 6.03 K/uL (1.40-6.50); Neutrophils % (auto) 74.8 %; Platelet Count 224 K/uL (130-400); RDW Coefficient of Variation 14.3 % (11.5-14.5); RDW Standard Deviation 48.4 fL (36.4-46.3); Red Blood Count 4.39 M/uL (4.20-5.40); White Blood Count 8.06 K/ul (4.8-10.8)
[2024-09-26 08:08] LABS: Calcium 9.3 mg/dl (8.6-10.3); Potassium 3.8 mmol/L (3.5-5.1)
[2024-09-26 08:13] LABS: BUN Creatinine Ratio 18.2 (10-20); Creatinine Clr Calc Pharmacy 43.7 ml/min
[2024-09-26] MEDS: ASPIRIN 81 MG ECTAB PO SCH (08:26)
[2024-09-26] MEDS: allopurinoL 100 MG TAB PO SCH (08:26)
[2024-09-26] MEDS: MULTIVITAMIN TAB PO SCH (08:27)
[2024-09-26] MEDS: SERTRALINE HCL 50 MG TABLET PO SCH (08:27)
[2024-09-26] MEDS: FUROSEMIDE 40 MG/4 ML VIAL IV SCH (08:27)
[2024-09-26] MEDS ORDERED: NON-FORMULARY MEDICATION (Coenzyme Q10 [Coq-10] 100 mg Capsule) PO SCH (09:00)
--- NOTE | 2024-09-26 09:23 | Cardiology Progress Note ---
Date of Service September 26, 2024 Assessment & Plan (1) Chest pain: (2) Cardiomyopathy: (3) Elevated troponin: (4) Mitral regurgitation: Plan 1. Chest pain: I believe this is most likely related to pneumonia. Her symptoms are very focal and right-sided. In the vicinity of abnormality found on her x-ray. Pleuritic and positional. Minimal relief with current analgesics. Hopefully this will improve as her infection resolves. 2. Elevated troponin: She did have a significant elevation in biomarkers coinciding with her presentation. Difficult to evaluate objectively given her baseline left bundle branch block. However, her presentation was more consistent with an infectious process. Elevation is likely related to presenting hypoxia in the setting of known ischemic heart disease. 3. Cardiomyopathy: This is a new finding. Once she is doing better clinically we could consider repeat coronary angiography for evaluation. 4. Decompensated acute systolic heart failure: She presented with an elevated BNP. She seems to have some orthopnea. I would have low threshold for diuresis. Hemodynamics appear to be stable. 5. Coronary artery disease: Known to have chronic total occlusion of the right coronary and borderline obstruction involving the circumflex. Based primarily on her new cardiomyopathy would be worth reevaluating her vasculature once her infectious process improves. I do not think her current symptoms are related to coronary disease. Prior to her current event she was ambulatory and tolerating rehab without symptoms of angina. 6. Mitral regurgitation: Moderate. Likely related to her dilated cardiomyopathy. Hopefully this will improve as her LV function improves. 7. Left bundle branch block: Chronic. No evidence of high degree AV block or significant bradycardia. Admission and Anticipated Discharge Date Admission Date: September 25, 2024 Subjective This morning the patient continued complain of chest discomfort. It is decidedly right-sided and pleuritic in nature. Somewhat positional as well. Waxes and wanes in severity, but clearly worse with deep inspiration. As a result, she has some splinting. Her breathing still seems compromised. She does have more difficulty breathing when trying to lay flat. Review of Systems Review of Systems: Per HPI Physical Exam Physical Exam: She is alert and oriented x3. Mood affect appear normal. She answered all questions appropriately. HEENT: Sclerae are anicteric. Pupils are equal and reactive to light and accommodation. Extraocular movements were intact. Neuro: Cranial nerves intact Lungs: Reduced breath sounds in the right base. No rales. No expiratory wheezing. Shallow breathing overall. Cardiac: The rhythm was regular. S1 and S2 were normal. There are no murmurs on examination. The PMI was not markedly displaced on palpation. Extremities: Patient has bilateral radial pulses that are equal in intensity. There is no evidence cyanosis or clubbing. There was no evidence of significant peripheral edema bilaterally. Skin: There are no rashes noted on examination today. Results & Data Vital Signs (Past 12 Hours) Vital Signs Temp Pulse Pulse Resp BP Pulse Ox O2 Del Method 09/26/24 07:41 36.5 C 95 H 18 125/79 93 Nasal Cannula 09/26/24 03:02 36.6 C 97 H 18 106/69 94 Nasal Cannula 09/25/24 23:15 Nasal Cannula 09/25/24 22:38 36.6 C 96 H 18 114/74 95 Nasal Cannula 09/25/24 21:45 94 H O2 Flow Rate 09/26/24 07:41 3 09/26/24 03:02 3 09/25/24 23:15 4 09/25/24 22:38 4 09/25/24 21:45 Laboratory Results Abnormal Lab Results 09/25/24 09/25/24 09/25/24 08:20 14:30 14:47 WBC RBC Hgb Hct MCV MCH MCHC RDW Std Deviation RDW Coeff of Brayden Plt Count MPV Immature Gran % (Auto) Neut % (Auto) Lymph % (Auto) [place] % (Auto) Eos % (Auto) Baso % (Auto) Neut # (Auto) Lymph # (Auto) [place] # (Auto) Eos # (Auto) Baso # (Auto) Immature Gran # (Auto) Sodium Potassium Chloride Carbon Dioxide Anion Gap BUN Creatinine Est Cr Clr Drug Dosing eGFR BUN/Creatinine Ratio Glucose POC Glucose 119 H Calcium Troponin I High Sens 2166.5 H* D Nasal Screen MRSA (PCR) Negative Adenovirus (PCR) Not Detected B. pertussis DNA (PCR) Not Detected B.parapertussis DNA PCR Not Detected C. pneumoniae DNA (PCR) Not Detected Coronavirus OC43 (PCR) Not Detected Coronavirus HKU1 (PCR) Not Detected Coronavirus 229E (PCR) Not Detected SARS-CoV-2 (PCR) Not Detected Coronavirus NL63 (PCR) Not Detected Human Metapneumovir PCR Not Detected Influenza Type A (PCR) Not Detected Influenza Type B (PCR) Not Detected M. pneumoniae (PCR) Not Detected Parainfluenza 1 (PCR) Not Detected Parainfluenza 2 (PCR) Not Detected Parainfluenza 3 (PCR) Not Detected Parainfluenza 4 (PCR) Not Detected RSV (PCR) Not Detected Entero/Rhino (PCR) Not Detected 09/25/24 09/25/24 09/25/24 16:23 18:56 20:27 WBC RBC Hgb Hct MCV MCH MCHC RDW Std Deviation RDW Coeff of Brayden Plt Count MPV Immature Gran % (Auto) Neut % (Auto) Lymph % (Auto) [place] % (Auto) Eos % (Auto) Baso % (Auto) Neut # (Auto) Lymph # (Auto) [place] # (Auto) Eos # (Auto) Baso # (Auto) Immature Gran # (Auto) Sodium Potassium Chloride Carbon Dioxide Anion Gap BUN Creatinine Est Cr Clr Drug Dosing eGFR BUN/Creatinine Ratio Glucose POC Glucose 115 H 136 H Calcium Troponin I High Sens 5138.9 H* D Nasal Screen MRSA (PCR) Adenovirus (PCR) B. pertussis DNA (PCR) B.parapertussis DNA PCR C. pneumoniae DNA (PCR) Coronavirus OC43 (PCR) Coronavirus HKU1 (PCR) Coronavirus 229E (PCR) SARS-CoV-2 (PCR) Coronavirus NL63 (PCR) Human Metapneumovir PCR Influenza Type A (PCR) Influenza Type B (PCR) M. pneumoniae (PCR) Parainfluenza 1 (PCR) Parainfluenza 2 (PCR) Parainfluenza 3 (PCR) Parainfluenza 4 (PCR) RSV (PCR) Entero/Rhino (PCR) 09/26/24 09/26/24 09/26/24 01:07 06:49 07:47 WBC 8.06 RBC 4.39 Hgb 13.0 Hct 40.5 MCV 92.3 MCH 29.6 MCHC 32.1 RDW Std Deviation 48.4 H RDW Coeff of Brayden 14.3 Plt Count 224 MPV 9.9 Immature Gran % (Auto) 0.6 Neut % (Auto) 74.8 Lymph % (Auto) 10.4 [place] % (Auto) 8.2 Eos % (Auto) 5.6 Baso % (Auto) 0.4 Neut # (Auto) 6.03 Lymph # (Auto) 0.84 L [place] # (Auto) 0.66 H Eos # (Auto) 0.45 Baso # (Auto) 0.03 Immature Gran # (Auto) 0.05 Sodium 138 Potassium 3.8 Chloride 101 Carbon Dioxide 27 Anion Gap 10 BUN 20 Creatinine 1.10 Est Cr Clr Drug Dosing 43.7 eGFR 51.11 BUN/Creatinine Ratio 18.2 Glucose 131 H POC Glucose 109 H Calcium 9.3 Troponin I High Sens 3335.6 H* D 3746.3 H* Nasal Screen MRSA (PCR) Adenovirus (PCR) B. pertussis DNA (PCR) B.parapertussis DNA PCR C. pneumoniae DNA (PCR) Coronavirus OC43 (PCR) Coronavirus HKU1 (PCR) Coronavirus 229E (PCR) SARS-CoV-2 (PCR) Coronavirus NL63 (PCR) Human Metapneumovir PCR Influenza Type A (PCR) Influenza Type B (PCR) M. pneumoniae (PCR) Parainfluenza 1 (PCR) Parainfluenza 2 (PCR) Parainfluenza 3 (PCR) Parainfluenza 4 (PCR) RSV (PCR) Entero/Rhino (PCR) PG Care Time/CCT Total # of Minutes Spent Total Time Spent with Patient: Total time spent is greater than 50% in coordination of care (as documented) at patient's floor/unit and/or counseling patient: Coding Level of Care Code 49009 SUB INP/OBS CARE 2/35MIN Diagnoses Chest pain R07.9 Cardiomyopathy I42.9 Elevated troponin R79.89 Mitral regurgitation I34.0
[2024-09-26] MEDS ORDERED: PIPERACILLIN/TAZOBACTAM 4.5 GM/100 ML BAG IV SCH (14:00)
[2024-09-26] MEDS: ONDANSETRON 4 MG OD TAB PO PRN (19:40)
--- NOTE | 2024-09-26 19:43 | Hospitalist Progress Note ---
Date of Service September 26, 2024 Assessment & Plan (1) CAP (community acquired pneumonia): Plan: 79-year-old female with known RCA chronic disease with collaterals EF 40% on prior Delaney scan who presented with worsening chest pain, shortness of breath, and fatigue with worsened right-sided pain radiating into her back/shoulder on deep breathing for the last 2-3 days. CTA showed no evidence of PE or dissection but did show evidence of right upper lobe pneumonia. Additionally troponin markedly elevated with rise to 2500. ER, EKG redemonstrates left bundle branch block which does not meet Sgarbossa criteria. Due to intermittent ongoing pain both with and without any pleuritic component patient was given aspirin and heparinized at admission. She was treated for pneumonia, with expansion to include gram-negative coverage due to clinical level of illness and recent hospitalization for hip surgery. Demand ischemia, HFrEF, NSTEMI type 2 Acute HFrEF - Hx EF 42% on prior lexiscan. - Cath 03/2024: Severe RCA chronic total occlusion w/ borderline tandem stenosis in Circ. GDMP at that time With bilateral pleural effusions, elevated BNP and suspected volume overload on admission severe demand with hypoxia, tachycardia, HFpEF, and pneumonia. consulted cardiology, did not think this was ACS, stopped heparin -HS-trop peaked at 5100 then downtrended - TTE notable for worsening cardiomyopathy - EF 20-25% with severe LV global hypokinesis - continue diuresing with IV lasix, BUN/Cr stable and electrolytes ok, recheck in AM - recommended initiation of B-umu, other GDMT eventually, follow up in cardiology clinic Pneumonia CTA without evidence of PE. Patchy right upper lobe opacities consistent with pneumonia. BioFire and MRSA nares negative continue pip-tazo - one dose low dose toradol today 10 mg IV for right sided pleurisy. added oxycdone stopped tramadol since ineffective. 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 No other agents. SSI only. CF 50/carb ratio 25. If persistently out of goal range of [id number] we will switch to weight based basal bolus regimen. -reviewed 09/26 BG at goal Hypothyroidism Continue Synthroid Hyperlipidemia Statin intolerant, patient on Repatha as outpatient. S/p recent SOFI Aspirin twice daily DVT prophylaxis held while anticoagulated Aspirin 81 mg daily continued. transfer to med/surg (2) S/P total right hip arthroplasty: (3) LBBB (left bundle branch block): (4) GERD (gastroesophageal reflux disease): (5) Diabetes mellitus, type II: Admission and Anticipated Discharge Date Admission Date: September 25, 2024 Subjective dyspnea and malaise improved but continues to have pleuritic chest pain - focal area right upper anterior chest urinating a lot, no LE edema no left CP Physical Exam 2 Physical Exam: Last 24h vitals reviewed GEN: no acute distress, sitting in bed HEENT: pupils equal, sclerae anicteric, moist MM RESP: normal WOB, CTAB except for fine crackles right upper anterior chest CV: reg no mrg ABD: soft/nt/nd +BT : no han SKIN: warm and dry, no generalized rashes, no LE edema NEURO: AOx person, place, and situation. Face symmetric, speech normal, moves 4 ext spontaneously and equally Results & Data Results & Data Vital Signs (Past 12 Hours) Vital Signs Temp Pulse Pulse Resp BP Pulse Ox O2 Del Method 09/26/24 16:14 36.7 C 102 H 18 117/71 97 Nasal Cannula 09/26/24 14:39 93 H 09/26/24 11:50 36.5 C 95 H 18 118/70 95 Room Air 09/26/24 11:42 97 H 09/26/24 10:12 Nasal Cannula 09/26/24 07:41 36.5 C 95 H 18 125/79 93 Nasal Cannula O2 Flow Rate 09/26/24 16:14 3 09/26/24 14:39 09/26/24 11:50 09/26/24 11:42 09/26/24 10:12 3 09/26/24 07:41 3 Laboratory Results 09/26/24 06:49 09/26/24 06:49 PG Care Time/CCT Total # of Minutes Spent Total Time Spent with Patient: Total time spent is greater than 50% in coordination of care (as documented) at patient's floor/unit and/or counseling patient: Coding Level of Care Code 66454 SUB INP/OBS CARE 3/50MIN Diagnoses CAP (community acquired pneumonia) J18.9 S/P total right hip arthroplasty Z96.641 LBBB (left bundle branch block) I44.7 GERD (gastroesophageal reflux disease) K21.9 Diabetes mellitus, type II E11.9
[2024-09-26] MEDS: KETOROLAC TROMETHAMINE 15 MG/ML VIAL IV ONE (20:08)
[2024-09-26] MEDS: oxyCODONE HCL IR 5 MG TAB (IMMEDIATE RELEASE) PO PRN (21:30)
[2024-09-27 06:49] LABS: Basophils # (auto) 0.04 K/uL (0.00-0.20); Basophils % (auto) 0.4 %; Eosinophils # (auto) 0.56 K/uL (0.00-0.50); Eosinophils % (auto) 5.8 %; Hematocrit (blood only) 36.2 % (37.0-47.0); Hemoglobin 11.9 g/dl (12.0-16.0); Immature Granulocytes # (auto) 0.08 K/uL (0.01-0.20); Immature Granulocytes % (auto) 0.8 %; Lymphocytes # (auto) 0.88 K/uL (1.20-3.40); Lymphocytes % (auto) 9.1 %; Mean Corpuscular Hgb Conc 32.9 g/dL (32.0-36.0); Mean Corpuscular Volume 91.2 fL (80.0-100.0); Monocytes # (auto) 0.84 K/uL (0.11-0.59); Monocytes % (auto) 8.7 %; Neutrophils # (auto) 7.24 K/uL (1.40-6.50); Neutrophils % (auto) 75.2 %; Platelet Count 213 K/uL (130-400); RDW Standard Deviation 46.8 fL (36.4-46.3); Red Blood Count 3.97 M/uL (4.20-5.40); White Blood Count 9.64 K/ul (4.8-10.8)
[2024-09-27 07:18] LABS: Calcium 8.7 mg/dl (8.6-10.3); Potassium 3.1 mmol/L (3.5-5.1)
[2024-09-27 07:23] LABS: BUN Creatinine Ratio 20.7 (10-20); Creatinine Clr Calc Pharmacy 52.3 ml/min
--- NOTE | 2024-09-27 08:26 | Hospitalist Progress Note ---
Date of Service September 27, 2024 Assessment & Plan (1) CAP (community acquired pneumonia): (2) S/P total right hip arthroplasty: (3) LBBB (left bundle branch block): (4) GERD (gastroesophageal reflux disease): (5) Diabetes mellitus, type II: Plan 79-year-old female with known RCA chronic disease with collaterals EF 40% on prior Delaney scan who presented with worsening chest pain, shortness of breath, and fatigue with worsened right-sided pain radiating into her back/shoulder on deep breathing for the last 2-3 days. CTA showed no evidence of PE or dissection but did show evidence of right upper lobe pneumonia. Additionally troponin markedly elevated with rise to 2500. ER, EKG redemonstrates left bundle branch block which does not meet Sgarbossa criteria. Due to intermittent ongoing pain both with and without any pleuritic component patient was given aspirin and heparinized at admission. She was treated for pneumonia, with expansion to include gram-negative coverage due to clinical level of illness and recent hospitalization for hip surgery. Demand ischemia, NSTEMI type 2 related to pneumonia and heart failure exacerbation Acute HFrEF - Cath 03/2024: Severe RCA chronic total occlusion w/ borderline tandem stenosis in Circ. GDMP at that time - Hx EF 42% on prior lexiscan, now EF 20-25% with severe LV global hypokinesis severe demand with hypoxia, tachycardia, HFpEF, and pneumonia. consulted cardiology, did not think this was ACS, stopped heparin -HS-trop peaked at 5100 then downtrended - TTE notable for worsening cardiomyopathy - diuresed with IV lasix - held today since tachycardic and borderline low bp. replace hypokalemia with 40 meq po - recommended initiation of B-umu, other GDMT eventually, follow up in cardiology clinic Pneumonia CTA without evidence of PE. Patchy right upper lobe opacities consistent with pneumonia. BioFire and MRSA nares negative continue pip-tazo - one dose low dose toradol today 10 mg IV for right sided pleurisy. added oxycdone stopped tramadol since ineffective. 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 No other agents. SSI only. CF 50/carb ratio 25. If persistently out of goal range of 193330 we will switch to weight based basal bolus regimen. -reviewed 09/27 BG at goal Hypothyroidism Continue Synthroid Hyperlipidemia Statin intolerant, patient on Repatha as outpatient. S/p recent SOFI Aspirin twice daily DVT prophylaxis held while anticoagulated Aspirin 81 mg daily continued. transfer to med/surg Admission and Anticipated Discharge Date Admission Date: September 25, 2024 Physical Exam 2 Physical Exam: Last 24h vitals reviewed GEN: no acute distress, sitting in bed HEENT: pupils equal, sclerae anicteric, moist MM RESP: normal WOB, CTAB except for fine crackles right upper anterior chest CV: reg no mrg ABD: soft/nt/nd +BT : no han SKIN: warm and dry, no generalized rashes, no LE edema NEURO: AOx person, place, and situation. Face symmetric, speech normal, moves 4 ext spontaneously and equally Results & Data Results & Data Vital Signs (Past 12 Hours) Vital Signs Temp Pulse Pulse Resp BP Pulse Ox O2 Del Method 09/27/24 07:33 37 C 102 H 14 95/60 L 95 Nasal Cannula 09/27/24 02:54 36.6 C 94 H 18 108/69 99 Nasal Cannula 09/26/24 22:48 36.6 C 92 H 18 106/65 97 Nasal Cannula O2 Flow Rate 09/27/24 07:33 1.5 09/27/24 02:54 4 09/26/24 22:48 3 Laboratory Results 09/27/24 06:09 09/27/24 06:09 PG Care Time/CCT Total # of Minutes Spent Total Time Spent with Patient: Total time spent is greater than 50% in coordination of care (as documented) at patient's floor/unit and/or counseling patient: Coding Level of Care Code 69855 SUB INP/OBS CARE 2/35MIN Diagnoses CAP (community acquired pneumonia) J18.9 S/P total right hip arthroplasty Z96.641 LBBB (left bundle branch block) I44.7 GERD (gastroesophageal reflux disease) K21.9 Diabetes mellitus, type II E11.9
[2024-09-27] MEDS: POTASSIUM CHLORIDE CRTAB 20 MEQ TABCR PO ONE (09:40)
--- NOTE | 2024-09-27 13:33 | Electrocardiogram Report ---
Test Reason : Blood Pressure : */* mmHG Vent. Rate : 99 BPM Atrial Rate : 99 BPM P-R Int : 166 ms QRS Dur : 156 ms QT Int : 410 ms P-R-T Axes : 68 55 -84 degrees QTcB Int : 526 ms Normal sinus rhythm Left bundle branch block Abnormal ECG Confirmed by Popeye Yin ([id number]) on 09/27/2024 1:32:49 PM Referred By: Zen Ortega Confirmed By: Popeye Yin
--- NOTE | 2024-09-27 15:57 | Cardiology Progress Note ---
Date of Service September 27, 2024 Assessment & Plan (1) Chest pain: (2) Cardiomyopathy: (3) Elevated troponin: (4) Mitral regurgitation: Plan 1. Chest pain: I believe this is most likely related to pneumonia. 2. Elevated troponin: Demand ischemia in the setting of significant hypoxia. 3. Cardiomyopathy: This is a new finding. Once she is doing better clinically we could consider repeat coronary angiography for evaluation. 4. Decompensated acute systolic heart failure: She presented with an elevated BNP. She seems to have some orthopnea. I would have low threshold for diuresis. Hemodynamics appear to be stable. 5. Coronary artery disease: Known to have chronic total occlusion of the right coronary and borderline obstruction involving the circumflex. Based primarily on her new cardiomyopathy would be worth reevaluating her vasculature once her infectious process improves. I do not think her current symptoms are related to coronary disease. Prior to her current event she was ambulatory and tolerating rehab without symptoms of angina. 6. Mitral regurgitation: Moderate. 7. Left bundle branch block: Chronic. No evidence of high degree AV block or significant bradycardia. She seems to be improving overall. I think we will wait for resolution of her pneumonia and some improved hemodynamics before initiating medical therapy. My first choice would be metoprolol succinate. I will discuss an alternative to Jardiance such as Farxiga. Depending on her blood pressure we may have an opportunity to add JOHN/ARB/Entresto. Tentative plan for coronary evaluation is the outpatient setting. Admission and Anticipated Discharge Date Admission Date: September 25, 2024 Subjective Patient states that she was ambulatory with physical therapy earlier today. Overall she felt well but did develop worsening right-sided chest discomfort towards the end. Not quite as severe as admission. No breathing difficulty. No central chest pain. No dizziness or lightheadedness. Review of Systems Review of Systems: Per HPI Physical Exam Physical Exam: She is alert and oriented x3. Mood affect appear normal. She answered all questions appropriately. HEENT: Sclerae are anicteric. Pupils are equal and reactive to light and accommodation. Extraocular movements were intact. Neuro: Cranial nerves intact Lungs: Reduced breath sounds in the right base. Bronchial breath sounds noted. No expiratory wheezing. Shallow breathing overall. Cardiac: The rhythm was regular. S1 and S2 were normal. There are no murmurs on examination. The PMI was not markedly displaced on palpation. Extremities: Patient has bilateral radial pulses that are equal in intensity. There is no evidence cyanosis or clubbing. There was no evidence of significant peripheral edema bilaterally. Skin: There are no rashes noted on examination today. Results & Data Vital Signs (Past 12 Hours) Vital Signs Temp Pulse Resp BP Pulse Ox O2 Del Method O2 Flow Rate 09/27/24 10:52 36.6 C 114 H 14 92/61 L 98 Nasal Cannula 1.5 09/27/24 08:00 Nasal Cannula 1 09/27/24 07:33 37 C 102 H 14 95/60 L 95 Nasal Cannula 1.5 Laboratory Results Abnormal Lab Results 09/26/24 09/26/24 09/27/24 16:30 20:27 06:09 WBC 9.64 RBC 3.97 L Hgb 11.9 L Hct 36.2 L MCV 91.2 MCH 30.0 MCHC 32.9 RDW Std Deviation 46.8 H RDW Coeff of Brayden 14.0 Plt Count 213 MPV 10.0 Immature Gran % (Auto) 0.8 Neut % (Auto) 75.2 Lymph % (Auto) 9.1 Loving % (Auto) 8.7 Eos % (Auto) 5.8 Baso % (Auto) 0.4 Neut # (Auto) 7.24 H Lymph # (Auto) 0.88 L Loving # (Auto) 0.84 H Eos # (Auto) 0.56 H Baso # (Auto) 0.04 Immature Gran # (Auto) 0.08 Sodium 138 Potassium 3.1 L Chloride 99 Carbon Dioxide 31 Anion Gap 8 BUN 19 Creatinine 0.92 Est Cr Clr Drug Dosing 52.3 eGFR 63.34 BUN/Creatinine Ratio 20.7 H Glucose 118 H POC Glucose 110 H 126 H Calcium 8.7 09/27/24 09/27/24 07:20 10:49 WBC RBC Hgb Hct MCV MCH MCHC RDW Std Deviation RDW Coeff of Brayden Plt Count MPV Immature Gran % (Auto) Neut % (Auto) Lymph % (Auto) Loving % (Auto) Eos % (Auto) Baso % (Auto) Neut # (Auto) Lymph # (Auto) Loving # (Auto) Eos # (Auto) Baso # (Auto) Immature Gran # (Auto) Sodium Potassium Chloride Carbon Dioxide Anion Gap BUN Creatinine Est Cr Clr Drug Dosing eGFR BUN/Creatinine Ratio Glucose POC Glucose 135 H 138 H Calcium PG Care Time/CCT Total # of Minutes Spent Total Time Spent with Patient: Total time spent is greater than 50% in coordination of care (as documented) at patient's floor/unit and/or counseling patient: Coding Level of Care Code 09529 SUB INP/OBS CARE 2/35MIN Diagnoses Chest pain R07.9 Cardiomyopathy I42.9 Elevated troponin R79.89 Mitral regurgitation I34.0
--- NOTE | 2024-09-27 16:52 | Hospitalist Progress Note ---
Date of Service September 27, 2024 Assessment & Plan (1) CAP (community acquired pneumonia): (2) S/P total right hip arthroplasty: (3) LBBB (left bundle branch block): (4) GERD (gastroesophageal reflux disease): (5) Diabetes mellitus, type II: Plan 79-year-old female with known RCA chronic disease with collaterals EF 40% on prior Delaney scan who presented with worsening chest pain, shortness of breath, and fatigue with worsened right-sided pain radiating into her back/shoulder on deep breathing for the last 2-3 days. CTA showed no evidence of PE or dissection but did show evidence of right upper lobe pneumonia. Additionally troponin markedly elevated with rise to 2500. ER, EKG redemonstrates left bundle branch block which does not meet Sgarbossa criteria. Due to intermittent ongoing pain both with and without any pleuritic component patient was given aspirin and heparinized at admission. She was treated for pneumonia, with expansion to include gram-negative coverage due to clinical level of illness and recent hospitalization for hip surgery. Demand ischemia, NSTEMI type 2 related to pneumonia and heart failure exacerbation Acute HFrEF - Cath 03/2024: Severe RCA chronic total occlusion w/ borderline tandem stenosis in Circ. GDMP at that time - Hx EF 42% on prior lexiscan, now EF 20-25% with severe LV global hypokinesis severe demand with hypoxia, tachycardia, HFpEF, and pneumonia. consulted cardiology, did not think this was ACS, stopped heparin -HS-trop peaked at 5100 then downtrended - TTE notable for worsening cardiomyopathy - s/p diuresis w/ IV Lasix, held 09/27 due to tachycardia & hypotension. s/p 40meq PO potassium for low K of 3.1 - recommended initiation of B-umu when able, other GDMT eventually, follow up in cardiology clinic Pneumonia CTA without evidence of PE. Patchy right upper lobe opacities consistent with pneumonia. BioFire and MRSA nares negative continue pip-tazo - Oxycodone prn for pleurisy, continue Tylenol. - leukocytosis resolved but remains mildly hypoxic, cont supp O2, wean if able. 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 No other agents. SSI only. CF 50/carb ratio 25. If persistently out of goal range of [id number] we will switch to weight based basal bolus regimen. -reviewed 09/27 BG at goal Hypothyroidism Continue Synthroid Hyperlipidemia Statin intolerant, patient on Repatha as outpatient. S/p recent SOFI Aspirin twice daily DVT prophylaxis held while anticoagulated Aspirin 81 mg daily continued. PT recommending home w/ home health. Code: full Admission and Anticipated Discharge Date Admission Date: September 25, 2024 Subjective Patient seen and examined this morning. Patient reports that her chest pain is better today. She states that the "stabbing" pain has resolved. She reports pain medication is helpful. Reports she is still short of breath but believes it is improving. She has a dry cough. Denies any further symptoms. Physical Exam Constitutional: WD/WN, vitals as above Eyes: PERRL, conjunctivae normal, anicteric sclerae Respiratory: normal respiratory effort, lungs clear to auscultation Cardiovascular: RRR, no murmur, no edema Psychiatric: A+Ox3, euthymic affect Results & Data Results & Data Vital Signs (Past 12 Hours) Vital Signs Temp Pulse Resp BP Pulse Ox O2 Del Method O2 Flow Rate 09/27/24 16:11 36.4 C L 94 H 18 109/70 93 Nasal Cannula 09/27/24 10:52 36.6 C 114 H 14 92/61 L 98 Nasal Cannula 1.5 09/27/24 08:00 Nasal Cannula 1 09/27/24 07:33 37 C 102 H 14 95/60 L 95 Nasal Cannula 1.5 PG Care Time/CCT Total # of Minutes Spent Total Time Spent with Patient: Total time spent is greater than 50% in coordination of care (as documented) at patient's floor/unit and/or counseling patient: Coding Level of Care Code 43356 SUB INP/OBS CARE 3/50MIN Diagnoses CAP (community acquired pneumonia) J18.9 S/P total right hip arthroplasty Z96.641 LBBB (left bundle branch block) I44.7 GERD (gastroesophageal reflux disease) K21.9 Diabetes mellitus, type II E11.9
[2024-09-28 02:18] VITALS: RESP 18
[2024-09-28] MEDS: guaiFENesin/DEXTROM SYRUP 200MG/20MG 10ML UDC PO PRN (05:34)
[2024-09-28 06:56] LABS: Basophils # (auto) 0.05 K/uL (0.00-0.20); Basophils % (auto) 0.5 %; Eosinophils # (auto) 0.48 K/uL (0.00-0.50); Eosinophils % (auto) 5.2 %; Hematocrit (blood only) 35.7 % (37.0-47.0); Hemoglobin 11.4 g/dl (12.0-16.0); Immature Granulocytes # (auto) 0.05 K/uL (0.01-0.20); Immature Granulocytes % (auto) 0.5 %; Lymphocytes # (auto) 0.76 K/uL (1.20-3.40); Lymphocytes % (auto) 8.3 %; Mean Corpuscular Hemoglobin 29.3 pg (25.0-34.0); Mean Corpuscular Hgb Conc 31.9 g/dL (32.0-36.0); Mean Corpuscular Volume 91.8 fL (80.0-100.0); Mean Platelet Volume 9.9 fL (9.4-12.4); Monocytes # (auto) 0.63 K/uL (0.11-0.59); Monocytes % (auto) 6.9 %; Neutrophils # (auto) 7.18 K/uL (1.40-6.50); Neutrophils % (auto) 78.6 %; Platelet Count 235 K/uL (130-400); RDW Coefficient of Variation 14.2 % (11.5-14.5); RDW Standard Deviation 47.7 fL (36.4-46.3); Red Blood Count 3.89 M/uL (4.20-5.40); White Blood Count 9.15 K/ul (4.8-10.8)
[2024-09-28 07:27] LABS: BUN Creatinine Ratio 18.8 (10-20); Calcium 8.8 mg/dl (8.6-10.3); Creatinine Clr Calc Pharmacy 56.6 ml/min; Potassium 3.9 mmol/L (3.5-5.1)
[2024-09-28 07:29] VITALS: BP 108/67; TEMP 97.5
[2024-09-28 09:01] VITALS: PULSE 126; O2SAT 90
--- NOTE | 2024-09-28 10:40 | Discharge Summary ---
Discharge Summary Date of Service September 28, 2024 Principal Dx & Hospital Course #1 = Principal Diagnosis (1) CAP (community acquired pneumonia): (2) S/P total right hip arthroplasty: (3) LBBB (left bundle branch block): (4) GERD (gastroesophageal reflux disease): (5) Diabetes mellitus, type II: Plan 79-year-old female with known RCA chronic disease with collaterals EF 40% on prior [place] scan who presented with worsening chest pain, shortness of breath, and fatigue with worsened right-sided pain radiating into her back/shoulder on deep breathing for the last 2-3 days. CTA showed no evidence of PE or dissection but did show evidence of right upper lobe pneumonia. Additionally troponin markedly elevated with rise to 2500. ER, EKG redemonstrates left bundle branch block which does not meet Sgarbossa criteria. Due to intermittent ongoing pain both with and without any pleuritic component patient was given aspirin and heparinized at admission. She was treated for pneumonia, with expansion to include gram-negative coverage due to clinical level of illness and recent hospitalization for hip surgery. Demand ischemia, NSTEMI type 2 related to pneumonia and heart failure exacerbation; Acute HFrEF - Cath 03/2024: Severe RCA chronic total occlusion w/ borderline tandem stenosis in Circ. GDMP at that time - Hx EF 42% on prior lexiscan, now EF 20-25% with severe LV global hypokinesis severe demand with hypoxia, tachycardia, HFpEF, and pneumonia. - -HS-trop peaked at 5100 then downtrended - TTE notable for worsening cardiomyopathy consulted cardiology, did not think this was ACS, stopped heparin--> recomm ending metoprolol succinate 25mg + Farxiga on discharge. - s/p IV Lasix inpaitent, Lasix prn outpatient if > 2 lbs gained over 2 days OR >4 pounds gained in 1 week. - Patient to follow w/ CHF clinic and cardiology on discharge. Pneumonia CTA without evidence of PE. Patchy right upper lobe opacities consistent with pneumonia. BioFire and MRSA nares negative Zosyn inpatient --> Augmentin to complete course on discharge. - Tylenol/Tramadol prn outpatient, patient w/ previous script of tramadol. - 2 step completed prior to discharge, patient requires 2L of oxygen w/ ambulation. Suspect short term. Type II DM Hemoglobin A1c previously 6.57 Last A1c 08/10/2024 5.3 - Resume outpatient regimen on discharge. Hypothyroidism Continue Synthroid Hyperlipidemia Statin intolerant, patient on Repatha as outpatient. S/p recent SOFI Aspirin twice daily DVT prophylaxis held while anticoagulated Aspirin 81 mg daily continued. Patient discharged home w/ home health services 09/28. Admission HPI Per Admitting Provider Bailey is a 79-year-old female with a past medical history of type II DM, OA of the right hip s/p total hip arthroplasty 09/05/2024, left bundle branch block/CAD/HFpEF/pericarditis with preoperative cath 04/09/2024 showing severe chronic total occlusion of RCA, statin intolerance on Repatha, gout who presents to the emergency 09/25 with right-sided chest discomfort, shortness of breath, inspiratory pain and who has a new oxygen requirement on ER evaluation. On ER evaluation she has a leukocytosis of 11.14, elevated BNP, troponin of 550.9 with repeat 2166, BioFire pending, and CTA showing no evidence of PE but patchy right upper lobe opacities consistent with pneumonia, 11 mm sized lung nodule requiring follow-up, resolution of her prior pericardial effusion, dilated main pulmonary artery, and interval development of right pleural effusion with stable left pleural effusion. She was suspected to have acute hypoxic respiratory failure due to both pneumonia and underlying HFpEF. In the ER she was treated with Lasix 40 mg with subsequent improvement of her blood pressure. On reevaluation remains in sinus tachycardia. EKG morning of admission shows lateral T wave inversion, redemonstrated left bundle branch block. ST elevation compared to prior is noted in precordial leads however this is not excessively discordant/greater than 25% of the preceding S wave. Does not meet Sgarbossa criteria Bailey is seen at the bedside. "I was doing fine and was doing OK at rehab, was walking and eating doing my PT/OT just fine". Night before last my mouth got very dry, I was more constipation which is unusual, and at night for about an hour I had RIGHT sided chest pain in the chest which lasted about an hour before going away. No chest pain weeks prior to that Last night was watching TV and asked for zofran and pain medication but started getting R upper chest pain, but improved with her pain medicine. Woke up this mornign and pain was worse. Worsened with deep breathing. Improves with shallow breathing. Right chest pain continued with inspiration and shooting into her back 'each time I took a breath is would shoot into my back and way too painful'. Was worried about blood clots/PE so came to the ER [place] more like pleurisy like she has had in the past She is able to take blood thinners. Has been on aspirin this past month. Denies history of bleeding/bleeding problems. She also notes she had a R masectomy in the past, so is always worried about her risk of recurrence and blood clots. Toradol and lasix seem to have helped her pain On reassessment patient's pain is greatly improved however still continues to have pain on deep breathing and intermittent "almost but not quite gone "discomfort in her right chest. "No dyspnea, no sweating. Recheck of blood pressure in the room 110s/70s Medical History: Reviewed Medications: Reviewed Surgical History: Reviewed Family history: Reviewed Allergies: Reviewed Social History: Reviewed Code Status: Full Code Discharge Exam Constitutional WD/WN, vitals as above Respiratory normal respiratory effort, lungs clear to auscultation Cardiovascular RRR, no murmur, no edema Neurologic PERRL, EOMI, accommodation nl, no face palsy, no dysarthria Psychiatric A+Ox3, euthymic affect Discharge Plan Discharge Items Patient Disposition: Home - Home Health Services Reason For Visit: PNA, CHF, NSTEMI Discharge Diagnosis: Pneumonia, CHF, NSTEMI Activity: Resume your previous activity Non-emergency contact: Primary Care Provider and Assistant Analyst Call non-emergency contact if: you have any medication questions, your symptoms worsen and you have a fever Follow-up/Referrals: [facility] [Primary Care Provider] - Dean Dhillon DO [Physician] - 10/09/24 11:30 am Diet: Heart Healthy Addtl Attending Provider Instructions: Mrs. Mcclendon, You were recently hospitalized for shortness of breath, fatigue, and worsening right sided back/shoulder pain with deep breathing. You were found to have pneumonia, acute congestive heart failure, and an NSTEMI. You were treated with IV antibiotics and were also evaluated by cardiology. Please see recommendations below regarding your discharge. Please take Augmentin twice daily for the next 2.5 days. Your next dose at home will be this evening, 09/28. Please take with food to avoid GI upset. Cardiology has recommended you be started on two medications for your heart: Metoprolol succinate and Farxiga. These have been sent to your pharmacy and be started tomorrow, 09/29. For the metoprolol succinate we recommend you check your pulse and blood pressure prior to the dose. If you pulse is less than 60 or if your top number (systolic) blood pressure is less than 100 pressure please hold this medication. Please use Lasix 40mg as needed if you gain > 2 pounds over 2 days or >4 pounds in a week. We recommend daily weights. We have referred you to the heart failure clinic on discharge. They will be in touch for an appointment. Please follow up with cardiology upon discharge. The remainder of your outpatient medications may be resumed. You were evaluated by respiratory therapy and you do require 2 L of oxygen with ambulation while at home. This will likely be temporary as you continue to get over pneumonia and recover from the exacerbation of your congestive heart failure. Home health will be arranged to assist with physical and occupational therapy in your home upon discharge. Please follow up with your PCP within 1-2 weeks of discharge. If you develop any chest pain, shortness of breath, fevers please report back to the ER for further care. Best of Pat sutherland PA-C Pending Studies at Discharge: No Stand-Alone Forms: [facility], Smoking Cessation Medications and DC Order Prescriptions: New metoprolol succinate 25 mg capsule,sprinkle,ER 24hr 25 mg PO DAILY Qty: 30 0RF Rx Instructions: Hold if heart rate less than 60 or SBP less than 100 dapagliflozin propanediol [Farxiga] 5 mg tablet 5 mg PO DAILY Qty: 30 0RF amoxicillin-pot clavulanate 875-125 mg tablet 1 tab PO BID Qty: 5 0RF furosemide 40 mg tablet 40 mg PO DAILY PRN (Reason: edema) Qty: 30 0RF Rx Instructions: Take if greater than 2 pounds gained over 2 days OR take if greater than 4 pounds gained in 1 week Continued levothyroxine 100 mcg tablet 100 mcg PO QAM Qty: 90 3RF gabapentin [Neurontin] 300 mg capsule 300 mg PO HS Qty: 90 1RF allopurinol 100 mg tablet 200 mg PO QAM Qty: 135 3RF acetaminophen [Tylenol Extra Strength] 500 mg tablet 1,000 mg PO TID 30 Days Qty: 180 0RF Rx Instructions: Take 3 times per day to lessen pain. aspirin [Javier Low Dose Aspirin] 81 mg tablet,delayed release (DR/EC) 81 mg PO BID 45 Days Qty: 90 0RF Rx Instructions: 45 days start date 09/07/24 multivitamin [Multiple Vitamins] tablet 1 tab PO QAM Rx Instructions: Pt currently holding medication due to upcoming planned surgery. famotidine 40 mg tablet 40 mg PO HS Qty: 90 3RF colchicine 0.6 mg tablet 0.6 mg PO BID PRN (Reason: gout) cholecalciferol (vitamin D3) [Vitamin D3] 25 mcg (1,000 unit) Tablet 25 mcg PO HS coenzyme Q10 [CoQ-10] 100 mg Capsule 100 mg PO QAM cranberry fruit concentrate 450 mg Tablet 450 mg PO QAM Rx Instructions: administer with a meal sennosides [senna] 8.6 mg Tablet 8.6 mg PO BID bacitracin 500 unit/gram Ointment 1 applic TOPICAL DAILY bisacodyl [Dulcolax (bisacodyl)] 10 mg Suppository 10 mg MT DAILY PRN (Reason: Constipation) Fleet Enema 19-7 gram/118 mL Enema 118 ml MT DAILY PRN (Reason: Constipation) alum-mag hydroxide-simeth 400-400-40 mg/5 mL Suspension 30 ml PO Q6H PRN (Reason: Constipation) ondansetron 4 mg tablet,disintegrating 4 mg PO Q6H PRN (Reason: nausea) Rx Instructions: Take as needed for nausea Repatha SureClick 140 mg/mL pen injector 140 mg subcut UD Rx Instructions: [id number]. not on list faxed from facility tramadol 50 mg tablet 50 - 100 mg PO Q8 PRN (Reason: pain) Rx Instructions: Take as needed for pain Amino Acid Capsule 1 cap PO QAM amino acids Tablet 1 tab PO QAM Rx Instructions: 1 tab daily, starting 2 weeks prior to sx. sertraline 50 mg tablet 50 mg PO QAM aspirin 81 mg Tablet,Chewable 81 mg PO UD Rx Instructions: start date 10/23/34 Discontinued acetaminophen [Tylenol] 325 mg Tablet 650 mg PO Q6H PRN (Reason: Pain/fever) tramadol 50 mg Tablet 50 mg PO Q8H PRN (Reason: Pain) No Action (DME) Hospital Bed Homecare Misc See Rx Instructions .Route Qty: 1 0RF Rx Instructions: length of need 99 months Discharge Orders: Discharge Order (Routine); Ordered 09/28/24 Ordered By: Pat More/Other Patient Handouts: Diabetes and Heart Disease, Low-Salt Choices Admission Data Admit Date/Time: 09/25/24 10:51 Attending Provider: Karin Bello Admit Provider: Arvin Wagoner Primary Care Provider: [place] Other Providers: Arvin Wagoner; Popeye Yin; Opal Herrera; [facility]Home Care Fax Other Interventions: Discharge Summary Assessment (RN) Last Done: 09/28/24 12:34 Hospital Stay Data Consultations 09/25/24 07:53 ED Decision to Admit Stat 09/25/24 12:10 Consult Cardiology Routine 09/28/24 10:25 [facility] CHF Program Referral Routine Diagnostic Imagining Performed 09/25/24 06:26 CT angio chest PE protocol Stat Pending Results Patient Have Any Pending Studies at Discharge: No Discharge Instructions Given to Patient (Per Discharging Provider) Mrs. Mcclendon, Binh were recently hospitalized for shortness of breath, fatigue, and worsening right sided back/shoulder pain with deep breathing. You were found to have pneumonia, acute congestive heart failure, and an NSTEMI. You were treated with IV antibiotics and were also evaluated by cardiology. Please see recommendations below regarding your discharge. Please take Augmentin twice daily for the next 2.5 days. Your next dose at home will be this evening, 09/28. Please take with food to avoid GI upset. Cardiology has recommended you be started on two medications for your heart: Metoprolol succinate and Farxiga. These have been sent to your pharmacy and be started tomorrow, 09/29. For the metoprolol succinate we recommend you check your pulse and blood pressure prior to the dose. If you pulse is less than 60 or if your top number (systolic) blood pressure is less than 100 pressure please hold this medication. Please use Lasix 40mg as needed if you gain > 2 pounds over 2 days or >4 pounds in a week. We recommend daily weights. We have referred you to the heart failure clinic on discharge. They will be in touch for an appointment. Please follow up with cardiology upon discharge. The remainder of your outpatient medications may be resumed. You were evaluated by respiratory therapy and you do require 2 L of oxygen with ambulation while at home. This will likely be temporary as you continue to get over pneumonia and recover from the exacerbation of your congestive heart failure. Home health will be arranged to assist with physical and occupational therapy in your home upon discharge. Please follow up with your PCP within 1-2 weeks of discharge. If you develop any chest pain, shortness of breath, fevers please report back to the ER for further care. Best of Pat sutherland PA-C Total Time Total Time Spent Total Time Spent (In Minutes): 60 Total Time Includes: Examination of the Patient, Discharge Planning, Medication Reconciliation and Communication With Other Providers Coding Level of Care Code 59835 INP/OBS DISCH >30 MIN Diagnoses CAP (community acquired pneumonia) J18.9 S/P total right hip arthroplasty Z96.641 LBBB (left bundle branch block) I44.7 GERD (gastroesophageal reflux disease) K21.9 Diabetes mellitus, type II E11.9
[2024-09-28] MEDS: METOPROLOL SUCC 25MG EXT REL TAB PO ONE (11:04)
== END 2024-09-28 13:33 | disposition home health service (06) | DRG 193 ==
LOC: SUATTDRO → ED 05:52 → EDINP 10:51 → SUATTDRO 10:51 → 2S 12:10 → 3N 09-28 01:57